=== PATIENT | female | born 1945 | race Caucasian/White ===

== ENCOUNTER 2022-10-09 11:46 | Outpatient (CLI) | payer MEDICAID | END 2022-10-09 11:47 | disposition EMS.NT | LOC: EMS 11:46 | DX: Z03.89 Encounter for observation for other suspected diseases and conditions ruled out (principal) ==

== ENCOUNTER 2023-03-20 06:37 | Outpatient (CLI) | payer MEDICARE, MEDICAID | END 2023-03-20 23:59 | disposition critical access hospital (66) | LOC: EMS 06:37 | DX: S09.90XA Unspecified injury of head, initial encounter (principal); W19.XXXA Unspecified fall, initial encounter; Y92.092 Bedroom in other non-institutional residence as the place of occurrence of the external cause | CPT/HCPCS: A0425; A0429 ==

== ENCOUNTER 2023-03-20 06:55 | Inpatient (IN) | payer MEDICARE, MEDICAID ==
[2023-03-20] MEDS ORDERED: TETANUS/DIPHTHERIA/PERTUSSIS 0.5 ML SYRINGE IM ONE (07:41)
[2023-03-20 07:46] LABS: BASOPHILS % (AUTO) 0.2 %; EOSINOPHILS # (AUTO) 0.1 10^3/uL (0.0-0.7); EOSINOPHILS % (AUTO) 1.3 %; HCT - HEMATOCRIT 36.1 % (37.0-47.0); HGB - HEMOGLOBIN 11.8 g/dL (12.0-16.0); LYMPHOCYTES # (AUTO) 0.9 10^3/uL (1.5-3.5); LYMPHOCYTES % (AUTO) 16.8 %; MEAN CORPUSCULAR HEMOGLOBIN 33.9 pg (27.0-31.0); MEAN CORPUSCULAR HGB CONC 32.7 g/dL (32.0-36.0); MEAN CORPUSCULAR VOLUME 103.7 fL (81.0-99.0); MONOCYTES # (AUTO) 0.4 10^3/uL (0.0-1.0); MONOCYTES % (AUTO) 6.5 %; NEUTROPHILS % (AUTO) 74.5 %; PLT - PLATELET COUNT 112 10^3/uL (130-450); RED BLOOD COUNT 3.48 10^6/uL (4.20-5.40); RED CELL DISTRIBUTION WIDTH 13.3 % (12.0-15.0); WHITE BLOOD COUNT 5.4 x10^3/uL (4.8-10.8)
[2023-03-20 07:48] LABS: ALBUMIN 3.6 g/dL (3.2-5.5); ALBUMIN/GLOBULIN RATIO 1.1 (1.0-2.2); BILIRUBIN,TOTAL 0.3 mg/dL (0.2-1.0); CALCIUM 10.4 mg/dL (8.5-10.3); CREATININE 2.8 mg/dL (0.6-1.3)
[2023-03-20] MEDS ORDERED: SODIUM CHLORIDE 0.9% 1,000 ML IV STA (08:18)
[2023-03-20 08:25] LABS: BILIRUBIN,URINE NEGATIVE (NEGATIVE); GLUCOSE, URINE (UA) NEGATIVE (NEGATIVE); KETONES,URINE (UA) NEGATIVE (NEGATIVE); LEUKOCYTE ESTERASE, URINE SMALL (NEGATIVE); NITRITE,URINE POSITIVE (NEGATIVE); OCCULT BLOOD,URINE NEGATIVE (NEGATIVE); PH,URINE 6.5 PH (5.0-7.5); PROTEIN,URINE NEGATIVE (NEGATIVE); UROBILINOGEN,URINE 0.2 (NORMAL) E.U./dL (NORMAL)
--- NOTE | 2023-03-20 08:25 | CT Report ---
PROCEDURE: CERVICAL SPINE WO INDICATIONS: fall/head injury/dementia TECHNIQUE: Noncontrast 3 mm thick sections acquired from the skull base to the T4 level. Sagittal and coronal r eformats were then constructed. For radiation dose reduction, the following was used: automated exp osure control, adjustment of mA and/or kV according to patient size. COMPARISON: None. FINDINGS: Image quality: Excellent. Bones: No fractures or dislocations. Visualized superior ribs are intact. Reversal of the normal ce rvical lordosis. Moderate disc disease at C5-6. Moderate disc disease at remaining levels. Soft tissues: Prevertebral soft tissues are normal in thickness. No paravertebral hematomas. No ap ical pneumothoraces. IMPRESSION: No acute, displaced fracture or traumatic subluxation. Reviewed by: Casper Massey on 03/20/2023 8:23 AM PDT Approved by: Casper Massey on 03/20/2023 8:23 AM PDT Station ID: [id number]
--- NOTE | 2023-03-20 08:26 | ED Physician Documentation ---
History of Present Illness - Stated complaint Stated Complaint: GLF/FOREHEAD LAC - Chief complaint Chief Complaint: Trauma Hd/Nk - History obtained from History obtained from: EMS - Additonal information Additional information: Patient is a 77-year-old female who resides at [facility] with a history of dementia presenting for evaluation of an unwitnessed fall. Per EMS report, staff checked on her around 5:00 and she was in her bed. They then checked on her about 45 minutes later and she was found next to her bed with a small laceration to her scalp. Per EMS staff and reported that for the past several days she has not been her usual self and has been less interactive and talkative. Patient is not able to provide any meaningful history due to her dementia and is not attempting to answer any questions. Review of Systems Unable to obtain: Dementia PD PAST MEDICAL HISTORY - Past Medical History Past Medical History: Yes Musculoskeletal: Osteoarthritis, Other Other Past Medical History: dementia - Past Surgical History Past Surgical History: No - Present Medications Home Medications: Ambulatory Orders Medication Instructions Recorded Confirmed Gabapentin [Neurontin] 300 mg PO TID 03/20/23 03/20/23 LORazepam [Ativan] 0.5 mg PO Q6H 03/20/23 03/20/23 Meloxicam [Mobic] 7.5 mg PO BID 03/20/23 03/20/23 Potassium Chloride [K-Dur] 20 meq PO 0800 03/20/23 03/20/23 QUEtiapine [SEROquel] 25 mg PO QPM 03/20/23 03/20/23 Zolpidem Tartrate [Ambien] 10 mg PO DAILY PM 03/20/23 03/20/23 hydroCHLOROthiazide [Hydrodiuril] 25 mg PO DAILY 03/20/23 03/20/23 risperiDONE [RisperDAL] 0.25 mg PO BID 03/20/23 03/20/23 traMADol [Ultram] 50 mg PO Q4-6H 03/20/23 03/20/23 traZODone [Desyrel] 50 mg PO HS 03/20/23 03/20/23 - Allergies Allergies/Adverse Reactions: Allergies Allergy/AdvReac Type Severity Reaction Status Date / Time No Known Drug Allergies Allergy Verified 03/20/23 07:15 - Social History Does the pt smoke?: No Smoking Status: Never smoker Does the pt drink ETOH?: No Does the pt have substance abuse?: No - Immunizations Immunizations are current?: Yes PD ED PE NORMAL - General General: No acute distress, Well developed/nourished, Other (Alert, makes eye contact but does not answer questions, She did verbalize a string of sentences while I was repairing her scalp laceration). No: Alert and oriented X 3 - HEENT HEENT: Atraumatic, PERRL, EOMI, Moist mucous membranes, Pharynx benign - Neck Neck: Supple, no meningeal sign. No: C-Spine cleared by NEXUS criteria (Dementia,) - Cardiac Cardiac: RRR, No murmur, Strong equal pulses - Respiratory Respiratory: No respiratory distress, Clear bilaterally - Abdomen Abdomen: Soft, Non tender - Extremities Extremities: Other (Bilateral lower extremity edema; Allows for full range of motion at all 4 extremities) - Neuro Neuro: No: Alert and oriented X 3 (Alert, does not answer any orientation questions, at times mumbles words to herself) Eye Opening: Spontaneous Motor: Localizes to Pain Verbal: Inappropriate GCS Score: 12 Results - Vitals Vitals: Vital Signs - 24 hr 03/20/23 03/20/23 03/20/23 07:07 07:26 09:28 Temperature 35.9 C L Heart Rate 60 58 L 64 Respiratory 20 20 10 L Rate Blood Pressure 136/63 H 136/63 H 145/90 H O2 Saturation 100 100 100 03/20/23 11:35 Temperature Heart Rate 69 Respiratory 11 L Rate Blood Pressure 160/83 H O2 Saturation 99 Oxygen O2 Source Room air - EKG (time done) 0850 EKG releavant findings:: EKG personally interpreted by author of this note. Relevant findings are: Rate 59, NSR, no STEMI, no ST depressions Rate: Rate (enter#) (59) Rhythm: NSR Ischemia: No: ST elevation c/w ischemia Compare to prior EKG: Old EKG unavailable - Labs Labs: Laboratory Tests 03/20/23 03/20/23 03/20/23 07:32 07:32 08:19 WBC 5.4 RBC 3.48 L Hgb 11.8 L Hct 36.1 L MCV 103.7 H MCH 33.9 H MCHC 32.7 RDW 13.3 Plt Count 112 L MPV 11.0 H Neut # (Auto) 4.0 Lymph # (Auto) 0.9 L [place] # (Auto) 0.4 Eos # (Auto) 0.1 Baso # (Auto) 0.0 Absolute Nucleated RBC 0.00 Nucleated RBC % 0.0 Sodium 146 H Potassium 5.0 H Chloride 109 Carbon Dioxide 33 H Anion Gap 4.0 L BUN 65 H Creatinine 2.8 H Estimated GFR (MDRD) 16 L Glucose 91 Calcium 10.4 H Total Bilirubin 0.3 AST 24 ALT 27 Alkaline Phosphatase 73 Total Protein 7.0 Albumin 3.6 Globulin 3.4 Albumin/Globulin Ratio 1.1 Urine Color YELLOW Urine Clarity CLEAR Urine pH 6.5 Ur Specific [place] 1.015 Urine Protein NEGATIVE Urine Glucose (UA) NEGATIVE Urine Ketones NEGATIVE Urine Occult Blood NEGATIVE Urine Nitrite POSITIVE H Urine Bilirubin NEGATIVE Urine Urobilinogen 0.2 (NORMAL) Ur Leukocyte Esterase SMALL H Urine RBC 0-5 Urine WBC 4-5 Ur Squamous Epith Cells RARE Squamous Urine Bacteria Many H Urine Mucus Few Strands Ur Microscopic Review INDICATED Urine Culture Comments INDICATED Procedures - Laceration (location) Frontal Scalp Length in cm: 2 Wound type: Linear, Clean Wound preparation: Hibiclens, Irrigated copiously NS Skin layer closure: Giselle (3) Other: Patient tolerated well, No complications, Tetanus booster given PD Medical Decision Making - ED course Complexity details: reviewed results, re-evaluated patient, d/w patient ED course: Patient is a 77-year-old female presenting for evaluation of unwitnessed fall with obvious head injury and small scalp laceration. Scalp laceration was closed with giselle. Head CT and cervical spine CT were obtained and reviewed without significant findings.Per staff at skilled nursing patient has not been at her baseline for the past several day and is not able to contribute any meaningful history. Therefore I did obtain labs with a CBC, chemistry and EKG. Urinalysis is concerning for infection. CMP is abnormal with sodium of 146, potassium of 5, creatinine of 2.8. CT of the abdomen pelvis was also obtained and I see no signs of ureter stone or obstruction. I did obtain records from [facility] and labs in September of this year demonstrated a normal creatinine at 1.0. Patient was given IV fluids as well as IV Rocephin. Di scussed the case with admitting hospitalist who will admit her for further management. 1050 - Discussed with Dr. Sullivan will place admission orders. Departure - Departure Disposition: 66 [facility] DC/Xfer Clinical Impression: QUE (acute kidney injury), UTI (urinary tract infection), Head injury, Scalp laceration, Dementia, Altered mental state Condition: Fair Discharge Date/Time: 03/20/23 13:13
--- NOTE | 2023-03-20 08:26 | CT Report ---
PROCEDURE: HEAD WO INDICATIONS: fall/head injury/dementia TECHNIQUE: Noncontrast 4.5 mm thick angled axial sections acquired from the foramen magnum to the vertex. For r adiation dose reduction, the following was used: automated exposure control, adjustment of mA and/or kV according to patient size. COMPARISON: None. FINDINGS: Image quality: Excellent. CSF spaces: Basal cisterns are patent. No extra-axial fluid collections. Ventricles are normal in size and shape. Brain: No midline shift. No intracranial masses or hemorrhage. Roca-white matter interface is norm al. Leukoaraiosis, commonly caused by chronic small vessel ischemic disease. Age-related volume loss . Skull and face: Calvarium and visualized facial bones are intact, without suspicious lesions. Sinuses: Visualized sinuses and mastoids are clear. IMPRESSION: No acute intracranial pathology Reviewed by: Casper Massey on 03/20/2023 8:24 AM PDT Approved by: Casper Massey on 03/20/2023 8:24 AM PDT Station ID: [id number]
[2023-03-20 08:28] LABS: CLARITY,URINE CLEAR (CLEAR)
[2023-03-20 08:32] LABS: BACTERIA,URINE Many /HPF (None Seen); MUCUS,URINE Few Strands; RBC,URINE 0-5 /HPF (0-5); SQUAMOUS EPITHELIAL CELL,UR RARE Squamous (<= Few)
[2023-03-20] MEDS ORDERED: cefTRIAXone 1 GM in SODIUM CHLORIDE 0.9% MINIBAG 100 ML IV STA (08:39)
--- NOTE | 2023-03-20 09:06 | CT Report ---
PROCEDURE: ABDOMEN/PELVIS WO INDICATIONS: acute renal failure TECHNIQUE: A CT scan of the abdomen and pelvis was performed without the use of intravenous contrast. Images we re recorded and evaluated at appropriate window settings. Reformats: coronal and sagittal. For radiat ion dose reduction, the following was used: automated exposure control, adjustment of mA and/or kV ac cording to patient size. COMPARISON: None. FINDINGS: Image quality: Excellent. Lung bases and heart: Cardiomegaly. CHEST: Bilateral breast implants with peripheral calcifications.. Liver: No solid mass. Gallbladder and biliary tree: No radiopaque stones or wall thickening. No biliary dilation. Spleen: No splenomegaly. Pancreas: No pancreatic ductal dilation. Adrenals: No adrenal nodule. Kidneys and ureters: No hydronephrosis. No renal cystic lesion which requires follow up. No solid mas s. Bowel and peritoneum: No bowel distension. No pathologic free fluid. Diverticulosis without evidence of diverticulitis. Lymph nodes: No central or retroperitoneal adenopathy. Vessels: No infrarenal aortic aneurysm. PELVIS Reproductive organs: Left adnexal cyst measuring 3.4 cm. Bladder: No wall thickness, accounting for underdistention. Pelvic lymph nodes: No pelvic adenopathy by size criteria. Bones: Degenerative changes throughout the thoracolumbar spine with compression fractures of L1-L3 wi th associated vacuum disc phenomenon suggesting chronic etiologies. Disc height loss at L5-S1. Other: No significant ventral or inguinal hernia. IMPRESSION: No renal stone or mass. No hydronephrosis. Scattered diverticulosis without evidence of acute diverticulitis. Left adnexal 3.4 cm cyst Cardiomegaly Reviewed by: Kulwinder Angela MD on 03/20/2023 8:05 AM PEDRO Approved by: Kulwinder Angela MD on 03/20/2023 8:05 AM PEDRO Station ID: [id number]
--- NOTE | 2023-03-20 09:20 | XRAY Report ---
PROCEDURE: Chest 1 View X-Ray INDICATIONS: AMS TECHNIQUE: One view of the chest was acquired. COMPARISON: None. FINDINGS: The patient is slightly rotated. Surgical changes and devices: Bilateral breast implants. Lungs and pleura: No pleural effusions or pneumothorax. Bibasilar atelectasis and/or scarring Mediastinum: Mediastinal contours appear normal. Heart size is normal. Bones and chest wall: No suspicious bony lesions. Overlying soft tissues appear unremarkable. Chron ic compression fractures at the thoracolumbar junction. IMPRESSION: No acute cardiopulmonary process. Reviewed by: Kulwinder Angela MD on 03/20/2023 8:18 AM PEDRO Approved by: Kulwinder Angela MD on 03/20/2023 8:18 AM PEDRO Station ID: [id number]
[2023-03-20] MEDS ORDERED: ONDANSETRON 4 MG/2 ML VIAL IVP PRN (12:55)
[2023-03-20] MEDS ORDERED: SODIUM CHLORIDE FLUSH 0.9% 10 ML SYRINGE IVP PRN (12:55)
--- NOTE | 2023-03-20 13:01 | HISTORY & PHYSICAL EXAMINATION ---
Chief Complaint - Chief Complaint Chief Complaint: AMS, GLF at her NH, QUE, UTI History of Present Illness - Admitted From Admitted From:: ED - History Obtained From History obtained from: ED provider - History of Present Illness HPI Comment/Other: This is a 77-year-old female who has a history of dementia and lives at [facility]. There is 1 page of records that we have from [facility]. Her medications show that she is on several vitamins and supplements and takes both Lasix and HCTZ daily as well as gabapentin and narcotics for pain. For the last few days she has been less communicative than normal, according to staff at [facility]. Today she had an unwitnessed fall and was found down on the floor next to her bed, with a laceration noticed on her forehead. She was brought to the ER. She underwent CT imaging of the head and neck, which were negative for hemorrhage or trauma. She underwent stapling of the laceration in the ER. She had presented minimally communicative and just staring when spoken to, but then was yelling a word salad during the stapling of her laceration. Work-up in our ER showed that the patient has QUE with a creatinine of 2.8 (usual creatinine 0.9), she is dehydrated with a sodium of 146, and has a abnormal U/A consistent with a UTI. The patient started to receive IV fluids and received IV ceftriaxone in the ER, after cultures were sent off. The ED provider then spoke to me about this patient. She will be admitted to the Hospitalist service. There is 1 page of records that we have from [facility]. Under CODE STATUS, it is blank, so by default she will be a Full Code. History - Past Medical History Neuro: reports: Dementia Musculoskeletal: reports: Osteoarthritis, Other MRSA Hx?: No Other Past Medical History: dementia - Family & Social History Living arrangement: Assisted living Social History Notes: Her past smoking and alcohol history are not known. Meds/Allgy - Home Medications Home Medications: Ambulatory Orders Medication Instructions Recorded Confirmed Furosemide [Lasix] 1 tab PO MOWEFR 03/20/23 03/20/23 Gabapentin [Neurontin] 300 mg PO TID 03/20/23 03/20/23 HYDROcod/ACETAM 5/325 [[place] 5/325] 1 tab PO Q4H PRN 03/20/23 03/20/23 LORazepam [Ativan] 0.5 mg PO Q6H PRN 03/20/23 03/20/23 Meloxicam [Mobic] 7.5 mg PO BID 03/20/23 03/20/23 Potassium Chloride [K-Dur] 20 meq PO MOWEFR 03/20/23 03/20/23 QUEtiapine [SEROquel] 25 mg PO QPM 03/20/23 03/20/23 Zolpidem Tartrate [Ambien] 10 mg PO DAILY PM 03/20/23 03/20/23 hydroCHLOROthiazide [Hydrodiuril] 25 mg PO DAILY 03/20/23 03/20/23 risperiDONE [RisperDAL] 0.25 mg PO BID 03/20/23 03/20/23 traMADol [Ultram] 50 mg PO Q4-6H 03/20/23 03/20/23 traZODone [Desyrel] 50 mg PO HS 03/20/23 03/20/23 - Allergies Allergies/Adverse Reactions: Allergies Allergy/AdvReac Type Severity Reaction Status Date / Time No Known Drug Allergies Allergy Verified 03/20/23 07:15 Review of Systems - All Other Systems All Other Systems: reports: Other (Unable to obtain since the patient is not communicative currently and has underlying dementia) Exam - Vital Signs Vital Signs: Vital Signs x48h Temp Pulse Resp BP Pulse Ox 03/20/23 11:35 69 11 L 160/83 H 99 03/20/23 09:28 64 10 L 145/90 H 100 03/20/23 07:26 58 L 20 136/63 H 100 03/20/23 07:07 35.9 C L 60 20 136/63 H 100 - Physical Exam General Appearance: positive: No acute distress, Lethargic Eyes Bilateral: positive: No lid inflammation ENT: positive: Dry mucous membranes Neck: positive: Nml inspection Respiratory: positive: No respiratory distress Cardiovascular: positive: Regular rate & rhythm Abdomen: positive: No distention Skin: positive: Warm, Dry Extremities: positive: No pedal edema Neurologic/Psychiatric: positive: Other (Lethargic. Stares ahead without answering.) Conclusion/Plan - Problem List (1) Altered mental state Conclusion/Plan: Staff at her [facility] reported to our ER that the patient has already had several days of having decreased interactions. Today she was found down on the ground at the [place]. Here she is not communicative but only stares ahead when being spoken to. Her AMS is likely from the combination of her UTI, her dehydration, and possibly from today's fall and head injury. Plan: We will treat the underlying UTI with IV antibiotics We will treat the dehydration and QUE with IV fluids Give supportive care We will order PT and OT eval and treatment (2) UTI (urinary tract infection) Conclusion/Plan: Abnormal urinalysis found. This may explain the several recent days that she has had decreased social interactions at her [facility]. Abdominal imaging done in ER showed no hydronephrosis, obstruction or stones. Plan: Continue with empiric IV ceftriaxone Await urine culture and blood culture results to tailor antibiotics (3) QUE (acute kidney injury) Conclusion/Plan: This is likely caused by being on 2 diuretics causing dehydration Plan: Avoid nephrotoxins Continue with IV fluids Follow BMP daily (4) Fall at [facility]pc Conclusion/Plan: This was unwitnessed. Plan: We will place the patient on telemetry and watch for arrhythmias We will check orthostatic vital signs We will not give her the Lasix and HCTZ and would not recommend that to diuretics be continued in the future When she is more awake and alert and communicative like her usual self, will order PT and OT evaluations (5) Scalp laceration Conclusion/Plan: This was already stapled by the ER provider Plan: We will offer pain meds as needed (6) Dementia Conclusion/Plan: As per history. Plan: We will resume any meds for dementia if she is on these, once the medication list is reconciled by pharmacy - Lab Results Fish Bones: 03/20/23 07:32 03/20/23 07:32 - Other Other Results/Comments: Attestation: The patient is expected to be hospitalized for >2 midnights and is expected to be discharged or transferred within 96 hours: Yes.
[2023-03-20] MEDS: DEXTROSE 5%-0.45% NACL 1,000 ML IV SCH ×2 (13:43→22:09)
--- NOTE | 2023-03-20 14:50 | PHARMACY PROGRESS NOTE ---
- Best Possible Medication History Admit Date and Time: 03/20/23 7385 Processed by: Pharmacy Medication History completed: Yes Patient Interview: Pt unable to participate Secondary Source(s): Facility MAR as ONLY source As the person ultimately responsible for medication therapy, providers are able to order a medication from an existing home medication list in [facility] via the "Reconcile Routine" prior to Confirmation of that medication by web support engineer. Such practice is discouraged except when the physician, in their clinical judgment, deems that a medical need exists for a medication without regard to previous use.
[2023-03-20] MEDS: SODIUM CHLORIDE FLUSH 0.9% 10 ML SYRINGE IVP SCH ×2 (16:07→23:28)
[2023-03-20] MEDS: ZINC OXIDE 20% OINT 30 GM TUBE TOP PRN (20:43)
[2023-03-21 03:32] LABS: ALBUMIN/GLOBULIN RATIO 1.1 (1.0-2.2); BILIRUBIN,TOTAL 0.2 mg/dL (0.2-1.0); CALCIUM 9.1 mg/dL (8.5-10.3); CREATININE 2.4 mg/dL (0.6-1.3); MAGNESIUM 1.8 mg/dL (1.7-2.3); POTASSIUM 4.1 mmol/L (3.5-4.5); TOTAL PROTEIN 5.7 g/dL (6.4-8.9)
[2023-03-21] MEDS: DEXTROSE 5%-0.45% NACL 1,000 ML IV SCH ×2 (08:08→19:06)
[2023-03-21] MEDS: cefTRIAXone 1 GM in SODIUM CHLORIDE 0.9% MINIBAG 100 ML IV SCH (08:36)
[2023-03-21] MEDS: SODIUM CHLORIDE FLUSH 0.9% 10 ML SYRINGE IVP SCH ×2 (08:37→15:34)
--- NOTE | 2023-03-21 08:40 | PROVIDER PROGRESS NOTE ---
Assessment/Plan - Problem List (1) Altered mental state Assessment/Plan: Staff at her correction reported to our ER that the patient had several days of having decreased interactions. On 03/20 she was [place]. Here she is not answering verbally but only stares ahead when being spoken to. She had CT head and this showed no acute findings. Her AMS is likely from the combination of her UTI, her dehydration and uremia, and possibly from the fall and head injury. Alternatively she may have had a stroke that was not yet visible by CT imaging. Her med list was reconciled and she was taking 7 medications that could have caused oversedation There has been slight improvementtoday, since yesterday, in that she is now speaking to herself, but it is gibberish. Plan: Remain off the medications on her med list that could add to oversedation: Gabapentin, [place] which was prn, Lorazepam which was prn, Quetiapine, Risperdal, Ultram, Desyrel, and Zolpidem Cont to treat the underlying UTI with IV antibiotics Cont to treat the dehydration and QUE with IV fluids Will either get a brain MRI (which we do not have available today, M[place]), or will repeat head CT if there is no further speech improvement tomorrow. I will order PT and OT eval and treatment, when she is more alert (2) UTI (urinary tract infection) Conclusion/Plan: Abnormal urinalysis found. This may explain the several recent days that she has had decreased social interactions at her correction. Abdominal imaging done in ER showed no hydronephrosis, obstruction or stones. Plan: Continue with empiric IV ceftriaxone Await urine culture and blood culture results to tailor antibiotics (3) QUE (acute kidney injury) Conclusion/Plan: She presented with a creatinine of 2.8. Her usual creatinine is 0.9. All labs were reviewed. Her creatinine today is improved to 2.4 This is likely caused by being on 2 diuretics causing dehydration. In addition, she has been less interactive so poosibly taking in less fluids orally lately. Plan: Avoid nephrotoxins Continue with IV maintemance fluids Follow BMP daily (4) Bradycardia Conclusion/Plan: Because of the fall at the correction, she was put on bradycardia to watch for arrhythmias. Telemetry shows that she has frequent sinus arrhythmia, producing heart rates as low as 34 nearly a minute. Her admission EKG was also abnormal showing T wave changes which suggest ischemia Plan: We will obtain an Echocardiogram (we have no composite technician here today or for the next 2 days) We will order a set of troponins We will order TSH to evaluate for hypothyroidism Avoid any heart rate-slowing medications Remain on telemetry (5) Fall at correction Conclusion/Plan: This was unwitnessed. It did cause a scalp laceration. Her head and neck were "cleared" with CT imaging showing no acute findings. Plan: Remain on telemetry and watch for arrhythmias We will check orthostatic vital signs We will not give her the Lasix and HCTZ and would not recommend that those diuretics be continued in the future When she is more awake and alert and communicative like her usual self, will order PT and OT evaluations (6) Scalp laceration Conclusion/Plan: This was already stapled by the ER provider Plan: We will offer pain meds as needed (7) Dementia Conclusion/Plan: As per history. Her baseline function is unknown to me. We were told that she was less engaged over the recent few days. In looking at her body habitus she is very poorly kempt, dirty, greasy as if she has not had personal hygiene for many days. In looking at her medication list, she may have had dementia with behavior disturbances, since she was on Quetiapine, Risperdal, and Desyrel Plan: Will order a shower and hygiene care. Remain off the psych medicines since she is currently at risk for oversedation - Current Meds Current Meds: Current Medications Generic Name Dose Route Start Last Admin Trade Name Gaurangq PRN Reason Stop Dose Admin Dextrose/Sodium Chloride 1,000 mls @ 100 mls/hr 03/20/23 13:00 03/21/23 08:08 D5.45ns IV 100 mls/hr .Q10H COREY Administration Multi-Ingredient Ointment 1 applic 03/20/23 20:36 03/20/23 20:43 Zinc Oxide 20% Oint 30 Gm Tube TOP 1 applic PRN PRN Administration Skin Care Sodium Chloride 10 ml 03/20/23 17:00 03/20/23 23:28 Sodium Chloride Flush 0.9% 10 Ml Syringe IVP Not Given 0100,0900,1700 COREY - Lab Result Fish Bone Diagrams: 03/21/23 03:07 03/21/23 03:07 - Additional Planning My Orders: My Active Orders 03/20/23 12:55 Activity Orders [RC] Q2HR IO [RC] IOSHIFT Initiate Bowel Care Protocol [RC] .protocol Initiate Flu Vaccine Screening [RC] ONCE Initiate Line Care Protocol [RC] QSHIFT Initiate Personal Care Protoco [RC] .protocol Initiate Pneumonia Vaccine Scr [RC] ONCE Oxygen Therapy [RC] .PRN Telemetry- [RC] Q4HR Vital Signs [RC] Q4HR Acetaminophen [Tylenol] 650 mg PO Q4HR PRN Ondansetron Inj [Zofran Inj] 4 mg IVP Q6HR PRN Sodium Chloride Flush 0.9% [Normal Saline Flush 0.9%] 10 ml IVP PRN PRN Code Status [OTHERS] Routine Condition of Patient [OTHERS] Routine DVT Prophylaxis [OTHERS] Routine 03/20/23 12:57 Daily Weight [RC] 0600 IV Insert [RC] .ONCE 03/20/23 12:58 Initiate Line Care Protocol [RC] QSHIFT SCDs [RC] QSHIFT 03/20/23 13:00 Dextrose 5%-0.45% NaCl [D5.45ns] 1,000 ml IV 100 mls/hr 03/20/23 17:00 Sodium Chloride Flush 0.9% [Normal Saline Flush 0.9%] 10 ml IVP 0100,0900,1700 03/20/23 18:26 Miscellaenous Nursing Order [RC] QSHIFT 03/20/23 20:36 Zinc Oxide 20% Oint [Zinc Oxide] 1 applic TOP PRN PRN 03/21/23 TROPONIN I HIGH SENSITIVITY [CHEM] Stat 03/21/23 Breakfast Soft Mechanical Diet [DIET] 03/21/23 05:00 THYROID STIMULATING HORMONE [CHEM] Routine 03/21/23 08:31 CBC - COMP BLD CT W/AUTO DIFF [HEME] Urgent 03/21/23 09:00 cefTRIAXone [Rocephin] 1 gm Sodium Chloride 0.9% Minibag [Normal Saline 0.9% Minibag] 100 ml IV DAILY 03/21/23 11:30 TROPONIN I HIGH SENSITIVITY [CHEM] Urgent 03/22/23 05:00 BMP - BASIC METABOLIC PANEL [CHEM] DAILYLAB CBC - COMP BLD CT W/AUTO DIFF [HEME] DAILYLAB 03/23/23 05:00 BMP - BASIC METABOLIC PANEL [CHEM] DAILYLAB CBC - COMP BLD CT W/AUTO DIFF [HEME] DAILYLAB 03/23/23 07:00 Echo Transthoracic Complete [ECHO] Routine 03/24/23 05:00 BMP - BASIC METABOLIC PANEL [CHEM] DAILYLAB CBC - COMP BLD CT W/AUTO DIFF [HEME] DAILYLAB Subjective - Subjective Patient Reports: Resting Comfortably, Other (No complaints, no speech when spoken to, but speaks giberish to herself at times) Objective Vital Signs: Vital Signs - 24 hr 03/20/23 03/20/23 03/20/23 09:28 11:35 13:31 Temperature Heart Rate 64 69 Heart Rate [ 59 L Brachial] Respiratory 10 L 11 L 20 Rate Blood Pressure 145/90 H 160/83 H Blood Pressure 147/73 H [Left Brachial artery] Blood Pressure [Right Brachial artery] O2 Saturation 100 99 99 03/20/23 03/20/23 03/20/23 15:38 16:50 17:09 Temperature 35.3 C L Heart Rate Heart Rate [ 67 63 64 Brachial] Respiratory 20 18 Rate Blood Pressure Blood Pressure 142/55 H 153/85 H [Left Brachial artery] Blood Pressure [Right Brachial artery] O2 Saturation 99 98 03/20/23 03/20/23 03/20/23 17:22 17:47 18:23 Temperature 36.0 C L Heart Rate Heart Rate [ 55 L 67 Brachial] Respiratory 18 Rate Blood Pressure Blood Pressure 111/73 [Left Brachial artery] Blood Pressure [Right Brachial artery] O2 Saturation 97 03/20/23 03/20/23 03/21/23 20:19 23:55 01:54 Temperature 35.4 C L 36.1 C L Heart Rate Heart Rate [ 62 66 69 Brachial] Respiratory 20 20 Rate Blood Pressure Blood Pressure 144/76 H 115/73 [Left Brachial artery] Blood Pressure 136/84 H [Right Brachial artery] O2 Saturation 97 97 03/21/23 03/21/23 05:00 07:47 Temperature 36.3 C L 36.4 C L Heart Rate Heart Rate [ 70 65 Brachial] Respiratory 16 18 Rate Blood Pressure Blood Pressure [Left Brachial artery] Blood Pressure 125/63 119/63 [Right Brachial artery] O2 Saturation 95 97 Oxygen O2 Source Room air I&O (Last 24 Hrs): Intake and Output Totals x24h 03/19/23 03/20/23 03/21/23 23:59 23:59 23:59 Intake Total 2093.333 998.333 Output Total 150 400 Balance 1943.333 598.333 General: Alert HEENT: Other (Dry mucosa, disheveld) Neck: Supple Neuro: Alert, Other (Stares ahead. Gibberish speech, moves allextrem spont aneously) Cardiovascular: Regular rate Respiratory: No respiratory distress Abdomen: Soft Extremities: No clubbing, No edema - Results Results: Laboratory Results WBC 5.4 x10^3/uL (4.8-10.8) 03/20/23 07:32 RBC 3.48 10^6/uL (4.20-5.40) L 03/20/23 07:32 Hgb 11.8 g/dL (12.0-16.0) L 03/20/23 07:32 Hct 36.1 % (37.0-47.0) L 03/20/23 07:32 MCV 103.7 fL (81.0-99.0) H 03/20/23 07:32 MCH 33.9 pg (27.0-31.0) H 03/20/23 07:32 MCHC 32.7 g/dL (32.0-36.0) 03/20/23 07:32 RDW 13.3 % (12.0-15.0) 03/20/23 07:32 Plt Count 112 10^3/uL (130-450) L 03/20/23 07:32 MPV 11.0 fL (7.9-10.8) H 03/20/23 07:32 Neut # (Auto) 4.0 10^3/uL (1.5-6.6) 03/20/23 07:32 Lymph # (Auto) 0.9 10^3/uL (1.5-3.5) L 03/20/23 07:32 [place] # (Auto) 0.4 10^3/uL (0.0-1.0) 03/20/23 07:32 Eos # (Auto) 0.1 10^3/uL (0.0-0.7) 03/20/23 07:32 Baso # (Auto) 0.0 10^3/uL (0.0-0.1) 03/20/23 07:32 Absolute Nucleated RBC 0.00 x10^3/uL 03/20/23 07:32 Nucleated RBC % 0.0 /100WBC 03/20/23 07:32 Sodium 145 mmol/L (135-145) 03/21/23 03:07 Potassium 4.1 mmol/L (3.5-4.5) 03/21/23 03:07 Chloride 112 mmol/L (101-111) H 03/21/23 03:07 Carbon Dioxide 29 mmol/L (21-32) 03/21/23 03:07 Anion Gap 4.0 (6-13) L 03/21/23 03:07 BUN 53 mg/dL (6-20) H 03/21/23 03:07 Creatinine 2.4 mg/dL (0.6-1.3) H 03/21/23 03:07 Estimated GFR (MDRD) 20 (>89) L 03/21/23 03:07 Glucose 92 mg/dL (74-104) 03/21/23 03:07 Calcium 9.1 mg/dL (8.5-10.3) 03/21/23 03:07 Magnesium 1.8 mg/dL (1.7-2.3) 03/21/23 03:07 Total Bilirubin 0.2 mg/dL (0.2-1.0) 03/21/23 03:07 AST 19 IU/L (10-42) 03/21/23 03:07 ALT 21 IU/L (10-60) 03/21/23 03:07 Alkaline Phosphatase 61 IU/L (42-121) 03/21/23 03:07 Total Protein 5.7 g/dL (6.4-8.9) L 03/21/23 03:07 Albumin 3.0 g/dL (3.2-5.5) L 03/21/23 03:07 Globulin 2.7 g/dL (2.1-4.2) 03/21/23 03:07 Albumin/Globulin Ratio 1.1 (1.0-2.2) 03/21/23 03:07 Urine Color YELLOW 03/20/23 08:19 Urine Clarity CLEAR (CLEAR) 03/20/23 08:19 Urine pH 6.5 PH (5.0-7.5) 03/20/23 08:19 Ur Specific [place] 1.015 (1.002-1.030) 03/20/23 08:19 Urine Protein NEGATIVE mg/dL (NEGATIVE) 03/20/23 08:19 Urine Glucose (UA) NEGATIVE mg/dL (NEGATIVE) 03/20/23 08:19 Urine Ketones NEGATIVE mg/dL (NEGATIVE) 03/20/23 08:19 Urine Occult Blood NEGATIVE (NEGATIVE) 03/20/23 08:19 Urine Nitrite POSITIVE (NEGATIVE) H 03/20/23 08:19 Urine Bilirubin NEGATIVE (NEGATIVE) 03/20/23 08:19 Urine Urobilinogen 0.2 (NORMAL) E.U./dL (NORMAL) 03/20/23 08:19 Ur Leukocyte Esterase SMALL (NEGATIVE) H 03/20/23 08:19 Urine RBC 0-5 /HPF (0-5) 03/20/23 08:19 Urine WBC 4-5 /HPF (0-5) 03/20/23 08:19 Ur Squamous Epith Cells RARE Squamous (<= Few) 03/20/23 08:19 Urine Bacteria Many /HPF (None Seen) H 03/20/23 08:19 Urine Mucus Few Strands 03/20/23 08:19 Ur Microscopic Review INDICATED 03/20/23 08:19 Urine Culture Comments INDICATED 03/20/23 08:19
[2023-03-21 08:55] LABS: BASOPHILS % (AUTO) 0.2 %; EOSINOPHILS # (AUTO) 0.1 10^3/uL (0.0-0.7); EOSINOPHILS % (AUTO) 2.5 %; HCT - HEMATOCRIT 31.7 % (37.0-47.0); HGB - HEMOGLOBIN 10.1 g/dL (12.0-16.0); LYMPHOCYTES % (AUTO) 22.8 %; MEAN CORPUSCULAR HEMOGLOBIN 33.1 pg (27.0-31.0); MEAN CORPUSCULAR HGB CONC 31.9 g/dL (32.0-36.0); MEAN CORPUSCULAR VOLUME 103.9 fL (81.0-99.0); MEAN PLATELET VOLUME 11.7 fL (7.9-10.8); MONOCYTES # (AUTO) 0.3 10^3/uL (0.0-1.0); MONOCYTES % (AUTO) 7.1 %; PLT - PLATELET COUNT 97 10^3/uL (130-450); RED BLOOD COUNT 3.05 10^6/uL (4.20-5.40); RED CELL DISTRIBUTION WIDTH 13.2 % (12.0-15.0); WHITE BLOOD COUNT 4.5 x10^3/uL (4.8-10.8)
[2023-03-22] MEDS: SODIUM CHLORIDE FLUSH 0.9% 10 ML SYRINGE IVP SCH ×3 (03:17→20:47)
[2023-03-22] MEDS: DEXTROSE 5%-0.45% NACL 1,000 ML IV SCH ×2 (04:29→15:32)
[2023-03-22 05:19] LABS: BASOPHILS % (AUTO) 0.2 %; EOSINOPHILS # (AUTO) 0.1 10^3/uL (0.0-0.7); EOSINOPHILS % (AUTO) 2.4 %; HCT - HEMATOCRIT 31.1 % (37.0-47.0); LYMPHOCYTES # (AUTO) 1.1 10^3/uL (1.5-3.5); LYMPHOCYTES % (AUTO) 22.3 %; MEAN CORPUSCULAR HEMOGLOBIN 33.4 pg (27.0-31.0); MEAN CORPUSCULAR HGB CONC 32.2 g/dL (32.0-36.0); MEAN PLATELET VOLUME 11.1 fL (7.9-10.8); MONOCYTES # (AUTO) 0.3 10^3/uL (0.0-1.0); MONOCYTES % (AUTO) 6.7 %; NEUTROPHILS # (AUTO) 3.3 10^3/uL (1.5-6.6); NEUTROPHILS % (AUTO) 67.6 %; PLT - PLATELET COUNT 97 10^3/uL (130-450); RED BLOOD COUNT 2.99 10^6/uL (4.20-5.40); RED CELL DISTRIBUTION WIDTH 13.4 % (12.0-15.0); WHITE BLOOD COUNT 4.9 x10^3/uL (4.8-10.8)
[2023-03-22 05:35] LABS: CALCIUM 8.6 mg/dL (8.5-10.3); CREATININE 2.1 mg/dL (0.6-1.3); POTASSIUM 3.7 mmol/L (3.5-4.5)
[2023-03-22] MEDS: ACETAMINOPHEN 325 MG TABLET PO PRN (07:49)
[2023-03-22] MEDS: ZINC OXIDE 20% OINT 30 GM TUBE TOP PRN (07:58)
[2023-03-22] MEDS: cefTRIAXone 1 GM in SODIUM CHLORIDE 0.9% MINIBAG 100 ML IV SCH (07:58)
--- NOTE | 2023-03-22 10:24 | PROVIDER PROGRESS NOTE ---
Assessment/Plan - Problem List (1) Altered mental state Assessment/Plan: Staff at [facility], her fpc, reported to our ER provider, who told me, that the "patient had several days of having decreased interactions". On 03/20 she was found [place] ground at the [place]. At admission, she was not an swering verbally but only stareing ahead when being spoken to. Her head CT head showed no acute findings. At admission, her AMS was felt likely from the combination of her UTI, her dehydration and uremia Her med list was reconciled and she was taking 7 medications that could have caused oversedation. They are all on hold. There has been improvement since admission 2 days ago, in that she is now sp eaking to herself alot, and also able to sometimes answer staff appropriately. Today I learned from social work that when Risperidone was started for combativeness, she had changed to requiring full care for the last 2 weeks. Today I obtained and reviewed the last office records from Dr. Marge Rodriguez regarding her underlying psychiatric diagnoses>> that note was in 10/01 and Dx was just Anxiety. Today I obtained and reviewed the Psych eval from 12/29, done at [facility]. Impression was dementia with behavioral disturbances. She scored 0 on her slums score with severe cognitive impairment. The recommendation was to Decrease or stop lorazepam as it could be adding to confusion and contributing to falls. Also recommended was to decrease and discontinue Quetiapine. Also recommended was to start Risperidone slowly and increase it, "to use it as an antipsychotic, found to be effective in managing aggression, agitation and paranoid delusions, and for sleep disturbances in the setting of dementia". Plan: Remain off the medications on her med list that could add to oversedation: Gabapentin, [place] which was prn, Lorazepam which was prn, Quetiapine, Ultram, Desyrel, and Zolpidem. Resume just her Risperdal I will consider getting a telepsych consultion on her Cont to treat the underlying UTI with IV antibiotics Cont to treat the dehydration and QUE with IV fluids I will order PT and OT eval and treatment, when she is more alert and if she is able to follow directions (2) UTI (urinary tract infection) Conclusion/Plan: Abnormal urinalysis found. This may explain any recent several days that she has had decreased social interactions at her fpc. Abdominal imaging done in ER showed no hydronephrosis, obstruction or stones. Plan: Continue with empiric IV ceftriaxone Await urine culture and blood culture results to tailor antibiotics (3) QUE (acute kidney injury) Conclusion/Plan: She presented with a creatinine of 2.8. Her usual creatinine is 0.9. All labs were reviewed. Her creatinine has improved to 2.4 yesterday and 2.1 today This is likely caused by being on 2 diuretics causing dehydration. In addition, she has been less interactive so possibly taking in less fluids orally lately. Plan: Avoid nephrotoxins Continue with IV maintemance fluids Follow BMP daily (4) Bradycardia Conclusion/Plan: Because of the fall at the fpc, she was put on bradycardia to watch for arrhythmias. Telemetry shows that she has frequent sinus arrhythmia, producing heart rates as low as 30, for nearly a minute. Her admission EKG was also abnormal showing T wave changes which suggest ischemia. I checked a set of troponins and these were Her TSH to evaluate for hypothyroidism Plan: We will obtain an Echocardiogram (we have no non destructive testing technician here today, until tomorrow) Avoid any heart rate-slowing medications Remain on telemetry (5) Fall at fpc Conclusion/Plan: This was unwitnessed. It did cause a scalp laceration. Her head and neck were "cleared" with CT imaging showing no acute findings. Plan: Remain on telemetry and watch for arrhythmias Cont to check orthostatic vital signs We will not give her the Lasix and HCTZ and would not recommend that those diuretics be continued in the future When she is more awake and alert and communicative like her usual self, will order PT and OT evaluations (6) Scalp laceration Conclusion/Plan: This was already stapled by the ER provider Plan: We will offer pain meds as needed (7) Frequent falls Conclusion/Plan: Today I obtained and reviewed the Psych eval from 12/29, done at [facility]. The nurses told the psychiatrist and in the final diagnosis are "frequent fa lls". Plan: If the patient cannot ambulate safely then she should not be left alone as she was in her [facility] room. She would need to be bedbound or wheelchair- bound, or need higher level of caregivinh. (8) Dementia with behavioral disturbances Conclusion/Plan: Her baseline function was unknown to me. In looking at her medication list, she likely has dementia with behavior disturbances, since she was on Quetiapine, Risperdal, and Desyrel. We were told that she was less engaged over the recent few days. Today I learned from social work that when Risperidone was started for combativeness, she had changed to requiring full care for the last 2 weeks. In looking at her body habitus she is very poorly kempt, dirty, greasy as if she has not had personal hygiene for many days. Today I obtained and reviewed the Psych eval from 12/29, done at [facility]. Impression was dementia with behavioral disturbances. She scored 0 on her slums score with severe cognitive impairment. The recommendation was to Decrease or stop lorazepam as it could be adding to confusion and contributing to falls. Also recommended was to decrease and discontinue Quetiapine. Also recommended was to start Risperidone slowly and increase it, "to use it as an antipsychotic, found to be effective in managing aggression, agitation and paranoid delusions, and for sleep disturbances in the setting of dementia". Plan: I will order a shower and hygiene care. Will resumed just the Risperidone - Current Meds Current Meds: Current Medications Generic Name Dose Route Start Last Admin Trade Name Freq PRN Reason Stop Dose Admin Acetaminophen 650 mg 03/20/23 12:55 03/22/23 07:49 Acetaminophen 325 Mg Tablet PO 650 mg Q4HR PRN Administration Pain 1 to 4, or Fever Dextrose/Sodium Chloride 1,000 mls @ 100 mls/hr 03/20/23 13:00 03/22/23 04:29 D5.45ns IV 100 mls/hr .Q10H COREY Administration Ceftriaxone Sodium 1 gm/ 100 mls @ 200 mls/hr 03/21/23 09:00 03/22/23 09:00 Sodium Chloride IV Infused DAILY COREY Infusion Multi-Ingredient Ointment 1 applic 03/20/23 20:36 03/22/23 07:58 Zinc Oxide 20% Oint 30 Gm Tube TOP 1 applic PRN PRN Administration Skin Care Sodium Chloride 10 ml 03/20/23 17:00 03/22/23 07:58 Sodium Chloride Flush 0.9% 10 Ml Syringe IVP 10 ml 0100,0900,1700 COREY Administration - Lab Result Fish Bone Diagrams: 03/22/23 04:49 03/22/23 04:49 - Additional Planning My Orders: My Active Orders 03/21/23 10:18 Shower [RC] PRN 03/23/23 05:00 BMP - BASIC METABOLIC PANEL [CHEM] DAILYLAB CBC - COMP BLD CT W/AUTO DIFF [HEME] DAILYLAB 03/23/23 07:00 Echo Transthoracic Complete [ECHO] Routine 03/24/23 05:00 BMP - BASIC METABOLIC PANEL [CHEM] DAILYLAB CBC - COMP BLD CT W/AUTO DIFF [HEME] DAILYLAB Subjective - Subjective Nursing Reports: Confused, Other (More interactive, talking some gibberish and word salad but 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, 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) Objective Vital Signs: Vital Signs - 24 hr 03/21/23 03/21/23 03/21/23 11:11 12:18 15:30 Temperature 36.4 C L 36.2 C L 36.2 C L Heart Rate [ 68 63 Brachial] Respiratory 18 16 Rate Blood Pressure 123/67 [Left Brachial artery] Blood Pressure 141/74 H [Right Brachial artery] O2 Saturation 97 98 03/21/23 03/21/23 03/22/23 20:14 23:30 04:36 Temperature 36.3 C L 36.5 C 36.3 C L Heart Rate [ 65 68 58 L Brachial] Respiratory 16 20 20 Rate Blood Pressure 126/73 129/79 129/93 H [Left Brachial artery] Blood Pressure [Right Brachial artery] O2 Saturation 96 96 94 03/22/23 07:26 Temperature 36.2 C L Heart Rate [ 56 L Brachial] Respiratory 16 Rate Blood Pressure 131/56 H [Left Brachial artery] Blood Pressure [Right Brachial artery] O2 Saturation 98 Oxygen O2 Source Room air I&O (Last 24 Hrs): Intake and Output Totals x24h 03/20/23 03/21/23 03/22/23 23:59 23:59 23:59 Intake Total 2093.333 2888.333 1058.333 Output Total 150 1000 1000 Balance 4012.719 7329.333 58.333 General: Alert, No acute distress HEENT: Mucous membr. moist/pink, Other (Appears disheveled) Neck: Supple Neuro: Alert, Disoriented Cardiovascular: Regular rate Respiratory: No respiratory distress Abdomen: Soft Extremities: No edema - Results Results: Laboratory Results WBC 4.9 x10^3/uL (4.8-10.8) 03/22/23 04:49 RBC 2.99 10^6/uL (4.20-5.40) L 03/22/23 04:49 Hgb 10.0 g/dL (12.0-16.0) L 03/22/23 04:49 Hct 31.1 % (37.0-47.0) L 03/22/23 04:49 MCV 104.0 fL (81.0-99.0) H 03/22/23 04:49 MCH 33.4 pg (27.0-31.0) H 03/22/23 04:49 MCHC 32.2 g/dL (32.0-36.0) 03/22/23 04:49 RDW 13.4 % (12.0-15.0) 03/22/23 04:49 Plt Count 97 10^3/uL (130-450) L 03/22/23 04:49 MPV 11.1 fL (7.9-10.8) H 03/22/23 04:49 Neut # (Auto) 3.3 10^3/uL (1.5-6.6) 03/22/23 04:49 Lymph # (Auto) 1.1 10^3/uL (1.5-3.5) L 03/22/23 04:49 [place] # (Auto) 0.3 10^3/uL (0.0-1.0) 03/22/23 04:49 Eos # (Auto) 0.1 10^3/uL (0.0-0.7) 03/22/23 04:49 Baso # (Auto) 0.0 10^3/uL (0.0-0.1) 03/22/23 04:49 Absolute Nucleated RBC 0.00 x10^3/uL 03/22/23 04:49 Nucleated RBC % 0.0 /100WBC 03/22/23 04:49 Sodium 143 mmol/L (135-145) 03/22/23 04:49 Potassium 3.7 mmol/L (3.5-4.5) 03/22/23 04:49 Chloride 114 mmol/L (101-111) H 03/22/23 04:49 Carbon Dioxide 25 mmol/L (21-32) 03/22/23 04:49 Anion Gap 4.0 (6-13) L 03/22/23 04:49 BUN 37 mg/dL (6-20) H 03/22/23 04:49 Creatinine 2.1 mg/dL (0.6-1.3) H 03/22/23 04:49 Estimated GFR (MDRD) 23 (>89) L 03/22/23 04:49 Glucose 86 mg/dL (74-104) 03/22/23 04:49 Calcium 8.6 mg/dL (8.5-10.3) 03/22/23 04:49 Magnesium 1.8 mg/dL (1.7-2.3) 03/21/23 03:07 Total Bilirubin 0.2 mg/dL (0.2-1.0) 03/21/23 03:07 AST 19 IU/L (10-42) 03/21/23 03:07 ALT 21 IU/L (10-60) 03/21/23 03:07 Alkaline Phosphatase 61 IU/L (42-121) 03/21/23 03:07 Troponin I High Sens 11.0 ng/L (2.3-14.8) 03/21/23 11:32 Total Protein 5.7 g/dL (6.4-8.9) L 03/21/23 03:07 Albumin 3.0 g/dL (3.2-5.5) L 03/21/23 03:07 Globulin 2.7 g/dL (2.1-4.2) 03/21/23 03:07 Albumin/Globulin Ratio 1.1 (1.0-2.2) 03/21/23 03:07 TSH 8.44 uIU/mL (0.34-5.60) H 03/21/23 03:07 Free T4 Direct 0.79 ng/dL (0.58-1.64) 03/22/23 04:40 Urine Color YELLOW 03/20/23 08:19 Urine Clarity CLEAR (CLEAR) 03/20/23 08:19 Urine pH 6.5 PH (5.0-7.5) 03/20/23 08:19 Ur Specific [place] 1.015 (1.002-1.030) 03/20/23 08:19 Urine Protein NEGATIVE mg/dL (NEGATIVE) 03/20/23 08:19 Urine Glucose (UA) NEGATIVE mg/dL (NEGATIVE) 03/20/23 08:19 Urine Ketones NEGATIVE mg/dL (NEGATIVE) 03/20/23 08:19 Urine Occult Blood NEGATIVE (NEGATIVE) 03/20/23 08:19 Urine Nitrite POSITIVE (NEGATIVE) H 03/20/23 08:19 Urine Bilirubin NEGATIVE (NEGATIVE) 03/20/23 08:19 Urine Urobilinogen 0.2 (NORMAL) E.U./dL (NORMAL) 03/20/23 08:19 Ur Leukocyte Esterase SMALL (NEGATIVE) H 03/20/23 08:19 Urine RBC 0-5 /HPF (0-5) 03/20/23 08:19 Urine WBC 4-5 /HPF (0-5) 03/20/23 08:19 Ur Squamous Epith Cells RARE Squamous (<= Few) 03/20/23 08:19 Urine Bacteria Many /HPF (None Seen) H 03/20/23 08:19 Urine Mucus Few Strands 03/20/23 08:19 Ur Microscopic Review INDICATED 03/20/23 08:19 Urine Culture Comments INDICATED 03/20/23 08:19
[2023-03-22] MEDS: MULTIVITAMIN W/MINERALS TABLET PO SCH (11:58)
[2023-03-22] MEDS: risperiDONE 0.25 MG TABLET PO SCH (20:47)
[2023-03-23] MEDS: SODIUM CHLORIDE FLUSH 0.9% 10 ML SYRINGE IVP SCH ×3 (00:24→17:01)
[2023-03-23] MEDS: DEXTROSE 5%-0.45% NACL 1,000 ML IV SCH ×3 (01:35→22:21)
[2023-03-23 05:08] LABS: BASOPHILS % (AUTO) 0.1 %; EOSINOPHILS # (AUTO) 0.1 10^3/uL (0.0-0.7); EOSINOPHILS % (AUTO) 1.8 %; MEAN CORPUSCULAR HGB CONC 32.5 g/dL (32.0-36.0); MONOCYTES # (AUTO) 0.4 10^3/uL (0.0-1.0); RED CELL DISTRIBUTION WIDTH 13.2 % (12.0-15.0); WHITE BLOOD COUNT 7.2 x10^3/uL (4.8-10.8)
[2023-03-23 05:21] LABS: CALCIUM 8.8 mg/dL (8.5-10.3); CREATININE 1.7 mg/dL (0.6-1.3); MAGNESIUM 1.8 mg/dL (1.7-2.3); PHOSPHORUS 2.3 mg/dL (2.5-5.0); POTASSIUM 3.4 mmol/L (3.5-4.5)
[2023-03-23 05:25] LABS: HCT - HEMATOCRIT 33.3 % (37.0-47.0); HGB - HEMOGLOBIN 10.6 g/dL (12.0-16.0); RED BLOOD COUNT 3.18 10^6/uL (4.20-5.40)
[2023-03-23 05:26] LABS: LYMPHOCYTES # (AUTO) 0.8 10^3/uL (1.5-3.5); LYMPHOCYTES % (AUTO) 11.7 %; MEAN CORPUSCULAR HEMOGLOBIN 33.3 pg (27.0-31.0); MEAN CORPUSCULAR VOLUME 102.5 fL (81.0-99.0); NEUTROPHILS # (AUTO) 5.7 10^3/uL (1.5-6.6); NEUTROPHILS % (AUTO) 80.1 %; PLT - PLATELET COUNT 103 10^3/uL (130-450)
[2023-03-23] MEDS ORDERED: cephALEXin 250 MG CAPSULE PO SCH (08:00)
[2023-03-23] MEDS: ACETAMINOPHEN 325 MG TABLET PO PRN (09:14)
[2023-03-23] MEDS: risperiDONE 0.25 MG TABLET PO SCH (09:15)
[2023-03-23] MEDS: MULTIVITAMIN W/MINERALS TABLET PO SCH (09:15)
[2023-03-23] MEDS: cephALEXin 250 MG CAPSULE PO SCH ×2 (09:15→17:01)
--- NOTE | 2023-03-23 16:55 | PROVIDER PROGRESS NOTE ---
Assessment/Plan - Problem List (1) Altered mental state Assessment/Plan: Staff at [facility], her skilled nursing, reported to our ER provider, who told me, that the "patient had several days of having decreased interactions". On 03/20 she was found down on the ground at the MA. At admission, she was not an swering verbally but only stareing ahead when being spoken to. Her head CT head showed no acute findings. At admission, her AMS was felt likely from the combination of her UTI, her dehydration and uremia Her med list was reconciled and she was taking 7 medications that could have caused oversedation. They are all on hold. There has been improvement since admission 2 days ago, in that she is now sp eaking to herself alot, and also able to sometimes answer staff appropriately. Today I learned from social work that when Risperidone was started for combativeness, she had changed to requiring full care for the last 2 weeks. Today I obtained and reviewed the last office records from Dr. Marge Rodriguez regarding her underlying psychiatric diagnoses>> that note was in 10/01 and Dx was just Anxiety. Today I obtained and reviewed the Psych eval from 12/29, done at [facility]. Impression was dementia with behavioral disturbances. She scored 0 on her slums score with severe cognitive impairment. The recommendation was to Decrease or stop lorazepam as it could be adding to confusion and contributing to falls. Also recommended was to decrease and discontinue Quetiapine. Also recommended was to start Risperidone slowly and increase it, "to use it as an antipsychotic, found to be effective in managing aggression, agitation and paranoid delusions, and for sleep disturbances in the setting of dementia". Plan: Remain off the medications on her med list that could add to oversedation: Gabapentin, Likely which was prn, Lorazepam which was prn, Quetiapine, Ultram, Desyrel, and Zolpidem. Resume just her Risperdal I will consider getting a telepsych consultion on her Cont to treat the underlying UTI with IV antibiotics Cont to treat the dehydration and QUE with IV fluids I will order PT and OT eval and treatment, when she is more alert and if she is able to follow directions (2) E coli UTI (urinary tract infection) Conclusion/Plan: Abnormal urinalysis found at admission and I suspect this explains recent decreased social interactions at her skilled nursing. Abdominal imaging done in ER showed no hydronephrosis, obstruction or stones. The culture has been identified as growing E. coli. Sensitivities are available and it is pansensitive. Plan: I will change the empiric IV ceftriaxone to oral Keflex. Plan a total of 7-day course (3) QUE (acute kidney injury) Conclusion/Plan: She presented with a creatinine of 2.8. Her usual creatinine is 0.9. All labs were reviewed. Her creatinine has improved to 2.4>> 2.1>> 1.7 today This was likely caused by being on 2 diuretics causing dehydration. In addition, she has been less interactive so possibly taking in less fluids orally lately. Plan: Avoid nephrotoxins Continue with IV maintenance fluids Follow BMP daily (4) Bradycardia Conclusion/Plan: Because of the fall at the skilled nursing, she was put on bradycardia to watch for arrhythmias. Telemetry shows that she has frequent sinus arrhythmia, producing heart rates as low as 30, for nearly a minute. Her admission EKG was also abnormal showing T wave changes which suggest ischemia. I checked a set of troponins and these were Her TSH to evaluate for hypothyroidism Plan: We will obtain an Echocardiogram (we have tool and die technician here Alexander Clemente, today is Alexander) Avoid any heart rate-slowing medications Remain on telemetry (5) Fall at skilled nursing Conclusion/Plan: This was unwitnessed. It did cause a scalp laceration. Her head and neck were "cleared" with CT imaging showing no acute findings. Plan: Remain on telemetry and watch for arrhythmias Cont to check orthostatic vital signs We will not give her the Lasix and HCTZ and would not recommend that those diuretics be continued in the future Today she had PT and OT evaluations>> She could not stand independently, needed 2 person assist. Unless there is strengthening and improvement, she will need maximum caregiving and cannot walk or be in a bed unsupervised, and therefore would not be able to return her living situation (6) Scalp laceration Conclusion/Plan: This was already stapled by the ER provider Plan: We will offer pain meds as needed (7) Frequent falls Conclusion/Plan: I obtained and reviewed the Psych eval from 12/29, done at [facility]. The nurses told the psychiatrist and in the final diagnosis are "frequent falls". Plan: As per PT and OT evals today: the patient cannot ambulate safely and should not be left alone as she was in her [facility] room. She would need to be bedbound or wheelchair-bound, and will need higher level of caregiving. (8) Dementia with behavioral disturbances Conclusion/Plan: Her baseline function was unknown to me. In looking at her medication list, she likely has dementia with behavior disturbances, since she was on Quetiapine, Risperdal, and Desyrel. We were told that she was less engaged over the recent few days. Today I learned from social work that when Risperidone was started for combativeness, she had changed to requiring full care for the last 2 weeks. In looking at her body habitus she is very poorly kempt, dirty, greasy as if she has not had personal hygiene for many days. Today I obtained and reviewed the Psych eval from 12/29, done at [facility]. Impression was dementia with behavioral disturbances. She scored 0 on her slums score with severe cognitive impairment. The recommendation was to Decrease or stop lorazepam as it could be adding to confusion and contributing to falls. Also recommended was to decrease and discontinue Quetiapine. Also recommended was to start Risperidone slowly and increase it, "to use it as an antipsychotic, found to be effective in managing aggression, agitation and paranoid delusions, and for sleep disturbances in the setting of dementia". Yesterday, I resumed just the Risperidone at 0.25 BID. Today she is too somnolent all morning. Plan: I will order a shower and hygiene care. I will decrease the Resperidone to 0.5 mg and give only at hs. - Current Meds Current Meds: Current Medications Generic Name Dose Route Start Last Admin Trade Name Tay PRN Reason Stop Dose Admin Acetaminophen 650 mg 03/20/23 12:55 03/23/23 09:14 Acetaminophen 325 Mg Tablet PO 650 mg Q4HR PRN Administration Pain 1 to 4, or Fever Cephalexin 500 mg 03/23/23 08:06 03/23/23 09:15 Cephalexin 250 Mg Capsule PO 500 mg Q8H COREY Administration Dextrose/Sodium Chloride 1,000 mls @ 100 mls/hr 03/20/23 13:00 03/23/23 12:39 D5.45ns IV 100 mls/hr .Q10H COREY Administration Multi-Ingredient Ointment 1 applic 03/20/23 20:36 03/22/23 07:58 Zinc Oxide 20% Oint 30 Gm Tube TOP 1 applic PRN PRN Administration Skin Care Multivitamins/Minerals 1 tab 03/22/23 12:00 03/23/23 09:15 Multivitamin W/Minerals Tablet PO 1 tab DAILYWM COREY Administration Sodium Chloride 10 ml 03/20/23 17:00 03/23/23 09:15 Sodium Chloride Flush 0.9% 10 Ml Syringe IVP 10 ml 0100,0900,1700 COREY Administration - Lab Result Fish Bone Diagrams: 03/23/23 04:26 03/23/23 04:26 - Additional Planning My Orders: My Active Orders 03/22/23 Dinner Soft Mechanical Diet [DIET] 03/23/23 Evaluate and Treat OT [OT] Routine Evaluate and Treat PT [PT] Routine 03/23/23 08:06 cephALEXin [Keflex] 500 mg PO Q8H 03/23/23 21:00 risperiDONE [RisperDAL] 0.5 mg PO QPM 03/24/23 05:00 BMP - BASIC METABOLIC PANEL [CHEM] DAILYLAB CBC - COMP BLD CT W/AUTO DIFF [HEME] DAILYLAB Subjective - Subjective Patient Reports: Other (Lethargic) Objective Vital Signs: Vital Signs - 24 hr 03/22/23 03/22/23 03/22/23 17:00 21:00 23:58 Temperature 36.3 C L 36.2 C L 36.2 C L Heart Rate [ 60 54 L 52 L Brachial] Heart Rate [ Supine] Respiratory 16 18 16 Rate Blood Pressure [Left Brachial artery] Blood Pressure 159/62 H 134/58 H 147/83 H [Right Brachial artery] Blood Pressure [Supine] O2 Saturation 96 100 98 03/23/23 03/23/23 03/23/23 04:11 04:41 07:23 Temperature 35.9 C L 36.1 C L 36.4 C L Heart Rate [ 58 L 62 Brachial] Heart Rate [ Supine] Respiratory 16 18 Rate Blood Pressure 140/65 H [Left Brachial artery] Blood Pressure 154/85 H [Right Brachial artery] Blood Pressure [Supine] O2 Saturation 99 98 03/23/23 03/23/23 03/23/23 10:15 11:31 15:37 Temperature 36.3 C L 36.7 C Heart Rate [ 48 L 54 L Brachial] Heart Rate [ 44 L Supine] Respiratory 16 16 Rate Blood Pressure 147/67 H [Left Brachial artery] Blood Pressure 151/66 H [Right Brachial artery] Blood Pressure 136/60 H [Supine] O2 Saturation 97 99 Oxygen O2 Source Room air I&O (Last 24 Hrs): Intake and Output Totals x24h 03/21/23 03/22/23 03/23/23 23:59 23:59 23:59 Intake Total 2888.333 3220.000 1318.333 Output Total 1000 3050 1025 Balance 1888.333 170.000 293.333 General: Other (lethargic, less communicative) HEENT: Mucous membr. moist/pink, Other (disheveled) Neuro: Other (Lethargic) Cardiovascular: No murmurs Respiratory: No respiratory distress Abdomen: Soft Extremities: No clubbing, No edema - Results Results: Laboratory Results WBC 7.2 x10^3/uL (4.8-10.8) 03/23/23 04:26 RBC 3.18 10^6/uL (4.20-5.40) L 03/23/23 04:26 Hgb 10.6 g/dL (12.0-16.0) L 03/23/23 04:26 Hct 33.3 % (37.0-47.0) L 03/23/23 04:26 MCV 102.5 fL (81.0-99.0) H 03/23/23 04:26 MCH 33.3 pg (27.0-31.0) H 03/23/23 04:26 MCHC 32.5 g/dL (32.0-36.0) 03/23/23 04:26 RDW 13.2 % (12.0-15.0) 03/23/23 04:26 Plt Count 103 10^3/uL (130-450) L 03/23/23 04:26 MPV 11.0 fL (7.9-10.8) H 03/23/23 04:26 Neut # (Auto) 5.7 10^3/uL (1.5-6.6) 03/23/23 04:26 Lymph # (Auto) 0.8 10^3/uL (1.5-3.5) L 03/23/23 04:26 Wheeler # (Auto) 0.4 10^3/uL (0.0-1.0) 03/23/23 04:26 Eos # (Auto) 0.1 10^3/uL (0.0-0.7) 03/23/23 04:26 Baso # (Auto) 0.0 10^3/uL (0.0-0.1) 03/23/23 04:26 Absolute Nucleated RBC 0.00 x10^3/uL 03/23/23 04:26 Nucleated RBC % 0.0 /100WBC 03/23/23 04:26 Sodium 141 mmol/L (135-145) 03/23/23 04:26 Potassium 3.4 mmol/L (3.5-4.5) L 03/23/23 04:26 Chloride 113 mmol/L (101-111) H 03/23/23 04:26 Carbon Dioxide 24 mmol/L (21-32) 03/23/23 04:26 Anion Gap 4.0 (6-13) L 03/23/23 04:26 BUN 25 mg/dL (6-20) H 03/23/23 04:26 Creatinine 1.7 mg/dL (0.6-1.3) H 03/23/23 04:26 Estimated GFR (MDRD) 29 (>89) L 03/23/23 04:26 Glucose 94 mg/dL (74-104) 03/23/23 04:26 Calcium 8.8 mg/dL (8.5-10.3) 03/23/23 04:26 Phosphorus 2.3 mg/dL (2.5-5.0) L 03/23/23 04:26 Magnesium 1.8 mg/dL (1.7-2.3) 03/23/23 04:26 Total Bilirubin 0.2 mg/dL (0.2-1.0) 03/21/23 03:07 AST 19 IU/L (10-42) 03/21/23 03:07 ALT 21 IU/L (10-60) 03/21/23 03:07 Alkaline Phosphatase 61 IU/L (42-121) 03/21/23 03:07 Troponin I High Sens 11.0 ng/L (2.3-14.8) 03/21/23 11:32 Total Protein 5.7 g/dL (6.4-8.9) L 03/21/23 03:07 Albumin 3.0 g/dL (3.2-5.5) L 03/21/23 03:07 Globulin 2.7 g/dL (2.1-4.2) 03/21/23 03:07 Albumin/Globulin Ratio 1.1 (1.0-2.2) 03/21/23 03:07 TSH 8.44 uIU/mL (0.34-5.60) H 03/21/23 03:07 Free T4 Direct 0.79 ng/dL (0.58-1.64) 03/22/23 04:40 Urine Color YELLOW 03/20/23 08:19 Urine Clarity CLEAR (CLEAR) 03/20/23 08:19 Urine pH 6.5 PH (5.0-7.5) 03/20/23 08:19 Ur Specific [place] 1.015 (1.002-1.030) 03/20/23 08:19 Urine Protein NEGATIVE mg/dL (NEGATIVE) 03/20/23 08:19 Urine Glucose (UA) NEGATIVE mg/dL (NEGATIVE) 03/20/23 08:19 Urine Ketones NEGATIVE mg/dL (NEGATIVE) 03/20/23 08:19 Urine Occult Blood NEGATIVE (NEGATIVE) 03/20/23 08:19 Urine Nitrite POSITIVE (NEGATIVE) H 03/20/23 08:19 Urine Bilirubin NEGATIVE (NEGATIVE) 03/20/23 08:19 Urine Urobilinogen 0.2 (NORMAL) E.U./dL (NORMAL) 03/20/23 08:19 Ur Leukocyte Esterase SMALL (NEGATIVE) H 03/20/23 08:19 Urine RBC 0-5 /HPF (0-5) 03/20/23 08:19 Urine WBC 4-5 /HPF (0-5) 03/20/23 08:19 Ur Squamous Epith Cells RARE Squamous (<= Few) 03/20/23 08:19 Urine Bacteria Many /HPF (None Seen) H 03/20/23 08:19 Urine Mucus Few Strands 03/20/23 08:19 Ur Microscopic Review INDICATED 03/20/23 08:19 Urine Culture Comments INDICATED 03/20/23 08:19
[2023-03-23] MEDS ORDERED: risperiDONE 0.25 MG TABLET PO SCH (21:00)
[2023-03-24] MEDS: SODIUM CHLORIDE FLUSH 0.9% 10 ML SYRINGE IVP SCH ×4 (00:17→23:35)
[2023-03-24] MEDS: cephALEXin 250 MG CAPSULE PO SCH ×4 (00:17→23:35)
[2023-03-24 04:51] LABS: BASOPHILS % (AUTO) 0.2 %; EOSINOPHILS # (AUTO) 0.1 10^3/uL (0.0-0.7); EOSINOPHILS % (AUTO) 1.9 %; HCT - HEMATOCRIT 30.1 % (37.0-47.0); HGB - HEMOGLOBIN 10.1 g/dL (12.0-16.0); LYMPHOCYTES # (AUTO) 0.8 10^3/uL (1.5-3.5); LYMPHOCYTES % (AUTO) 16.1 %; MEAN CORPUSCULAR HEMOGLOBIN 33.2 pg (27.0-31.0); MEAN CORPUSCULAR HGB CONC 33.6 g/dL (32.0-36.0); MEAN PLATELET VOLUME 10.7 fL (7.9-10.8); MONOCYTES # (AUTO) 0.3 10^3/uL (0.0-1.0); MONOCYTES % (AUTO) 6.2 %; NEUTROPHILS # (AUTO) 3.9 10^3/uL (1.5-6.6); NEUTROPHILS % (AUTO) 75.2 %; PLT - PLATELET COUNT 108 10^3/uL (130-450); RED BLOOD COUNT 3.04 10^6/uL (4.20-5.40); RED CELL DISTRIBUTION WIDTH 13.2 % (12.0-15.0); WHITE BLOOD COUNT 5.2 x10^3/uL (4.8-10.8)
[2023-03-24 05:06] LABS: CALCIUM 8.6 mg/dL (8.5-10.3); CREATININE 1.4 mg/dL (0.6-1.3); POTASSIUM 3.4 mmol/L (3.5-4.5)
[2023-03-24] MEDS: MULTIVITAMIN W/MINERALS TABLET PO SCH (08:26)
[2023-03-24] MEDS: DEXTROSE 5%-0.45% NACL 1,000 ML IV SCH ×2 (08:33→20:25)
--- NOTE | 2023-03-24 11:21 | PROVIDER PROGRESS NOTE ---
Assessment/Plan - Problem List (1) Altered mental state Assessment/Plan: Staff at [facility], her longterm, reported to our ER provider, who told me, that the "patient had several days of having decreased interactions". On 03/20 she was found down on the ground at the [facility]. At admission, she was not an swering verbally but only stareing ahead when being spoken to. Her head CT head showed no acute findings. At admission, her AMS was felt likely from the combination of her UTI, her dehydration and uremia Her med list was reconciled and she was taking 7 medications that could have caused oversedation. They are all on hold. There has been improvement since admission several days ago, in that she is now speaking to herself alot, and also able to sometimes answer staff appropriately. I learned from social work that when Risperidone was started for combativeness, she had changed to requiring full care for the last 2 weeks. I obtained and reviewed the last office records from Dr. Marge Rodriguez regarding her underlying psychiatric diagnoses>> that note was in 10/01 and Dx was just Anxiety. I obtained and reviewed the Psych eval from 12/29, done at [facility]. Impression was dementia with behavioral disturbances. She scored 0 on her slums score with severe cognitive impairment. The recommendation was to Decrease or stop lorazepam as it could be adding to confusion and contributing to falls. Also recommended was to decrease and discontinue Quetiapine. Also recommended was to start Risperidone slowly and increase it, "to use it as an antipsychotic, found to be effective in managing aggression, agitation and paranoid delusions, and for sleep disturbances in the setting of dementia". Plan: Remain off the medications on her med list that could add to oversedation: Gabapentin, [place] which was prn, Lorazepam which was prn, Quetiapine, Ultram, Desyrel, and Zolpidem. I resumed just her Risperdal and have changed it from 0.25 BID to 0.5 qpm only, due to daytime hypersomnolence I will consider getting a telepsych consultion on her if needed Cont to treat the underlying UTI with IV antibiotics Cont to treat the dehydration and QUE with IV fluids PT and OT to cont to try working with her I updated the DPALBA, her [id number]-pye Melisa by phone about all this today (2) E coli UTI (urinary tract infection) Conclusion/Plan: Abnormal urinalysis found at admission and I suspect this explains recent decreased social interactions at her longterm. Abdominal imaging done in ER showed no hydronephrosis, obstruction or stones. The culture has been identified as growing E. coli. Sensitivities are available and it is pansensitive. Plan: I changed the empiric IV ceftriaxone to oral Keflex. Plan a total of 7-day course of antibx (3) QUE (acute kidney injury) Conclusion/Plan: She presented with a creatinine of 2.8. Her usual creatinine is 0.9. All labs were reviewed. Her creatinine has improved to 2.4>> 2.1>> 1.7>> 1.4 today This was likely caused by being on 2 diuretics causing dehydration. In addition, she has been less interactive so possibly taking in less fluids orally lately. Plan: Avoid nephrotoxins Continue with IV maintenance fluids, I will decrease the rate today Follow BMP daily (4) Bradycardia Conclusion/Plan: Because of the fall at the longterm, she was put on telemetry to watch for arrhythmias. Telemetry shows that she has frequent sinus arrhythmia, and frequent and long runs of sinus derek producing heart rates as low as 30, up to a minute. Her admission EKG was also abnormal showing T wave changes which suggest ischemia. I checked a set of troponins and these were unremarkable. Her Echo was done and shows an esentially normal heart. Her TSH to evaluate for hypothyroidism was high at 8.44, but a free T4 was within normal limits at 0.79. (All labs were reviewed) I contacted the DPOA to discuss permanent pacemaker implant. The DPOA did not want to have the patient get a pacemaker, given her severe dementia. Plan: I will stop telemetry monitoring Avoid any heart rate-slowing medications. (5) Dementia with behavioral disturbances Conclusion/Plan: Her baseline function was unknown to me. In looking at her medication list, she likely has dementia with behavior disturbances, since she was on Quetiapine, Risperdal, and Desyrel. We were told that she was less engaged over the recent few days. Today I learned from social work that when Risperidone was started for combativeness, she had changed to requiring full care for the last 2 weeks. In looking at her body habitus she is very poorly kempt, dirty, greasy as if she has not had personal hygiene for many days. Today I obtained and reviewed the Psych eval from 12/29, done at [facility]. Impression was dementia with behavioral disturbances. She scored 0 on her slums score with severe cognitive impairment. The recommendation was to Decrease or stop lorazepam as it could be adding to confusion and contributing to falls. Also recommended was to decrease and discontinue Quetiapine. Also recommended was to start Risperidone slowly and increase it, "to use it as an antipsychotic, found to be effective in managing aggression, agitation and paranoid delusions, and for sleep disturbances in the setting of dementia". Yesterday, I resumed just the Risperidone at 0.25 BID. Today she is too somnolent all morning. Plan: I will order a shower and hygiene care. I will decrease the Resperidone to 0.5 mg and give only at hs. (6) Fall at longterm Conclusion/Plan: This was unwitnessed. It did cause a scalp laceration. Her head and neck were "cleared" with CT imaging showing no acute findings. Plan: Remain on telemetry and watch for arrhythmias Cont to check orthostatic vital signs We will not give her the Lasix and HCTZ and would not recommend that those diuretics be continued in the future She had PT and OT evaluations>> She could not stand independently, needed 2 person assist. Unless there is strengthening and improvement, she will need maximum caregiving and cannot walk or be in a bed unsupervised as she may roll OOB, and therefore she may need a higher level of care living situation (7) Frequent falls Conclusion/Plan: I obtained and reviewed the Psych eval from 12/29, done at [facility]. The nurses told the psychiatrist and in the final diagnosis are "frequent falls". Plan: As per PT and OT evals today: the patient cannot ambulate safely and should not be left alone as she was in her [facility] room. She would need to be bedbound or wheelchair-bound, and will need higher level of caregiving. 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 (9) Scalp laceration Conclusion/Plan: This was already stapled by the ER provider Plan: We will offer pain meds as needed - Current Meds Current Meds: Current Medications Generic Name Dose Route Start Last Admin Trade Name Freq PRN Reason Stop Dose Admin Acetaminophen 650 mg 03/20/23 12:55 03/23/23 09:14 Acetaminophen 325 Mg Tablet PO 650 mg Q4HR PRN Administration Pain 1 to 4, or Fever Cephalexin 500 mg 03/23/23 08:06 03/24/23 08:27 Cephalexin 250 Mg Capsule PO 500 mg Q8H COREY Administration Dextrose/Sodium Chloride 1,000 mls @ 100 mls/hr 03/20/23 13:00 03/24/23 08:33 D5.45ns IV 100 mls/hr .Q10H COREY Administration Multi-Ingredient Ointment 1 applic 03/20/23 20:36 03/22/23 07:58 Zinc Oxide 20% Oint 30 Gm Tube TOP 1 applic PRN PRN Administration Skin Care Multivitamins/Minerals 1 tab 03/22/23 12:00 03/24/23 08:26 Multivitamin W/Minerals Tablet PO 1 tab DAILYWM COREY Administration Ondansetron HCl 4 mg 03/20/23 12:55 03/24/23 05:08 Ondansetron 4 Mg/2 Ml Vial IVP 4 mg Q6HR PRN Administration Nausea / Vomiting Risperidone 0.5 mg 03/23/23 21:00 03/23/23 21:58 Risperidone 0.25 Mg Tablet PO 0.5 mg QPM COREY Administration Sodium Chloride 10 ml 03/20/23 17:00 03/24/23 08:34 Sodium Chloride Flush 0.9% 10 Ml Syringe IVP Not Given 0100,0900,1700 COREY - Lab Result Fish Bone Diagrams: 03/24/23 04:28 03/24/23 04:28 - Additional Planning My Orders: My Active Orders 03/23/23 21:00 risperiDONE [RisperDAL] 0.5 mg PO QPM Objective Vital Signs: Vital Signs - 24 hr 03/23/23 03/23/23 03/23/23 11:31 15:37 21:00 Temperature 36.3 C L 36.7 C 37.4 C Heart Rate [ 48 L 54 L 53 L Brachial] Respiratory 16 16 16 Rate Blood Pressure 147/67 H [Left Brachial artery] Blood Pressure 151/66 H 142/63 H [Right Brachial artery] O2 Saturation 97 99 97 03/24/23 03/24/23 03/24/23 00:00 00:32 06:12 Temperature 36.3 C L 36.3 C L Heart Rate [ 51 L 57 L Brachial] Respiratory 12 16 Rate Blood Pressure 141/81 H [Left Brachial artery] Blood Pressure 162/76 H [Right Brachial artery] O2 Saturation 95 97 03/24/23 03/24/23 07:18 10:45 Temperature 36.3 C L 36.4 C L Heart Rate [ 55 L 64 Brachial] Respiratory 16 16 Rate Blood Pressure 156/79 H 161/66 H [Left Brachial artery] Blood Pressure [Right Brachial artery] O2 Saturation 97 98 Oxygen O2 Source Room air I&O (Last 24 Hrs): Intake and Output Totals x24h 03/22/23 03/23/23 03/24/23 23:59 23:59 23:59 Intake Total 3220.000 2328.333 1000 Output Total 3050 1025 375 Balance 278.769 5000.333 625 General: Other (lethargic) HEENT: Mucous membr. moist/pink, Other (Scalp with giselle) Neck: Supple Neuro: Alert, Disoriented, Non Focal Cardiovascular: No murmurs Respiratory: No respiratory distress Abdomen: Soft, No tenderness Extremities: No clubbing, No edema - Results Results: Laboratory Results WBC 5.2 x10^3/uL (4.8-10.8) 03/24/23 04:28 RBC 3.04 10^6/uL (4.20-5.40) L 03/24/23 04:28 Hgb 10.1 g/dL (12.0-16.0) L 03/24/23 04:28 Hct 30.1 % (37.0-47.0) L 03/24/23 04:28 MCV 99.0 fL (81.0-99.0) 03/24/23 04:28 MCH 33.2 pg (27.0-31.0) H 03/24/23 04:28 MCHC 33.6 g/dL (32.0-36.0) 03/24/23 04:28 RDW 13.2 % (12.0-15.0) 03/24/23 04:28 Plt Count 108 10^3/uL (130-450) L 03/24/23 04:28 MPV 10.7 fL (7.9-10.8) 03/24/23 04:28 Neut # (Auto) 3.9 10^3/uL (1.5-6.6) 03/24/23 04:28 Lymph # (Auto) 0.8 10^3/uL (1.5-3.5) L 03/24/23 04:28 [place] # (Auto) 0.3 10^3/uL (0.0-1.0) 03/24/23 04:28 Eos # (Auto) 0.1 10^3/uL (0.0-0.7) 03/24/23 04:28 Baso # (Auto) 0.0 10^3/uL (0.0-0.1) 03/24/23 04:28 Absolute Nucleated RBC 0.00 x10^3/uL 03/24/23 04:28 Nucleated RBC % 0.0 /100WBC 03/24/23 04:28 Sodium 139 mmol/L (135-145) 03/24/23 04:28 Potassium 3.4 mmol/L (3.5-4.5) L 03/24/23 04:28 Chloride 110 mmol/L (101-111) 03/24/23 04:28 Carbon Dioxide 25 mmol/L (21-32) 03/24/23 04:28 Anion Gap 4.0 (6-13) L 03/24/23 04:28 BUN 16 mg/dL (6-20) 03/24/23 04:28 Creatinine 1.4 mg/dL (0.6-1.3) H 03/24/23 04:28 Estimated GFR (MDRD) 36 (>89) L 03/24/23 04:28 Glucose 119 mg/dL (74-104) H 03/24/23 04:28 Calcium 8.6 mg/dL (8.5-10.3) 03/24/23 04:28 Phosphorus 2.3 mg/dL (2.5-5.0) L 03/23/23 04:26 Magnesium 1.8 mg/dL (1.7-2.3) 03/23/23 04:26 Total Bilirubin 0.2 mg/dL (0.2-1.0) 03/21/23 03:07 AST 19 IU/L (10-42) 03/21/23 03:07 ALT 21 IU/L (10-60) 03/21/23 03:07 Alkaline Phosphatase 61 IU/L (42-121) 03/21/23 03:07 Troponin I High Sens 11.0 ng/L (2.3-14.8) 03/21/23 11:32 Total Protein 5.7 g/dL (6.4-8.9) L 03/21/23 03:07 Albumin 3.0 g/dL (3.2-5.5) L 03/21/23 03:07 Globulin 2.7 g/dL (2.1-4.2) 03/21/23 03:07 Albumin/Globulin Ratio 1.1 (1.0-2.2) 03/21/23 03:07 TSH 8.44 uIU/mL (0.34-5.60) H 03/21/23 03:07 Free T4 Direct 0.79 ng/dL (0.58-1.64) 03/22/23 04:40 Urine Color YELLOW 03/20/23 08:19 Urine Clarity CLEAR (CLEAR) 03/20/23 08:19 Urine pH 6.5 PH (5.0-7.5) 03/20/23 08:19 Ur Specific [place] 1.015 (1.002-1.030) 03/20/23 08:19 Urine Protein NEGATIVE mg/dL (NEGATIVE) 03/20/23 08:19 Urine Glucose (UA) NEGATIVE mg/dL (NEGATIVE) 03/20/23 08:19 Urine Ketones NEGATIVE mg/dL (NEGATIVE) 03/20/23 08:19 Urine Occult Blood NEGATIVE (NEGATIVE) 03/20/23 08:19 Urine Nitrite POSITIVE (NEGATIVE) H 03/20/23 08:19 Urine Bilirubin NEGATIVE (NEGATIVE) 03/20/23 08:19 Urine Urobilinogen 0.2 (NORMAL) E.U./dL (NORMAL) 03/20/23 08:19 Ur Leukocyte Esterase SMALL (NEGATIVE) H 03/20/23 08:19 Urine RBC 0-5 /HPF (0-5) 03/20/23 08:19 Urine WBC 4-5 /HPF (0-5) 03/20/23 08:19 Ur Squamous Epith Cells RARE Squamous (<= Few) 03/20/23 08:19 Urine Bacteria Many /HPF (None Seen) H 03/20/23 08:19 Urine Mucus Few Strands 03/20/23 08:19 Ur Microscopic Review INDICATED 03/20/23 08:19 Urine Culture Comments INDICATED 03/20/23 08:19
[2023-03-24] MEDS ORDERED: LIDOCAINE PATCH 5% TOP SCH (15:00)
--- NOTE | 2023-03-24 15:03 | ADVANCE CARE PLANNING NOTE ---
Advance Care Planning - Planning Encounter Date: 03/24/23 Time: 14:45 Purpose: To establish CODE BLUE status and to discuss DPOAs decision about a permanent pacemaker being implanted. Parties in Attendance: I spoke to the DPOA Melisa by phone Decisional Capacity of the Patient: She has no decisional capacity, in 2022 she scored 0 on the SLUMS cognitive eval. - Diagnosis for Encounter (1) Dementia with behavioral disturbance Summary: As per history, which was confirmed after review of the telepsych evaluation done at [facility] December 20[facility]. - Encounter Subjective/Patient's Story: The patient was estranged from her family and after 32 years was found living homeless in her car in [place]. She was brought back to live with her brother and [id number] on [facility] and stayed with him 5 months and had continued decline in her mental status until she needed caregiving and was placed in a senior care. Objective/Medical Story: The patient has dementia with behavioral problems, was seen by telepsych at the senior care 3 months ago, was advised to have 7 of her medications stopped which were all adding to hypersomnolence and to just use risperidone. The patient is oriented x0. She speaks word salad and rarely does answer a question and converse normally. She is paranoid. She tries to get out of bed. She was admitted here with obtundation and we found her to have a UTI and QUE from dehydration, treated her with iv fluids and iv antibiotics, stopped 6 of the 7 medications that were causing oversedation. We found her to have severe bradycardia with heart rates in the 30s to 40s. This would normally be an indication for a pacemaker. I discussed this with the DPALBA iVncent today and also discussed Melisa's wishes for the patient's CODE STATUS. Goals of Care: Her obgrfw-[id number]-kmw Melisa, who is the DPOA, wants her to be comfortable but realizes that her dementia is so severe that nothing heroic should be done. Melisa wants her to be a DNR, and let nature take its course. There is no desire and no plans for implanting a permanent pacemaker. Plan: Her CODE STATUS will be changed from full code to DNR Her telemetry monitoring will be stopped since there is no plan to treat the bradycardia which goes down to 30. Code Status: Do Not Attempt Resuscitation Time spent on advance care plannin
[2023-03-24] MEDS ORDERED: hydrALAZINE INJ 20 MG/ML VIAL IVP ONE (16:24)
[2023-03-24] MEDS ORDERED: LORazepam 2 MG/ML VIAL IVP STA (17:31)
[2023-03-24] MEDS ORDERED: HALOPERIDOL 5 MG/ML VIAL IM ONE (17:39)
[2023-03-24] MEDS ORDERED: risperiDONE 0.25 MG TABLET PO SCH (19:00)
[2023-03-25] MEDS ORDERED: LORazepam 1 MG TABLET PO PRN (07:49)
[2023-03-25] MEDS: cephALEXin 250 MG CAPSULE PO SCH ×3 (08:34→23:24)
[2023-03-25] MEDS: SODIUM CHLORIDE FLUSH 0.9% 10 ML SYRINGE IVP SCH ×3 (08:35→23:24)
[2023-03-25] MEDS: MULTIVITAMIN W/MINERALS TABLET PO SCH (08:35)
[2023-03-25] MEDS: ZINC OXIDE 20% OINT 30 GM TUBE TOP PRN (10:23)
[2023-03-25] MEDS ORDERED: HALOPERIDOL 5 MG/ML VIAL IM ONE (12:09)
[2023-03-25] MEDS ORDERED: LORazepam 0.5 MG TABLET PO SCH (15:00)
[2023-03-25] MEDS: LIDOCAINE PATCH 5% TOP SCH (16:45)
--- NOTE | 2023-03-25 17:03 | PROVIDER PROGRESS NOTE ---
Assessment/Plan - Problem List (1) Dementia with behavioral disturbance Assessment/Plan: Her baseline function was unknown to me. In looking at her medication list, I thought she has dementia with behavior disturbances, since she was on Quetiapine, Risperdal, and Desyrel. We were told that she was less engaged recently. Then I learned from social work that when Risperidone was started for combativeness, she had changed to requiring full care for the last 2 weeks. In looking at her body habitus she is very poorly kempt, dirty, greasy as if she has not had personal hygiene for many days. I obtained and reviewed the Psych eval from 12/29, done at [facility]. Impression was dementia with behavioral disturbances. She scored 0 on her slums score with severe cognitive impairment. The recommendation was to decrease or stop lorazepam as it could be adding to confusion and contributing to falls. Also recommended was to decrease and discontinue Quetiapine. Also recommended was to start Risperidone slowly and increase it, "to use it as an antipsychotic, found to be effective in managing aggression, agitation and paranoid delusions, and for sleep disturbances in the setting of dementia". I resumed just the Risperidone at 0.25 BID, then adjusted it to 0.5 mg at hs, as she was still somnolent. I ordered a shower and hygiene care. Since the afternoon of yesterday, and all night overnight, and all of today she is delirious, taking off her clothes, pulled out her IV, refuses to eat or take any p.o. meds, is trying to climb out of bed, she is oriented x0, she answers with word salad. Plan: I had to give Haldol IM yesterday late afternoon and also 1 dose today for her delirium A Telepsych consult is ordered today. (2) Altered mental state Assessment/Plan: Staff at [facility], her jail, reported to our ER provider, who told me, that the "patient had several days of having decreased interactions". On 03/20 she was found down on the ground at the [place]. At admission, she was not answering verbally but only stareing ahead when being spoken to. Her head CT head showed no acute findings. At admission, her AMS was felt likely from the combination of her UTI, her dehydration and uremia Her med list was reconciled and she was taking 7 medications that could have caused oversedation. They are all on hold. There has been improvement since admission several days ago, in that she is now speaking to herself alot, and also able to sometimes answer staff appropriately. I learned from social work that when Risperidone was started for combativeness, she had changed to requiring full care for the last 2 weeks. I obtained and reviewed the last office records from Dr. Marge Rodriguez regarding her underlying psychiatric diagnoses>> that note was in 10/01 and Dx was just Anxiety. I obtained and reviewed the Psych eval from 12/29, done at [facility]. Impression was dementia with behavioral disturbances. She scored 0 on her slums score with severe cognitive impairment. The recommendation was to Decrease or stop lorazepam as it could be adding to confusion and contributing to falls. Also recommended was to decrease and discontinue Quetiapine. Also recommended was to start Risperidone slowly and increase it, "to use it as an antipsychotic, found to be effective in managing aggression, agitation and paranoid delusions, and for sleep disturbances in the setting of dementia". Plan: Remain off the medications on her med list that were liely causing oversedation: Gabapentin, Raymond which was prn, Lorazepam which was prn, Quetiapine, Ultram, De syrel, and Zolpidem. I resumed just her Risperdal and have changed it from 0.25 BID to 0.5 qpm only, due to daytime hypersomnolence A Telepsych consult is needed today Cont to treat the underlying UTI with IV antibiotics Cont to treat the dehydration and QUE with IV fluids PT and OT to cont to try working with her (3) E coli UTI (urinary tract infection) Conclusion/Plan: Abnormal urinalysis found at admission and I suspect this explains recent decreased social interactions at her jail. Abdominal imaging done in ER showed no hydronephrosis, obstruction or stones. The culture has been identified as growing E. coli. Sensitivities are available and it is pansensitive. Plan: I changed the empiric IV ceftriaxone to oral Keflex. Plan a total of 7-day course of antibx Unfortunately, she is too delirious to agree to swallow any meds so she has mis sed about 4 oral doses. She also will not let us put in an IV to resume IV antibiotic (4) QUE (acute kidney injury) Conclusion/Plan: She presented with a creatinine of 2.8. Her usual creatinine is 0.9. All labs were reviewed. Her creatinine has improved to 2.4>> 2.1>> 1.7>> 1.4 (no labs today due to combativeness) The QUE was likely caused by being on 2 diuretics causing dehydration. In addition, she has been less interactive so possibly taking in less fluids orally lately. Plan: Avoid nephrotoxins I had to stop her IV maintenance fluids when she pulled ut her iv yesterday. She is too combative to allow a new IV restart. Follow BMP daily (5) Bradycardia Conclusion/Plan: Because of the fall at the jail, she was put on telemetry to watch for arrhythmias. Telemetry shows that she has frequent sinus arrhythmia, and frequent and long runs of sinus derek producing heart rates as low as 30, up to a minute. Her admission EKG was also abnormal showing T wave changes which suggest ischemia. I checked a set of troponins and these were unremarkable. Her Echo was done and shows an esentially normal heart. Her TSH to evaluate for hypothyroidism was high at 8.44, but a free T4 was within normal limits at 0.79. (All labs were reviewed) I contacted the DPOA to discuss permanent pacemaker implant. The DPOA did not want to have the patient get a pacemaker, given her severe dementia. Plan: I stopped telemetry monitoring Avoid any heart rate-slowing medications. (6) Fall at jail Conclusion/Plan: This was unwitnessed. It did cause a scalp laceration. Her head and neck were "cleared" with CT imaging showing no acute findings. Plan: Remain on telemetry and watch for arrhythmias Cont to check orthostatic vital signs We will not give her the Lasix and HCTZ and would not recommend that those diuretics be continued in the future She had PT and OT evaluations>> She could not stand independently, needed 2 person assist. Unless there is strengthening and improvement, she will need maximum caregiving and cannot walk or be in a bed unsupervised as she may roll OOB, and therefore she may need a higher level of care living situation (7) Frequent falls Conclusion/Plan: I obtained and reviewed the Psych eval from 12/29, done at [facility]. The nurses told the psychiatrist and in the final diagnosis are "frequent falls". Plan: As per PT and OT evals: the patient cannot ambulate safely and should not be left alone as she was in her [facility] room. She would need to be bedbound or wheelchair-bound, and will need higher level of caregiving. 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 (9) Scalp laceration Conclusion/Plan: This was already stapled by the ER provider - Current Meds Current Meds: Current Medications Generic Name Dose Route Start Last Admin Trade Name Freq PRN Reason Stop Dose Admin Acetaminophen 650 mg 03/20/23 12:55 03/23/23 09:14 Acetaminophen 325 Mg Tablet PO 650 mg Q4HR PRN Administration Pain 1 to 4, or Fever Cephalexin 500 mg 03/23/23 08:06 03/25/23 17:01 Cephalexin 250 Mg Capsule PO 500 mg Q8H COREY Administration Lidocaine 1 patch 03/25/23 16:00 03/25/23 16:45 Lidocaine Patch 5% TOP 1 patch 1600 COREY Administration Multi-Ingredient Ointment 1 applic 03/20/23 20:36 03/25/23 10:23 Zinc Oxide 20% Oint 30 Gm Tube TOP 1 applic PRN PRN Administration Skin Care Multivitamins/Minerals 1 tab 03/22/23 12:00 03/25/23 08:35 Multivitamin W/Minerals Tablet PO 1 tab DAILYWM COREY Administration Ondansetron HCl 4 mg 03/20/23 12:55 03/24/23 05:08 Ondansetron 4 Mg/2 Ml Vial IVP 4 mg Q6HR PRN Administration Nausea / Vomiting Risperidone 0.5 mg 03/24/23 19:00 03/24/23 20:28 Risperidone 0.25 Mg Tablet PO 0.5 mg 1900 COREY Administration Sodium Chloride 10 ml 03/20/23 17:00 03/25/23 16:45 Sodium Chloride Flush 0.9% 10 Ml Syringe IVP Not Given 0100,0900,1700 COREY - Lab Result Fish Bone Diagrams: 03/24/23 04:28 03/26/23 04:10 - Additional Planning My Orders: My Active Orders 03/24/23 16:25 Swallow Screen - Nursing [RC] ONCE 03/24/23 19:00 risperiDONE [RisperDAL] 0.5 mg PO 1900 03/25/23 07:49 LORazepam [Ativan] 1 mg PO QPM PRN 03/25/23 10:14 Inpatient - Telepsych Set-up [RC] ONCE 03/25/23 10:18 IV Discontinuation [RC] .ONCE 03/25/23 Lunch Dysphagia - Puree [DIET] 03/25/23 15:00 LORazepam [Ativan] 0.5 mg PO 1500 03/25/23 16:00 Lidocaine Patch 5% [Lidoderm Patch] 1 patch TOP 1600 03/26/23 05:00 BMP - BASIC METABOLIC PANEL [CHEM] DAILYLAB 03/27/23 05:00 BMP - BASIC METABOLIC PANEL [CHEM] DAILYLAB Subjective - Subjective Nursing Reports: Other (Agitated, playing with her bedsheets, undressing) Objective Vital Signs: Vital Signs - 24 hr 03/24/23 03/25/23 03/25/23 23:43 08:42 15:31 Temperature 36.4 C L 36.2 C L 35.7 C L Heart Rate [ 66 66 66 Brachial] Respiratory 20 20 16 Rate Blood Pressure 154/91 H [Left Brachial artery] Blood Pressure 152/97 H 155/75 H [Right Brachial artery] O2 Saturation 98 97 Oxygen O2 Source Room air I&O (Last 24 Hrs): Intake and Output Totals x24h 03/23/23 03/24/23 03/25/23 23:59 23:59 23:59 Intake Total 2328.333 2130 40 Output Total 1025 1275 Balance 1303.333 855 40 General: Moderate distress (She is delirious, hyper active, speaking with the words) HEENT: Mucous membr. moist/pink, Other (Disheveled) Neck: Supple Neuro: Non Focal, Other (Delirious) Cardiovascular: Regular rate Respiratory: No respiratory distress Extremities: No clubbing, No edema, No tenderness/swelling - Results Results: Laboratory Results WBC 5.2 x10^3/uL (4.8-10.8) 03/24/23 04:28 RBC 3.04 10^6/uL (4.20-5.40) L 03/24/23 04:28 Hgb 10.1 g/dL (12.0-16.0) L 03/24/23 04:28 Hct 30.1 % (37.0-47.0) L 03/24/23 04:28 MCV 99.0 fL (81.0-99.0) 03/24/23 04:28 MCH 33.2 pg (27.0-31.0) H 03/24/23 04:28 MCHC 33.6 g/dL (32.0-36.0) 03/24/23 04:28 RDW 13.2 % (12.0-15.0) 03/24/23 04:28 Plt Count 108 10^3/uL (130-450) L 03/24/23 04:28 MPV 10.7 fL (7.9-10.8) 03/24/23 04:28 Neut # (Auto) 3.9 10^3/uL (1.5-6.6) 03/24/23 04:28 Lymph # (Auto) 0.8 10^3/uL (1.5-3.5) L 03/24/23 04:28 [place] # (Auto) 0.3 10^3/uL (0.0-1.0) 03/24/23 04:28 Eos # (Auto) 0.1 10^3/uL (0.0-0.7) 03/24/23 04:28 Baso # (Auto) 0.0 10^3/uL (0.0-0.1) 03/24/23 04:28 Absolute Nucleated RBC 0.00 x10^3/uL 03/24/23 04:28 Nucleated RBC % 0.0 /100WBC 03/24/23 04:28 Sodium 139 mmol/L (135-145) 03/24/23 04:28 Potassium 3.4 mmol/L (3.5-4.5) L 03/24/23 04:28 Chloride 110 mmol/L (101-111) 03/24/23 04:28 Carbon Dioxide 25 mmol/L (21-32) 03/24/23 04:28 Anion Gap 4.0 (6-13) L 03/24/23 04:28 BUN 16 mg/dL (6-20) 03/24/23 04:28 Creatinine 1.4 mg/dL (0.6-1.3) H 03/24/23 04:28 Estimated GFR (MDRD) 36 (>89) L 03/24/23 04:28 Glucose 119 mg/dL (74-104) H 03/24/23 04:28 Calcium 8.6 mg/dL (8.5-10.3) 03/24/23 04:28 Phosphorus 2.3 mg/dL (2.5-5.0) L 03/23/23 04:26 Magnesium 1.8 mg/dL (1.7-2.3) 03/23/23 04:26 Total Bilirubin 0.2 mg/dL (0.2-1.0) 03/21/23 03:07 AST 19 IU/L (10-42) 03/21/23 03:07 ALT 21 IU/L (10-60) 03/21/23 03:07 Alkaline Phosphatase 61 IU/L (42-121) 03/21/23 03:07 Troponin I High Sens 11.0 ng/L (2.3-14.8) 03/21/23 11:32 Total Protein 5.7 g/dL (6.4-8.9) L 03/21/23 03:07 Albumin 3.0 g/dL (3.2-5.5) L 03/21/23 03:07 Globulin 2.7 g/dL (2.1-4.2) 03/21/23 03:07 Albumin/Globulin Ratio 1.1 (1.0-2.2) 03/21/23 03:07 TSH 8.44 uIU/mL (0.34-5.60) H 03/21/23 03:07 Free T4 Direct 0.79 ng/dL (0.58-1.64) 03/22/23 04:40 Urine Color YELLOW 03/20/23 08:19 Urine Clarity CLEAR (CLEAR) 03/20/23 08:19 Urine pH 6.5 PH (5.0-7.5) 03/20/23 08:19 Ur Specific [place] 1.015 (1.002-1.030) 03/20/23 08:19 Urine Protein NEGATIVE mg/dL (NEGATIVE) 03/20/23 08:19 Urine Glucose (UA) NEGATIVE mg/dL (NEGATIVE) 03/20/23 08:19 Urine Ketones NEGATIVE mg/dL (NEGATIVE) 03/20/23 08:19 Urine Occult Blood NEGATIVE (NEGATIVE) 03/20/23 08:19 Urine Nitrite POSITIVE (NEGATIVE) H 03/20/23 08:19 Urine Bilirubin NEGATIVE (NEGATIVE) 03/20/23 08:19 Urine Urobilinogen 0.2 (NORMAL) E.U./dL (NORMAL) 03/20/23 08:19 Ur Leukocyte Esterase SMALL (NEGATIVE) H 03/20/23 08:19 Urine RBC 0-5 /HPF (0-5) 03/20/23 08:19 Urine WBC 4-5 /HPF (0-5) 03/20/23 08:19 Ur Squamous Epith Cells RARE Squamous (<= Few) 03/20/23 08:19 Urine Bacteria Many /HPF (None Seen) H 03/20/23 08:19 Urine Mucus Few Strands 03/20/23 08:19 Ur Microscopic Review INDICATED 03/20/23 08:19 Urine Culture Comments INDICATED 03/20/23 08:19
--- NOTE | 2023-03-25 19:23 | TELEPSYCH PHYS NOTE ---
Telepsych Consultation Note Consult: Name: Miley FriedmanB: 1945 DateandTime: 03/25/2023 9:34:31 PM [facility] Length of consult: 1 hour This evaluation was conducted via video telepsychiatry with the assistance of onsite staff Reason for consult: AMS, aggression Requested by: Sonja History of Present Illness: Provider/nurse contacted: MAXIMO Zamarripa, Dr. Smith Psych consulted for: aggression Chief complaint: Pt unable to answer Psych Consult HPI: Pt is a 77yo F with a past psych hx of dementia who presents for AMS. Pt is in the hospital for reportedly having AMS, fall, UTI. Pt has not been cooperative with staff at her alf. She has also been spaced out and unresponsive at times. Pt was mildly aggressive in hospital taking out her IV line. Pts current med regimen is Ativan 0.5mg Q6 PRN, Risperdal 0.25mg BID and Seroquel 25mg QHS, Ambien 10mg QHS, Trazodone 50mg QHS During interview, Pt was only A&Ox1 to self. Pt was unable to answer jacky ropriately to questioning. Unable to assess for stressors, past psych hx, substance abuse, SI/HI/AVH, paranoia or depression. Per Chart: This is a 77-year-old female who has a history of dementia and lives at [facility]. There is 1 page of records that we have from [facility]. Her medications show that she is on several vitamins and supplements and takes both Lasix and HCTZ daily as well as gabapentin and narcotics for pain. For the last few days she has been less communicative than normal, according to staff at [facility]. Today she had an unwitnessed fall and was found down on the floor next to her bed, with a laceration noticed on her forehead. She was brought to the ER. She underwent CT imaging of the head and neck, which were negative for hemorrhage or trauma. She underwent stapling of the laceration in the ER. She had presented minimally communicative and just staring when spoken to, but then was yelling a word salad during the stapling of her laceration. Work-up in our ER showed that the patient has QUE with a creatinine of 2.8 (usual creatinine 0.9), she is dehydrated with a sodium of 146, and has a abnormal U/A consistent with a UTI. The patient started to receive IV fluids and received IV ceftriaxone in the ER, after cultures were sent off. The ED provider then spoke to me about this patient. She will be admitted to the Hospitalist service. Collateral Contacted: Gamaliel for not contacting the collateral:OtherOther: Pts sister Melisa Joyner [phone] Sleep issues?: YesSleep Quantity:Sleep Quality: Psychiatric History/Treatment History: Past diagnoses: hx of dementia with delirium/hallucinations Hospitalizations: No Current Treatment:YesMedication management:Therapy: Suicide Assessment: PSS-3: 1) Over the past 2 weeks have you felt down, depressed or hopeless?Unknown-NA 2) Over the past 2 weeks have you had thoughts of killing yourself?Unknown-NA 3) Have you ever in your life attempted to kill yourself?Unknown-NA Within the past 6 months? [facility] Safety Assessment: Risk Factors Stressors: health Attempts/Self-injury: Unknown-NA Impulsivity:Unknown-NA Drug/Alcohol History:Unknown-NA Trauma History:Unknown-NA Access to firearms:Unknown-NA HI/Violence/Property destruction:Unknown-NA Legal: Unknown-NA Family Psych History:Unknown-NA Family History of suicide:Unknown-NA Protective Factors: Can handle stress well?Unknown-NA Uatsdin?Unknown-NA External: Social supports/ Therapeutic relationships: Unknown-NA Relationship history: unable to assess Living situation: lives [facility] Employment: No Education: unable to assess Responsibility to family/children/work: Unknown-NA Future orientation:Unknown-NA Health History: Medical History: Neuro: reports: Dementia Musculoskeletal: reports: Osteoarthritis, Other MRSA Hx?: No Other Past Medical History: dementia Medications & Freq: Furosemide [Lasix] 1 tab PO MOWEFR 03/20/23 03/20/23 Gabapentin [Neurontin] 300 mg PO TID 03/20/23 03/20/23 HYDROcod/ACETAM 5/325 [[place] 5/325] 1 tab PO Q4H PRN 03/20/23 03/20/23 LORazepam [Ativan] 0.5 mg PO Q6H PRN 03/20/23 03/20/23 Meloxicam [Mobic] 7.5 mg PO BID 03/20/23 03/20/23 Potassium Chloride [K-Dur] 20 meq PO MOWEFR 03/20/23 03/20/23 QUEtiapine [SEROquel] 25 mg PO QPM 03/20/23 03/20/23 Zolpidem Tartrate [Ambien] 10 mg PO DAILY PM 03/20/23 03/20/23 hydroCHLOROthiazide [Hydrodiuril] 25 mg PO DAILY 03/20/23 03/20/23 risperiDONE [RisperDAL] 0.25 mg PO BID 03/20/23 03/20/23 traMADol [Ultram] 50 mg PO Q4-6H 03/20/23 03/20/23 traZODone [Desyrel] 50 mg PO HS 03/20/23 03/20/23 Allergies: NKDA Mental Status Exam: Appearance and Attire: Psychomotor agitation:Psychomotor retardation Attitude and behavior:delirious Speech:Slow Mood:Depressed Affect:Flat Thought process:unable to assess Thought content:unable to assess Perception:unable to assess Intel:unable to assess Abstract:Poor reasoning Language:unable to assess Orientation:Oriented to person Sense:Delirious Knowledge:unable to assess Memory:Impaired to Immediate recall, Impaired to Recent recall (3 min), Impaired to Remote recall, Impaired to Executive function Insight:Lack of awareness of problems, Mild impairment Judgement:Mild impairment Gait:Unsteady Impression/Risk Assessment: Current Suicide Risk Elevated?No Current Violence Risk Elevated?No Issues with ability to care for self?Yes Summary: Clinical impression: Delirium d/t medical cause Neurocognitive d/o Risk Assessment: Pt is a 77yo F with a past psych hx of dementia who presents for AMS. Pt is most likely experiencing a delirium in the context of medical illness as evidenced by poor attention and cognition, the short duration of sxs and Pts attention is waxing and waning which would be characteristic of delirium. All possibilities of medical causes causing the delirium should be exhausted. About delirium: Risk factors for Delirium: Age>65, cognitive impairment (past/present) and/or dementia, current hip fracture, severe illness. Sxs of delirium 1. Attention/concentration and awareness fluctuate or reduced 2. Develops in relatively short time 3. Disturbance in cognition It is important to attempt to discern the cause of the agitation, as the e nvironment can play a significant role in either alleviating or, unfortunately, reinforcing agitation and aggression. Agitation may reflect hunger, fatigue, pain, the need to urinate or defecate, or overstimulation. Conversely, if a patient receives care giving only in response to agitation or aggression, those behaviors are reinforced and may even escalate over time. Educating nursing staff regarding assessing for causes of agitation will be paramount in assisting the patient RECOMMENDATIONS: >> Considering that delirium is the most likely cause, and Pt is not a current danger to self or others, inpatient psych is NOT recommended as Pt is showing only mild/moderate aggression. >> When underlying medical causes are treated and delirium has lifted, a reassessment would be appropriate. >> Recommend Meds: Pt is on several meds that are redundant which puts the Pt at an increased risk of polypharmacy, especially considering her age and comorbidities. Increase: Seroquel 25mg QAM, 25mg 5pm, and 50mg QHS for mood (May go up or down on the doses depending on sxs and sleep. Do not exceed 200mg daily w/o consultation) - Start: Seroquel 25mg BID PRN for breakthrough mood sxs/anxiety DC Risperdal DC Trazodone DC Ambien Be aware, Benzos can also be disinhibiting in delirious patients, especially in the elderly, increase fall risk, and negatively impact cognition. Anticholinergic meds can also have a negative impact in patient with delirium. >> Recommend starting delirium protocol 1. Have eyeglasses or hearing aids needed 2. Stop unnecessary meds 3. Adequate lighting in day 4. Encourage sleep-wake cycles 5. Frequent reorientation both verbal and visible such as clocks, familiar objects, names of staff helping 6. Appropriate cognitive stimulation 7. Adequate pain management 8. Encourage ADLs and movement 9. Explain thoroughly procedures and treatments in simple language 10. Minimize change of staff 11. Avoid physical restraints 12. Quiet environment minimizing alarms or other irritating noises 13. Encourage visits from familiar persons 14. Avoid constipation 15. Minimize use of urinary catheters >> Recommend Assault Precautions. Please contact us with any questions. Discussed with provider Thank you for this consult. This note serves as a written report of findings/recommendations and has been made available to the requesting provider. Diagnosis: F05 Delirium due to known physiological condition CPT Codes: 80394 - Psychiatric Diagnostic Evaluation with Medical Services Treatment Plan: General: Level of Care: med/surg Psychiatric Clearance: Yes Observation level 1:1 needed?: No Pharmacological: Increase: Seroquel 25mg QAM and 50mg QHS for mood (May go up or down on the doses depending on sxs and sleep. Do not exceed 200mg daily w/o consultation) - Start: Seroquel 25mg BID PRN for breakthrough mood sxs/anxiety DC Risperdal DC Trazodone DC Ambi Patient psychotic?No Therapy: supportive Follow up needed while in the hospital?: No Discussed plan with onsite steam cleaner: Yes Who MAXIMO Zamarripa, Dr. Smith Other: List names and roles of persons who participated in consult: MAXIMO Zamarripa, Dr. Smith
[2023-03-25] MEDS ORDERED: HALOPERIDOL 5 MG/ML VIAL IM PRN ×2 (19:55→20:16)
[2023-03-25] MEDS: QUEtiapine 100 MG TABLET PO SCH (20:29)
[2023-03-26 05:27] LABS: CALCIUM 8.7 mg/dL (8.5-10.3); CREATININE 1.1 mg/dL (0.6-1.3); POTASSIUM 2.9 mmol/L (3.5-4.5)
[2023-03-26] MEDS: cephALEXin 250 MG CAPSULE PO SCH ×2 (08:28→17:05)
--- NOTE | 2023-03-26 08:30 | PROVIDER PROGRESS NOTE ---
Assessment/Plan - Problem List (1) Fasting hypoglycemia Assessment/Plan: Patient is not a diabetic. She is ordered to get a soft diet but normal calories and carbs. She has not been eating for about 2 days because of her delirium and agitation. Her glucoses are coming back at 60 and 67 and 76. Plan: I will reorder restart of the IV if she is not agitated and will allow an iv start Start D5 NS with potassium (2) Hypokalemia Impression/Plan: This is partly also related to her not eating or drinking for about 2 days because of her delirium and agitation. Plan: As above in #1 I will also order K riders Follow BMP daily (3) Dementia with behavioral disturbance Assessment/Plan: Her baseline function was unknown to me. In looking at her medication list, I thought she has dementia with behavior disturbances, since she was on Quetiapine, Risperdal, and Desyrel. We were told that she was less engaged recently. Then I learned from social work that when Risperidone was started for combativeness, she had changed to requiring full care for the last 2 weeks. In looking at her body habitus she is very poorly kempt, dirty, greasy as if she has not had personal hygiene for many days. I obtained and reviewed the Psych eval from 12/29, done at [facility]. Impression was dementia with behavioral disturbances. She scored 0 on her slums score with severe cognitive impairment. The recommendation was to decrease or stop lorazepam as it could be adding to confusion and contributing to falls. Also recommended was to decrease and discontinue Quetiapine. Also recommended was to start Risperidone slowly and increase it, "to use it as an antipsychotic, found to be effective in managing aggression, agitation and paranoid delusions, and for sleep disturbances in the setting of dementia". I resumed just the Risperidone at 0.25 BID, then adjusted it to 0.5 mg at hs, as she was still somnolent. I ordered a shower and hygiene care. For 2 days and a night, she was delirious, taking off her clothes, pulled out her IV, refuses to eat or take any p.o. meds, is trying to climb out of bed, she is oriented x0, she answers with word salad. I had to give Haldol IM twice. Yesterday afternoon, she had a telepsych eval. Psychiatrist advised starting Seroquel 20 5 in the AM, 25 when she gets sundowning at 5 PM and 50 mg at night and then these doses can be increased or decreased if she is too somnolent or too agitated. Today she is to do somnolent as I am seeing her at 1650. Plan: I will adjust her Seroquel by eliminating the 5 PM dose, cont a.m. 25 mg and hs 50 mg doses. (4) Altered mental state Assessment/Plan: Staff at [facility], her fci, reported to our ER provider, who told me, that the "patient had several days of having decreased interactions". On 03/20 she was found down on the ground at the [place]. At admission, she was not answering verbally but only stareing ahead when being spoken to. Her head CT head showed no acute findings. At admission, her AMS was felt likely from the combination of her UTI, her dehydration and uremia Her med list was reconciled and she was taking 7 medications that could have caused oversedation. They are all on hold. There has been improvement since admission several days ago, in that she is now speaking to herself alot, and also able to sometimes answer staff appropriately. I learned from social work that when Risperidone was started for combativeness, she had changed to requiring full care for the last 2 weeks. I obtained and reviewed the last office records from Dr. Marge Rodriguez regarding her underlying psychiatric diagnoses>> that note was in 10/01 and Dx was just Anxiety. I obtained and reviewed the Psych eval from 12/29, done at [facility]. Impression was dementia with behavioral disturbances. She scored 0 on her slums score with severe cognitive impairment. The recommendation was to Decrease or stop lorazepam as it could be adding to confusion and contributing to falls. Also recommended was to decrease and discontinue Quetiapine. Also recommended was to start Risperidone slowly and increase it, "to use it as an antipsychotic, found to be effective in managing aggression, agitation and paranoid delusions, and for sleep disturbances in the setting of dementia". Plan: As in #3 Cont to treat the dehydration and QUE with IV fluids PT and OT to cont to try working with her (5) E coli UTI (urinary tract infection) Conclusion/Plan: Abnormal urinalysis found at admission and I suspect this explains recent decreased social interactions at her fci. Abdominal imaging done in ER showed no hydronephrosis, obstruction or stones. The culture has been identified as growing E. coli. Sensitivities are available and it is pansensitive. Plan: I changed the empiric IV ceftriaxone to oral Keflex. Plan a total of 7-day course of antibx Unfortunately, she was too delirious to swallow any meds for 2 days so she has missed about 4 oral doses. She also did not let us put in an IV to resume IV antibiotic. Today she is taking a diet and we will resume the p.o. antibiotic (6) QUE (acute kidney injury) Conclusion/Plan: She presented with a creatinine of 2.8. Her usual creatinine is 0.9. All labs were reviewed. Her creatinine has improved to 2.4>> 2.1>> 1.7>> 1.4(no labs today due to combativeness) The QUE was likely caused by being on 2 diuretics causing dehydration. In addition, she has been less interactive so possibly taking in less fluids orally lately. Plan: Avoid nephrotoxins I had to stop her IV maintenance fluids when she pulled ut her iv yesterday. She is too combative to allow a new IV restart. Follow BMP daily (7) Bradycardia Conclusion/Plan: Because of the fall at the fci, she was put on telemetry to watch for arrhythmias. Telemetry shows that she has frequent sinus arrhythmia, and frequent and long runs of sinus derek producing heart rates as low as 30, up to a minute. Her admission EKG was also abnormal showing T wave changes which suggest is chemia. I checked a set of troponins and these were unremarkable. Her Echo was done and shows an esentially normal heart. Her TSH to evaluate for hypothyroidism was high at 8.44, but a free T4 was wit hin normal limits at 0.79. (All labs were reviewed) I contacted the DPOA to discuss permanent pacemaker implant. The DPOA did not want to have the patient get a pacemaker, given her severe dementia. Plan: I will stop telemetry monitoring Avoid any heart rate-slowing medications. (8) Fall at fci Conclusion/Plan: This was unwitnessed. It did cause a scalp laceration. Her head and neck were "cleared" with CT imaging showing no acute findings. Plan: Remain on telemetry and watch for arrhythmias Cont to check orthostatic vital signs We will not give her the Lasix and HCTZ and would not recommend that those diuretics be continued in the future She had PT and OT evaluations>> She could not stand independently, needed 2 person assist. Unless there is strengthening and improvement, she will need maximum caregiving and cannot walk or be in a bed unsupervised as she may roll OOB, and therefore she may need a higher level of care living situation (9) Frequent falls Conclusion/Plan: I obtained and reviewed the Psych eval from 12/29, done at [facility]. The nurses told the psychiatrist and in the final diagnosis are "frequent falls". Plan: As per PT and OT evals today: the patient cannot ambulate safely and should not be left alone as she was in her [facility] room. She would need to be bedbound or wheelchair-bound, and will need higher level of caregiving. 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 (11) Scalp laceration Conclusion/Plan: This was already stapled by the ER provider - Current Meds Current Meds: Current Medications Generic Name Dose Route Start Last Admin Trade Name Freq PRN Reason Stop Dose Admin Acetaminophen 650 mg 03/20/23 12:55 03/23/23 09:14 Acetaminophen 325 Mg Tablet PO 650 mg Q4HR PRN Administration Pain 1 to 4, or Fever Cephalexin 500 mg 03/23/23 08:06 03/25/23 23:24 Cephalexin 250 Mg Capsule PO 500 mg Q8H COREY Administration Haloperidol 1 mg 03/25/23 20:16 03/25/23 22:21 Haloperidol 5 Mg/Ml Vial IM 1 mg Q4H PRN Administration Agitation Lidocaine 1 patch 03/25/23 16:00 03/25/23 16:45 Lidocaine Patch 5% TOP 1 patch 1600 COREY Administration Multi-Ingredient Ointment 1 applic 03/20/23 20:36 03/25/23 10:23 Zinc Oxide 20% Oint 30 Gm Tube TOP 1 applic PRN PRN Administration Skin Care Multivitamins/Minerals 1 tab 03/22/23 12:00 03/25/23 08:35 Multivitamin W/Minerals Tablet PO 1 tab DAILYWM COREY Administration Ondansetron HCl 4 mg 08/12/23 12:55 03/24/23 05:08 Ondansetron 4 Mg/2 Ml Vial IVP 4 mg Q6HR PRN Administration Nausea / Vomiting Quetiapine Fumarate 50 mg 03/25/23 21:00 03/25/23 20:29 Quetiapine 100 Mg Tablet PO Not Given QPM COREY Sodium Chloride 10 ml 03/20/23 17:00 03/25/23 23:24 Sodium Chloride Flush 0.9% 10 Ml Syringe IVP Not Given 0100,0900,1700 COREY - Lab Result Fish Bone Diagrams: 03/24/23 04:28 03/26/23 04:10 - Additional Planning My Orders: My Active Orders 03/25/23 10:18 IV Discontinuation [RC] .ONCE 03/25/23 Lunch Dysphagia - Puree [DIET] 03/25/23 16:00 Lidocaine Patch 5% [Lidoderm Patch] 1 patch TOP 1600 03/25/23 20:16 Haloperidol Inj [Haldol Inj] 1 mg IM Q4H PRN 03/25/23 21:00 QUEtiapine [SEROquel] 50 mg PO QPM 03/26/23 08:00 QUEtiapine [SEROquel] 25 mg PO 0800,1700 03/26/23 08:19 IV Insert [RC] ONCE 03/26/23 09:00 D5ns W/20 Meq KCl 1,000 ml IV 83.333 mls/hr 03/27/23 05:00 BMP - BASIC METABOLIC PANEL [CHEM] DAILYLAB Subjective - Subjective Nursing Reports: Other (Today she is excessively sleepy, after being started on Seroquel as per the dosing rec by Telepsych yesterday) Objective Vital Signs: Vital Signs - 24 hr 03/25/23 03/25/23 03/26/23 08:42 15:31 00:03 Temperature 36.2 C L 35.7 C L 35.8 C L Heart Rate [ 66 66 76 Brachial] Respiratory 20 16 18 Rate Blood Pressure 154/91 H 126/72 [Left Brachial artery] Blood Pressure 155/75 H [Right Brachial artery] O2 Saturation 97 98 03/26/23 08:00 Temperature 36.0 C L Heart Rate [ 72 Brachial] Respiratory 16 Rate Blood Pressure [Left Brachial artery] Blood Pressure 130/84 H [Right Brachial artery] O2 Saturation 92 Oxygen O2 Source Room air I&O (Last 24 Hrs): Intake and Output Totals x24h 03/24/23 03/25/23 03/26/23 23:59 23:59 23:59 Intake Total 2130 220 237 Output Total 1275 Balance 855 220 237 General: Other (Lethargic) HEENT: Mucous membr. moist/pink Neck: No JVD Neuro: Other (somnolent) Cardiovascular: Regular rate Respiratory: No respiratory distress Abdomen: No tenderness Extremities: No clubbing, No edema, No tenderness/swelling - Results Results: Laboratory Results WBC 5.2 x10^3/uL (4.8-10.8) 03/24/23 04:28 RBC 3.04 10^6/uL (4.20-5.40) L 03/24/23 04:28 Hgb 10.1 g/dL (12.0-16.0) L 03/24/23 04:28 Hct 30.1 % (37.0-47.0) L 03/24/23 04:28 MCV 99.0 fL (81.0-99.0) 03/24/23 04:28 MCH 33.2 pg (27.0-31.0) H 03/24/23 04:28 MCHC 33.6 g/dL (32.0-36.0) 03/24/23 04:28 RDW 13.2 % (12.0-15.0) 03/24/23 04:28 Plt Count 108 10^3/uL (130-450) L 03/24/23 04:28 MPV 10.7 fL (7.9-10.8) 03/24/23 04:28 Neut # (Auto) 3.9 10^3/uL (1.5-6.6) 03/24/23 04:28 Lymph # (Auto) 0.8 10^3/uL (1.5-3.5) L 03/24/23 04:28 Owsley # (Auto) 0.3 10^3/uL (0.0-1.0) 03/24/23 04:28 Eos # (Auto) 0.1 10^3/uL (0.0-0.7) 03/24/23 04:28 Baso # (Auto) 0.0 10^3/uL (0.0-0.1) 03/24/23 04:28 Absolute Nucleated RBC 0.00 x10^3/uL 03/24/23 04:28 Nucleated RBC % 0.0 /100WBC 03/24/23 04:28 Sodium 142 mmol/L (135-145) 03/26/23 04:10 Potassium 2.9 mmol/L (3.5-4.5) L 03/26/23 04:10 Chloride 110 mmol/L (101-111) 03/26/23 04:10 Carbon Dioxide 27 mmol/L (21-32) 03/26/23 04:10 Anion Gap 5.0 (6-13) L 03/26/23 04:10 BUN 16 mg/dL (6-20) 03/26/23 04:10 Creatinine 1.1 mg/dL (0.6-1.3) 03/26/23 04:10 Estimated GFR (MDRD) 48 (>89) L 03/26/23 04:10 Glucose 68 mg/dL (74-104) L 03/26/23 04:10 POC Whole Bld Glucose 87 mg/dL (70 - 100) 03/26/23 08:13 Calcium 8.7 mg/dL (8.5-10.3) 03/26/23 04:10 Phosphorus 2.3 mg/dL (2.5-5.0) L 03/23/23 04:26 Magnesium 1.8 mg/dL (1.7-2.3) 03/23/23 04:26 Total Bilirubin 0.2 mg/dL (0.2-1.0) 03/21/23 03:07 AST 19 IU/L (10-42) 03/21/23 03:07 ALT 21 IU/L (10-60) 03/21/23 03:07 Alkaline Phosphatase 61 IU/L (42-121) 03/21/23 03:07 Troponin I High Sens 11.0 ng/L (2.3-14.8) 03/21/23 11:32 Total Protein 5.7 g/dL (6.4-8.9) L 03/21/23 03:07 Albumin 3.0 g/dL (3.2-5.5) L 03/21/23 03:07 Globulin 2.7 g/dL (2.1-4.2) 03/21/23 03:07 Albumin/Globulin Ratio 1.1 (1.0-2.2) 03/21/23 03:07 TSH 8.44 uIU/mL (0.34-5.60) H 03/21/23 03:07 Free T4 Direct 0.79 ng/dL (0.58-1.64) 03/22/23 04:40 Urine Color YELLOW 03/20/23 08:19 Urine Clarity CLEAR (CLEAR) 03/20/23 08:19 Urine pH 6.5 PH (5.0-7.5) 03/20/23 08:19 Ur Specific Thornton 1.015 (1.002-1.030) 03/20/23 08:19 Urine Protein NEGATIVE mg/dL (NEGATIVE) 03/20/23 08:19 Urine Glucose (UA) NEGATIVE mg/dL (NEGATIVE) 03/20/23 08:19 Urine Ketones NEGATIVE mg/dL (NEGATIVE) 03/20/23 08:19 Urine Occult Blood NEGATIVE (NEGATIVE) 03/20/23 08:19 Urine Nitrite POSITIVE (NEGATIVE) H 03/20/23 08:19 Urine Bilirubin NEGATIVE (NEGATIVE) 03/20/23 08:19 Urine Urobilinogen 0.2 (NORMAL) E.U./dL (NORMAL) 03/20/23 08:19 Ur Leukocyte Esterase SMALL (NEGATIVE) H 03/20/23 08:19 Urine RBC 0-5 /HPF (0-5) 03/20/23 08:19 Urine WBC 4-5 /HPF (0-5) 03/20/23 08:19 Ur Squamous Epith Cells RARE Squamous (<= Few) 03/20/23 08:19 Urine Bacteria Many /HPF (None Seen) H 03/20/23 08:19 Urine Mucus Few Strands 03/20/23 08:19 Ur Microscopic Review INDICATED 03/20/23 08:19 Urine Culture Comments INDICATED 03/20/23 08:19
[2023-03-26] MEDS: QUEtiapine 25 MG TABLET PO SCH ×2 (08:32→17:05)
[2023-03-26] MEDS: MULTIVITAMIN W/MINERALS TABLET PO SCH (08:32)
[2023-03-26] MEDS: D5NS W/20 MEQ KCL 1,000 ML IV SCH (10:09)
[2023-03-26] MEDS: SODIUM CHLORIDE FLUSH 0.9% 10 ML SYRINGE IVP SCH ×2 (10:10→17:03)
[2023-03-26] MEDS: POTASSIUM CHLOR 10 MEQ/100 ML 10 MEQ/100 ML BAG IV SCH ×4 (11:32→15:59)
--- NOTE | 2023-03-26 15:48 | PROVIDER PROGRESS NOTE ---
Assessment/Plan - Problem List (1) QUE (acute kidney injury) Assessment/Plan: She presented with a creatinine of 2.8. Her usual creatinine is 0.9. All labs were reviewed. Her creatinine was first improving to 2.4>> 2.1>> 1.7>> 1.4. Then we had no labs for 2 days when she was agitated. Today her creatinine came back elevated at 1.5 The initial QUE was likely caused by being on 2 diuretics causing dehydration. The worsened creatinine today is likely from having no oral intake or allowing IV fluids for the past 3 days. Then she allowed an IV restart yesterday. On 03/26 nurses reported a decreased urine output (I's and O's were reviewed) Plan: Cont the increased iv rate for the QUE, volume depletion Follow BMP daily Avoid nephrotoxins (2) Fasting hypoglycemia Assessment/Plan: Patient is not a diabetic. She is ordered to get a soft diet but normal calories and carbs. Her glucoses while she was not eating for 2 days, intermittently delerious, were 60 and 67 and 76.She has not been eating for about 2 days because of her delirium and agitation. I restarted her IV fluids, since she allowed an iv be restarted. Started D5 NS with potassium Plan: Will increase iv rate for the QUE, volume depletion (3) Hypokalemia Impression/Plan: This is partly also related to her not eating or drinking for about 2 days because of her delirium and agitation. Plan: I will order K riders carefully if needed Follow BMP daily (4) Dementia with behavioral disturbance Assessment/Plan: Her baseline function was unknown to me. In looking at her medication list, I thought she has dementia with behavior disturbances, since she was on Quetiapine, Risperdal, and Desyrel. We were told that she was less engaged recently. Then I learned from social work that when Risperidone was started for combativeness, she had changed to requiring full care for the last 2 weeks. In looking at her body habitus she is very poorly kempt, dirty, greasy as if she has not had personal hygiene for many days. I obtained and reviewed the Psych eval from 12/29, done at [facility]. Impression was dementia with behavioral disturbances. She scored 0 on her slums score with severe cognitive impairment. The recommendation was to decrease or stop lorazepam as it could be adding to confusion and contributing to falls. Also recommended was to decrease and discontinue Quetiapine. Also recommended was to start Risperidone slowly and increase it, "to use it as an antipsychotic, found to be effective in managing aggression, agitation and paranoid delusions, and for sleep disturbances in the setting of dementia". I resumed just the Risperidone at 0.25 BID, then adjusted it to 0.5 mg at hs, as she was still somnolent. I ordered a shower and hygiene care. For 2 days and a night, she was delirious, taking off her clothes, pulled out her IV, refuses to eat or take any p.o. meds, is trying to climb out of bed, she is oriented x0, she answers with word salad. I had to give Haldol IM twice. Yesterday afternoon, she had a telepsych eval. Psychiatrist advised starting Seroquel 20 5 in the AM, 25 when she gets owning at 5 PM and 50 mg at night and then these doses can be increased or decreased if she is too somnolent or too agitated. Today she is to do somnolent as I am seeing her at 1650. Plan: I adjusted her Seroquel by eliminating the 5 PM dose, cont a.m. 25 mg and hs 50 mg doses. Today I spoke to the DPOA at bedside who came to visit her from [place], [place]. This is her [id number]. She brought in an electric toy cat and other positions which she will recognize we think. (5) Altered mental state Assessment/Plan: Staff at [facility], her long-term, reported to our ER provider, who told me, that the "patient had several days of having decreased interactions". On 03/20 she was found down on the ground at the CT. At admission, she was not answering verbally but only stareing ahead when being spoken to. Her head CT head showed no acute findings. At admission, her AMS was felt likely from the combination of her UTI, her dehydration and uremia Her med list was reconciled and she was taking 7 medications that could have caused oversedation. They are all on hold. There has been improvement since admission several days ago, in that she is now speaking to herself alot, and also able to sometimes answer staff appropriately. I learned from social work that when Risperidone was started for combativeness, she had changed to requiring full care for the last 2 weeks. I obtained and reviewed the last office records from Dr. Marge Rodriguez regarding h er underlying psychiatric diagnoses>> that note was in 10/01 and Dx was just Anxiety. I obtained and reviewed the Psych eval from 12/29, done at [facility]. Impression was dementia with behavioral disturbances. She scored 0 on her slums score with severe cognitive impairment. The recommendation was to Decrease or stop lorazepam as it could be adding to confusion and contributing to falls. Also recommended was to decrease and discontinue Quetiapine. Also recommended was to start Risperidone slowly and increase it, "to use it as an antipsychotic, found to be effective in managing aggression, agitation and paranoid delusions, and for sleep disturbances in the setting of dementia". Plan: As in #4 Cont to treat the dehydration and QUE with IV fluids PT and OT to cont to try working with her (6) E coli UTI (urinary tract infection) Conclusion/Plan: Abnormal urinalysis found at admission and I suspect this explains recent decreased social interactions at her long-term. Abdominal imaging done in ER showed no hydronephrosis, obstruction or stones. The culture has been identified as growing E. coli. Sensitivities are available and it is pansensitive. Plan: I changed the empiric IV ceftriaxone to oral Keflex. Plan a total of 7-day course of antibx Unfortunately, she was too delirious to swallow any meds for 2 days so she has missed about 4 oral doses. She also did not let us put in an IV to resume IV antibiotic. She is taking a diet and we have resumed the p.o. antibiotic (7) Bradycardia Conclusion/Plan: Because of the fall at the long-term, she was put on telemetry to watch for arrhythmias. Telemetry shows that she has frequent sinus arrhythmia, and frequent and long runs of sinus derek producing heart rates as low as 30, up to a minute. Her admission EKG was also abnormal showing T wave changes which suggest ischemia. I checked a set of troponins and these were unremarkable. Her Echo was done and shows an esentially normal heart. Her TSH to evaluate for hypothyroidism was high at 8.44, but a free T4 was within normal limits at 0.79. (All labs were reviewed) I contacted the DPOA to discuss permanent pacemaker implant. The DPOA did not want to have the patient get a pacemaker, given her severe dementia. Plan: I will stop telemetry monitoring Avoid any heart rate-slowing medications. (8) Fall at long-term Conclusion/Plan: This was unwitnessed. It did cause a scalp laceration. Her head and neck were "cleared" with CT imaging showing no acute findings. Plan: Remain on telemetry and watch for arrhythmias Cont to check orthostatic vital signs We will not give her the Lasix and HCTZ and would not recommend that those diuretics be continued in the future She had PT and OT evaluations>> She could not stand independently, needed 2 person assist. Unless there is strengthening and improvement, she will need maximum caregiving and cannot walk or be in a bed unsupervised as she may roll OOB, and therefore she may need a higher level of care living situation (9) Frequent falls Conclusion/Plan: I obtained and reviewed the Psych eval from 12/29, done at [facility]. The nurses told the psychiatrist and in the final diagnosis are "frequent falls". Plan: As per PT and OT evals today: the patient cannot ambulate safely and should not be left alone as she was in her [facility] room. She would need to be bedbound or wheelchair-bound, and will need higher level of caregiving. 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 (11) Scalp laceration Conclusion/Plan: This was already stapled by the ER provider - Current Meds Current Meds: Current Medications Generic Name Dose Route Start Last Admin Trade Name Freq PRN Reason Stop Dose Admin Acetaminophen 650 mg 03/20/23 12:55 03/23/23 09:14 Acetaminophen 325 Mg Tablet PO 650 mg Q4HR PRN Administration Pain 1 to 4, or Fever Cephalexin 500 mg 03/23/23 08:06 03/26/23 08:28 Cephalexin 250 Mg Capsule PO 500 mg Q8H COREY Administration Haloperidol 1 mg 03/25/23 20:16 03/25/23 22:21 Haloperidol 5 Mg/Ml Vial IM 1 mg Q4H PRN Administration Agitation Potassium Chloride/Dextrose/Sod Cl 1,000 mls @ 83.333 mls/hr 03/26/23 09:00 03/26/23 11:32 D5ns W/20 Meq Kcl IV 50 mls/hr .Q12H COREY Infusion Lidocaine 1 patch 03/25/23 16:00 03/25/23 16:45 Lidocaine Patch 5% TOP 1 patch 1600 COREY Administration Multi-Ingredient Ointment 1 applic 03/20/23 20:36 03/25/23 10:23 Zinc Oxide 20% Oint 30 Gm Tube TOP 1 applic PRN PRN Administration Skin Care Multivitamins/Minerals 1 tab 03/22/23 12:00 03/26/23 08:32 Multivitamin W/Minerals Tablet PO 1 tab DAILYWM COREY Administration Ondansetron HCl 4 mg 03/20/23 12:55 03/24/23 05:08 Ondansetron 4 Mg/2 Ml Vial IVP 4 mg Q6HR PRN Administration Nausea / Vomiting Quetiapine Fumarate 50 mg 03/25/23 21:00 03/25/23 20:29 Quetiapine 100 Mg Tablet PO Not Given QPM COREY Quetiapine Fumarate 25 mg 03/26/23 08:00 03/26/23 08:32 Quetiapine 25 Mg Tablet PO 25 mg 0800,1700 COREY Administration Sodium Chloride 10 ml 03/20/23 17:00 03/26/23 10:10 Sodium Chloride Flush 0.9% 10 Ml Syringe IVP 10 ml 0100,0900,1700 COREY Administration - Lab Result Fish Bone Diagrams: 03/24/23 04:28 03/27/23 04:33 - Additional Planning My Orders: My Active Orders 03/25/23 16:00 Lidocaine Patch 5% [Lidoderm Patch] 1 patch TOP 1600 03/25/23 20:16 Haloperidol Inj [Haldol Inj] 1 mg IM Q4H PRN 03/25/23 21:00 QUEtiapine [SEROquel] 50 mg PO QPM 03/26/23 08:00 QUEtiapine [SEROquel] 25 mg PO 0800,1700 03/26/23 09:00 D5ns W/20 Meq KCl 1,000 ml IV 83.333 mls/hr 03/27/23 05:00 BMP - BASIC METABOLIC PANEL [CHEM] DAILYLAB Subjective - Subjective Nursing Reports: Other (Today she is excessively sleepy, after being started on Seroquel as per the dosing rec by Telepsych 2 days ago) Objective Vital Signs: Vital Signs - 24 hr 03/26/23 03/26/23 00:03 08:00 Temperature 35.8 C L 36.0 C L Heart Rate [ 76 72 Brachial] Respiratory 18 16 Rate Blood Pressure 126/72 [Left Brachial artery] Blood Pressure 130/84 H [Right Brachial artery] O2 Saturation 98 92 Oxygen O2 Source Room air I&O (Last 24 Hrs): Intake and Output Totals x24h 03/24/23 03/25/23 03/26/23 23:59 23:59 23:59 Intake Total 2130 220 802.232 Output Total 1275 Balance 855 220 802.232 General: Other (lethargic, awakens to be fed) HEENT: Mucous membr. moist/pink Neck: No JVD Neuro: Other (Somnolent) Cardiovascular: Regular rate Respiratory: No respiratory distress Abdomen: No tenderness Extremities: No clubbing, No edema - Results Results: Laboratory Results WBC 5.2 x10^3/uL (4.8-10.8) 03/24/23 04:28 RBC 3.04 10^6/uL (4.20-5.40) L 03/24/23 04:28 Hgb 10.1 g/dL (12.0-16.0) L 03/24/23 04:28 Hct 30.1 % (37.0-47.0) L 03/24/23 04:28 MCV 99.0 fL (81.0-99.0) 03/24/23 04:28 MCH 33.2 pg (27.0-31.0) H 03/24/23 04:28 MCHC 33.6 g/dL (32.0-36.0) 03/24/23 04:28 RDW 13.2 % (12.0-15.0) 03/24/23 04:28 Plt Count 108 10^3/uL (130-450) L 03/24/23 04:28 MPV 10.7 fL (7.9-10.8) 03/24/23 04:28 Neut # (Auto) 3.9 10^3/uL (1.5-6.6) 03/24/23 04:28 Lymph # (Auto) 0.8 10^3/uL (1.5-3.5) L 03/24/23 04:28 [place] # (Auto) 0.3 10^3/uL (0.0-1.0) 03/24/23 04:28 Eos # (Auto) 0.1 10^3/uL (0.0-0.7) 03/24/23 04:28 Baso # (Auto) 0.0 10^3/uL (0.0-0.1) 03/24/23 04:28 Absolute Nucleated RBC 0.00 x10^3/uL 03/24/23 04:28 Nucleated RBC % 0.0 /100WBC 03/24/23 04:28 Sodium 142 mmol/L (135-145) 03/26/23 04:10 Potassium 2.9 mmol/L (3.5-4.5) L 03/26/23 04:10 Chloride 110 mmol/L (101-111) 03/26/23 04:10 Carbon Dioxide 27 mmol/L (21-32) 03/26/23 04:10 Anion Gap 5.0 (6-13) L 03/26/23 04:10 BUN 16 mg/dL (6-20) 03/26/23 04:10 Creatinine 1.1 mg/dL (0.6-1.3) 03/26/23 04:10 Estimated GFR (MDRD) 48 (>89) L 03/26/23 04:10 Glucose 68 mg/dL (74-104) L 03/26/23 04:10 POC Whole Bld Glucose 120 mg/dL (70 - 100) H 03/26/23 09:03 Calcium 8.7 mg/dL (8.5-10.3) 03/26/23 04:10 Phosphorus 2.3 mg/dL (2.5-5.0) L 03/23/23 04:26 Magnesium 1.8 mg/dL (1.7-2.3) 03/23/23 04:26 Total Bilirubin 0.2 mg/dL (0.2-1.0) 03/21/23 03:07 AST 19 IU/L (10-42) 03/21/23 03:07 ALT 21 IU/L (10-60) 03/21/23 03:07 Alkaline Phosphatase 61 IU/L (42-121) 03/21/23 03:07 Troponin I High Sens 11.0 ng/L (2.3-14.8) 03/21/23 11:32 Total Protein 5.7 g/dL (6.4-8.9) L 03/21/23 03:07 Albumin 3.0 g/dL (3.2-5.5) L 03/21/23 03:07 Globulin 2.7 g/dL (2.1-4.2) 03/21/23 03:07 Albumin/Globulin Ratio 1.1 (1.0-2.2) 03/21/23 03:07 TSH 8.44 uIU/mL (0.34-5.60) H 03/21/23 03:07 Free T4 Direct 0.79 ng/dL (0.58-1.64) 03/22/23 04:40 Urine Color YELLOW 03/20/23 08:19 Urine Clarity CLEAR (CLEAR) 03/20/23 08:19 Urine pH 6.5 PH (5.0-7.5) 03/20/23 08:19 Ur Specific [place] 1.015 (1.002-1.030) 03/20/23 08:19 Urine Protein NEGATIVE mg/dL (NEGATIVE) 03/20/23 08:19 Urine Glucose (UA) NEGATIVE mg/dL (NEGATIVE) 03/20/23 08:19 Urine Ketones NEGATIVE mg/dL (NEGATIVE) 03/20/23 08:19 Urine Occult Blood NEGATIVE (NEGATIVE) 03/20/23 08:19 Urine Nitrite POSITIVE (NEGATIVE) H 03/20/23 08:19 Urine Bilirubin NEGATIVE (NEGATIVE) 03/20/23 08:19 Urine Urobilinogen 0.2 (NORMAL) E.U./dL (NORMAL) 03/20/23 08:19 Ur Leukocyte Esterase SMALL (NEGATIVE) H 03/20/23 08:19 Urine RBC 0-5 /HPF (0-5) 03/20/23 08:19 Urine WBC 4-5 /HPF (0-5) 03/20/23 08:19 Ur Squamous Epith Cells RARE Squamous (<= Few) 03/20/23 08:19 Urine Bacteria Many /HPF (None Seen) H 03/20/23 08:19 Urine Mucus Few Strands 03/20/23 08:19 Ur Microscopic Review INDICATED 03/20/23 08:19 Urine Culture Comments INDICATED 03/20/23:19
[2023-03-26] MEDS: LIDOCAINE PATCH 5% TOP SCH (17:02)
[2023-03-26] MEDS: ACETAMINOPHEN 325 MG TABLET PO PRN (21:19)
[2023-03-26] MEDS: QUEtiapine 100 MG TABLET PO SCH (21:20)
[2023-03-27] MEDS: cephALEXin 250 MG CAPSULE PO SCH ×3 (00:36→16:19)
[2023-03-27] MEDS: SODIUM CHLORIDE FLUSH 0.9% 10 ML SYRINGE IVP SCH ×3 (00:36→16:20)
[2023-03-27] MEDS: D5NS W/20 MEQ KCL 1,000 ML IV SCH ×3 (00:44→18:57)
[2023-03-27] MEDS: ZINC OXIDE 20% OINT 30 GM TUBE TOP PRN ×4 (00:45→20:00)
[2023-03-27 06:08] LABS: CALCIUM 8.6 mg/dL (8.5-10.3); CREATININE 1.5 mg/dL (0.6-1.3)
[2023-03-27] MEDS: MULTIVITAMIN W/MINERALS TABLET PO SCH (08:33)
[2023-03-27] MEDS: QUEtiapine 25 MG TABLET PO SCH (08:38)
[2023-03-27] MEDS: LIDOCAINE PATCH 5% TOP SCH (16:20)
[2023-03-27] MEDS: ACETAMINOPHEN 325 MG TABLET PO PRN (19:55)
[2023-03-27] MEDS: QUEtiapine 100 MG TABLET PO SCH (19:55)
[2023-03-28] MEDS: ZINC OXIDE 20% OINT 30 GM TUBE TOP PRN ×3 (01:18→16:50)
[2023-03-28] MEDS: cephALEXin 250 MG CAPSULE PO SCH ×3 (01:18→16:49)
[2023-03-28] MEDS: SODIUM CHLORIDE FLUSH 0.9% 10 ML SYRINGE IVP SCH ×3 (01:19→16:49)
[2023-03-28] MEDS: D5NS W/20 MEQ KCL 1,000 ML IV SCH ×3 (02:24→19:18)
[2023-03-28 08:19] LABS: CALCIUM 8.1 mg/dL (8.5-10.3); CREATININE 1.2 mg/dL (0.6-1.3); POTASSIUM 4.3 mmol/L (3.5-4.5)
[2023-03-28] MEDS: MULTIVITAMIN W/MINERALS TABLET PO SCH (08:20)
[2023-03-28] MEDS: QUEtiapine 25 MG TABLET PO SCH ×2 (08:20→16:49)
--- NOTE | 2023-03-28 11:48 | PROVIDER PROGRESS NOTE ---
Assessment/Plan - Problem List (1) QUE (acute kidney injury) Assessment/Plan: She presented with a creatinine of 2.8. Her usual creatinine is 0.9. All labs were reviewed. Her creatinine was first improving to 2.4>> 2.1>> 1.7>> 1.4. Then we had no labs for 2 days when she was agitated. 1 she again allowed blood draws, hercreatinine came back elevated at 1.5 The initial QUE was likely caused by being on 2 diuretics causing dehydration. The worsened creatinine was likely from having no oral intake or allowing IV fluids for several days while she was delerious. Then she allowed an IV restart. On 03/26 nurses reported a decreased urine output (I's and O's were reviewed) Plan: Cont the increased iv rate for the QUE, and her volume depletion, until she is orally hydrating consistently. Since she is still somnolent (after starting Seroquel by telepsych 3 daysa go), she is not yet hydrating consistently Follow BMP daily Avoid nephrotoxins (2) Dementia with behavioral disturbance Assessment/Plan: Her baseline function was unknown to me. In looking at her medication list, I thought she has dementia with behavior disturbances, since she was on Quetiapine, Risperdal, and Desyrel. We were told that she was less engaged recently. Then I learned from social work that when Risperidone was started for combativeness, she had changed to requiring full care for the last 2 weeks. In looking at her body habitus she is very poorly kempt, dirty, greasy as if she may s not had personal hygiene for many days. I obtained and reviewed the Psych eval from 12/29, done at [facility]. Impression was dementia with behavioral disturbances. She scored 0 on her slums score with severe cognitive impairment. The recommendation was to decrease or stop lorazepam as it could be adding to confusion and contributing to falls. Also recommended was to decrease and discontinue Quetiapine. Also recommended was to start Risperidone slowly and increase it, "to use it as an antipsychotic, found to be effective in managing aggression, agitation and paranoid delusions, and for sleep disturbances in the setting of dementia". I resumed just the Risperidone at 0.25 BID, then adjusted it to 0.5 mg at hs, as she was still somnolent. I ordered a shower and hygiene care. For 2 days and a night, she was delirious, taking off her clothes, pulled out her IV, refuses to eat or take any p.o. meds, is trying to climb out of bed, she is oriented x0, she answers with word salad. I had to give Haldol IM twice. Yesterday afternoon, she had a telepsych eval. Psychiatrist advised starting Seroquel 20 5 in the AM, 25 when she gets owning at 5 PM and 50 mg at night and then these doses can be increased or decreased if she is too somnolent or too agitated. On 03/27, I spoke to the DPOA at bedside who came to visit her from [place], [place]. This is her [id number]. She brought in an electric toy cat and other positions which she will recognize we think. Plan: I adjusted her Seroquel by eliminating the 5 PM dose, cont a.m. 25 mg and I will decrease the hs dose from 50 mg to 25 mg, as she is still too somnolent during the day (3) Altered mental state Assessment/Plan: Staff at [facility], [place] [facility], reported to our ER provider, who told me, that the "patient had several days of having decreased interactions". On 03/20 she was found down on the ground at the [facility]. At admission, she was not answering verbally but only stareing ahead when being spoken to. Her head CT head showed no acute findings. At admission, her AMS was felt likely from the combination of her UTI, her dehydration and uremia Her med list was reconciled and she was taking 7 medications that could have caused oversedation. They are all on hold. There has been improvement since admission several days ago, in that she is now speaking to herself alot, and also able to sometimes answer staff appropriately. I learned from social work that when Risperidone was started for combativeness, she had changed to requiring full care for the last 2 weeks. I obtained and reviewed the last office records from Dr. Marge Rodriguez regarding her underlying psychiatric diagnoses>> that note was in 10/01 and Dx was just Anxiety. I obtained and reviewed the Psych eval from 12/29, done at [facility]. Impression was dementia with behavioral disturbances. She scored 0 on her slums score with severe cognitive impairment. The recommendation was to Decrease or stop lorazepam as it could be adding to confusion and contributing to falls. Also recommended was to decrease and discontinue Quetiapine. Also recommended was to start Risperidone slowly and increase it, "to use it as an antipsychotic, found to be effective in managing aggression, agitation and paranoid delusions, and for sleep disturbances in the setting of dementia". Plan: As in #2 Cont to treat the dehydration and QUE and adjust the Seroquel today PT and OT to cont to try working with her (4) E coli UTI (urinary tract infection) Conclusion/Plan: Abnormal urinalysis found at admission and I suspect this explains recent decreased social interactions at [place] [facility]. Abdominal imaging done in ER showed no hydronephrosis, obstruction or stones. The culture has been identified as growing E. coli. Sensitivities are available and it is pansensitive. Plan: I changed the empiric IV ceftriaxone to oral Keflex. Plan a total of 7-day course of antibx Unfortunately, she was too delirious to swallow any meds for 2 days so she has missed about 4 oral doses. She also did not let us put in an IV to resume IV antibiotic. She is taking a diet and we have resumed the p.o. antibiotic, she will finish this after tomorrow (5) Bradycardia Conclusion/Plan: Because of the fall at the [place] [facility], she was put on telemetry to watch for arrhythmias. Telemetry shows that she has frequent sinus arrhythmia, and frequent and long runs of sinus derek producing heart rates as low as 30, up to a minute. Her admission EKG was also abnormal showing T wave changes which suggest ischemia. I checked a set of troponins and these were unremarkable. Her Echo was done and shows an esentially normal heart. Her TSH to evaluate for hypothyroidism was high at 8.44, but a free T4 was within normal limits at 0.79. (All labs were reviewed) I contacted the DPOA to discuss permanent pacemaker implant. The DPOA did not want to have the patient get a pacemaker, given her severe dementia. Plan: I stopped telemetry monitoring Avoid any heart rate-slowing medications. No pacemaker is planned (6) Fall at [place] [facility] Conclusion/Plan: This was unwitnessed. It did cause a scalp laceration. Her head and neck were "cleared" with CT imaging showing no acute findings. Plan: Remain on telemetry and watch for arrhythmias Cont to check orthostatic vital signs We will not give her the Lasix and HCTZ and would not recommend that those diuretics be continued in the future She had PT and OT evaluations>> She could not stand independently, needed 2 person assist. Unless there is strengthening and improvement, she will need maximum caregiving and cannot walk or be in a bed unsupervised as she may roll OOB, and therefore she may need a higher level of care living situation (7) Frequent falls Conclusion/Plan: I obtained and reviewed the Psych eval from 12/29, done at [facility]. The nurses told the psychiatrist and in the final diagnosis are "frequent falls". Plan: As per PT and OT evals today: the patient cannot ambulate safely and should not be left alone as she was in her [facility] room. She would need to be bedbound or wheelchair-bound, and will need higher level of caregiving. 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 (9) Scalp laceration Conclusion/Plan: This was already stapled by the ER provider (10) Fasting hypoglycemia Assessment/Plan: RESOLVED Patient is not a diabetic. She is ordered to get a soft diet but normal calories and carbs. Her glucoses while she was not eating for 2 days, intermittently delerious, were 60 and 67 and 76.She has not been eating for about 2 days because of her delirium and agitation. I restarted her IV fluids, since she allowed an iv be restarted. Started D5 NS with potassium Plan: Cont iv for the QUE, volume depletion (11) Hypokalemia Impression/Plan: RESOLVED This is partly also related to her not eating or drinking for about 2 days because of her delirium and agitation. Plan: I will order K riders carefully if needed Follow BMP daily - Current Meds Current Meds: Current Medications Generic Name Dose Route Start Last Admin Trade Name Freq PRN Reason Stop Dose Admin Acetaminophen 650 mg 03/20/23 12:55 03/27/23 19:55 Acetaminophen 325 Mg Tablet PO 650 mg Q4HR PRN Administration Pain 1 to 4, or Fever Cephalexin 500 mg 03/23/23 08:06 03/28/23 08:20 Cephalexin 250 Mg Capsule PO 03/29/23 00:01 500 mg Q8H COREY Administration Haloperidol 1 mg 03/25/23 20:16 03/25/23 22:21 Haloperidol 5 Mg/Ml Vial IM 1 mg Q4H PRN Administration Agitation Potassium Chloride/Dextrose/Sod Cl 1,000 mls @ 125 mls/hr 03/27/23 08:47 03/28/23 10:49 D5ns W/20 Meq Kcl IV 125 mls/hr .Q8H COREY Administration Lidocaine 1 patch 03/25/23 16:00 03/27/23 16:20 Lidocaine Patch 5% TOP 1 patch 1600 COREY Administration Multi-Ingredient Ointment 1 applic 03/20/23 20:36 03/28/23 06:13 Zinc Oxide 20% Oint 30 Gm Tube TOP 1 applic PRN PRN Administration Skin Care Multivitamins/Minerals 1 tab 03/22/23 12:00 03/28/23 08:20 Multivitamin W/Minerals Tablet PO 1 tab DAILYWM COREY Administration Ondansetron HCl 4 mg 03/20/23 12:55 03/24/23 05:08 Ondansetron 4 Mg/2 Ml Vial IVP 4 mg Q6HR PRN Administration Nausea / Vomiting Quetiapine Fumarate 50 mg 03/25/23 21:00 03/27/23 19:55 Quetiapine 100 Mg Tablet PO 50 mg QPM COREY Administration Quetiapine Fumarate 25 mg 03/27/23 08:00 03/28/23 08:20 Quetiapine 25 Mg Tablet PO 25 mg 0800 COREY Administration Sodium Chloride 10 ml 03/20/23 17:00 03/28/23 08:20 Sodium Chloride Flush 0.9% 10 Ml Syringe IVP Not Given 0100,0900,1700 COREY - Lab Result Fish Bone Diagrams: 03/24/23 04:28 03/28/23 07:58 - Additional Planning My Orders: My Active Orders 03/29/23 05:00 BMP - BASIC METABOLIC PANEL [CHEM] DAILYLAB CALCIUM [CHEM] DAILYLAB CBC - COMP BLD CT W/AUTO DIFF [HEME] DAILYLAB MAGNESIUM [CHEM] DAILYLAB Subjective - Subjective Patient Reports: Resting Comfortably Nursing Reports: Other (She is slightly more awake the past 24 hours than she was 2 days ago when risperidone was started) Objective Vital Signs: Vital Signs - 24 hr 03/27/23 03/28/23 03/28/23 16:00 01:42 08:39 Temperature 36.9 C 36.5 C 36.8 C Heart Rate [ 66 65 54 L Brachial] Respiratory 16 16 16 Rate Blood Pressure 122/53 L 146/65 H [Left Brachial artery] Blood Pressure 148/73 H [Right Brachial artery] O2 Saturation 97 100 97 Oxygen O2 Source Room air I&O (Last 24 Hrs): Intake and Output Totals x24h 03/26/23 03/27/23 03/28/23 23:59 23:59 23:59 Intake Total 9358.116 9229.009 2221.25 Output Total 200 525 200 Balance 6557.131 0457.009 2020.25 General: Other (Lethargic, sleeping and appears comfortable) HEENT: Mucous membr. moist/pink, Other (She is wearing her glasses) Neck: No JVD Neuro: Other (Lethargic, opens her eyes to her name) Cardiovascular: Regular rate Respiratory: No respiratory distress Abdomen: Soft, No tenderness Extremities: No clubbing, No edema - Results Results: Laboratory Results WBC 5.2 x10^3/uL (4.8-10.8) 03/24/23 04:28 RBC 3.04 10^6/uL (4.20-5.40) L 03/24/23 04:28 Hgb 10.1 g/dL (12.0-16.0) L 03/24/23 04:28 Hct 30.1 % (37.0-47.0) L 03/24/23 04:28 MCV 99.0 fL (81.0-99.0) 03/24/23 04:28 MCH 33.2 pg (27.0-31.0) H 03/24/23 04:28 MCHC 33.6 g/dL (32.0-36.0) 03/24/23 04:28 RDW 13.2 % (12.0-15.0) 03/24/23 04:28 Plt Count 108 10^3/uL (130-450) L 03/24/23 04:28 MPV 10.7 fL (7.9-10.8) 03/24/23 04:28 Neut # (Auto) 3.9 10^3/uL (1.5-6.6) 03/24/23 04:28 Lymph # (Auto) 0.8 10^3/uL (1.5-3.5) L 03/24/23 04:28 [place] # (Auto) 0.3 10^3/uL (0.0-1.0) 03/24/23 04:28 Eos # (Auto) 0.1 10^3/uL (0.0-0.7) 03/24/23 04:28 Baso # (Auto) 0.0 10^3/uL (0.0-0.1) 03/24/23 04:28 Absolute Nucleated RBC 0.00 x10^3/uL 03/24/23 04:28 Nucleated RBC % 0.0 /100WBC 03/24/23 04:28 Sodium 143 mmol/L (135-145) 03/28/23 07:58 Potassium 4.3 mmol/L (3.5-4.5) 03/28/23 07:58 Chloride 117 mmol/L (101-111) H 03/28/23 07:58 Carbon Dioxide 25 mmol/L (21-32) 03/28/23 07:58 Anion Gap 1.0 (6-13) L 03/28/23 07:58 BUN 19 mg/dL (6-20) 03/28/23 07:58 Creatinine 1.2 mg/dL (0.6-1.3) 03/28/23 07:58 Estimated GFR (MDRD) 43 (>89) L 03/28/23 07:58 Glucose 93 mg/dL (74-104) 03/28/23 07:58 POC Whole Bld Glucose 120 mg/dL (70 - 100) H 03/26/23 09:03 Calcium 8.1 mg/dL (8.5-10.3) L 03/28/23 07:58 Phosphorus 2.3 mg/dL (2.5-5.0) L 03/23/23 04:26 Magnesium 1.8 mg/dL (1.7-2.3) 03/23/23 04:26 Total Bilirubin 0.2 mg/dL (0.2-1.0) 03/21/23 03:07 AST 19 IU/L (10-42) 03/21/23 03:07 ALT 21 IU/L (10-60) 03/21/23 03:07 Alkaline Phosphatase 61 IU/L (42-121) 03/21/23 03:07 Troponin I High Sens 11.0 ng/L (2.3-14.8) 03/21/23 11:32 Total Protein 5.7 g/dL (6.4-8.9) L 03/21/23 03:07 Albumin 3.0 g/dL (3.2-5.5) L 03/21/23 03:07 Globulin 2.7 g/dL (2.1-4.2) 03/21/23 03:07 Albumin/Globulin Ratio 1.1 (1.0-2.2) 03/21/23 03:07 TSH 8.44 uIU/mL (0.34-5.60) H 03/21/23 03:07 Free T4 Direct 0.79 ng/dL (0.58-1.64) 03/22/23 04:40 Urine Color YELLOW 03/20/23 08:19 Urine Clarity CLEAR (CLEAR) 03/20/23 08:19 Urine pH 6.5 PH (5.0-7.5) 03/20/23 08:19 Ur Specific [place] 1.015 (1.002-1.030) 03/20/23 08:19 Urine Protein NEGATIVE mg/dL (NEGATIVE) 03/20/23 08:19 Urine Glucose (UA) NEGATIVE mg/dL (NEGATIVE) 03/20/23 08:19 Urine Ketones NEGATIVE mg/dL (NEGATIVE) 03/20/23 08:19 Urine Occult Blood NEGATIVE (NEGATIVE) 03/20/23 08:19 Urine Nitrite POSITIVE (NEGATIVE) H 03/20/23 08:19 Urine Bilirubin NEGATIVE (NEGATIVE) 03/20/23 08:19 Urine Urobilinogen 0.2 (NORMAL) E.U./dL (NORMAL) 03/20/23 08:19 Ur Leukocyte Esterase SMALL (NEGATIVE) H 03/20/23 08:19 Urine RBC 0-5 /HPF (0-5) 03/20/23 08:19 Urine WBC 4-5 /HPF (0-5) 03/20/23 08:19 Ur Squamous Epith Cells RARE Squamous (<= Few) 03/20/23 08:19 Urine Bacteria Many /HPF (None Seen) H 03/20/23 08:19 Urine Mucus Few Strands 03/20/23 08:19 Ur Microscopic Review INDICATED 03/20/23 08:19 Urine Culture Comments INDICATED 03/20/23 08:19
[2023-03-28] MEDS: LIDOCAINE PATCH 5% TOP SCH (16:49)
[2023-03-28] MEDS: QUEtiapine 100 MG TABLET PO SCH (20:22)
[2023-03-29] MEDS: SODIUM CHLORIDE FLUSH 0.9% 10 ML SYRINGE IVP SCH ×3 (00:38→16:07)
[2023-03-29] MEDS: D5NS W/20 MEQ KCL 1,000 ML IV SCH ×2 (02:50→10:25)
[2023-03-29 07:29] LABS: BASOPHILS % (AUTO) 0.2 %; EOSINOPHILS # (AUTO) 0.3 10^3/uL (0.0-0.7); EOSINOPHILS % (AUTO) 3.3 %; HCT - HEMATOCRIT 31.7 % (37.0-47.0); HGB - HEMOGLOBIN 10.1 g/dL (12.0-16.0); LYMPHOCYTES # (AUTO) 1.7 10^3/uL (1.5-3.5); LYMPHOCYTES % (AUTO) 20.7 %; MEAN CORPUSCULAR HEMOGLOBIN 33.7 pg (27.0-31.0); MEAN CORPUSCULAR HGB CONC 31.9 g/dL (32.0-36.0); MEAN CORPUSCULAR VOLUME 105.7 fL (81.0-99.0); MEAN PLATELET VOLUME 10.5 fL (7.9-10.8); MONOCYTES # (AUTO) 0.5 10^3/uL (0.0-1.0); MONOCYTES % (AUTO) 6.3 %; NEUTROPHILS # (AUTO) 5.7 10^3/uL (1.5-6.6); PLT - PLATELET COUNT 220 10^3/uL (130-450); WHITE BLOOD COUNT 8.3 x10^3/uL (4.8-10.8)
[2023-03-29 07:43] LABS: CALCIUM 8.1 mg/dL (8.5-10.3); CREATININE 1.1 mg/dL (0.6-1.3); MAGNESIUM 1.9 mg/dL (1.7-2.3); POTASSIUM 4.5 mmol/L (3.5-4.5)
[2023-03-29] MEDS: DOCUSATE SODIUM 250 MG CAPSULE PO SCH (08:18)
[2023-03-29] MEDS: MULTIVITAMIN W/MINERALS TABLET PO SCH (08:18)
[2023-03-29] MEDS: polyethylene glycoL 3350 17 GM PACKET PO SCH (08:19)
[2023-03-29] MEDS: ZINC OXIDE 20% OINT 30 GM TUBE TOP PRN ×2 (10:25→16:38)
[2023-03-29] MEDS ORDERED: D5NS W/20 MEQ KCL 1,000 ML IV SCH (11:09)
--- NOTE | 2023-03-29 14:42 | PROVIDER PROGRESS NOTE ---
Assessment/Plan - Problem List (1) Altered mental state Assessment/Plan: Staff at [facility], [place], reported to our ER provider, who told me, that the "patient had several days of having decreased interactions". On 03/20 she was found down [place] the ground at the [place]. At admission, she was not an swering verbally but only stareing ahead when being spoken to. Her head CT head showed no acute findings. At admission, her AMS was felt likely from the combination of her UTI, her dehydration and uremia Her med list was reconciled and she was taking 7 medications that could have caused oversedation. They were all on hold and she had a good 2 days, speaking to herself alot, but able to sometimes answer staff appropriately and eat. I learned from social work that when Risperidone was started for combativeness, she had changed to requiring full care for the last 2 weeks. I obtained and reviewed the last office records from Dr. Marge Rodriguez regarding her underlying psychiatric diagnoses>> that note was in 09/2022 and Dx was just Anxiety. I obtained and reviewed the Psych eval from 12/2022, done at [facility]. Impression was dementia with behavioral disturbances. She scored 0 on her slums score with severe cognitive impairment. The recommendation was to decrease or stop lorazepam. When she was delerious here for 2 days, we got a Telepsych eval. The Psychiatrist advised starting Seroquel 25 in the AM, 25 when she starts ing (around 5 PM) and 50 mg at night ,and that these doses can be increased or decreased if she is too somnolent or too agitated. Plan: Cont to treat the dehydration Cont to adjust the Seroquel again today, because the patient is somnolent during the day then starts to sundown at 7 PM. The night Seroquel had to be given early and she continued to be agitated. I will stop the a.m. Seroquel dose but restart the 5 PM Seroquel and continue the at bedtime Seroquel PT and OT to cont to try working with her (2) Dementia with behavioral disturbance Assessment/Plan: Her baseline function was unknown to me. In looking at her medication list, I thought she has dementia with behavior disturbances, since she was on Quetiapine, Risperdal, and Desyrel. We were told that she was less engaged recen [facility]. Then I learned from social work that when Risperidone was started for combativeness, she had changed to requiring full care for the last 2 weeks. In looking at her body habitus she is very poorly kempt, dirty, greasy as if she has not had personal hygiene for many days. I obtained and reviewed the Psych eval from 12/29, done at [facility]. Impression was dementia with behavioral disturbances. She scored 0 on her slums score with severe cognitive impairment. The recommendation was to decrease or stop lorazepam as it could be adding to confusion and contributing to falls. Also recommended was to decrease and discontinue Quetiapine. Also recommended was to start Risperidone slowly and increase it, "to use it as an antipsychotic, found to be effective in managing aggression, agitation and paranoid delusions, and for sleep disturbances in the setting of dementia". I resumed just the Risperidone at 0.25 BID, then adjusted it to 0.5 mg at hs, as she was still somnolent. I ordered a shower and hygiene care. For 2 days and a night, she was delirious, taking off her clothes, pulled out her IV, refuses to eat or take any p.o. meds, is trying to climb out of bed, she is oriented x0, she answers with word salad. I had to give Haldol IM twice. Then she had a telepsych eval. Psychiatrist advised starting Seroquel 25 in the AM, 25 when she gets sundowning (around 5 PM) and 50 mg at night ,and that these doses can be increased or decreased if she is too somnolent or too agitated. On 03/27, I spoke to the DPOA at bedside who came to visit her from [place], [place]. This is her [id number]. She brought in an electric toy cat and other possessions which she will recognize, we think. Plan: I am adjusting her Seroquel and am still not achieving a good schedule. She is not yet ready for discharge. (3) E coli UTI (urinary tract infection) Conclusion/Plan: Abnormal urinalysis found at admission and I suspect this explains recent decreased social interactions at [place] [facility]. Abdominal imaging done in ER showed no hydronephrosis, obstruction or stones. The culture has been identified as growing E. coli. Sensitivities are available and it is pansensitive. Plan: I changed the empiric IV ceftriaxone to oral Keflex. Plan a total of 7-day course of antibx Unfortunately, she was too delirious to swallow any meds for 2 days so she has m issed about 4 oral doses. She also did not let us put in an IV to resume IV antibiotic. She is taking a diet and we have resumed the p.o. antibiotic, she is about to finish that (4) Bradycardia Conclusion/Plan: Because of the fall [place] the [place] [facility], she was put on telemetry to watch for arrhythmias. Telemetry shows that she has frequent sinus arrhythmia, and frequent and long runs of marked sinus derek producing heart rates as low as 30, up to a minute. Her admission EKG was also abnormal showing T wave changes which suggest ischemia. I checked a set of troponins and these were unremarkable. Her Echo was done and shows an esentially normal heart. Her TSH to evaluate for hypothyroidism was high at 8.44, but a free T4 was within normal limits at 0.79. (All labs were reviewed) I contacted the DPOA to discuss permanent pacemaker implant, several days ago. The DPOA did not want to have the patient get a pacemaker, given her severe dementia. Plan: I stopped telemetry monitoring Avoid any heart rate-slowing medications. No pacemaker is planned. Because of this decision, the DPOA also made her a DNR, POLST form was done. (5) Fall [place] [facility] Conclusion/Plan: This was unwitnessed. It did cause a scalp laceration. Her head and neck were "cleared" with CT imaging showing no acute findings. Plan: We will not give her the Lasix and HCTZ and would not recommend that those diuretics be continued in the future, they added to QUE and orthostasis She had PT and OT evaluations>> She could not stand independently, needed 2 person assist. Unless there is strengthening and improvement, she will need maximum caregiving and cannot walk or be in a bed unsupervised as she may roll OOB, and therefore she will need a higher level of care living situation (6) Frequent falls Conclusion/Plan: I obtained and reviewed resords from [facility]. One diagnosis is "frequent f alls". Plan: As per PT and OT evals: the patient cannot ambulate safely and should not be left alone as she was in her [facility] room. She would need to be bedbound or wheelchair-bound, and will need higher level of caregiving. 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 (8) Scalp laceration Conclusion/Plan: This was already stapled by the ER provider. Plan: Union should be removed when? We will ask ER provider (9) Fasting hypoglycemia Assessment/Plan: RESOLVED Patient is not a diabetic. She is ordered to get a soft diet but normal calories and carbs. Her glucoses while she was not eating for 2 days, intermittently delerious, were 60 and 67 and 76.She has not been eating for about 2 days because of her delirium and agitation. I restarted her IV fluids, since she allowed an iv be restarted. Started D5 NS with potassium Plan: Cont iv for the QUE, volume depletion (10) Hypokalemia Impression/Plan: RESOLVED This is partly also related to her not eating or drinking for about 2 days because of her delirium and agitation. Plan: I will order K riders carefully if needed Follow BMP daily (11) QUE RESOLVED She presented with a creatinine of 2.8. Her usual creatinine is 0.9. Her creatinine improved to 2.4>> 2.1>> 1.7>> 1.4. Then we had no labs for 2 days when she was agitated, delerious and not eating or drinking for 2 days. When she again allowed blood draws, her creatinine was elevated at 1.5 The initial QUE was likely caused by being on 2 diuretics causing dehydration. The worsened creatinine was likely from having no oral intake or allowing IV fluids for several days while she was delerious. Creatinine is 1.1 today (All labs reviewed) Plan: I will again taper down iv fluid rate to 60 cc/hr, in hopes of stopping soon - Current Meds Current Meds: Current Medications Generic Name Dose Route Start Last Admin Trade Name Freq PRN Reason Stop Dose Admin Acetaminophen 650 mg 03/20/23 12:55 03/27/23 19:55 Acetaminophen 325 Mg Tablet PO 650 mg Q4HR PRN Administration Pain 1 to 4, or Fever Docusate Sodium 250 - 500 mg 03/29/23 09:00 03/29/23 08:18 Docusate Sodium 250 Mg Capsule PO 250 mg DAILY COREY Administration Haloperidol 1 mg 03/25/23 20:16 03/25/23 22:21 Haloperidol 5 Mg/Ml Vial IM 1 mg Q4H PRN Administration Agitation Lidocaine 1 patch 03/25/23 16:00 03/28/23 16:49 Lidocaine Patch 5% TOP 1 patch 1600 COREY Administration Multi-Ingredient Ointment 1 applic 03/20/23 20:36 03/29/23 10:25 Zinc Oxide 20% Oint 30 Gm Tube TOP 1 applic PRN PRN Administration Skin Care Multivitamins/Minerals 1 tab 03/22/23 12:00 03/29/23 08:18 Multivitamin W/Minerals Tablet PO 1 tab DAILYWM COREY Administration Ondansetron HCl 4 mg 03/20/23 12:55 03/24/23 05:08 Ondansetron 4 Mg/2 Ml Vial IVP 4 mg Q6HR PRN Administration Nausea / Vomiting Polyethylene Glycol 17 gm 03/29/23 09:00 03/29/23 08:19 Polyethylene Glycol 3350 17 Gm Packet PO Not Given DAILY COREY Quetiapine Fumarate 50 mg 03/25/23 21:00 03/28/23 20:22 Quetiapine 100 Mg Tablet PO 50 mg QPM COREY Administration Quetiapine Fumarate 25 mg 03/28/23 17:00 03/28/23 16:49 Quetiapine 25 Mg Tablet PO 25 mg 1700 COREY Administration Sodium Chloride 10 ml 03/20/23 17:00 03/29/23 08:19 Sodium Chloride Flush 0.9% 10 Ml Syringe IVP Not Given 0100,0900,1700 COREY - Lab Result Fish Bone Diagrams: 03/29/23 07:10 03/29/23 07:10 - Additional Planning My Orders: My Active Orders 03/28/23 17:00 QUEtiapine [SEROquel] 25 mg PO 1700 03/29/23 09:00 Docusate Sodium 250Mg Capsule [Colace 250Mg Capsule] 250 - 500 mg PO DAILY polyethylene glycoL 3350 [Miralax] 17 gm PO DAILY 03/29/23 11:09 D5ns W/20 Meq KCl 1,000 ml IV 60 mls/hr Subjective - Subjective Nursing Reports: Other (Asleep until afternoon. HAs to be fed) Objective Vital Signs: Vital Signs - 24 hr 03/28/23 03/29/23 03/29/23 16:31 01:25 07:25 Temperature 36.4 C L 36.4 C L 36.8 C Heart Rate [ 64 62 60 Brachial] Respiratory 16 12 18 Rate Blood Pressure 154/73 H 145/56 H [Left Brachial artery] Blood Pressure 166/77 H [Right Brachial artery] O2 Saturation 99 99 100 Oxygen O2 Source Room air I&O (Last 24 Hrs): Intake and Output Totals x24h 03/27/23 03/28/23 03/29/23 23:59 23:59 23:59 Intake Total 2607.009 4160.833 1943.750 Output Total 525 600 900 Balance 2082.009 3560.833 1043.750 General: Other (Somnolent (at 11 a.m.)) Neuro: Other (Somnolent) Cardiovascular: Regular rate, No murmurs Respiratory: No respiratory distress Abdomen: Soft Extremities: No clubbing, No edema, No tenderness/swelling - Results Results: Laboratory Results WBC 8.3 x10^3/uL (4.8-10.8) 03/29/23 07:10 RBC 3.00 10^6/uL (4.20-5.40) L 03/29/23 07:10 Hgb 10.1 g/dL (12.0-16.0) L 03/29/23 07:10 Hct 31.7 % (37.0-47.0) L 03/29/23 07:10 MCV 105.7 fL (81.0-99.0) H 03/29/23 07:10 MCH 33.7 pg (27.0-31.0) H 03/29/23 07:10 MCHC 31.9 g/dL (32.0-36.0) L 03/29/23 07:10 RDW 14.0 % (12.0-15.0) 03/29/23 07:10 Plt Count 220 10^3/uL (130-450) 03/29/23 07:10 MPV 10.5 fL (7.9-10.8) 03/29/23 07:10 Neut # (Auto) 5.7 10^3/uL (1.5-6.6) 03/29/23 07:10 Lymph # (Auto) 1.7 10^3/uL (1.5-3.5) 03/29/23 07:10 [place] # (Auto) 0.5 10^3/uL (0.0-1.0) 03/29/23 07:10 Eos # (Auto) 0.3 10^3/uL (0.0-0.7) 03/29/23 07:10 Baso # (Auto) 0.0 10^3/uL (0.0-0.1) 03/29/23 07:10 Absolute Nucleated RBC 0.00 x10^3/uL 03/29/23 07:10 Nucleated RBC % 0.0 /100WBC 03/29/23 07:10 Sodium 143 mmol/L (135-145) 03/29/23 07:10 Potassium 4.5 mmol/L (3.5-4.5) 03/29/23 07:10 Chloride 117 mmol/L (101-111) H 03/29/23 07:10 Carbon Dioxide 23 mmol/L (21-32) 03/29/23 07:10 Anion Gap 3.0 (6-13) L 03/29/23 07:10 BUN 15 mg/dL (6-20) 03/29/23 07:10 Creatinine 1.1 mg/dL (0.6-1.3) 03/29/23 07:10 Estimated GFR (MDRD) 48 (>89) L 03/29/23 07:10 Glucose 103 mg/dL (74-104) 03/29/23 07:10 POC Whole Bld Glucose 120 mg/dL (70 - 100) H 03/26/23 09:03 Calcium 8.1 mg/dL (8.5-10.3) L 03/29/23 07:10 Phosphorus 2.3 mg/dL (2.5-5.0) L 03/23/23 04:26 Magnesium 1.9 mg/dL (1.7-2.3) 03/29/23 07:10 Total Bilirubin 0.2 mg/dL (0.2-1.0) 03/21/23 03:07 AST 19 IU/L (10-42) 03/21/23 03:07 ALT 21 IU/L (10-60) 03/21/23 03:07 Alkaline Phosphatase 61 IU/L (42-121) 03/21/23 03:07 Troponin I High Sens 11.0 ng/L (2.3-14.8) 03/21/23 11:32 Total Protein 5.7 g/dL (6.4-8.9) L 03/21/23 03:07 Albumin 3.0 g/dL (3.2-5.5) L 03/21/23 03:07 Globulin 2.7 g/dL (2.1-4.2) 03/21/23 03:07 Albumin/Globulin Ratio 1.1 (1.0-2.2) 03/21/23 03:07 TSH 8.44 uIU/mL (0.34-5.60) H 03/21/23 03:07 Free T4 Direct 0.79 ng/dL (0.58-1.64) 03/22/23 04:40 Urine Color YELLOW 03/20/23 08:19 Urine Clarity CLEAR (CLEAR) 03/20/23 08:19 Urine pH 6.5 PH (5.0-7.5) 03/20/23 08:19 Ur Specific [place] 1.015 (1.002-1.030) 03/20/23 08:19 Urine Protein NEGATIVE mg/dL (NEGATIVE) 03/20/23 08:19 Urine Glucose (UA) NEGATIVE mg/dL (NEGATIVE) 03/20/23 08:19 Urine Ketones NEGATIVE mg/dL (NEGATIVE) 03/20/23 08:19 Urine Occult Blood NEGATIVE (NEGATIVE) 03/20/23 08:19 Urine Nitrite POSITIVE (NEGATIVE) H 03/20/23 08:19 Urine Bilirubin NEGATIVE (NEGATIVE) 03/20/23 08:19 Urine Urobilinogen 0.2 (NORMAL) E.U./dL (NORMAL) 03/20/23 08:19 Ur Leukocyte Esterase SMALL (NEGATIVE) H 03/20/23 08:19 Urine RBC 0-5 /HPF (0-5) 03/20/23 08:19 Urine WBC 4-5 /HPF (0-5) 03/20/23 08:19 Ur Squamous Epith Cells RARE Squamous (<= Few) 03/20/23 08:19 Urine Bacteria Many /HPF (None Seen) H 03/20/23 08:19 Urine Mucus Few Strands 03/20/23 08:19 Ur Microscopic Review INDICATED 03/20/23 08:19 Urine Culture Comments INDICATED 03/20/23 08:19
[2023-03-29] MEDS: LIDOCAINE PATCH 5% TOP SCH (16:07)
[2023-03-29] MEDS: QUEtiapine 25 MG TABLET PO SCH (16:12)
[2023-03-29] MEDS: QUEtiapine 100 MG TABLET PO SCH (20:22)
[2023-03-30] MEDS: SODIUM CHLORIDE FLUSH 0.9% 10 ML SYRINGE IVP SCH ×3 (03:03→16:44)
[2023-03-30] MEDS: DOCUSATE SODIUM 250 MG CAPSULE PO SCH (07:59)
[2023-03-30] MEDS: polyethylene glycoL 3350 17 GM PACKET PO SCH (07:59)
[2023-03-30] MEDS: MULTIVITAMIN W/MINERALS TABLET PO SCH (07:59)
[2023-03-30] MEDS ORDERED: hydroCHLOROthiazide 25 MG TABLET PO SCH (10:00)
--- NOTE | 2023-03-30 11:49 | PROVIDER PROGRESS NOTE ---
Subjective - Prog Note Date Prog Note Date: 03/30/23 - Subjective Subjective: She reports feeling well. Denies any pain right now. Reports no shortness of breath. Current Medications - Current Medications Current Medications: Active Medications Acetaminophen (Acetaminophen 325 Mg Tablet) 650 mg PO Q4HR PRN PRN Reason: Pain 1 to 4, or Fever Last Admin: 03/27/23 19:55 Dose: 650 mg Docusate Sodium (Docusate Sodium 250 Mg Capsule) 250 - 500 mg PO DAILY [facility] Last Admin: 03/30/23 07:59 Dose: 250 mg Haloperidol (Haloperidol 5 Mg/Ml Vial) 1 mg IM Q4H PRN PRN Reason: Agitation Last Admin: 03/25/23 22:21 Dose: 1 mg Hydrochlorothiazide (Hydrochlorothiazide 25 Mg Tablet) 25 mg PO DAILY [facility] Last Admin: 03/30/23 10:19 Dose: 25 mg Lidocaine (Lidocaine Patch 5%) 1 patch TOP 1600 [facility] Last Admin: 03/29/23 16:07 Dose: 1 patch Multi-Ingredient Ointment (Zinc Oxide 20% Oint 30 Gm Tube) 1 applic TOP PRN PRN PRN Reason: Skin Care Last Admin: 03/29/23 16:38 Dose: 1 applic Multivitamins/Minerals (Multivitamin W/Minerals Tablet) 1 tab PO DAILYWM [facility] Last Admin: 03/30/23 07:59 Dose: 1 tab Ondansetron HCl (Ondansetron 4 Mg/2 Ml Vial) 4 mg IVP Q6HR PRN PRN Reason: Nausea / Vomiting Last Admin: 03/24/23 05:08 Dose: 4 mg Polyethylene Glycol (Polyethylene Glycol 3350 17 Gm Packet) 17 gm PO DAILY [facility] Last Admin: 03/30/23 07:59 Dose: 17 gm Quetiapine Fumarate (Quetiapine 100 Mg Tablet) 50 mg PO QPM [facility] Last Admin: 03/29/23 20:22 Dose: 50 mg Quetiapine Fumarate (Quetiapine 25 Mg Tablet) 25 mg PO 1700 [facility] Last Admin: 03/29/23 16:12 Dose: 25 mg Sodium Chloride (Sodium Chloride Flush 0.9% 10 Ml Syringe) 10 ml IVP PRN PRN PRN Reason: NEEDED PER PROVIDER ORDERS Sodium Chloride (Sodium Chloride Flush 0.9% 10 Ml Syringe) 10 ml IVP 01 00,0900,1700 [facility] Last Admin: 03/30/23 08:10 Dose: 10 ml Furosemide [Lasix] 1 tab PO MOWEFR 03/20/23 Gabapentin [Neurontin] 300 mg PO TID 03/20/23 HYDROcod/ACETAM 5/325 [[place] 5/325] 1 tab PO Q4H PRN 03/20/23 LORazepam [Ativan] 0.5 mg PO Q6H PRN 03/20/23 Meloxicam [Mobic] 7.5 mg PO BID 03/20/23 Potassium Chloride [K-Dur] 20 meq PO MOWEFR 03/20/23 QUEtiapine [SEROquel] 25 mg PO QPM 03/20/23 Zolpidem Tartrate [Ambien] 10 mg PO DAILY PM 03/20/23 hydroCHLOROthiazide [Hydrodiuril] 25 mg PO DAILY 03/20/23 risperiDONE [RisperDAL] 0.25 mg PO BID 03/20/23 traMADol [Ultram] 50 mg PO Q4-6H 03/20/23 traZODone [Desyrel] 50 mg PO HS 03/20/23 Objective - Vital Signs/Intake & Output Reviewed Vital Signs: Yes Vital Signs: Vital Signs x48h Temp Pulse Resp BP Pulse Ox 03/30/23 08:24 367 C H 69 20 186/78 H 98 Intake & Output: Intake & Output 03/27/23 03/28/23 03/29/23 03/30/23 23:59 23:59 23:59 23:59 Intake Total 2607.009 4160.833 2043.750 1454.25 Output Total 162 309 6129 1800 Balance 2082.009 3560.833 793.750 -345.75 - Objective General Appearance: positive: No acute distress, Alert Eyes Bilateral: positive: Normal inspection, Conjunctivae nml ENT: positive: ENT inspection nml Neck: positive: Nml inspection Respiratory: positive: No respiratory distress. negative: Wheezes, Rales Cardiovascular: positive: Regular rate & rhythm, No murmur, Bradycardia. negative: Systolic murmur Abdomen: positive: Non-tender, No distention Skin: positive: Warm, Dry Extremities: positive: No pedal edema Neurologic/Psychiatric: positive: Disoriented to place, Disoriented to time, Other (No focal deficits. Poor memory and cognition.). negative: Disoriented to person - Lab Results Fish Bones: 03/29/23 07:10 03/29/23 07:10 - Diagnostic Imaging Diagnostic Imaging Results: positive: Final report reviewed ABX Reporting Has patient been on IV antibiotics over the past 48 hours?: No Assessment/Plan - Problem List (1) Altered mental state Impression: Staff at [facility], her usp, reported to our ER provider, who told me, that the "patient had several days of having decreased interactions". On 03/20 she was found down on the ground at the [place]. At admission, she was not answering verbally but only staring ahead when being spoken to. Her head CT head showed no acute findings. At admission, her AMS was felt likely from the combination of her UTI, her dehydration and uremia Her med list was reconciled and she was taking 7 medications that could have caused oversedation. They were all on hold and she had a good 2 days, speaking to herself alot, but able to sometimes answer staff appropriately and eat. We learned from social work that when Risperidone was started for combativeness, she had changed to requiring full care for the last 2 weeks. We obtained and reviewed the last office records from Dr. Marge Rodriguez regarding her underlying psychiatric diagnoses>> that note was in 09/2022 and Dx was just Anxiety. We obtained and reviewed the Psych eval from 12/2022, done at [facility]. Impression was dementia with behavioral disturbances. She scored 0 on her slums score with severe cognitive impairment. The recommendation was to decrease or stop lorazepam. When she was delirious here for 2 days, we got a Telepsych eval. The Psychiatrist advised starting Seroquel 25 in the AM, 25 when she starts (around 5 PM) and 50 mg at night ,and that these doses can be increased or decreased if she is too somnolent or too agitated. She has had improvement in her mentation since discontinuing the morning dose of Seroquel Plan: Discontinue IV fluids and monitor oral intake Continue evening and nighttime dose of Seroquel If patient remains stable over next 24 hours then she can likely be discharged to SNF (2) Dementia with behavioral disturbance Assessment/Plan: Her baseline function was unknown to me. In looking at her medication list, I thought she has dementia with behavior disturbances, since she was on Quetiapine, Risperdal, and Desyrel. We were told that she was less engaged recently. Then I learned from social work that when Risperidone was started for combativeness, she had changed to requiring full care for the last 2 weeks. In looking at her body habitus she is very poorly kempt, dirty, greasy as if she has not had personal hygiene for many days. We obtained and reviewed the Psych eval from 12/29, done at [facility]. Impression was dementia with behavioral disturbances. She scored 0 on her slums score with severe cognitive impairment. The recommendation was to decrease or stop lorazepam as it could be adding to confusion and contributing to falls. Also recommended was to decrease and discontinue Quetiapine. Also recommended was to start Risperidone slowly and increase it, "to use it as an antipsychotic, found to be effective in managing aggression, agitation and paranoid delusions, and for sleep disturbances in the setting of dementia". We resumed just the Risperidone at 0.25 BID, then adjusted it to 0.5 mg at hs, as she was still somnolent. For 2 days and a night, she was delirious, taking off her clothes, pulled out her IV, refuses to eat or take any p.o. meds, is trying to climb out of bed, she is oriented x0, she answers with word salad. Then she had a telepsych eval. Psychiatrist advised starting Seroquel 25 in the AM, 25 when she gets sundowning (around 5 PM) and 50 mg at night ,and that these doses can be increased or decreased if she is too somnolent or too agitated. On 03/27, we spoke to the DPOA at bedside who came to visit her from [place], [place]. This is her [id number]. She brought in an electric toy cat and other po ssessions which she will recognize, we think. Plan: Continue current dose of Seroquel in the evening and at night as she is more alert today. Suspect she will be ready for discharge over the next 24 hours (3) E coli UTI (urinary tract infection) Conclusion/Plan: Abnormal urinalysis found at admission and I suspect this explains recent decreased social interactions at her usp. Abdominal imaging done in ER showed no hydronephrosis, obstruction or stones. The culture has been identified as growing E. coli. Sensitivities are available and it is pansensitive. She completed treatment with ceftriaxone followed by Keflex. (4) Bradycardia Conclusion/Plan: Because of the fall at the [facility]p, she was put on telemetry to watch for arrhythmias. Telemetry shows that she has frequent sinus arrhythmia, and frequent and long runs of marked sinus derek producing heart rates as low as 30, up to a minute. Her admission EKG was also abnormal showing T wave changes which suggest ischemia. I checked a set of troponins and these were unremarkable. Her Echo was done and shows an esentially normal heart. Her TSH to evaluate for hypothyroidism was high at 8.44, but a free T4 was within normal limits at 0.79. (All labs were reviewed) We contacted the DPOA to discuss permanent pacemaker implant, several days ago. The DPOA did not want to have the patient get a pacemaker, given her severe dementia. We stopped telemetry monitoring Avoid any heart rate-slowing medications. No pacemaker is planned. Because of this decision, the DPOA also made her a DNR and POLST form was done. (5) Fall at usp Conclusion/Plan: This was unwitnessed. It did cause a scalp laceration. Her head and neck were "cleared" with CT imaging showing no acute findings. Plan: Plan is discharged back to [facility] for continued total care as patient is dependent on her ADLs Appreciate PT/OT input (6) LBP This is chronic problem for the patient. Plan: Continue lidocaine patch daily scheduled for her lower back pain. (8) Scalp laceration Conclusion/Plan: This was already stapled by the ER Physician. [place] will be removed today, 03/30 given it has been 10 days. (9) Hypertension Conclusion/Plan: Hypertensive today with systolics in the 170s to 180s.We will start her on amlo dipine for her hypertension. We will hold her home hydrochlorothiazide given her limited oral intake and the concern that she was volume depleted on initial presentation. (9) QUE RESOLVED She presented with a creatinine of 2.8. Her usual creatinine is 0.9. Renal function is back at baseline her initial QUE was likely due to volume depletion from limited oral intake and the fact that she is on a diuretic. Plan: We will discontinue her IV fluids and monitor her renal function off fluids.
[2023-03-30] MEDS: ACETAMINOPHEN 325 MG TABLET PO PRN (12:38)
[2023-03-30] MEDS: LIDOCAINE PATCH 5% TOP SCH (16:44)
[2023-03-30] MEDS: QUEtiapine 25 MG TABLET PO SCH (16:56)
[2023-03-30] MEDS: QUEtiapine 100 MG TABLET PO SCH (20:35)
[2023-03-31] MEDS: SODIUM CHLORIDE FLUSH 0.9% 10 ML SYRINGE IVP SCH ×2 (00:23→08:12)
[2023-03-31] MEDS: ZINC OXIDE 20% OINT 30 GM TUBE TOP PRN (00:41)
[2023-03-31] MEDS: DOCUSATE SODIUM 250 MG CAPSULE PO SCH (08:11)
[2023-03-31] MEDS: MULTIVITAMIN W/MINERALS TABLET PO SCH (08:11)
[2023-03-31] MEDS: polyethylene glycoL 3350 17 GM PACKET PO SCH (08:12)
[2023-03-31] MEDS ORDERED: amLODIPine 5 MG TABLET PO SCH (09:00)
--- NOTE | 2023-03-31 10:39 | Discharge Plan ---
"Discharge Plan for SNF / ROXI - Discharge Plan And Transition Orders Problem Reviewed?: Yes Disposition: 01 Home, Self Care Condition: Fair Allergies and Adverse Reactions: Allergies Allergy/AdvReac Type Severity Reaction Status Date / Time No Known Drug Allergies Allergy Verified 03/20/23 07:15 Health Concerns: You presented to our emergency room and is very sedated from the multiple medications you take. Once we stopped those medications and you gradually woke up, you woke up delirious. We needed to consult psychiatry and we used an antipsychotic on you at times but we finally were able to stabilize you with a medication called Seroquel. Seroquel oversedated you and then we needed to cut back on that. Yesterday and today you seem better. More awake, more alert. You do have a slow heart rate but after discussing the possible need for a pacemaker for you, your family has opted not to move forward with that. You have completed therapy for urinary tract infection. You had a scalp laceration and giselle were removed March 30. Plan of Treatment: We have adjusted some of your medications. The list that will be given to [facility] includes those changes. Medications that were discontinued were Ativan, Ambien, Risperdal, and trazodone. At this point we only have you on Haldol IM as needed. The last dose was March 25. We also have you on Seroquel 50 mg at night before bedtime, and Seroquel 25 mg at 5 PM. You are prone to not drinking enough water, we strongly encourage [facility] to give you at least 1000 cc of water a day. They need to verify that you are drinking that. Care Goals: You have a permanent home at [facility]. Please follow-up with Dr. Marge Rodriguez in the next 1 to 2 weeks. Assessment: She is awake, alert, angry. Keeps on stating she does not want to be here anymore and she wants to go home. - SNF / [facility] Transition Orders Admit to (Facility): [facility] Under the care of (Name): Dr. Marge Rodriguez Discharge Diagnosis: 1. Metabolic encephalopathy secondary to medication 2. Dementia with behavioral disturbance 3. E. coli UTI 4. Sinus bradycardia 5. Fall at [facility] 6. Fall at hospital 7. Chronic low back pain 8. Scalp laceration present on admission, giselle removed March 30 9. Hypertension 10. Acute kidney insufficiency Medicare Certification Statement: I certify that [facility] is medically necessary on a co ntinuing basis for any of the conditions for which she/he is receiving care during hospitalization. Notify PCP of admission and forward orders to primary provider for signature. Weight on admission and: Weekly Other Notification Orders: Call PCP immediately if patient develops dyspnea, chest pain/tightness or edema. House Bowel Program: Yes Additional Bowel Program Orders: If no BM after 2 days, nurse may give M.O.M. 30ml PO PRN and/or ducolax Supp 1 MS and/or YOMI 250mg P.O., and/or senna 1-2 tabs PO. On day 3 nurse may give repeat above order until residents constipation is resolved. Annual Influenza Vaccine (between Apr 09 and November 06): Yes Two-step PPD per [facility] [id number] or approved exception documents: Yes Medication Orders: PLEASE REFER TO THE DISCHARGE MEDICATION LIST. Insulin Orders?: No - Diet Type: Geriatric Texture: Regular Liquids: Thin (Please quantify how much she is drinking. She must be drinking 800 cc a day or gets behind.On admission dehydrated with hyperchloremia) - Therapies | Activity Rehabilitation Potential: Maximize functional status Activity: Activity as Tolerated Assistance Devices: Walker Follow Up: Please see Dr. Marge Rodriguez in the next 2 weeks"
--- NOTE | 2023-03-31 11:00 | DISCHARGE SUMMARY ---
"Discharge Summary Admit Date: 03/20/23 Discharge Date: 03/31/23 Discharging Provider: Evi Regan MD Primary Care Provider: Marge Rodriguez MD Code Status: Do Not Attempt Resuscitation Condition at Discharge: Fair Discharge Disposition: 01 Home, Self Care - DIAGNOSES Discharge Diagnoses with Status of Each Condition: 1. Metabolic encephalopathy secondary to Polypharmacy 2. Dementia with behavioral disturbance 3. E. coli UTI 4. Sinus bradycardia 5. Fall at correction 6. Fall at hospital 7. Chronic low back pain 8. Scalp laceration present on admission, giselle removed March 30 9. Hypertension 10. Acute kidney insufficiency - HPI History of Present Illness: This is a 77-year-old female who has a history of dementia and lives at [facility]. There is 1 page of records that we have from [facility]. Her medications show that she is on several vitamins and supplements and takes both Lasix and HCTZ daily as well as gabapentin and narcotics for pain. For the last few days she has been less communicative than normal, according to staff at [facility]. Today she had an unwitnessed fall and was found down on the floor next to her bed, with a laceration noticed on her forehead. She was brought to the ER. She underwent CT imaging of the head and neck, which were negative for hemorrhage or trauma. She underwent stapling of the laceration in the ER. She had presented minimally communicative and just staring when spoken to, but then was yelling a word salad during the stapling of her laceration. Work-up in our ER showed that the patient has QUE with a creatinine of 2.8 (usual creatinine 0.9), she is dehydrated with a sodium of 146, and has a abnormal U/A consistent with a UTI. The patient started to receive IV fluids and received IV ceftriaxone in the ER, after cultures were sent off. The ED provider then spoke to me about this patient. She will be admitted to the Hospitalist service. There is 1 page of records that we have from [facility]. Under CODE STATUS, i t is blank, so by default she will be a Full Code. - Past Medical History Neuro: reports: Dementia Musculoskeletal: reports: Osteoarthritis, Other MRSA Hx?: No Other Past Medical History: dementia - CONSULTS | PROCEDURES Procedures: Cervical spine CT without any acute changes. No displaced fracture or traumatic subluxation. Head CT has no acute intracranial pathology Abdomen/pelvis CT does not have renal stones or masses. No hydronephrosis. Scattered diverticulosis without evidence of diverticulitis. A left adnexal 3.4 cm cyst. Cardiomegaly. Chest x-ray has no acute cardiopulmonary process. Bilateral implants. Present with postsurgical changes. Urine culture growing E. coli - HOSPITAL COURSE Hospital Course: In her discharge plan to the correction I dictated: You presented to our emergency room and is very sedated from the multiple medications you take. Once we stopped those medications and you gradually woke up, you woke up delirious. We needed to consult psychiatry and we used an antipsychotic on you at times but we finally were able to stabilize you with a medication called Seroquel. Seroquel oversedated you and then we needed to cut back on that. Yesterday and today you seem better. More awake, more alert. You do have a slow heart rate but after discussing the possible need for a pacemaker for you, your family has opted not to move forward with that. You have completed therapy for urinary tract infection. You had a scalp laceration and giselle were removed March 30. Plan of Treatment: We have adjusted some of your medications. The list that will be given to [facility] includes those changes. Medications that were discontinued were Ativan, Ambien, Risperdal, and trazodone. At this point we only have you on Haldol IM as needed. The last dose was March 25. We also have you on Seroquel 50 mg at night before bedtime, and Seroquel 25 mg at 5 PM. You are prone to not drinking enough water, we strongly encourage [facility] to give you at least 1000 cc of water a day. They need to verify that you are drinking that. Care Goals: You have a permanent home at [facility]. Please follow-up with Dr. Marge Rodriguez in the next 1 to 2 weeks. Assessment: She is awake, alert, angry. Keeps on stating she does not want to be here anymore and she wants to go home. She was treated for a UTI. During her stay she was found on all fours on the floor. She was also found on the floor in her correction before she came in. There is no findings on physical exam with being found on the floor and asked that no x-rays were done. On the day of discharge this patient was very awake, very alert. Starting to get angry and demanding to go home. She insisted that she lives by herself and did not remember that she lives at a detention facility. She has completed antibiotic therapy. Medications will have to be adjusted to control her behavior but avoid oversedation which was the reason for this hospitalization. At discharge temperature was 36.6, heart rate 76, blood pressure 115/53, respirations 16. 97% on room air. She is a 5 feet 4 inches elderly female, disheveled, alert. Oriented to the fact that she is not at home but she had no idea where she was. She did know what day it was. She did not know what happened. She is 5 foot 4 inches tall, 78.5 kg. Neck is supple. Lungs are clear. She has a regular rate and rhythm. The abdomen is soft, nontender. She was incontinent of urine, using a pure wick catheter. Last bowel movement was yesterday and today. She has moderate nonpitting edema with thick ankles. Sacrum had slight pinkness but no skin breakdown and zinc oxide was being used as a barrier cream. She was moving all extremities with purposeful intent but unable to get out of bed. She has no safety awareness. She is able to sit at the edge of the bed with moderate assist for supine to sit. Able to maintain a static sitting independently. She was able to transfer from sit to stand with min assist x2 but needed multiple trials. Multiple verbal and tactile cueing needed to be provided to facilitate bilateral hip extension and upright standing. It was recommended she go back to [facility] via S. To continue to use her front wheel walker and wheelchair as needed.Her scalp laceration was closed, clean, without any drainage or redness. [place] were removed the day before discharge. Blood pressure was elevated during her stay and amlodipine was started. Greater than 30 minutes was spent coordinating discharge. This document was made in part using voice recognition software. While efforts are made to proofread this document, sound alike and grammatical errors may occur. - ALLERGIES Allergies/Adverse Reactions: Allergies Allergy/AdvReac Type Severity Reaction Status Date / Time No Known Drug Allergies Allergy Verified 03/20/23 07:15 - MEDICATIONS Home Medications: Ambulatory Orders Medication Instructions Recorded Confirmed Furosemide [Lasix] 1 tab PO MOWEFR #12 tab 03/31/23 Gabapentin [Neurontin] 300 mg PO TID #90 cap 03/31/23 HYDROcod/ACETAM 5/325 [[place] 5/325] 1 tab PO Q4H PRN #30 tab 03/31/23 Lidocaine Patch 5% [Lidoderm Patch] 1 patch TOP 1600 patch 03/31/23 Meloxicam [Mobic] 7.5 mg PO BID #60 tab 03/31/23 Multivitamin W/Minerals [Theragran 1 tab PO DAILYWM tab 03/31/23 M] Potassium Chloride [K-Dur] 20 meq PO MOWEFR #12 tab 03/31/23 QUEtiapine [SEROquel] 25 mg PO 1700 tab 03/31/23 QUEtiapine [SEROquel] 25 mg PO QPM #90 tab 03/31/23 Zolpidem Tartrate [Ambien] 10 mg PO DAILY PM #30 tab 03/31/23 amLODIPine [Norvasc] 5 mg PO DAILY tab 03/31/23 traMADol [Ultram] 50 mg PO Q4-6H #30 tab 03/31/23 - LABS Result Diagrams: 03/29/23 07:10 03/29/23 07:10"
[2023-03-31 13:22] VITALS: BP 115/53; O2SAT 97
== END 2023-03-31 13:20 | disposition home or self-care (01) | DRG 92 ==
LOC: ED 06:55 → MS2 12:55
PROVIDERS: ADMIT Internal Medicine; ATTEND Specialist
DX: G92.8 Other toxic encephalopathy (principal); F03.918 Unspecified dementia, unspecified severity, with other behavioral disturbance; N39.0 Urinary tract infection, site not specified; N17.9 Acute kidney failure, unspecified; F03.90 Unspecified dementia, unspecified severity, without behavioral disturbance, psychotic disturbance, mood disturbance, and anxiety; R41.82 Altered mental status, unspecified; F05 Delirium due to known physiological condition; T50.915A Adverse effect of multiple unspecified drugs, medicaments and biological substances, initial encounter; B96.20 Unspecified Escherichia coli [E. coli] as the cause of diseases classified elsewhere; R00.1 Bradycardia, unspecified; G89.29 Other chronic pain; M54.50 Low back pain, unspecified; S01.01XA Laceration without foreign body of scalp, initial encounter; W06.XXXA Fall from bed, initial encounter; I10 Essential (primary) hypertension; E86.0 Dehydration; K57.30 Diverticulosis of large intestine without perforation or abscess without bleeding; M19.90 Unspecified osteoarthritis, unspecified site; N28.1 Cyst of kidney, acquired; R63.8 Other symptoms and signs concerning food and fluid intake; R40.0 Somnolence; T43.595A Adverse effect of other antipsychotics and neuroleptics, initial encounter; E16.2 Hypoglycemia, unspecified; E87.6 Hypokalemia; Z79.899 Other long term (current) drug therapy
CPT/HCPCS: 12001; 36415; 70450; 71045; 72125; 74176; 80048; 80053; 81001; 83735; 84100; 84439; 84443; 84484; 85025; 87086; 87181; 90471; 90715; 93005; 93306; 96361; 96365; 97162; 97167; 97530; 97535; 99285; A9270; Q3014; 81003

== ENCOUNTER 2023-03-31 13:21 | Outpatient (CLI) | payer MEDICARE, MEDICAID | END 2023-03-31 23:59 | disposition home or self-care (01) | LOC: EMS 13:21 | PROVIDERS: ATTEND Specialist | DX: R41.82 Altered mental status, unspecified (principal); F03.90 Unspecified dementia, unspecified severity, without behavioral disturbance, psychotic disturbance, mood disturbance, and anxiety; S09.90XD Unspecified injury of head, subsequent encounter; W19.XXXD Unspecified fall, subsequent encounter | CPT/HCPCS: A0425; A0428 ==

== ENCOUNTER 2023-11-05 11:44 | Outpatient (CLI) | payer MEDICARE, MEDICAID | END 2023-11-05 23:59 | disposition critical access hospital (66) | LOC: EMS 11:44 | DX: R56.9 Unspecified convulsions (principal); R19.8 Other specified symptoms and signs involving the digestive system and abdomen | CPT/HCPCS: A0425; A0429 ==

== ENCOUNTER 2023-11-05 12:04 | Inpatient (IN) | payer MEDICARE, MEDICAID ==
--- NOTE | 2023-11-05 12:18 | ED Physician Documentation ---
History of Present Illness - Stated complaint Stated Complaint: SZ - History obtained from History obtained from: EMS - Additonal information Additional information: This is a 78-year-old woman who presents by ambulance for the evaluation of 2 reported seizures today. She has a history of dementia and lives at [facility]. The paramedics report to me that she may have a history of seizures, but her paperwork that accompanies her does not say anything about seizures. Of note she is on tramadol several times a day. She reportedly had a least 2 seizures today. All of the history is from EMS. No history of is available from the patient as she is not at her baseline and is not completely clear what her baseline is, but she is not interactive right now. PD PAST MEDICAL HISTORY - Past Medical History Neuro: Dementia Musculoskeletal: Osteoarthritis, Other - Past Surgical History Past Surgical History: No - Present Medications Home Medications: Ambulatory Orders Medication Instructions Recorded Confirmed Furosemide [Lasix] 1 tab PO MOWEFR #12 tab 03/31/23 Gabapentin [Neurontin] 300 mg PO TID #90 cap 03/31/23 HYDROcod/ACETAM 5/325 [[place] 5/325] 1 tab PO Q4H PRN #30 tab 03/31/23 Lidocaine Patch 5% [Lidoderm Patch] 1 patch TOP 1600 patch 03/31/23 Meloxicam [Mobic] 7.5 mg PO BID #60 tab 03/31/23 Multivitamin W/Minerals [Theragran 1 tab PO DAILYWM tab 03/31/23 M] Potassium Chloride [K-Dur] 20 meq PO MOWEFR #12 tab 03/31/23 QUEtiapine [SEROquel] 25 mg PO 1700 tab 03/31/23 QUEtiapine [SEROquel] 25 mg PO QPM #90 tab 03/31/23 Zolpidem Tartrate [Ambien] 10 mg PO DAILY PM #30 tab 03/31/23 amLODIPine [Norvasc] 5 mg PO DAILY tab 03/31/23 traMADol [Ultram] 50 mg PO Q4-6H #30 tab 03/31/23 - Allergies Allergies/Adverse Reactions: Allergies Allergy/AdvReac Type Severity Reaction Status Date / Time No Known Drug Allergies Allergy Verified 11/05/23 12:27 - Social History Does the pt smoke?: No Smoking Status: Never smoker Does the pt drink ETOH?: No Does the pt have substance abuse?: No - Immunizations Immunizations are current?: Yes PD ED PE NORMAL - Vitals Vital signs reviewed: Yes - General General: Other (She does respond to me when I talk to her or move her but she does not respond to questions. She mostly responds "ow" to any question or manipulation of any part of her body.) - HEENT HEENT: PERRL - Neck Neck: Other (She does say "ow" when her neck is palpated, but noting that she says "ow" when I basically manipulate any part of her body.) - Cardiac Cardiac: RRR, No murmur - Respiratory Respiratory: No respiratory distress, Clear bilaterally - Abdomen Abdomen: Non tender - Neuro Eye Opening: None Motor: Withdraws to Pain Verbal: Inappropriate GCS Score: 8 Results - Vitals Vitals: Vital Signs - 24 hr 11/05/23 11/05/23 11/05/23 12:14 14:19 16:00 Temperature 36.6 C 36.1 C L Heart Rate 81 77 80 Respiratory 14 12 19 Rate Blood Pressure 105/68 122/76 141/79 H O2 Saturation 92 96 97 Oxygen O2 Source Room air - EKG (time done) 1242 EKG releavant findings:: EKG personally interpreted by author of this note. Relevant findings are: Rate: Rate (enter#) (87) Rhythm: NSR [place]: Normal Intervals: Normal OH, Prolonged QT (borderine with qtc 498) QRS: Normal Ischemia: Normal ST segments - Labs Labs: Laboratory Tests 11/05/23 11/05/23 11/05/23 12:23 12:35 12:35 WBC RBC Hgb Hct MCV MCH MCHC RDW Plt Count MPV Neut # (Auto) Lymph # (Auto) [place] # (Auto) Eos # (Auto) Baso # (Auto) Absolute Nucleated RBC Nucleated RBC % Manual Slide Review Platelet Estimate Platelet Morphology RBC Morph Micro Appear PT 11.2 INR 1.0 Sodium 141 Potassium 3.8 Chloride 104 Carbon Dioxide 26 Anion Gap 11.0 BUN 28 H Creatinine 1.1 Estimated GFR (MDRD) 48 L Glucose 114 H POC Whole Bld Glucose 104 H Lactic Acid Calcium 9.4 Magnesium 2.0 Total Bilirubin 0.2 AST 14 ALT 11 Alkaline Phosphatase 85 Total Protein 6.5 Albumin 3.3 Globulin 3.2 Albumin/Globulin Ratio 1.0 Urine Color Urine Clarity Urine pH Ur Specific [place] Urine Protein Urine Glucose (UA) Urine Ketones Urine Occult Blood Urine Nitrite Urine Bilirubin Urine Urobilinogen Ur Leukocyte Esterase Urine RBC Urine WBC Ur Squamous Epith Cells Urine Bacteria Ur Microscopic Review Urine Culture Comments Urine HCG, Qual Urine Opiates Screen Ur Buprenorphine Scrn Ur Oxycodone Screen Urine Methadone Screen Ur Barbiturates Screen Ur Tricyclics Screen Ur Phencyclidine Scrn Ur Amphetamine Screen U Methamphetamines Scrn U Benzodiazepines Scrn Urine Cocaine Screen U Cannabinoids Screen Ur Drug Screen Comment Ethyl Alcohol < 10.0 11/05/23 11/05/23 11/05/23 12:44 12:53 12:53 WBC 10.3 RBC 3.77 L Hgb 8.5 L Hct 30.8 L MCV 81.7 MCH 22.5 L MCHC 27.6 L RDW 19.4 H Plt Count 349 MPV 9.1 Neut # (Auto) 8.2 H Lymph # (Auto) 1.5 [place] # (Auto) 0.3 Eos # (Auto) 0.1 Baso # (Auto) 0.0 Absolute Nucleated RBC 0.00 Nucleated RBC % 0.0 Manual Slide Review Indicated Platelet Estimate NORMAL (130-450,000) Platelet Morphology NORMAL APPEARANCE RBC Morph Micro Appear 2+ ANISOCYTOSIS PT INR Sodium Potassium Chloride Carbon Dioxide Anion Gap BUN Creatinine Estimated GFR (MDRD) Glucose POC Whole Bld Glucose Lactic Acid Calcium Magnesium Total Bilirubin AST ALT Alkaline Phosphatase Total Protein Albumin Globulin Albumin/Globulin Ratio Urine Color YELLOW Urine Clarity HAZY Urine pH 7.0 Ur Specific [place] 1.020 Urine Protein NEGATIVE Urine Glucose (UA) NEGATIVE Urine Ketones NEGATIVE Urine Occult Blood NEGATIVE Urine Nitrite NEGATIVE Urine Bilirubin NEGATIVE Urine Urobilinogen 0.2 (NORMAL) Ur Leukocyte Esterase TRACE H Urine RBC 0-5 Urine WBC 6-10 H Ur Squamous Epith Cells FEW Squamous Urine Bacteria Few Ur Microscopic Review INDICATED Urine Culture Comments INDICATED Urine HCG, Qual Cancelled Urine Opiates Screen NEGATIVE Ur Buprenorphine Scrn NEGATIVE Ur Oxycodone Screen NEGATIVE Urine Methadone Screen NEGATIVE Ur Barbiturates Screen NEGATIVE Ur Tricyclics Screen POSITIVE H Ur Phencyclidine Scrn NEGATIVE Ur Amphetamine Screen NEGATIVE U Methamphetamines Scrn NEGATIVE U Benzodiazepines Scrn NEGATIVE Urine Cocaine Screen NEGATIVE U Cannabinoids Screen NEGATIVE Ur Drug Screen Comment CUTOFF CONC BELOW: Ethyl Alcohol 11/05/23 12:57 WBC RBC Hgb Hct MCV MCH MCHC RDW Plt Count MPV Neut # (Auto) Lymph # (Auto) [place] # (Auto) Eos # (Auto) Baso # (Auto) Absolute Nucleated RBC Nucleated RBC % Manual Slide Review Platelet Estimate Platelet Morphology RBC Morph Micro Appear PT INR Sodium Potassium Chloride Carbon Dioxide Anion Gap BUN Creatinine Estimated GFR (MDRD) Glucose POC Whole Bld Glucose Lactic Acid 4.7 H* Calcium Magnesium Total Bilirubin AST ALT Alkaline Phosphatase Total Protein Albumin Globulin Albumin/Globulin Ratio Urine Color Urine Clarity Urine pH Ur Specific [place] Urine Protein Urine Glucose (UA) Urine Ketones Urine Occult Blood Urine Nitrite Urine Bilirubin Urine Urobilinogen Ur Leukocyte Esterase Urine RBC Urine WBC Ur Squamous Epith Cells Urine Bacteria Ur Microscopic Review Urine Culture Comments Urine HCG, Qual Urine Opiates Screen Ur Buprenorphine Scrn Ur Oxycodone Screen Urine Methadone Screen Ur Barbiturates Screen Ur Tricyclics Screen Ur Phencyclidine Scrn Ur Amphetamine Screen U Methamphetamines Scrn U Benzodiazepines Scrn Urine Cocaine Screen U Cannabinoids Screen Ur Drug Screen Comment Ethyl Alcohol - Rads (name of study) CT feng scan Relevant Findings:: Final report received (Multiple areas of compression fractures but really no other acute disease.), EMP independent interpretation of test PD Medical Decision Making - ED course ED course: This is a 78-year-old woman who presents from memory care for reported seizures today. It is unclear if she has a history of seizures. Paramedics report that she does, but I do not see any antiepileptics on her medication list with the exception of gabapentin which is of course used for other things and not generally a first-line seizure medicine, and it is not reported on the problem list. We were starting workup and treatment, she was not back at her baseline on initial arrival. At approximately 12:35 PM I was called into the room. She had reportedly had a seizure again. On my arrival into the room she was obtunded with sonorous respirations and hypoxic down to 17. I asked the nurse to please place her on supplemental oxygen. Then I placed a nasal airway and her sats came right up. Prior to discharge summary I reviewed prior discharge summary from her admission here in March of last year, at that time she was reported on the discharge summary to be DNR. That said her paperwork that accompanies her from [facility] so she is full code. I left voicemails for both her brother who is the first contact and her [id number] who is the second contact without immediate response. I will load her with Keppra IV. 12:46pm Spoke with Melisa, sister-in law. No known H/O sz D/O. They moved her in last year as she was homeless and she was with them ~5 mos, then at [facility] x 1 year. She is POA. She is a esp[place] of the state without resources. Discussed goals of care. She confirms DNR/DNI, no surgery. OK with imaging, antiepileptic meds. She is available at [phone]. 2:00 PM 11/05/2023: Labs reviewed, she is anemic with hemoglobin of 8.5. It was about 10 a few months ago. Coags are normal. CBC showing elevated BUN. She has a positive lactate but it was drawn shortly after the seizure here. Urinalysis is trace positive with trace leukocyte esterase and a few white cells. I am not inclined to treat this at this point given lack of other symptomatology or obvious infection. She is still pending CT feng scan. 4:29 PM 11/05/2023: Imaging results now available. There was a delay due to IT issues. There were no acute findings. She has some likely chronic compression fractures in the spine. Spoke with [id number] again who confirms that she has a remote history of compression fractures to doubt these are new. Patient is still fairly obtunded. I just took out her nasal airway that I had in since her seizure 4 hours ago. Given her persistent obtundation we will place in observation for delirium. Call to the hospitalist at this time for admission. Departure - Departure Disposition: ED Place in Observation Clinical Impression: Delirium, Status epilepticus, DNR (do not resuscitate) Condition: Serious
[2023-11-05 12:50] LABS: BASOPHILS % (AUTO) 0.4 %; EOSINOPHILS # (AUTO) 0.1 10^3/uL (0.0-0.7); EOSINOPHILS % (AUTO) 0.7 %; HCT - HEMATOCRIT 30.8 % (37.0-47.0); HGB - HEMOGLOBIN 8.5 g/dL (12.0-16.0); LYMPHOCYTES # (AUTO) 1.5 10^3/uL (1.5-3.5); LYMPHOCYTES % (AUTO) 14.9 %; MEAN CORPUSCULAR HEMOGLOBIN 22.5 pg (27.0-31.0); MEAN CORPUSCULAR HGB CONC 27.6 g/dL (32.0-36.0); MEAN CORPUSCULAR VOLUME 81.7 fL (81.0-99.0); MEAN PLATELET VOLUME 9.1 fL (7.9-10.8); MONOCYTES # (AUTO) 0.3 10^3/uL (0.0-1.0); NEUTROPHILS # (AUTO) 8.2 10^3/uL (1.5-6.6); NEUTROPHILS % (AUTO) 79.5 %; PLT - PLATELET COUNT 349 10^3/uL (130-450); RED BLOOD COUNT 3.77 10^6/uL (4.20-5.40); RED CELL DISTRIBUTION WIDTH 19.4 % (12.0-15.0); WHITE BLOOD COUNT 10.3 x10^3/uL (4.8-10.8)
[2023-11-05 12:53] LABS: SLIDE REVIEW? Indicated
[2023-11-05 12:57] LABS: PT - PROTHROMBIN TIME 11.2 secs (9.9-12.6)
[2023-11-05] MEDS: levETIRAcetam INJ 1,000 MG in SODIUM CHLORIDE 0.9% 100ML 100 ML IV STA (13:01)
[2023-11-05 13:05] LABS: ALBUMIN 3.3 g/dL (3.2-5.5); ALKALINE PHOSPHATASE 85 IU/L (42-121); ALT ALANINE AMINOTRANSFERASE 11 IU/L (10-60); AST ASPARTATE AMINOTRANSFERASE 14 IU/L (10-42); BILIRUBIN,TOTAL 0.2 mg/dL (0.2-1.0); BUN - BLOOD UREA NITROGEN 28 mg/dL (6-20); CALCIUM 9.4 mg/dL (8.5-10.3); CARBON DIOXIDE - CO2 26 mmol/L (21-32); CHLORIDE 104 mmol/L (101-111); CREATININE 1.1 mg/dL (0.6-1.3); ETOH - ETHANOL < 10.0 mg/dL; GFR - MDRD 48 (>89); GLUCOSE 114 mg/dL (74-104); POTASSIUM 3.8 mmol/L (3.5-4.5); SODIUM 141 mmol/L (135-145); TOTAL PROTEIN 6.5 g/dL (6.4-8.9)
[2023-11-05 13:07] LABS: PLATELET ESTIMATE, MANUAL NORMAL (130-450,000) (NORMAL); PLATELET MORPHOLOGY NORMAL APPEARANCE (NORMAL)
[2023-11-05 13:16] LABS: BILIRUBIN,URINE NEGATIVE (NEGATIVE); CLARITY,URINE HAZY (CLEAR); GLUCOSE, URINE (UA) NEGATIVE (NEGATIVE); KETONES,URINE (UA) NEGATIVE (NEGATIVE); LEUKOCYTE ESTERASE, URINE TRACE (NEGATIVE); NITRITE,URINE NEGATIVE (NEGATIVE); OCCULT BLOOD,URINE NEGATIVE (NEGATIVE); PROTEIN,URINE NEGATIVE (NEGATIVE); UROBILINOGEN,URINE 0.2 (NORMAL) E.U./dL (NORMAL)
[2023-11-05 13:20] LABS: AMPHETAMINE SCREEN,URINE NEGATIVE (NEGATIVE); BARBITURATE SCREEN,UR NEGATIVE (NEGATIVE); BENZODIAZEPINES SCREEN, URINE NEGATIVE (NEGATIVE); BUPRENORPHINE SCREEN, URINE NEGATIVE (NEGATIVE); COCAINE SCREEN URINE NEGATIVE (NEGATIVE); METHADONE SCREEN, URINE NEGATIVE (NEGATIVE); METHAMPHETAMINES SCREEN, URINE NEGATIVE (NEGATIVE); OPIATE SCREEN, URINE NEGATIVE (NEGATIVE); OXYCODONE SCREEN, URINE NEGATIVE (NEGATIVE); THC CANNABINOID SCREEN, URINE NEGATIVE (NEGATIVE); TRICYCLIC ANTIDEPRESSANT,URINE POSITIVE (NEGATIVE)
[2023-11-05 13:23] LABS: BACTERIA,URINE Few /HPF (None Seen); RBC,URINE 0-5 /HPF (0-5); SQUAMOUS EPITHELIAL CELL,UR FEW Squamous (<= Few)
--- NOTE | 2023-11-05 13:45 | XRAY Report ---
PROCEDURE: Chest 1V INDICATIONS: ams sz TECHNIQUE: One view of the chest was acquired. COMPARISON: 03/20/2023. FINDINGS: Surgical changes and devices: None. Lungs and pleura: No pleural effusions or pneumothorax. Prominent interstitial markings. Mediastinum: Mediastinal contours appear normal. Heart size is enlarged, stable. Bones and chest wall: No suspicious bony lesions. Overlying soft tissues appear unremarkable. IMPRESSION: Mild prominence of the interstitial markings, may represent edema. No focal pulmonary consolidations. Reviewed by: Adam Day MD on 11/05/2023 1:44 PM PDT Approved by: Adam Day MD on 11/05/2023 1:44 PM PDT Station ID: [id number]
[2023-11-05] MEDS ORDERED: iohexoL-300 100 ML VIAL ONE (14:09)
--- NOTE | 2023-11-05 17:22 | CT Report ---
PROCEDURE: Abdomen/Pelvis W INDICATIONS: iv only, abd injury/pain CONTRAST: Nonionic iodinated intravenous 100ml omni 300 TECHNIQUE: After the administration of intravenous contrast, a CT scan of the abdomen and pelvis was performed. Images were recorded and evaluated at appropriate window settings. Reformats: coronal and sagittal. F or radiation dose reduction, the following was used: automated exposure control, adjustment of mA and /or kV according to patient size. COMPARISON: Prior abdominal/pelvic CT 03/20/2023. FINDINGS: Image quality: Diagnostic. Lower chest: Unremarkable. Liver: No solid mass. Gallbladder and biliary tree: Spleen: No splenomegaly. Pancreas: No pancreatic ductal dilation. Adrenals: No adrenal nodule. Kidneys and ureters: No hydronephrosis. No renal cystic lesion which requires follow up. No solid mas s. Stomach, bowel and peritoneum: No bowel distension. No pathologic free fluid. Lymph nodes: No central or retroperitoneal adenopathy. Vessels: No infrarenal aortic aneurysm. PELVIS Reproductive organs: Unremarkable. Bladder: No abnormal wall thickening, accounting for underdistention. Pelvic lymph nodes: No pelvic adenopathy by size criteria. Bones: Multiple previously present lumbosacral spine compression fractures are again seen with refere nce to the prior CT scanning. No definite acute worsening. Other: No significant ventral or inguinal hernia. IMPRESSION: No visceral trauma found. Multiple presumed osteoporotic compression fractures again noted at the lum bosacral spine without definite change considering differences in technique and scan angulation. Thes e are most pronounced at L1 and L3. No acute musculoskeletal trauma is seen. Reviewed by: Srinivas Santillan MD on 11/05/2023 3:38 PM PDT Approved by: Srinivas Santillan MD on 11/05/2023 3:38 PM PDT Station ID: [id number]
--- NOTE | 2023-11-05 17:22 | CT Report ---
PROCEDURE: Cervical Spine WO INDICATIONS: poss neck inj TECHNIQUE: Noncontrast 3 mm thick sections acquired from the skull base to the T4 level. Sagittal and coronal r eformats were then constructed. For radiation dose reduction, the following was used: automated exp osure control, adjustment of mA and/or kV according to patient size. COMPARISON: Prior chest plain film 03/20/2023 reviewed.. FINDINGS: Image quality: Excellent. Bones: No fractures or dislocations. Visualized superior ribs are intact. On the sagittal reformat ion imaging mild to moderate wedge compression fractures can be seen involving T4 and T5, chronicity uncertain. These are considered more likely chronic than acute. Soft tissues: Prevertebral soft tissues are normal in thickness. No paravertebral hematomas. No ap ical pneumothoraces. IMPRESSION: No definite acute trauma to the cervical spine. Mild to moderate wedge compression fractures seen at what appears to be in the T4 and T5 vertebral bodies of the thoracic spine which are considered more likely chronic than acute but MR scanning would provide an accurate method for discrimination between old versus new. No comparison CT includes this area. Reviewed by: Srinivas Santillan MD on 11/05/2023 3:34 PM PDT Approved by: Srinivas Santillan MD on 11/05/2023 3:34 PM PDT Station ID: [id number]
--- NOTE | 2023-11-05 17:22 | CT Report ---
PROCEDURE: Head WO INDICATIONS: head inj sz TECHNIQUE: Noncontrast 4.5 mm thick angled axial sections acquired from the foramen magnum to the vertex. For r adiation dose reduction, the following was used: automated exposure control, adjustment of mA and/or kV according to patient size. COMPARISON: None. FINDINGS: Image quality: Excellent. CSF spaces: Basal cisterns are patent. No extra-axial fluid collections. Ventricles are normal in size and shape. Brain: No midline shift. No intracranial masses or hemorrhage. Roca-white matter interface is norm al. Skull and face: Calvarium and visualized facial bones are intact, without suspicious lesions. Sinuses: Visualized sinuses and mastoids are clear. IMPRESSION: No acute intracranial pathology. Patient motion during image acquisition mildly degrades quality of visualization but no acute disease is suspected when this is taken into account. Reviewed by: Srinivas Santillan MD on 11/05/2023 3:24 PM PDT Approved by: Srinivas Santillan MD on 11/05/2023 3:24 PM PDT Station ID: [id number]
--- NOTE | 2023-11-05 17:22 | CT Report ---
PROCEDURE: Chest W INDICATIONS: back inj CONTRAST: Nonionic iodinated intravenous 100ml omni 300 TECHNIQUE: After the administration of intravenous contrast, a CT scan of the chest was performed. Images were recorded and evaluated at appropriate window settings. Reformats: axial MIP of the chest, coronal and sagittal. For radiation dose reduction, the following was used: automated exposure control, adjustme nt of mA and/or kV according to patient size. COMPARISON: Prior abdominal CT 11/05/2023 and also 03/20/2023.. FINDINGS: Image quality: Diagnostic. Chest wall and lower neck: No thyroid nodule which requires sonographic follow up. No axillary or sup raclavicular adenopathy by size. Peripherally calcified bilateral breast implants without evidence of implant rupture. Lungs and pleura: No consolidation. No pleural effusions. No pneumothorax. No suspicious pulmonary n odules which require follow up. Mediastinum: Heart size is normal. No pericardial effusion. No large vessel abnormality. No mediastin al adenopathy by size criteria. Bones: No aggressive osseous abnormality. Multiple previously present compression fractures extending into the lumbosacral spine.. Upper Abdomen: Unremarkable. IMPRESSION: No acute trauma found. Multiple previously present compression fractures in the lumbosacral spine are present and several are present at the mid thoracic spine which appear chronic. MR scanning could ac curately discriminate between old and new abnormalities involving these areas of the spine if clinica lly warranted. Reviewed by: Srinivas Santillan MD on 11/05/2023 3:29 PM PDT Approved by: Srinivas Santillan MD on 11/05/2023 3:29 PM PDT Station ID: [id number]
--- NOTE | 2023-11-05 17:56 | HISTORY & PHYSICAL EXAMINATION ---
Chief Complaint - Chief Complaint Chief Complaint: Seizure History of Present Illness - Admitted From Admitted From:: Emergency Room - History Obtained From Records Reviewed: Yes History obtained from: ER Physician (Dr. Lanier) - History of Present Illness HPI Comment/Other: Miley Sandoval Is a 78-year-old woman who was brought to the [facility] emergency room by ambulance after having to seizures in a longterm. Patient is a resident of [facility]. It is reported that she takes tramadol several times a day. She reportedly had 2 seizures in the longterm today. She was transferred by EMS service to the emergency room for further evaluation. Upon arrival patient appeared to be postictal and has not been able to answer any questions. She has a past medical history significant for severe dementia Patient had another seizure in the emergency room. Treatment was initiated with Keppra. She received 1000 mg intravenously. Laboratory studies revealed a normal white blood cell count with hematocrit of 30.8 and a platelet count of 349 K. Chemistry panel revealed a creatinine of 1.1 and a lactate drawn after a seizure was 4.7. She had multiple imaging studies performed in the emergency room. 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 CT of the cervical spine cervical spine revealed no definite acute trauma to the cervical spine. CT of the chest revealed no acute trauma. In the emergency room patient received 1000 mg of Keppra. History - Past Medical History Neuro: reports: Dementia Musculoskeletal: reports: Osteoarthritis, Other MRSA Hx?: No - Family & Social History Living arrangement: skilled nursing Social History Notes: Her past smoking and alcohol history are not known. - POLST Patient has POLST: No Meds/Allgy - Home Medications Home Medications: Ambulatory Orders Medication Instructions Recorded Confirmed Furosemide [Lasix] 1 tab PO MOWEFR #12 tab 03/31/23 Gabapentin [Neurontin] 300 mg PO TID #90 cap 03/31/23 HYDROcod/ACETAM 5/325 [[place] 5/325] 1 tab PO Q4H PRN #30 tab 03/31/23 Lidocaine Patch 5% [Lidoderm Patch] 1 patch TOP 1600 patch 03/31/23 Meloxicam [Mobic] 7.5 mg PO BID #60 tab 03/31/23 Multivitamin W/Minerals [Theragran 1 tab PO DAILYWM tab 03/31/23 M] Potassium Chloride [K-Dur] 20 meq PO MOWEFR #12 tab 03/31/23 QUEtiapine [SEROquel] 25 mg PO 1700 tab 03/31/23 QUEtiapine [SEROquel] 25 mg PO QPM #90 tab 03/31/23 Zolpidem Tartrate [Ambien] 10 mg PO DAILY PM #30 tab 03/31/23 amLODIPine [Norvasc] 5 mg PO DAILY tab 03/31/23 traMADol [Ultram] 50 mg PO Q4-6H #30 tab 03/31/23 - Allergies Allergies/Adverse Reactions: Allergies Allergy/AdvReac Type Severity Reaction Status Date / Time No Known Drug Allergies Allergy Verified 11/05/23 12:27 Review of Systems - Constitutional Constitutional: reports: Other (Unable to perform review of systems because patient is somnolent and unable to participate.) Exam - Vital Signs Vital Signs: Vital Signs x48h Temp Pulse Resp BP Pulse Ox 11/05/23 16:00 80 19 141/79 H 97 11/05/23 14:19 36.1 C L 77 12 122/76 96 11/05/23 12:14 36.6 C 81 14 105/68 92 - Physical Exam General Appearance: positive: Other (Groaning intermittently. Somnolent. Does not open eyes to voice.) Eyes Bilateral: positive: Conjunctivae nml ENT: positive: Pharynx nml Neck: positive: No JVD, Trachea midline Respiratory: positive: Other (Fair air exchange in all lung [place] no wheezing no crackles.) Abdomen: positive: Nml bowel sounds, Tenderness Skin: positive: No rash Extremities: positive: No pedal edema Conclusion/Plan - Problem List (1) Seizure Conclusion/Plan: Patient with several seizures this evening. Etiology is not clear but may be related to treatment with tramadol for pain. Patient appears to take multiple doses in a 24-hour interval. Patient received 1 g of Keppra in the emergency room. Continue Keppra 750 mg intravenously twice daily. Lorazepam intravenously as needed for seizure. (2) Altered mental state Conclusion/Plan: Patient is most likely postictal. Continue to follow mental status serially. (3) Dementia Conclusion/Plan: Patient most likely has advanced dementia. According to her [id number], she is not able to eat, toilet or dress herself. In the event of a cardiopulmonary arrest patient's family does not feel the patient would want to receive chest compressions, intubation, defibrillation or ACLS medications. A DO NOT RESUSCITATE order has been written. - Lab Results Fish Bones: 11/05/23 12:44 11/05/23 12:35
[2023-11-05] MEDS: iohexoL-300 100 ML VIAL IVP ONE (18:22)
[2023-11-05] MEDS ORDERED: LORazepam 2 MG/ML VIAL IVP PRN (19:09)
[2023-11-05] MEDS: D5.45NS W/20 MEQ KCL 1,000 ML IV SCH (21:57)
[2023-11-06] MEDS: SODIUM CHLORIDE FLUSH 0.9% 10 ML SYRINGE IVP SCH (00:20)
[2023-11-06] MEDS: levETIRAcetam INJ 750 MG in SODIUM CHLORIDE 0.9% 100ML 100 ML IV SCH (00:28)
[2023-11-06 05:44] LABS: BASOPHILS % (AUTO) 0.3 %; EOSINOPHILS # (AUTO) 0.1 10^3/uL (0.0-0.7); EOSINOPHILS % (AUTO) 1.5 %; HCT - HEMATOCRIT 28.2 % (37.0-47.0); HGB - HEMOGLOBIN 8.2 g/dL (12.0-16.0); LYMPHOCYTES # (AUTO) 1.4 10^3/uL (1.5-3.5); LYMPHOCYTES % (AUTO) 23.5 %; MEAN CORPUSCULAR HGB CONC 29.1 g/dL (32.0-36.0); MEAN CORPUSCULAR VOLUME 79.2 fL (81.0-99.0); MEAN PLATELET VOLUME 9.5 fL (7.9-10.8); MONOCYTES # (AUTO) 0.4 10^3/uL (0.0-1.0); NEUTROPHILS % (AUTO) 68.4 %; PLT - PLATELET COUNT 314 10^3/uL (130-450); RED BLOOD COUNT 3.56 10^6/uL (4.20-5.40); RED CELL DISTRIBUTION WIDTH 19.5 % (12.0-15.0); WHITE BLOOD COUNT 5.9 x10^3/uL (4.8-10.8)
[2023-11-06 05:54] LABS: CALCIUM 9.1 mg/dL (8.5-10.3); CREATININE 0.9 mg/dL (0.6-1.3); POTASSIUM 3.7 mmol/L (3.5-4.5)
[2023-11-06] MEDS: ACETAMINOPHEN 1,000 MG/100 ML 1,000 MG/100 ML BAG IV PRN (06:31)
[2023-11-06] MEDS: ENOXAPARIN 40 MG/0.4 ML SYRINGE SUBQ SCH (08:45)
--- NOTE | 2023-11-06 08:49 | PROVIDER PROGRESS NOTE ---
Assessment/Plan - Problem List (1) Seizure Assessment/Plan: Patient with several seizures upon admission. Etiology is not clear but may be related to treatment with tramadol for pain. Patient appears to take multiple doses in a 24-hour interval. Patient received 1 g of Keppra in the emergency room. Continue Keppra 750 mg intravenously twice daily. Lorazepam intravenously as needed for seizure. (2) Altered mental state Conclusion/Plan: Etiology of alteration of consciousness is not clear. This may be patient's baseline. Review of notes reveals similar situation in the past. Continue to monitor mental status. Will reach out to family once again to review goals of care. (3) Dementia Conclusion/Plan: Patient most likely has advanced dementia. According to her [id number], she is not able to eat, toilet or dress herself. In the event of a cardiopulmonary arrest patient's family does not feel the patient would want to receive chest compressions, intubation, defibrillation or ACLS medications. A DO NOT RESUSCITATE order has been written. - Current Meds Current Meds: Current Medications Generic Name Dose Route Start Last Admin Trade Name Freq PRN Reason Stop Dose Admin Enoxaparin Sodium 40 mg 11/06/23 09:00 11/06/23 08:45 Enoxaparin 40 Mg/0.4 Ml Syringe SUBQ 40 mg DAILY COREY Administration Levetiracetam 750 mg/ Sodium 107.5 mls @ 400 mls/hr 11/06/23 01:00 11/06/23 01:10 Chloride IV Infused BID COREY Infusion Potassium Chloride/Dextrose/Sod Cl 1,000 mls @ 83.333 mls/hr 11/05/23 21:00 11/06/23 08:45 D5.45ns W/20 Meq Kcl IV 83.333 mls/hr .Q12H COREY Administration Acetaminophen 1,000 mg in 100 mls @ 400 mls/hr 11/06/23 06:04 11/06/23 06:49 Acetaminophen IV Infused Q8H PRN Infusion Mild Pain or Fever>38C(100.4F) Sodium Chloride 10 ml 11/06/23 01:00 11/06/23 08:46 Sodium Chloride Flush 0.9% 10 Ml Syringe IVP 10 ml 0100,0900,1700 COREY Administration - Lab Result Fish Bone Diagrams: 11/06/23 04:22 11/06/23 04:22 - Additional Planning My Orders: My Active Orders 11/05/23 17:40 Activity Orders [RC] Q2HR IO [RC] IOSHIFT Incentive Spirometry - RT [RC] TID Initiate Bowel Care Protocol [RC] .protocol Initiate Line Care Protocol [RC] QSHIFT Initiate Personal Care Protoco [RC] .protocol Oxygen Therapy [RC] .PRN Vital Signs [RC] 0800,1600,0000 Sodium Chloride Flush 0.9% [Normal Saline Flush 0.9%] 10 ml IVP PRN PRN Code Status [OTHERS] Routine Condition of Patient [OTHERS] Routine DVT Prophylaxis [OTHERS] Routine 11/05/23 17:51 NPO except Meds [DIET] 11/05/23 19:09 LORazepam INJ [Ativan Inj (Vial)] 2 mg IVP Q2H PRN 11/05/23 20:56 Telemetry (24 Hour) [RC] Q4HR 11/05/23 21:00 D5.45ns W/20 Meq KCl 1,000 ml IV 83.333 mls/hr 11/06/23 01:00 Sodium Chloride Flush 0.9% [Normal Saline Flush 0.9%] 10 ml IVP 0100,0900,1700 levETIRAcetam INJ [Keppra Inj] 750 mg Sodium Chloride 0.9% 100Ml [Normal Saline 0.9% 100Ml] 100 ml IV BID 11/06/23 09:00 Enoxaparin [Lovenox] 40 mg SUBQ DAILY Subjective - Subjective Patient Reports: Other (Patient speaking gibberish/word salad. She perseverates.) Objective Vital Signs: Vital Signs - 24 hr 11/05/23 11/05/23 11/05/23 12:14 14:19 16:00 Temperature 36.6 C 36.1 C L Heart Rate 81 77 80 Heart Rate [ Brachial] Respiratory 14 12 19 Rate Blood Pressure 105/68 122/76 141/79 H Blood Pressure [Right Brachial artery] O2 Saturation 92 96 97 11/05/23 11/05/23 11/05/23 18:00 18:36 21:19 Temperature 36.8 C 36.4 C L Heart Rate 80 Heart Rate [ 82 77 Brachial] Respiratory 18 18 18 Rate Blood Pressure 130/80 Blood Pressure 144/89 H 134/84 H [Right Brachial artery] O2 Saturation 99 94 95 11/06/23 11/06/23 11/06/23 00:02 05:24 07:57 Temperature 36.4 C L 36.4 C L 36.3 C L Heart Rate Heart Rate [ 72 74 72 Brachial] Respiratory 18 18 18 Rate Blood Pressure Blood Pressure 121/73 109/70 128/77 [Right Brachial artery] O2 Saturation 96 96 94 Oxygen O2 Source Room air I&O (Last 24 Hrs): Intake and Output Totals x24h 11/04/23 11/05/23 11/06/23 23:59 23:59 23:59 Intake Total 086.711 2185.496 Output Total 1800 Balance 110.000 -717.504 General: Alert, No acute distress Neck: No JVD Neuro: Alert Cardiovascular: Other (Positive S1-S2 no extra heart sounds) Respiratory: Other (Fair air exchange in all lung [place] no wheezing no crackles.) Abdomen: Normal bowel sounds, Soft, No tenderness Extremities: No cyanosis, No edema Skin: No rashes - Results Results: Laboratory Results WBC 5.9 x10^3/uL (4.8-10.8) 11/06/23 04:22 RBC 3.56 10^6/uL (4.20-5.40) L 11/06/23 04:22 Hgb 8.2 g/dL (12.0-16.0) L 11/06/23 04:22 Hct 28.2 % (37.0-47.0) L 11/06/23 04:22 MCV 79.2 fL (81.0-99.0) L 11/06/23 04:22 MCH 23.0 pg (27.0-31.0) L 11/06/23 04:22 MCHC 29.1 g/dL (32.0-36.0) L 11/06/23 04:22 RDW 19.5 % (12.0-15.0) H 11/06/23 04:22 Plt Count 314 10^3/uL (130-450) 11/06/23 04:22 MPV 9.5 fL (7.9-10.8) 11/06/23 04:22 Neut # (Auto) 4.0 10^3/uL (1.5-6.6) 11/06/23 04:22 Lymph # (Auto) 1.4 10^3/uL (1.5-3.5) L 11/06/23 04:22 [place] # (Auto) 0.4 10^3/uL (0.0-1.0) 11/06/23 04:22 Eos # (Auto) 0.1 10^3/uL (0.0-0.7) 11/06/23 04:22 Baso # (Auto) 0.0 10^3/uL (0.0-0.1) 11/06/23 04:22 Absolute Nucleated RBC 0.00 x10^3/uL 11/06/23 04:22 Nucleated RBC % 0.0 /100WBC 11/06/23 04:22 Manual Slide Review Indicated 11/05/23 12:44 Platelet Estimate NORMAL (130-450,000) (NORMAL) 11/05/23 12:44 Platelet Morphology NORMAL APPEARANCE (NORMAL) 11/05/23 12:44 RBC Morph Micro Appear 2+ HYPOCHROMASIA (NORMAL) 2+ ANISOCYTOSIS (NORMAL) 11/05/23 12:44 RBC Morph Micro Appear 2+ HYPOCHROMASIA (NORMAL) 2+ ANISOCYTOSIS (NORMAL) 11/05/23 12:44 PT 11.2 secs (9.9-12.6) 11/05/23 12:35 INR 1.0 (0.8-1.2) 11/05/23 12:35 Sodium 139 mmol/L (135-145) 11/06/23 04:22 Potassium 3.7 mmol/L (3.5-4.5) 11/06/23 04:22 Chloride 108 mmol/L (101-111) 11/06/23 04:22 Carbon Dioxide 26 mmol/L (21-32) 11/06/23 04:22 Anion Gap 5.0 (6-13) L 11/06/23 04:22 BUN 21 mg/dL (6-20) H 11/06/23 04:22 Creatinine 0.9 mg/dL (0.6-1.3) 11/06/23 04:22 Estimated GFR (MDRD) 60 (>89) L 11/06/23 04:22 Glucose 109 mg/dL (74-104) H 11/06/23 04:22 POC Whole Bld Glucose 104 mg/dL (70 - 100) H 11/05/23 12:23 Lactic Acid 4.7 mmol/L (0.5-2.2) H* 11/05/23 12:57 Calcium 9.1 mg/dL (8.5-10.3) 11/06/23 04:22 Phosphorus 3.0 mg/dL (2.5-5.0) 11/06/23 04:22 Magnesium 2.0 mg/dL (1.7-2.3) 11/06/23 04:22 Total Bilirubin 0.2 mg/dL (0.2-1.0) 11/05/23 12:35 AST 14 IU/L (10-42) 11/05/23 12:35 ALT 11 IU/L (10-60) 11/05/23 12:35 Alkaline Phosphatase 85 IU/L (42-121) 11/05/23 12:35 Total Protein 6.5 g/dL (6.4-8.9) 11/05/23 12:35 Albumin 3.3 g/dL (3.2-5.5) 11/05/23 12:35 Globulin 3.2 g/dL (2.1-4.2) 11/05/23 12:35 Albumin/Globulin Ratio 1.0 (1.0-2.2) 11/05/23 12:35 Urine Color YELLOW 11/05/23 12:53 Urine Clarity HAZY (CLEAR) 11/05/23 12:53 Urine pH 7.0 PH (5.0-7.5) 11/05/23 12:53 Ur Specific [place] 1.020 (1.002-1.030) 11/05/23 12:53 Urine Protein NEGATIVE mg/dL (NEGATIVE) 11/05/23 12:53 Urine Glucose (UA) NEGATIVE mg/dL (NEGATIVE) 11/05/23 12:53 Urine Ketones NEGATIVE mg/dL (NEGATIVE) 11/05/23 12:53 Urine Occult Blood NEGATIVE (NEGATIVE) 11/05/23 12:53 Urine Nitrite NEGATIVE (NEGATIVE) 11/05/23 12:53 Urine Bilirubin NEGATIVE (NEGATIVE) 11/05/23 12:53 Urine Urobilinogen 0.2 (NORMAL) E.U./dL (NORMAL) 11/05/23 12:53 Ur Leukocyte Esterase TRACE (NEGATIVE) H 11/05/23 12:53 Urine RBC 0-5 /HPF (0-5) 11/05/23 12:53 Urine WBC 6-10 /HPF (0-5) H 11/05/23 12:53 Ur Squamous Epith Cells FEW Squamous (<= Few) 11/05/23 12:53 Urine Bacteria Few /HPF (None Seen) 11/05/23 12:53 Ur Microscopic Review INDICATED 11/05/23 12:53 Urine Culture Comments INDICATED 11/05/23 12:53 Urine HCG, Qual Cancelled 11/05/23 12:53 Urine Opiates Screen NEGATIVE (NEGATIVE) 11/05/23 12:53 Ur Buprenorphine Scrn NEGATIVE (NEGATIVE) 11/05/23 12:53 Ur Oxycodone Screen NEGATIVE (NEGATIVE) 11/05/23 12:53 Urine Methadone Screen NEGATIVE (NEGATIVE) 11/05/23 12:53 Ur Barbiturates Screen NEGATIVE (NEGATIVE) 11/05/23 12:53 Ur Tricyclics Screen POSITIVE (NEGATIVE) H 11/05/23 12:53 Ur Phencyclidine Scrn NEGATIVE (NEGATIVE) 11/05/23 12:53 Ur Amphetamine Screen NEGATIVE (NEGATIVE) 11/05/23 12:53 U Methamphetamines Scrn NEGATIVE (NEGATIVE) 11/05/23 12:53 U Benzodiazepines Scrn NEGATIVE (NEGATIVE) 11/05/23 12:53 Urine Cocaine Screen NEGATIVE (NEGATIVE) 11/05/23 12:53 U Cannabinoids Screen NEGATIVE (NEGATIVE) 11/05/23 12:53 Ur Drug Screen Comment CUTOFF CONC BELOW: 11/05/23 12:53 Ethyl Alcohol < 10.0 mg/dL 11/05/23 12:35
--- NOTE | 2023-11-06 14:18 | PHARMACY PROGRESS NOTE ---
- Best Possible Medication History Admit Date and Time: 11/05/23 1740 Processed by: Pharmacy Medication History completed: Yes Patient Interview: Pt unable to participate Secondary Source(s): Insurance records (verificed home medications by insurance records only, pt unable to participate) As the person ultimately responsible for medication therapy, providers are able to order a medication from an existing home medication list in [facility] via the "Reconcile Routine" prior to Confirmation of that medication by medical support assistant. Such practice is discouraged except when the physician, in their clinical judgment, deems that a medical need exists for a medication without regard to previous use.
[2023-11-06] MEDS ORDERED: SODIUM CHLORIDE 0.9% 100ML 100 ML IV ONE (20:19)
[2023-11-06] MEDS: SODIUM CHLORIDE FLUSH 0.9% 10 ML SYRINGE IVP PRN (21:31)
[2023-11-07 05:55] LABS: BASOPHILS % (AUTO) 0.3 %; EOSINOPHILS # (AUTO) 0.1 10^3/uL (0.0-0.7); EOSINOPHILS % (AUTO) 1.9 %; HGB - HEMOGLOBIN 9.2 g/dL (12.0-16.0); LYMPHOCYTES % (AUTO) 16.3 %; MEAN CORPUSCULAR HEMOGLOBIN 22.5 pg (27.0-31.0); MEAN CORPUSCULAR HGB CONC 28.8 g/dL (32.0-36.0); MEAN CORPUSCULAR VOLUME 78.4 fL (81.0-99.0); MEAN PLATELET VOLUME 9.3 fL (7.9-10.8); MONOCYTES # (AUTO) 0.3 10^3/uL (0.0-1.0); MONOCYTES % (AUTO) 4.6 %; NEUTROPHILS # (AUTO) 4.5 10^3/uL (1.5-6.6); NEUTROPHILS % (AUTO) 76.7 %; PLT - PLATELET COUNT 305 10^3/uL (130-450); RED BLOOD COUNT 4.08 10^6/uL (4.20-5.40); RED CELL DISTRIBUTION WIDTH 19.7 % (12.0-15.0); WHITE BLOOD COUNT 5.8 x10^3/uL (4.8-10.8)
[2023-11-07 06:13] LABS: CALCIUM 9.5 mg/dL (8.5-10.3); CREATININE 0.9 mg/dL (0.6-1.3); MAGNESIUM 1.9 mg/dL (1.7-2.3); PHOSPHORUS 2.5 mg/dL (2.5-5.0); POTASSIUM 3.2 mmol/L (3.5-4.5)
--- NOTE | 2023-11-07 12:28 | PROVIDER PROGRESS NOTE ---
Assessment/Plan - Problem List (1) Seizure Assessment/Plan: Patient with several seizures upon admission. Etiology is not clear but may be related to treatment with tramadol for pain. Patient appears to take multiple doses of tramadol in a 24-hour interval. Patient received 1 g of Keppra in the emergency room. Continue Keppra 750 mg intravenously twice daily. Lorazepam intravenously as needed for seizure. She has not had a seizure since her admission to the medical floor. She is tolerating a diet and can take medications by mouth. Keppra has been changed to p.o. 500 mg twice daily (2) Altered mental state Conclusion/Plan: Patient's cognition has improved. She still continues to answer with word salad but is able to follow commands. She appears to understand what you are asking but she cannot give a reply. Reviewing other notes it appears that she may have a chronic expressive aphasia. Continue to monitor mental status. Will reach out to family once again to review goals of care. (3) Dementia Conclusion/Plan: Patient most likely has advanced dementia. According to her [id number], she is not able to eat, toilet or dress herself. In the event of a cardiopulmonary arrest patient's family does not feel the patient would want to receive chest compressions, intubation, defibrillation or ACLS medications. A DO NOT RESUSCITATE order has been written. (4) Hypertension Restart amlodipine. - Current Meds Current Meds: Current Medications Generic Name Dose Route Start Last Admin Trade Name Freq PRN Reason Stop Dose Admin Enoxaparin Sodium 40 mg 11/06/23 09:00 11/07/23 09:56 Enoxaparin 40 Mg/0.4 Ml Syringe SUBQ 40 mg DAILY COREY Administration Levetiracetam 750 mg/ Sodium 107.5 mls @ 400 mls/hr 11/06/23 01:00 11/07/23 10:15 Chloride IV Infused BID COREY Infusion Potassium Chloride/Dextrose/Sod Cl 1,000 mls @ 83.333 mls/hr 11/05/23 21:00 11/07/23 09:55 D5.45ns W/20 Meq Kcl IV 83.33 mls/hr .Q12H COREY Administration Acetaminophen 1,000 mg in 100 mls @ 400 mls/hr 11/06/23 06:04 11/07/23 00:15 Acetaminophen IV Infused Q8H PRN Infusion Mild Pain or Fever>38C(100.4F) Sodium Chloride 10 ml 11/05/23 17:40 11/06/23 22:07 Sodium Chloride Flush 0.9% 10 Ml Syringe IVP 10 ml PRN PRN Administration NEEDED PER PROVIDER ORDERS Sodium Chloride 10 ml 11/06/23 01:00 11/07/23 09:56 Sodium Chloride Flush 0.9% 10 Ml Syringe IVP 10 ml 0100,0900,1700 [facility] Administration - Lab Result Fish Bone Diagrams: 11/07/23 05:11 11/07/23 05:11 Subjective - Subjective Patient Reports: Other (Alert. Following commands. She appears to understand what you are saying but cannot answer you appropriately. It appears she has an expressive aphasia. She is swallowing and can tolerate pills in a diet.) Objective Vital Signs: Vital Signs - 24 hr 11/06/23 11/06/23 11/06/23 15:44 20:12 23:23 Temperature 36.3 C L 36.4 C L 36.5 C Heart Rate [ 65 72 69 Brachial] Respiratory 16 20 18 Rate Blood Pressure [Left Brachial artery] Blood Pressure 147/80 H 152/88 H 164/88 H [Right Brachial artery] O2 Saturation 96 96 96 11/07/23 11/07/23 03:26 08:00 Temperature 36.5 C Heart Rate [ 76 Brachial] Respiratory 18 Rate Blood Pressure 160/85 H [Left Brachial artery] Blood Pressure 117/97 H [Right Brachial artery] O2 Saturation 98 Oxygen O2 Source Room air I&O (Last 24 Hrs): Intake and Output Totals x24h 11/05/23 11/06/23 11/07/23 23:59 23:59 23:59 Intake Total 336.808 3131.496 1164.406 Output Total 3900 875 Balance 110.000 -1602.504 289.406 General: Alert, No acute distress Neck: No JVD Neuro: Alert, Other (Moving all 4 extremities.) Cardiovascular: Other (Positive S1-S2 no extra heart sounds.) Respiratory: Other (Good air exchange in all lung [place] no wheezing no crackles.) Abdomen: Normal bowel sounds, Soft, No tenderness Extremities: No cyanosis, No edema Skin: No rashes - Results Results: Laboratory Results WBC 5.8 x10^3/uL (4.8-10.8) 11/07/23 05:11 RBC 4.08 10^6/uL (4.20-5.40) L 11/07/23 05:11 Hgb 9.2 g/dL (12.0-16.0) L 11/07/23 05:11 Hct 32.0 % (37.0-47.0) L 11/07/23 05:11 MCV 78.4 fL (81.0-99.0) L 11/07/23 05:11 MCH 22.5 pg (27.0-31.0) L 11/07/23 05:11 MCHC 28.8 g/dL (32.0-36.0) L 11/07/23 05:11 RDW 19.7 % (12.0-15.0) H 11/07/23 05:11 Plt Count 305 10^3/uL (130-450) 11/07/23 05:11 MPV 9.3 fL (7.9-10.8) 11/07/23 05:11 Neut # (Auto) 4.5 10^3/uL (1.5-6.6) 11/07/23 05:11 Lymph # (Auto) 1.0 10^3/uL (1.5-3.5) L 11/07/23 05:11 [place] # (Auto) 0.3 10^3/uL (0.0-1.0) 11/07/23 05:11 Eos # (Auto) 0.1 10^3/uL (0.0-0.7) 11/07/23 05:11 Baso # (Auto) 0.0 10^3/uL (0.0-0.1) 11/07/23 05:11 Absolute Nucleated RBC 0.00 x10^3/uL 11/07/23 05:11 Nucleated RBC % 0.0 /100WBC 11/07/23 05:11 Manual Slide Review Indicated 11/05/23 12:44 Platelet Estimate NORMAL (130-450,000) (NORMAL) 11/05/23 12:44 Platelet Morphology NORMAL APPEARANCE (NORMAL) 11/05/23 12:44 RBC Morph Micro Appear 2+ HYPOCHROMASIA (NORMAL) 2+ ANISOCYTOSIS (NORMAL) 11/05/23 12:44 RBC Morph Micro Appear 2+ HYPOCHROMASIA (NORMAL) 2+ ANISOCYTOSIS (NORMAL) 11/05/23 12:44 PT 11.2 secs (9.9-12.6) 11/05/23 12:35 INR 1.0 (0.8-1.2) 11/05/23 12:35 Sodium 141 mmol/L (135-145) 11/07/23 05:11 Potassium 3.2 mmol/L (3.5-4.5) L 11/07/23 05:11 Chloride 110 mmol/L (101-111) 11/07/23 05:11 Carbon Dioxide 24 mmol/L (21-32) 11/07/23 05:11 Anion Gap 7.0 (6-13) 11/07/23 05:11 BUN 11 mg/dL (6-20) 11/07/23 05:11 Creatinine 0.9 mg/dL (0.6-1.3) 11/07/23 05:11 Estimated GFR (MDRD) 60 (>89) L 11/07/23 05:11 Glucose 103 mg/dL (74-104) 11/07/23 05:11 POC Whole Bld Glucose 104 mg/dL (70 - 100) H 11/05/23 12:23 Lactic Acid 4.7 mmol/L (0.5-2.2) H* 11/05/23 12:57 Calcium 9.5 mg/dL (8.5-10.3) 11/07/23 05:11 Phosphorus 2.5 mg/dL (2.5-5.0) 11/07/23 05:11 Magnesium 1.9 mg/dL (1.7-2.3) 11/07/23 05:11 Total Bilirubin 0.2 mg/dL (0.2-1.0) 11/05/23 12:35 AST 14 IU/L (10-42) 11/05/23 12:35 ALT 11 IU/L (10-60) 11/05/23 12:35 Alkaline Phosphatase 85 IU/L (42-121) 11/05/23 12:35 Total Protein 6.5 g/dL (6.4-8.9) 11/05/23 12:35 Albumin 3.3 g/dL (3.2-5.5) 11/05/23 12:35 Globulin 3.2 g/dL (2.1-4.2) 11/05/23 12:35 Albumin/Globulin Ratio 1.0 (1.0-2.2) 11/05/23 12:35 Urine Color YELLOW 11/05/23 12:53 Urine Clarity HAZY (CLEAR) 11/05/23 12:53 Urine pH 7.0 PH (5.0-7.5) 11/05/23 12:53 Ur Specific [place] 1.020 (1.002-1.030) 11/05/23 12:53 Urine Protein NEGATIVE mg/dL (NEGATIVE) 11/05/23 12:53 Urine Glucose (UA) NEGATIVE mg/dL (NEGATIVE) 11/05/23 12:53 Urine Ketones NEGATIVE mg/dL (NEGATIVE) 11/05/23 12:53 Urine Occult Blood NEGATIVE (NEGATIVE) 11/05/23 12:53 Urine Nitrite NEGATIVE (NEGATIVE) 11/05/23 12:53 Urine Bilirubin NEGATIVE (NEGATIVE) 11/05/23 12:53 Urine Urobilinogen 0.2 (NORMAL) E.U./dL (NORMAL) 11/05/23 12:53 Ur Leukocyte Esterase TRACE (NEGATIVE) H 11/05/23 12:53 Urine RBC 0-5 /HPF (0-5) 11/05/23 12:53 Urine WBC 6-10 /HPF (0-5) H 11/05/23 12:53 Ur Squamous Epith Cells FEW Squamous (<= Few) 11/05/23 12:53 Urine Bacteria Few /HPF (None Seen) 11/05/23 12:53 Ur Microscopic Review INDICATED 11/05/23 12:53 Urine Culture Comments INDICATED 11/05/23 12:53 Urine HCG, Qual Cancelled 11/05/23 12:53 Urine Opiates Screen NEGATIVE (NEGATIVE) 11/05/23 12:53 Ur Buprenorphine Scrn NEGATIVE (NEGATIVE) 11/05/23 12:53 Ur Oxycodone Screen NEGATIVE (NEGATIVE) 11/05/23 12:53 Urine Methadone Screen NEGATIVE (NEGATIVE) 11/05/23 12:53 Ur Barbiturates Screen NEGATIVE (NEGATIVE) 11/05/23 12:53 Ur Tricyclics Screen POSITIVE (NEGATIVE) H 11/05/23 12:53 Ur Phencyclidine Scrn NEGATIVE (NEGATIVE) 11/05/23 12:53 Ur Amphetamine Screen NEGATIVE (NEGATIVE) 11/05/23 12:53 U Methamphetamines Scrn NEGATIVE (NEGATIVE) 11/05/23 12:53 U Benzodiazepines Scrn NEGATIVE (NEGATIVE) 11/05/23 12:53 Urine Cocaine Screen NEGATIVE (NEGATIVE) 11/05/23 12:53 U Cannabinoids Screen NEGATIVE (NEGATIVE) 11/05/23 12:53 Ur Drug Screen Comment CUTOFF CONC BELOW: 11/05/23 12:53 Ethyl Alcohol < 10.0 mg/dL 11/05/23 12:35
[2023-11-07] MEDS: GABAPENTIN 300 MG CAPSULE PO SCH (13:22)
[2023-11-07] MEDS: amLODIPine 5 MG TABLET PO SCH (13:22)
[2023-11-07] MEDS: POTASSIUM CHLORIDE 20 MEQ/15 ML UDC PO SCH (13:22)
[2023-11-07] MEDS: QUEtiapine 25 MG TABLET PO SCH (22:06)
[2023-11-07] MEDS: levETIRAcetam 250 MG TABLET PO SCH (22:06)
[2023-11-08 05:56] LABS: CALCIUM 9.4 mg/dL (8.5-10.3); CREATININE 0.9 mg/dL (0.6-1.3); MAGNESIUM 1.8 mg/dL (1.7-2.3); PHOSPHORUS 2.6 mg/dL (2.5-5.0); POTASSIUM 3.6 mmol/L (3.5-4.5)
[2023-11-08] MEDS: levETIRAcetam 250 MG TABLET PO SCH (20:45)
--- NOTE | 2023-11-08 21:57 | PROVIDER PROGRESS NOTE ---
Assessment/Plan - Problem List (1) Seizure Assessment/Plan: Patient with several seizures upon admission. Etiology is not clear but may be related to treatment with tramadol for pain. Patient appears to take multiple doses of tramadol in a 24-hour interval. Patient received 1 g of Keppra in the emergency room. Continue Keppra 250 mg intravenously twice daily. Consider weaning to off after 2-4 weeks. Lorazepam intravenously as needed for seizure. She has not had a seizure since her admission to the medical floor. She is tolerating a diet and can take medications by mouth. (2) Altered mental state Conclusion/Plan: Patient's cognition has improved. She still continues to answer with word salad but is able to follow commands. She appears to understand what you are asking but she cannot give a reply. Reviewing other notes it appears that she may have a chronic expressive aphasia. Continue to monitor mental status. (3) Dementia Conclusion/Plan: Patient most likely has advanced dementia. According to her [id number], she is not able to eat, toilet or dress herself. In the event of a cardiopulmonary arrest patient's family does not feel the patient would want to receive chest compressions, intubation, defibrillation or ACLS medications. A DO NOT RESUSCITATE order has been written. (4) Hypertension Continue amlodipine. (5) Dispostion Patient has not had a seizure since her admission to the medical floor. She most likely can transfer to shelter tomorrow. - Current Meds Current Meds: Current Medications Generic Name Dose Route Start Last Admin Trade Name Freq PRN Reason Stop Dose Admin Amlodipine Besylate 5 mg 11/07/23 13:00 11/08/23 08:58 Amlodipine 5 Mg Tablet PO Not Given DAILY COREY Enoxaparin Sodium 40 mg 11/06/23 09:00 11/08/23 09:00 Enoxaparin 40 Mg/0.4 Ml Syringe SUBQ Not Given DAILY COREY Gabapentin 300 mg 11/07/23 14:00 11/08/23 20:45 Gabapentin 300 Mg Capsule PO 300 mg TID COREY Administration Potassium Chloride/Dextrose/Sod Cl 1,000 mls @ 83.333 mls/hr 11/05/23 21:00 11/08/23 20:45 D5.45ns W/20 Meq Kcl IV 83.33 mls/hr .Q12H COREY Administration Levetiracetam 250 mg 11/08/23 21:00 11/08/23 20:45 Levetiracetam 250 Mg Tablet PO 250 mg BID COREY Administration Quetiapine Fumarate 25 mg 11/07/23 21:00 11/08/23 20:45 Quetiapine 25 Mg Tablet PO 25 mg QPM COREY Administration Sodium Chloride 10 ml 11/05/23 17:40 11/06/23 22:07 Sodium Chloride Flush 0.9% 10 Ml Syringe IVP 10 ml PRN PRN Administration NEEDED PER PROVIDER ORDERS Sodium Chloride 10 ml 11/06/23 01:00 11/08/23 20:44 Sodium Chloride Flush 0.9% 10 Ml Syringe IVP 10 ml 0100,0900,1700 COREY Administration - Lab Result Fish Bone Diagrams: 11/07/23 05:11 11/08/23 04:33 - Additional Planning My Orders: My Active Orders 11/07/23 21:00 QUEtiapine [SEROquel] 25 mg PO QPM 11/08/23 18:42 Acetaminophen [Tylenol] 1,000 mg PO Q8H PRN 11/08/23 21:00 levETIRAcetam [Keppra] 250 mg PO BID Subjective - Subjective Patient Reports: Other (Alert. Continues to have an expressive aphasia but improved over yesterday. Refusing to take meds intermittently.) Objective Vital Signs: Vital Signs - 24 hr 11/07/23 11/08/23 11/08/23 23:31 08:00 08:55 Temperature 36.6 C 37.0 C Heart Rate [ 79 75 Brachial] Respiratory 16 18 Rate Blood Pressure 127/68 [Left Brachial artery] Blood Pressure 139/93 H [Right Brachial artery] O2 Saturation 100 75 L 96 11/08/23 16:00 Temperature 36.4 C L Heart Rate [ 73 Brachial] Respiratory 16 Rate Blood Pressure [Left Brachial artery] Blood Pressure 130/71 [Right Brachial artery] O2 Saturation 95 Oxygen O2 Source Room air I&O (Last 24 Hrs): Intake and Output Totals x24h 11/06/23 11/07/23 11/08/23 23:59 23:59 23:59 Intake Total 2297.496 2164.406 2070.759 Output Total 3900 1175 650 Balance -1602.504 392.102 5400.759 General: Alert HEENT: PERRLA Lymphatic: no adenopathy Cardiovascular: Other (Positive S1-S2 no extra heart sounds.) Respiratory: Other (Good air exchange in all lung [place] no wheezing no crackles.) Extremities: No cyanosis, No edema Skin: No rashes - Results Results: Laboratory Results WBC 5.8 x10^3/uL (4.8-10.8) 11/07/23 05:11 RBC 4.08 10^6/uL (4.20-5.40) L 11/07/23 05:11 Hgb 9.2 g/dL (12.0-16.0) L 11/07/23 05:11 Hct 32.0 % (37.0-47.0) L 11/07/23 05:11 MCV 78.4 fL (81.0-99.0) L 11/07/23 05:11 MCH 22.5 pg (27.0-31.0) L 11/07/23 05:11 MCHC 28.8 g/dL (32.0-36.0) L 11/07/23 05:11 RDW 19.7 % (12.0-15.0) H 11/07/23 05:11 Plt Count 305 10^3/uL (130-450) 11/07/23 05:11 MPV 9.3 fL (7.9-10.8) 11/07/23 05:11 Neut # (Auto) 4.5 10^3/uL (1.5-6.6) 11/07/23 05:11 Lymph # (Auto) 1.0 10^3/uL (1.5-3.5) L 11/07/23 05:11 [place] # (Auto) 0.3 10^3/uL (0.0-1.0) 11/07/23 05:11 Eos # (Auto) 0.1 10^3/uL (0.0-0.7) 11/07/23 05:11 Baso # (Auto) 0.0 10^3/uL (0.0-0.1) 11/07/23 05:11 Absolute Nucleated RBC 0.00 x10^3/uL 11/07/23 05:11 Nucleated RBC % 0.0 /100WBC 11/07/23 05:11 Manual Slide Review Indicated 11/05/23 12:44 Platelet Estimate NORMAL (130-450,000) (NORMAL) 11/05/23 12:44 Platelet Morphology NORMAL APPEARANCE (NORMAL) 11/05/23 12:44 RBC Morph Micro Appear 2+ HYPOCHROMASIA (NORMAL) 2+ ANISOCYTOSIS (NORMAL) 11/05/23 12:44 RBC Morph Micro Appear 2+ HYPOCHROMASIA (NORMAL) 2+ ANISOCYTOSIS (NORMAL) 11/05/23 12:44 PT 11.2 secs (9.9-12.6) 11/05/23 12:35 INR 1.0 (0.8-1.2) 11/05/23 12:35 Sodium 142 mmol/L (135-145) 11/08/23 04:33 Potassium 3.6 mmol/L (3.5-4.5) 11/08/23 04:33 Chloride 111 mmol/L (101-111) 11/08/23 04:33 Carbon Dioxide 26 mmol/L (21-32) 11/08/23 04:33 Anion Gap 5.0 (6-13) L 11/08/23 04:33 BUN 10 mg/dL (6-20) 11/08/23 04:33 Creatinine 0.9 mg/dL (0.6-1.3) 11/08/23 04:33 Estimated GFR (MDRD) 60 (>89) L 11/08/23 04:33 Glucose 100 mg/dL (74-104) 11/08/23 04:33 POC Whole Bld Glucose 104 mg/dL (70 - 100) H 11/05/23 12:23 Lactic Acid 4.7 mmol/L (0.5-2.2) H* 11/05/23 12:57 Calcium 9.4 mg/dL (8.5-10.3) 11/08/23 04:33 Phosphorus 2.6 mg/dL (2.5-5.0) 11/08/23 04:33 Magnesium 1.8 mg/dL (1.7-2.3) 11/08/23 04:33 Total Bilirubin 0.2 mg/dL (0.2-1.0) 11/05/23 12:35 AST 14 IU/L (10-42) 11/05/23 12:35 ALT 11 IU/L (10-60) 11/05/23 12:35 Alkaline Phosphatase 85 IU/L (42-121) 11/05/23 12:35 Total Protein 6.5 g/dL (6.4-8.9) 11/05/23 12:35 Albumin 3.3 g/dL (3.2-5.5) 11/05/23 12:35 Globulin 3.2 g/dL (2.1-4.2) 11/05/23 12:35 Albumin/Globulin Ratio 1.0 (1.0-2.2) 11/05/23 12:35 Urine Color YELLOW 11/05/23 12:53 Urine Clarity HAZY (CLEAR) 11/05/23 12:53 Urine pH 7.0 PH (5.0-7.5) 11/05/23 12:53 Ur Specific [place] 1.020 (1.002-1.030) 11/05/23 12:53 Urine Protein NEGATIVE mg/dL (NEGATIVE) 11/05/23 12:53 Urine Glucose (UA) NEGATIVE mg/dL (NEGATIVE) 11/05/23 12:53 Urine Ketones NEGATIVE mg/dL (NEGATIVE) 11/05/23 12:53 Urine Occult Blood NEGATIVE (NEGATIVE) 11/05/23 12:53 Urine Nitrite NEGATIVE (NEGATIVE) 11/05/23 12:53 Urine Bilirubin NEGATIVE (NEGATIVE) 11/05/23 12:53 Urine Urobilinogen 0.2 (NORMAL) E.U./dL (NORMAL) 11/05/23 12:53 Ur Leukocyte Esterase TRACE (NEGATIVE) H 11/05/23 12:53 Urine RBC 0-5 /HPF (0-5) 11/05/23 12:53 Urine WBC 6-10 /HPF (0-5) H 11/05/23 12:53 Ur Squamous Epith Cells FEW Squamous (<= Few) 11/05/23 12:53 Urine Bacteria Few /HPF (None Seen) 11/05/23 12:53 Ur Microscopic Review INDICATED 11/05/23 12:53 Urine Culture Comments INDICATED 11/05/23 12:53 Urine HCG, Qual Cancelled 11/05/23 12:53 Urine Opiates Screen NEGATIVE (NEGATIVE) 11/05/23 12:53 Ur Buprenorphine Scrn NEGATIVE (NEGATIVE) 11/05/23 12:53 Ur Oxycodone Screen NEGATIVE (NEGATIVE) 11/05/23 12:53 Urine Methadone Screen NEGATIVE (NEGATIVE) 11/05/23 12:53 Ur Barbiturates Screen NEGATIVE (NEGATIVE) 11/05/23 12:53 Ur Tricyclics Screen POSITIVE (NEGATIVE) H 11/05/23 12:53 Ur Phencyclidine Scrn NEGATIVE (NEGATIVE) 11/05/23 12:53 Ur Amphetamine Screen NEGATIVE (NEGATIVE) 11/05/23 12:53 U Methamphetamines Scrn NEGATIVE (NEGATIVE) 11/05/23 12:53 U Benzodiazepines Scrn NEGATIVE (NEGATIVE) 11/05/23 12:53 Urine Cocaine Screen NEGATIVE (NEGATIVE) 11/05/23 12:53 U Cannabinoids Screen NEGATIVE (NEGATIVE) 11/05/23 12:53 Ur Drug Screen Comment CUTOFF CONC BELOW: 11/05/23 12:53 Ethyl Alcohol < 10.0 mg/dL 11/05/23 12:35
[2023-11-09] MEDS: levoFLOXacin 750 MG/150 ML 750 MG/150 ML BAG IV SCH (08:52)
[2023-11-09] MEDS: ACETAMINOPHEN 500 MG TABLET PO PRN (08:54)
[2023-11-09] MEDS ORDERED: NITROFURANTOIN MACRO 100 MG CAPSULE PO SCH (09:00)
--- NOTE | 2023-11-09 11:38 | PROVIDER PROGRESS NOTE ---
Assessment/Plan - Problem List (1) Seizure Assessment/Plan: --Exact etiology is unclear. Possibly related to Tramadol which has since been discontinued. --Remains on Keppra 500 mg BID for seizures. --Would benefit from an outpatient Neurology referral with an EEG. --Ativan as needed for seizures. (2) Dementia Assessment/Plan: --Stable. Anticipate discharge to nursing facility when she is medically stable. (3) UTI (urinary tract infection) Assessment/Plan: --Urine culture showing Enterococcus which is sensitive to Levofloxacin. --Some concern for pyelonephritis as she is complaining of new onset left sided flank pain. --Will start IV levofloxacin and reassess tomorrow for potential discharge on PO antibiotics. - Current Meds Current Meds: Current Medications Generic Name Dose Route Start Last Admin Trade Name Freq PRN Reason Stop Dose Admin Acetaminophen 1,000 mg 11/08/23 18:42 11/09/23 08:54 Acetaminophen 500 Mg Tablet PO 1,000 mg Q8H PRN Administration Mild Pain Or Fever>38c(100.4f) Amlodipine Besylate 5 mg 11/07/23 13:00 11/09/23 08:54 Amlodipine 5 Mg Tablet PO 5 mg DAILY COREY Administration Enoxaparin Sodium 40 mg 11/06/23 09:00 11/09/23 08:52 Enoxaparin 40 Mg/0.4 Ml Syringe SUBQ 40 mg DAILY COREY Administration Gabapentin 300 mg 11/07/23 14:00 11/09/23 06:55 Gabapentin 300 Mg Capsule PO 300 mg TID COREY Administration Levofloxacin 750 mg in 150 mls @ 100 mls/hr 11/09/23 08:00 11/09/23 08:52 Levaquin 750 Mg/150 Ml IV 100 mls/hr Q24H COREY Administration Levetiracetam 250 mg 11/08/23 21:00 11/09/23 08:54 Levetiracetam 250 Mg Tablet PO 250 mg BID COREY Administration Quetiapine Fumarate 25 mg 11/07/23 21:00 11/08/23 20:45 Quetiapine 25 Mg Tablet PO 25 mg QPM COREY Administration Sodium Chloride 10 ml 11/05/23 17:40 11/06/23 22:07 Sodium Chloride Flush 0.9% 10 Ml Syringe IVP 10 ml PRN PRN Administration NEEDED PER PROVIDER ORDERS Sodium Chloride 10 ml 03/30/24 01:00 11/09/23 08:55 Sodium Chloride Flush 0.9% 10 Ml Syringe IVP 10 ml 0100,0900,1700 [facility] Administration - Lab Result Fish Bone Diagrams: 11/07/23 05:11 11/08/23 04:33 - Additional Planning My Orders: My Active Orders 11/09/23 08:00 levoFLOXacin 750 MG/150 ML [Levaquin 750 mg/150 ml] 750 mg in 150 ml IV Q24H 11/09/23 Lunch Regular Diet [DIET] 11/09/23 17:00 Multivitamin W/Minerals [Theragran M] 1 tab PO DAILYWM 11/10/23 05:00 BMP - BASIC METABOLIC PANEL [CHEM] DAILYLAB CBC [CBC - COMP BLD CT W/AUTO DIFF] [HEME] DAILYLAB 11/11/23 05:00 BMP - BASIC METABOLIC PANEL [CHEM] DAILYLAB CBC [CBC - COMP BLD CT W/AUTO DIFF] [HEME] DAILYLAB 11/12/23 05:00 BMP - BASIC METABOLIC PANEL [CHEM] DAILYLAB CBC [CBC - COMP BLD CT W/AUTO DIFF] [HEME] DAILYLAB 11/13/23 05:00 BMP - BASIC METABOLIC PANEL [CHEM] DAILYLAB CBC [CBC - COMP BLD CT W/AUTO DIFF] [HEME] DAILYLAB 11/14/23 05:00 BMP - BASIC METABOLIC PANEL [CHEM] DAILYLAB CBC [CBC - COMP BLD CT W/AUTO DIFF] [HEME] DAILYLAB Subjective - Subjective Patient Reports: Feeling Better, Other (right sided flank pain.) Objective Vital Signs: Vital Signs - 24 hr 11/08/23 11/09/23 11/09/23 16:00 00:00 08:00 Temperature 36.4 C L 36.7 C 36.1 C L Heart Rate [ 73 67 65 Brachial] Respiratory 16 20 18 Rate Blood Pressure 135/86 H [Left Brachial artery] Blood Pressure 130/71 138/88 H [Right Brachial artery] O2 Saturation 95 96 96 Oxygen O2 Source Room air I&O (Last 24 Hrs): Intake and Output Totals x24h 11/07/23 11/08/23 11/09/23 23:59 23:59 23:59 Intake Total 2164.406 2070.759 1291.387 Output Total 1175 650 450 Balance 262.525 6648.759 841.387 General: Alert, No acute distress Neuro: Alert, Non Focal Cardiovascular: Regular rate, Normal S1, Normal S2 Respiratory: No respiratory distress Abdomen: Normal bowel sounds, Soft - Results Results: Laboratory Results WBC 5.8 x10^3/uL (4.8-10.8) 11/07/23 05:11 RBC 4.08 10^6/uL (4.20-5.40) L 11/07/23 05:11 Hgb 9.2 g/dL (12.0-16.0) L 11/07/23 05:11 Hct 32.0 % (37.0-47.0) L 11/07/23 05:11 MCV 78.4 fL (81.0-99.0) L 11/07/23 05:11 MCH 22.5 pg (27.0-31.0) L 11/07/23 05:11 MCHC 28.8 g/dL (32.0-36.0) L 11/07/23 05:11 RDW 19.7 % (12.0-15.0) H 11/07/23 05:11 Plt Count 305 10^3/uL (130-450) 11/07/23 05:11 MPV 9.3 fL (7.9-10.8) 11/07/23 05:11 Neut # (Auto) 4.5 10^3/uL (1.5-6.6) 11/07/23 05:11 Lymph # (Auto) 1.0 10^3/uL (1.5-3.5) L 11/07/23 05:11 [place] # (Auto) 0.3 10^3/uL (0.0-1.0) 11/07/23 05:11 Eos # (Auto) 0.1 10^3/uL (0.0-0.7) 11/07/23 05:11 Baso # (Auto) 0.0 10^3/uL (0.0-0.1) 11/07/23 05:11 Absolute Nucleated RBC 0.00 x10^3/uL 11/07/23 05:11 Nucleated RBC % 0.0 /100WBC 11/07/23 05:11 Manual Slide Review Indicated 11/05/23 12:44 Platelet Estimate NORMAL (130-450,000) (NORMAL) 11/05/23 12:44 Platelet Morphology NORMAL APPEARANCE (NORMAL) 11/05/23 12:44 RBC Morph Micro Appear 2+ HYPOCHROMASIA (NORMAL) 2+ ANISOCYTOSIS (NORMAL) 11/05/23 12:44 RBC Morph Micro Appear 2+ HYPOCHROMASIA (NORMAL) 2+ ANISOCYTOSIS (NORMAL) 11/05/23 12:44 PT 11.2 secs (9.9-12.6) 11/05/23 12:35 INR 1.0 (0.8-1.2) 11/05/23 12:35 Sodium 142 mmol/L (135-145) 11/08/23 04:33 Potassium 3.6 mmol/L (3.5-4.5) 11/08/23 04:33 Chloride 111 mmol/L (101-111) 11/08/23 04:33 Carbon Dioxide 26 mmol/L (21-32) 11/08/23 04:33 Anion Gap 5.0 (6-13) L 11/08/23 04:33 BUN 10 mg/dL (6-20) 11/08/23 04:33 Creatinine 0.9 mg/dL (0.6-1.3) 11/08/23 04:33 Estimated GFR (MDRD) 60 (>89) L 11/08/23 04:33 Glucose 100 mg/dL (74-104) 11/08/23 04:33 POC Whole Bld Glucose 104 mg/dL (70 - 100) H 11/05/23 12:23 Lactic Acid 4.7 mmol/L (0.5-2.2) H* 11/05/23 12:57 Calcium 9.4 mg/dL (8.5-10.3) 11/08/23 04:33 Phosphorus 2.6 mg/dL (2.5-5.0) 11/08/23 04:33 Magnesium 1.8 mg/dL (1.7-2.3) 11/08/23 04:33 Total Bilirubin 0.2 mg/dL (0.2-1.0) 11/05/23 12:35 AST 14 IU/L (10-42) 11/05/23 12:35 ALT 11 IU/L (10-60) 11/05/23 12:35 Alkaline Phosphatase 85 IU/L (42-121) 11/05/23 12:35 Total Protein 6.5 g/dL (6.4-8.9) 11/05/23 12:35 Albumin 3.3 g/dL (3.2-5.5) 11/05/23 12:35 Globulin 3.2 g/dL (2.1-4.2) 11/05/23 12:35 Albumin/Globulin Ratio 1.0 (1.0-2.2) 11/05/23 12:35 Urine Color YELLOW 11/05/23 12:53 Urine Clarity HAZY (CLEAR) 11/05/23 12:53 Urine pH 7.0 PH (5.0-7.5) 11/05/23 12:53 Ur Specific [place] 1.020 (1.002-1.030) 11/05/23 12:53 Urine Protein NEGATIVE mg/dL (NEGATIVE) 11/05/23 12:53 Urine Glucose (UA) NEGATIVE mg/dL (NEGATIVE) 11/05/23 12:53 Urine Ketones NEGATIVE mg/dL (NEGATIVE) 11/05/23 12:53 Urine Occult Blood NEGATIVE (NEGATIVE) 11/05/23 12:53 Urine Nitrite NEGATIVE (NEGATIVE) 11/05/23 12:53 Urine Bilirubin NEGATIVE (NEGATIVE) 11/05/23 12:53 Urine Urobilinogen 0.2 (NORMAL) E.U./dL (NORMAL) 11/05/23 12:53 Ur Leukocyte Esterase TRACE (NEGATIVE) H 11/05/23 12:53 Urine RBC 0-5 /HPF (0-5) 11/05/23 12:53 Urine WBC 6-10 /HPF (0-5) H 11/05/23 12:53 Ur Squamous Epith Cells FEW Squamous (<= Few) 11/05/23 12:53 Urine Bacteria Few /HPF (None Seen) 11/05/23 12:53 Ur Microscopic Review INDICATED 11/05/23 12:53 Urine Culture Comments INDICATED 11/05/23 12:53 Urine HCG, Qual Cancelled 11/05/23 12:53 Urine Opiates Screen NEGATIVE (NEGATIVE) 11/05/23 12:53 Ur Buprenorphine Scrn NEGATIVE (NEGATIVE) 11/05/23 12:53 Ur Oxycodone Screen NEGATIVE (NEGATIVE) 11/05/23 12:53 Urine Methadone Screen NEGATIVE (NEGATIVE) 11/05/23 12:53 Ur Barbiturates Screen NEGATIVE (NEGATIVE) 11/05/23 12:53 Ur Tricyclics Screen POSITIVE (NEGATIVE) H 11/05/23 12:53 Ur Phencyclidine Scrn NEGATIVE (NEGATIVE) 11/05/23 12:53 Ur Amphetamine Screen NEGATIVE (NEGATIVE) 11/05/23 12:53 U Methamphetamines Scrn NEGATIVE (NEGATIVE) 11/05/23 12:53 U Benzodiazepines Scrn NEGATIVE (NEGATIVE) 11/05/23 12:53 Urine Cocaine Screen NEGATIVE (NEGATIVE) 11/05/23 12:53 U Cannabinoids Screen NEGATIVE (NEGATIVE) 11/05/23 12:53 Ur Drug Screen Comment CUTOFF CONC BELOW: 11/05/23 12:53 Ethyl Alcohol < 10.0 mg/dL 11/05/23 12:35
[2023-11-09] MEDS: MULTIVITAMIN W/MINERALS TABLET PO SCH (17:24)
[2023-11-09] MEDS: HYDROcod/ACETAM 5/325 MG TABLET PO PRN (19:00)
[2023-11-10 05:50] LABS: BASOPHILS % (AUTO) 0.5 %; EOSINOPHILS # (AUTO) 0.4 10^3/uL (0.0-0.7); EOSINOPHILS % (AUTO) 6.3 %; HGB - HEMOGLOBIN 8.4 g/dL (12.0-16.0); LYMPHOCYTES # (AUTO) 2.1 10^3/uL (1.5-3.5); LYMPHOCYTES % (AUTO) 37.1 %; MEAN CORPUSCULAR HEMOGLOBIN 23.3 pg (27.0-31.0); MEAN CORPUSCULAR VOLUME 77.8 fL (81.0-99.0); MEAN PLATELET VOLUME 8.9 fL (7.9-10.8); MONOCYTES # (AUTO) 0.5 10^3/uL (0.0-1.0); MONOCYTES % (AUTO) 9.1 %; NEUTROPHILS # (AUTO) 2.6 10^3/uL (1.5-6.6); NEUTROPHILS % (AUTO) 46.8 %; PLT - PLATELET COUNT 252 10^3/uL (130-450); RED CELL DISTRIBUTION WIDTH 19.9 % (12.0-15.0); WHITE BLOOD COUNT 5.6 x10^3/uL (4.8-10.8)
[2023-11-10 06:09] LABS: CALCIUM 9.4 mg/dL (8.5-10.3); POTASSIUM 3.4 mmol/L (3.5-4.5)
[2023-11-10] MEDS: SACCHAROMYCES BOULARDII 250 MG CAPSULE PO SCH (08:30)
[2023-11-10] MEDS: POTASSIUM CHLORIDE 20 MEQ TABLET PO ONE (08:30)
[2023-11-10] MEDS ORDERED: iohexoL-300 100 ML VIAL ONE (08:33)
[2023-11-10] MEDS ORDERED: levETIRAcetam 100 MG/ML 473ML BOTTLE PO SCH ×3 (09:00)
[2023-11-10] MEDS: POTASSIUM CHLORIDE 20 MEQ/15 ML UDC PO SCH (09:41)
[2023-11-10] MEDS: iohexoL-300 100 ML VIAL IVP ONE (10:59)
--- NOTE | 2023-11-10 11:05 | PROVIDER PROGRESS NOTE ---
Assessment/Plan - Problem List (1) Seizure Assessment/Plan: (1) Seizure Assessment/Plan: --Exact etiology is unclear. Possibly related to Tramadol which has since been discontinued. --She has been seizure free while inpatient. Will discontinue Keppra. I will attribute this to her infection and Tramadol use. --Would benefit from an outpatient Neurology referral with an EEG and MRI head. --Ativan as needed for seizures. (2) Dementia Assessment/Plan: --Stable. Anticipate discharge to nursing facility when she is medically stable. (3) UTI (urinary tract infection) Assessment/Plan: --Urine culture showing Enterococcus which is sensitive to Levofloxacin. --Some concern for pyelonephritis as she is complaining of new onset left sided flank pain. Will obtain CT abd/pelvis. --Continue IV levofloxacin. Anticipate discharge tomorrow pending CT scan. - Current Meds Current Meds: Current Medications Generic Name Dose Route Start Last Admin Trade Name Freq PRN Reason Stop Dose Admin Acetaminophen 1,000 mg 11/08/23 18:42 11/10/23 04:30 Acetaminophen 500 Mg Tablet PO 1,000 mg Q8H PRN Administration Mild Pain Or Fever>38c(100.4f) Hydrocodone Bitart/Acetaminophen 1 tab 11/09/23 18:31 11/10/23 00:54 Hydrocod/Acetam 5/325 Mg Tablet PO 1 tab Q4HR PRN Administration Moderate Pain (Level 4-6) Amlodipine Besylate 5 mg 11/07/23 13:00 11/10/23 08:30 Amlodipine 5 Mg Tablet PO Not Given DAILY COREY Enoxaparin Sodium 40 mg 11/06/23 09:00 11/10/23 08:31 Enoxaparin 40 Mg/0.4 Ml Syringe SUBQ Not Given DAILY COREY Gabapentin 300 mg 11/07/23 14:00 11/10/23 05:55 Gabapentin 300 Mg Capsule PO 300 mg TID COREY Administration Levofloxacin 750 mg in 150 mls @ 100 mls/hr 11/09/23 08:00 11/10/23 08:21 Levaquin 750 Mg/150 Ml IV 100 mls/hr Q24H COREY Administration Multivitamins/Minerals 1 tab 11/09/23 17:00 11/10/23 08:30 Multivitamin W/Minerals Tablet PO Not Given DAILYWM COREY Potassium Chloride 40 meq 11/10/23 09:00 11/10/23 09:41 Potassium Chloride 20 Meq/15 Ml Udc PO Not Given DAILYWM COREY Quetiapine Fumarate 25 mg 11/07/23 21:00 11/09/23 20:40 Quetiapine 25 Mg Tablet PO 25 mg QPM COREY Administration Saccharomyces Boulardii 250 mg 11/10/23 08:00 11/10/23 08:30 Saccharomyces Boulardii 250 Mg Capsule PO Not Given BIDWM COREY Sodium Chloride 10 ml 11/05/23 17:40 11/06/23 22:07 Sodium Chloride Flush 0.9% 10 Ml Syringe IVP 10 ml PRN PRN Administration NEEDED PER PROVIDER ORDERS Sodium Chloride 10 ml 11/06/23 01:00 11/10/23 08:22 Sodium Chloride Flush 0.9% 10 Ml Syringe IVP 10 ml 0100,0900,1700 COREY Administration - Lab Result Fish Bone Diagrams: 11/10/23 05:27 11/10/23 05:27 - Additional Planning My Orders: My Active Orders 11/09/23 Lunch Regular Diet [DIET] 11/09/23 17:00 Multivitamin W/Minerals [Theragran M] 1 tab PO DAILYWM 11/09/23 18:31 HYDROcod/ACETAM 5/325 [Dent 5/325] 1 tab PO Q4HR PRN 11/10/23 08:00 Saccharomyces Boulardii [Florastor] 250 mg PO BIDWM 11/10/23 09:00 Potassium Chloride Oral Soln [Potassium Chloride] 40 meq PO DAILYWM 11/11/23 05:00 BMP - BASIC METABOLIC PANEL [CHEM] DAILYLAB CBC [CBC - COMP BLD CT W/AUTO DIFF] [HEME] DAILYLAB 11/12/23 05:00 BMP - BASIC METABOLIC PANEL [CHEM] DAILYLAB CBC [CBC - COMP BLD CT W/AUTO DIFF] [HEME] DAILYLAB 11/13/23 05:00 BMP - BASIC METABOLIC PANEL [CHEM] DAILYLAB CBC [CBC - COMP BLD CT W/AUTO DIFF] [HEME] DAILYLAB 11/14/23 05:00 BMP - BASIC METABOLIC PANEL [CHEM] DAILYLAB CBC [CBC - COMP BLD CT W/AUTO DIFF] [HEME] DAILYLAB Subjective - Subjective Patient Reports: Other (Complaining of abominal and right back pain.) Objective Vital Signs: Vital Signs - 24 hr 11/09/23 11/10/23 11/10/23 15:53 00:50 08:10 Temperature 36.2 C L 36.4 C L 36.4 C L Heart Rate [ 67 63 71 Brachial] Respiratory 16 16 18 Rate Blood Pressure 120/73 159/92 H 158/95 H [Right Brachial artery] O2 Saturation 97 98 94 Oxygen O2 Source Room air I&O (Last 24 Hrs): Intake and Output Totals x24h 11/08/23 11/09/23 11/10/23 23:59 23:59 23:59 Intake Total 2070.759 1541.387 100 Output Total 650 525 700 Balance 7987.586 1975.387 -600 Cardiovascular: Regular rate, Normal S1, Normal S2, No murmurs Respiratory: Chest non-tender, No respiratory distress, Breath sounds nml Abdomen: Normal bowel sounds, Soft, No tenderness, No hepatospenomegaly, No masses - Results Results: Laboratory Results WBC 5.6 x10^3/uL (4.8-10.8) 11/10/23 05:27 RBC 3.60 10^6/uL (4.20-5.40) L 11/10/23 05:27 Hgb 8.4 g/dL (12.0-16.0) L 11/10/23 05:27 Hct 28.0 % (37.0-47.0) L 11/10/23 05:27 MCV 77.8 fL (81.0-99.0) L 11/10/23 05:27 MCH 23.3 pg (27.0-31.0) L 11/10/23 05:27 MCHC 30.0 g/dL (32.0-36.0) L 11/10/23 05:27 RDW 19.9 % (12.0-15.0) H 11/10/23 05:27 Plt Count 252 10^3/uL (130-450) 11/10/23 05:27 MPV 8.9 fL (7.9-10.8) 11/10/23 05:27 Neut # (Auto) 2.6 10^3/uL (1.5-6.6) 11/10/23 05:27 Lymph # (Auto) 2.1 10^3/uL (1.5-3.5) 11/10/23 05:27 [place] # (Auto) 0.5 10^3/uL (0.0-1.0) 11/10/23 05:27 Eos # (Auto) 0.4 10^3/uL (0.0-0.7) 11/10/23 05:27 Baso # (Auto) 0.0 10^3/uL (0.0-0.1) 11/10/23 05:27 Absolute Nucleated RBC 0.00 x10^3/uL 11/10/23 05:27 Nucleated RBC % 0.0 /100WBC 11/10/23 05:27 Manual Slide Review Indicated 11/05/23 12:44 Platelet Estimate NORMAL (130-450,000) (NORMAL) 11/05/23 12:44 Platelet Morphology NORMAL APPEARANCE (NORMAL) 11/05/23 12:44 RBC Morph Micro Appear 2+ HYPOCHROMASIA (NORMAL) 2+ ANISOCYTOSIS (NORMAL) 11/05/23 12:44 RBC Morph Micro Appear 2+ HYPOCHROMASIA (NORMAL) 2+ ANISOCYTOSIS (NORMAL) 11/05/23 12:44 PT 11.2 secs (9.9-12.6) 11/05/23 12:35 INR 1.0 (0.8-1.2) 11/05/23 12:35 Sodium 142 mmol/L (135-145) 11/10/23 05:27 Potassium 3.4 mmol/L (3.5-4.5) L 11/10/23 05:27 Chloride 114 mmol/L (101-111) H 11/10/23 05:27 Carbon Dioxide 25 mmol/L (21-32) 11/10/23 05:27 Anion Gap 3.0 (6-13) L 11/10/23 05:27 BUN 14 mg/dL (6-20) 11/10/23 05:27 Creatinine 1.0 mg/dL (0.6-1.3) 11/10/23 05:27 Estimated GFR (MDRD) 53 (>89) L 11/10/23 05:27 Glucose 90 mg/dL (74-104) 11/10/23 05:27 POC Whole Bld Glucose 104 mg/dL (70 - 100) H 11/05/23 12:23 Lactic Acid 4.7 mmol/L (0.5-2.2) H* 11/05/23 12:57 Calcium 9.4 mg/dL (8.5-10.3) 11/10/23 05:27 Phosphorus 2.6 mg/dL (2.5-5.0) 11/08/23 04:33 Magnesium 1.8 mg/dL (1.7-2.3) 11/08/23 04:33 Total Bilirubin 0.2 mg/dL (0.2-1.0) 11/05/23 12:35 AST 14 IU/L (10-42) 11/05/23 12:35 ALT 11 IU/L (10-60) 11/05/23 12:35 Alkaline Phosphatase 85 IU/L (42-121) 11/05/23 12:35 Total Protein 6.5 g/dL (6.4-8.9) 11/05/23 12:35 Albumin 3.3 g/dL (3.2-5.5) 11/05/23 12:35 Globulin 3.2 g/dL (2.1-4.2) 11/05/23 12:35 Albumin/Globulin Ratio 1.0 (1.0-2.2) 11/05/23 12:35 Urine Color YELLOW 11/05/23 12:53 Urine Clarity HAZY (CLEAR) 11/05/23 12:53 Urine pH 7.0 PH (5.0-7.5) 11/05/23 12:53 Ur Specific [place] 1.020 (1.002-1.030) 11/05/23 12:53 Urine Protein NEGATIVE mg/dL (NEGATIVE) 11/05/23 12:53 Urine Glucose (UA) NEGATIVE mg/dL (NEGATIVE) 11/05/23 12:53 Urine Ketones NEGATIVE mg/dL (NEGATIVE) 11/05/23 12:53 Urine Occult Blood NEGATIVE (NEGATIVE) 11/05/23 12:53 Urine Nitrite NEGATIVE (NEGATIVE) 11/05/23 12:53 Urine Bilirubin NEGATIVE (NEGATIVE) 11/05/23 12:53 Urine Urobilinogen 0.2 (NORMAL) E.U./dL (NORMAL) 11/05/23 12:53 Ur Leukocyte Esterase TRACE (NEGATIVE) H 11/05/23 12:53 Urine RBC 0-5 /HPF (0-5) 11/05/23 12:53 Urine WBC 6-10 /HPF (0-5) H 11/05/23 12:53 Ur Squamous Epith Cells FEW Squamous (<= Few) 11/05/23 12:53 Urine Bacteria Few /HPF (None Seen) 11/05/23 12:53 Ur Microscopic Review INDICATED 11/05/23 12:53 Urine Culture Comments INDICATED 11/05/23 12:53 Urine HCG, Qual Cancelled 11/05/23 12:53 Urine Opiates Screen NEGATIVE (NEGATIVE) 11/05/23 12:53 Ur Buprenorphine Scrn NEGATIVE (NEGATIVE) 11/05/23 12:53 Ur Oxycodone Screen NEGATIVE (NEGATIVE) 11/05/23 12:53 Urine Methadone Screen NEGATIVE (NEGATIVE) 11/05/23 12:53 Ur Barbiturates Screen NEGATIVE (NEGATIVE) 11/05/23 12:53 Ur Tricyclics Screen POSITIVE (NEGATIVE) H 11/05/23 12:53 Ur Phencyclidine Scrn NEGATIVE (NEGATIVE) 11/05/23 12:53 Ur Amphetamine Screen NEGATIVE (NEGATIVE) 11/05/23 12:53 U Methamphetamines Scrn NEGATIVE (NEGATIVE) 11/05/23 12:53 U Benzodiazepines Scrn NEGATIVE (NEGATIVE) 11/05/23 12:53 Urine Cocaine Screen NEGATIVE (NEGATIVE) 11/05/23 12:53 U Cannabinoids Screen NEGATIVE (NEGATIVE) 11/05/23 12:53 Ur Drug Screen Comment CUTOFF CONC BELOW: 11/05/23 12:53 Ethyl Alcohol < 10.0 mg/dL 11/05/23 12:35
--- NOTE | 2023-11-10 12:13 | CT Report ---
PROCEDURE: Abdomen/Pelvis W INDICATIONS: Left sided flank pain, concern for pyelonephritis CONTRAST: 100ml omni 300 TECHNIQUE: After the administration of intravenous contrast, a CT scan of the abdomen and pelvis was performed. Images were recorded and evaluated at appropriate window settings. Reformats: coronal and sagittal. F or radiation dose reduction, the following was used: automated exposure control, adjustment of mA and /or kV according to patient size. COMPARISON: CT abdomen/pelvis 11/05/2023, 03/20/2023. FINDINGS: Image quality: Diagnostic. Lower chest: Bilateral silicone breast implants are calcified calcifications. Intracapsular rupture i s noted bilaterally as well as small foci of bulging silicone bilaterally that is suspicious for extr acapsular rupture. Small bilateral pleural effusions with bibasilar atelectasis. Liver: No solid mass. Gallbladder and biliary tree: No radiopaque stones or wall thickening. No biliary dilation. Spleen: No splenomegaly. Pancreas: No pancreatic ductal dilation. Adrenals: No adrenal nodule. Kidneys and ureters: No hydronephrosis. No renal cystic lesion which requires follow up. No solid mas s. Kidneys enhance symmetrically. No significant perinephric fat stranding. Stomach, bowel and peritoneum: No bowel distension. No pathologic free fluid. Moderate to large volum e of colonic stool. A few diverticula are present without signs of acute diverticulitis. Small bowel loops and stomach are unremarkable. Lymph nodes: No central or retroperitoneal adenopathy. Vessels: No infrarenal aortic aneurysm. PELVIS Reproductive organs: 3.7 cm cyst is again seen in the left adnexa. No right adnexal mass. Status post hysterectomy. Bladder: No abnormal wall thickening, accounting for underdistention. Pelvic lymph nodes: No pelvic adenopathy by size criteria. Bones: No aggressive osseous abnormality. Multilevel mild and moderate compression fractures are seen throughout the lumbar spine that do not appear significantly changed compared to the CT from 03/20/20 23. On the sclerotic appearance of the femoral head articular surfaces. 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 Other: No significant ventral or inguinal hernia. IMPRESSION: 1.No acute abnormality identified in the abdomen or pelvis. Kidneys enhance symmetrically without CT signs of pyelonephritis. 2.Moderate to large volume of colonic stool. Correlate for constipation. Mild colonic diverticulosis. 3.Multiple vertebral compression fractures do not appear significantly changed dating back to at as t 03/20/2023. 4.Small bilateral pleural effusions. 5.Left adnexal 3.7 cm cyst, mildly increased in size compared to the exam from 1223. Pelvic ultrasoun d could be performed for further evaluation if indicated clinically. Reviewed by: Boby Cardoso MD on 11/10/2023 12:11 PM PDT Approved by: Boby Cardoso MD on 11/10/2023 12:11 PM PDT Station ID: [id number]
[2023-11-10] MEDS: POTASSIUM CHLOR 10 MEQ/100 ML 10 MEQ/100 ML BAG IV ONE (13:03)
[2023-11-11 06:05] LABS: BASOPHILS % (AUTO) 0.5 %; EOSINOPHILS # (AUTO) 0.3 10^3/uL (0.0-0.7); EOSINOPHILS % (AUTO) 6.7 %; HCT - HEMATOCRIT 28.7 % (37.0-47.0); HGB - HEMOGLOBIN 8.3 g/dL (12.0-16.0); LYMPHOCYTES % (AUTO) 46.6 %; MEAN CORPUSCULAR HEMOGLOBIN 22.6 pg (27.0-31.0); MEAN CORPUSCULAR HGB CONC 28.9 g/dL (32.0-36.0); MEAN PLATELET VOLUME 9.4 fL (7.9-10.8); MONOCYTES # (AUTO) 0.3 10^3/uL (0.0-1.0); MONOCYTES % (AUTO) 6.2 %; NEUTROPHILS # (AUTO) 1.7 10^3/uL (1.5-6.6); NEUTROPHILS % (AUTO) 39.8 %; PLT - PLATELET COUNT 278 10^3/uL (130-450); RED BLOOD COUNT 3.68 10^6/uL (4.20-5.40); RED CELL DISTRIBUTION WIDTH 20.1 % (12.0-15.0); WHITE BLOOD COUNT 4.4 x10^3/uL (4.8-10.8)
[2023-11-11 06:16] LABS: SLIDE REVIEW? Indicated
[2023-11-11 06:24] LABS: CALCIUM 9.2 mg/dL (8.5-10.3); CREATININE 1.1 mg/dL (0.6-1.3); POTASSIUM 3.7 mmol/L (3.5-4.5)
[2023-11-11 06:41] LABS: PLATELET ESTIMATE, MANUAL NORMAL (130-450,000) (NORMAL)
[2023-11-11] MEDS: SENNA 8.6 MG TABLET PO SCH (08:18)
--- NOTE | 2023-11-11 10:32 | Discharge Plan ---
"Discharge Plan for SNF / [facility] - Discharge Plan And Transition Orders Problem Reviewed?: Yes Disposition: 03 SNF DC/Xfer Condition: Serious Allergies and Adverse Reactions: Allergies Allergy/AdvReac Type Severity Reaction Status Date / Time No Known Drug Allergies Allergy Verified 11/05/23 12:27 - SNF / [facility] Transition Orders Medicare Certification Statement: I certify that [facility] nursing home care is medically necessary on a continuing basis for any of the conditions for which she/he is receiving care during hospitalization. Notify PCP of admission and forward orders to primary provider for signature. Weight on admission and: Daily Call PCP immediately if weight increases by: 5 kg Other Notification Orders: Call PCP immediately if patient develops dyspnea, chest pain/tightness or edema. House Bowel Program: Yes Additional Bowel Program Orders: If no BM after 2 days, nurse may give M.O.M. 30ml PO PRN and/or ducolax Supp 1 AK and/or YOMI 250mg P.O., and/or senna 1-2 tabs PO. On day 3 nurse may give repeat above order until residents constipation is resolved. Annual Influenza Vaccine (between Apr 09 and November 06): Yes Two-step PPD per [facility] [phone] or approved exception documents: Yes Oxygen Orders: Maintain oxygen greater than 90%. Medication Orders: PLEASE REFER TO THE DISCHARGE MEDICATION LIST. Insulin Orders?: No - Medications New Prescriptions: levoFLOXacin [Levofloxacin] 750 mg PO DAILY #4 tab - Diet Type: Geriatric Texture: Regular Liquids: Thin May have monthly special meal: Yes - Therapies | Activity Therapy: Evaluation | Treat if indicated: PT, OT Activity: Activity as Tolerated Follow Up: Follow up with PCP in 3-5 days. Would benefit from a Neurology referral for an EEG."
--- NOTE | 2023-11-11 10:33 | DISCHARGE SUMMARY ---
Discharge Summary Admit Date: 11/05/23 Discharge Date: 11/11/23 Discharging Provider: Abbey Nieves Code Status: Do Not Attempt Resuscitation Condition at Discharge: Serious Discharge Disposition: SNF DC/Xfer - DIAGNOSES Discharge Diagnoses with Status of Each Condition: (1) Seizure Assessment/Plan: --Exact etiology is unclear. Possibly related to Tramadol which has since been discontinued. --She has been seizure free while inpatient. Will discontinue Keppra. I will attribute this to her infection and Tramadol use. --Would benefit from an outpatient Neurology referral with an EEG and MRI head. --Ativan as needed for seizures. (2) Dementia Assessment/Plan: --Stable. Anticipate discharge to nursing facility when she is medically stable. (3) UTI (urinary tract infection) Assessment/Plan: --Urine culture showing Enterococcus which is sensitive to Levofloxacin. --Continue levofloxacin. - HPI History of Present Illness: Miley Sandoval Is a 78-year-old woman who was brought to the [facility] emergency room by ambulance after having to seizures in a skilled nursing. Patient is a resident of [facility]. It is reported that she takes tramadol several times a day. She reportedly had 2 seizures in the skilled nursing today. She was transferred by EMS service to the emergency room for further evaluation. Upon arrival patient appeared to be postictal and has not been able to answer any questions. She has a past medical history significant for severe dementia Patient had another seizure in the emergency room. Treatment was initiated with Keppra. She received 1000 mg intravenously. Laboratory studies revealed a normal white blood cell count with hematocrit of 30.8 and a platelet count of 349 K. Chemistry panel revealed a creatinine of 1.1 and a lactate drawn after a seizure was 4.7. She had multiple imaging studies performed in the emergency room. 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 CT of the cervical spine cervical spine revealed no definite acute trauma to the cervical spine. CT of the chest revealed no acute trauma. In the emergency room patient received 1000 mg of Keppra. - HOSPITAL COURSE Hospital Course: EKG patient is a 78-year-old female who presented to the ED from [facility] unit due to 2 seizures at the skilled nursing. It was believed the etiology was excessive use of tramadol. A CT scan was performed of her head which was unremarkable. Patient was admitted and had no further seizure activity. She was initially started on Keppra however this was discontinued as etiology was believed to be her tramadol use. She was also noted to have a and Enterococcus faecium UTI which was treated with IV levofloxacin. Patient was discharged to her memory care unit on oral antibiotics. She would benefit from an outpatient referral to neurology for an EEG and MRI. - ALLERGIES Allergies/Adverse Reactions: Allergies Allergy/AdvReac Type Severity Reaction Status Date / Time No Known Drug Allergies Allergy Verified 11/05/23 12:27 - MEDICATIONS Home Medications: Ambulatory Orders Medication Instructions Recorded Confirmed Gabapentin [Neurontin] 300 mg PO TID #90 cap 03/31/23 11/06/23 Meloxicam [Mobic] 7.5 mg PO BID #60 tab 03/31/23 11/06/23 Multivitamin W/Minerals [Theragran 1 tab PO DAILYWM tab 03/31/23 11/06/23 M] QUEtiapine [SEROquel] 25 mg PO QPM #90 tab 03/31/23 11/06/23 amLODIPine [Norvasc] 5 mg PO DAILY tab 03/31/23 11/06/23 Furosemide [Lasix] 1 tab PO DAILY 11/06/23 11/06/23 Potassium Chloride [K-Dur] 20 meq PO DAILY 11/06/23 11/06/23 Zolpidem Tartrate [Ambien] 10 mg PO HS 11/06/23 11/06/23 levoFLOXacin [Levofloxacin] 750 mg PO DAILY #4 tab 11/11/23 - PHYSICAL EXAM AT DISCHARGE General Appearance: positive: No acute distress, Alert Respiratory: positive: No respiratory distress, Breath sounds nml Cardiovascular: positive: Regular rate & rhythm, No murmur, No gallop Abdomen: positive: Non-tender, No distention Neurologic/Psychiatric: positive: CN's nml (2-12) - LABS Result Diagrams: 11/11/23 05:25 11/11/23 05:25
[2023-11-11 10:34] VITALS: O2SAT 95
[2023-11-11 11:53] VITALS: BP 110/71
== END 2023-11-11 14:15 | DRG 101 ==
LOC: EDUNIT# → ED 12:04 → SUPCPDRO 12:04 → MS2 17:40
PROVIDERS: ADMIT Internal Medicine; ATTEND Family Medicine
DX: R56.9 Unspecified convulsions (principal); R41.0 Disorientation, unspecified; G40.901 Epilepsy, unspecified, not intractable, with status epilepticus; D64.9 Anemia, unspecified; N39.0 Urinary tract infection, site not specified; R09.02 Hypoxemia; F03.90 Unspecified dementia, unspecified severity, without behavioral disturbance, psychotic disturbance, mood disturbance, and anxiety; R47.01 Aphasia; T40.425A Adverse effect of tramadol, initial encounter; Y92.129 Unspecified place in nursing home as the place of occurrence of the external cause; B95.2 Enterococcus as the cause of diseases classified elsewhere; F03.C0 Unspecified dementia, severe, without behavioral disturbance, psychotic disturbance, mood disturbance, and anxiety; R41.82 Altered mental status, unspecified; I10 Essential (primary) hypertension; Z66 Do not resuscitate; M48.57XS Collapsed vertebra, not elsewhere classified, lumbosacral region, sequela of fracture; R52 Pain, unspecified
CPT/HCPCS: 36415; 70450; 71045; 71260; 72125; 74177; 80048; 80053; 80306; 81001; 83605; 83735; 84100; 85025; 85610; 87040; 87077; 87086; 87150; 87181; 93005; 96365; 99285; A9270; G0480; J0131; J1650; Q9967; 81003; 81025; 82077

== ENCOUNTER 2023-11-11 14:19 | Outpatient (CLI) | payer MEDICARE, MEDICAID | END 2023-11-11 14:20 | disposition home or self-care (01) | LOC: EMS 14:19 | PROVIDERS: ATTEND Family Medicine | DX: R41.0 Disorientation, unspecified (principal); F03.90 Unspecified dementia, unspecified severity, without behavioral disturbance, psychotic disturbance, mood disturbance, and anxiety; R56.9 Unspecified convulsions; Z74.01 Bed confinement status | CPT/HCPCS: A0425; A0429 ==

== ENCOUNTER 2023-12-01 14:09 | Outpatient (CLI) | payer MEDICARE, MEDICAID | END 2023-12-01 23:02 | disposition critical access hospital (66) | LOC: EMS 14:09 | DX: R45.6 Violent behavior (principal); R45.4 Irritability and anger; R46.2 Strange and inexplicable behavior; R45.1 Restlessness and agitation | CPT/HCPCS: A0425; A0429 ==

== ENCOUNTER 2023-12-01 14:28 | Emergency (ER) | payer MEDICARE, MEDICAID ==
--- NOTE | 2023-12-01 14:35 | ED Physician Documentation ---
History of Present Illness - Stated complaint Stated Complaint: AMS - History obtained from History obtained from: Patient, EMS - Additonal information Additional information: 78-year-old woman presents from memory facility with no clear complaints. I guess she was acting odd today and they were worried about a UTI. No reported fevers. Of note I admitted her late last month for seizure activity and she was discharged a few days later she did have a UTI at the time. PD PAST MEDICAL HISTORY - Past Medical History Neuro: Dementia Musculoskeletal: Osteoarthritis, Other - Past Surgical History Past Surgical History: No - Present Medications Home Medications: Ambulatory Orders Medication Instructions Recorded Confirmed Gabapentin [Neurontin] 300 mg PO TID #90 cap 03/31/23 11/06/23 Meloxicam [Mobic] 7.5 mg PO BID #60 tab 03/31/23 11/06/23 Multivitamin W/Minerals [Theragran 1 tab PO DAILYWM tab 03/31/23 11/06/23 M] QUEtiapine [SEROquel] 25 mg PO QPM #90 tab 03/31/23 11/06/23 amLODIPine [Norvasc] 5 mg PO DAILY tab 03/31/23 11/06/23 Furosemide [Lasix] 1 tab PO DAILY 11/06/23 11/06/23 Potassium Chloride [K-Dur] 20 meq PO DAILY 11/06/23 11/06/23 Zolpidem Tartrate [Ambien] 10 mg PO HS 11/06/23 11/06/23 levoFLOXacin [Levofloxacin] 750 mg PO DAILY #4 tab 11/11/23 Nitrofurantoin [Macrobid] 1 cap PO BID #10 cap 12/01/23 - Allergies Allergies/Adverse Reactions: Allergies Allergy/AdvReac Type Severity Reaction Status Date / Time No Known Drug Allergies Allergy Verified 12/01/23 14:37 - Social History Does the pt smoke?: No Smoking Status: Never smoker Does the pt drink ETOH?: No Does the pt have substance abuse?: No - Immunizations Immunizations are current?: Yes - POLST Patient has POLST: No PD ED PE NORMAL - Vitals Vital signs reviewed: Yes - General General: Other (She is alert and oriented to person and place but not time or events. She has no specific complaints other than feeling hungry.) - HEENT HEENT: PERRL, EOMI - Neck Neck: Supple, no meningeal sign, No bony TTP - Cardiac Cardiac: RRR, No murmur - Respiratory Respiratory: No respiratory distress, Clear bilaterally - Abdomen Abdomen: Non tender - Extremities Extremities: Other (Her left hand is quite sensitive. She says this is chronic.) - Neuro Eye Opening: Spontaneous Motor: Obeys Commands Verbal: Confused GCS Score: 14 Results - Vitals Vitals: Vital Signs - 24 hr 12/01/23 12/01/23 14:34 17:25 Temperature 36.2 C L Heart Rate 65 90 Respiratory 16 18 Rate Blood Pressure 112/64 148/73 H O2 Saturation 100 90 L Oxygen O2 Source Room air - Labs Labs: Laboratory Tests 12/01/23 12/01/23 12/01/23 14:49 14:49 15:47 WBC 6.7 RBC 3.18 L Hgb 7.4 L Hct 25.4 L MCV 79.9 L MCH 23.3 L MCHC 29.1 L RDW 21.5 H Plt Count 318 MPV 8.8 Neut # (Auto) 4.5 Lymph # (Auto) 1.5 [place] # (Auto) 0.4 Eos # (Auto) 0.2 Baso # (Auto) 0.0 Absolute Nucleated RBC 0.00 Nucleated RBC % 0.0 Manual Slide Review Indicated Platelet Estimate NORMAL (130-450,000) Platelet Morphology NORMAL APPEARANCE RBC Morph Micro Appear 3+ HYPOCHROMASIA Sodium 138 Potassium 4.6 H Chloride 107 Carbon Dioxide 28 Anion Gap 3.0 L BUN 34 H Creatinine 1.1 Estimated GFR (MDRD) 48 L Glucose 100 Calcium 9.0 Total Bilirubin 0.2 AST 12 ALT 8 L Alkaline Phosphatase 105 Total Protein 6.7 Albumin 3.3 Globulin 3.4 Albumin/Globulin Ratio 1.0 Urine Color YELLOW Urine Clarity CLEAR Urine pH 6.0 Ur Specific [place] 1.020 Urine Protein NEGATIVE Urine Glucose (UA) NEGATIVE Urine Ketones NEGATIVE Urine Occult Blood SMALL H Urine Nitrite NEGATIVE Urine Bilirubin NEGATIVE Urine Urobilinogen 0.2 (NORMAL) Ur Leukocyte Esterase TRACE H Urine RBC 0-5 Urine WBC 0-3 Ur Squamous Epith Cells FEW Squamous Amorphous Sediment Rare Urine Bacteria Few Ur Microscopic Review INDICATED Urine Culture Comments INDICATED PD Medical Decision Making - ED course ED course: 78-year-old woman with dementia presents with concern for UTI. She does have pyuria and we will treat given the clinical circumstances and need for her to return back to her SNF. She did have some emotional outburst here mostly asking for help. Departure - Departure Disposition: 01 Home, Self Care Clinical Impression: UTI (urinary tract infection), Dementia Condition: Stable Record reviewed to determine appropriate education?: Yes Instructions: ED UTI Cystitis Female Prescriptions: Nitrofurantoin [Macrobid] 1 cap PO BID #10 cap Comments: She does have a slowly worsening anemia. This has been going on for about 8 months, but depending on family wishes probably does deserve a workup with consideration for upper and lower endoscopies and/or hematology consultation as an outpatient. We will culture your urine, the results should be done in 48-72 hours. If an antibiotic change is necessary we will call you. Return if worse in the meantime, especially if you develop increasing flank pain, fevers, or cannot keep down the medication. Forms: PCP List Discharge Date/Time: 12/01/23 17:45
[2023-12-01 14:53] LABS: BASOPHILS % (AUTO) 0.4 %; EOSINOPHILS # (AUTO) 0.2 10^3/uL (0.0-0.7); EOSINOPHILS % (AUTO) 3.6 %; HCT - HEMATOCRIT 25.4 % (37.0-47.0); HGB - HEMOGLOBIN 7.4 g/dL (12.0-16.0); LYMPHOCYTES # (AUTO) 1.5 10^3/uL (1.5-3.5); MEAN CORPUSCULAR HEMOGLOBIN 23.3 pg (27.0-31.0); MEAN CORPUSCULAR HGB CONC 29.1 g/dL (32.0-36.0); MEAN CORPUSCULAR VOLUME 79.9 fL (81.0-99.0); MEAN PLATELET VOLUME 8.8 fL (7.9-10.8); MONOCYTES # (AUTO) 0.4 10^3/uL (0.0-1.0); MONOCYTES % (AUTO) 5.7 %; NEUTROPHILS # (AUTO) 4.5 10^3/uL (1.5-6.6); PLT - PLATELET COUNT 318 10^3/uL (130-450); RED BLOOD COUNT 3.18 10^6/uL (4.20-5.40); RED CELL DISTRIBUTION WIDTH 21.5 % (12.0-15.0); WHITE BLOOD COUNT 6.7 x10^3/uL (4.8-10.8)
[2023-12-01 14:55] LABS: SLIDE REVIEW? Indicated
[2023-12-01 15:08] LABS: PLATELET ESTIMATE, MANUAL NORMAL (130-450,000) (NORMAL); PLATELET MORPHOLOGY NORMAL APPEARANCE (NORMAL)
[2023-12-01 15:14] LABS: ALBUMIN 3.3 g/dL (3.2-5.5); BILIRUBIN,TOTAL 0.2 mg/dL (0.2-1.0); CREATININE 1.1 mg/dL (0.6-1.3); POTASSIUM 4.6 mmol/L (3.5-4.5); TOTAL PROTEIN 6.7 g/dL (6.4-8.9)
[2023-12-01 15:54] LABS: BILIRUBIN,URINE NEGATIVE (NEGATIVE); GLUCOSE, URINE (UA) NEGATIVE (NEGATIVE); KETONES,URINE (UA) NEGATIVE (NEGATIVE); LEUKOCYTE ESTERASE, URINE TRACE (NEGATIVE); NITRITE,URINE NEGATIVE (NEGATIVE); OCCULT BLOOD,URINE SMALL (NEGATIVE); PROTEIN,URINE NEGATIVE (NEGATIVE); UROBILINOGEN,URINE 0.2 (NORMAL) E.U./dL (NORMAL)
[2023-12-01 16:04] LABS: CLARITY,URINE CLEAR (CLEAR)
[2023-12-01 16:05] LABS: AMORPHOUS SEDIMENT,UR Rare /LPF; BACTERIA,URINE Few /HPF (None Seen); RBC,URINE 0-5 /HPF (0-5); SQUAMOUS EPITHELIAL CELL,UR FEW Squamous (<= Few); WBC,URINE 0-3 /HPF (0-5)
[2023-12-01] MEDS: NITROFURANTOIN MACRO 100 MG CAPSULE PO STA (16:20)
[2023-12-01 17:52] VITALS: BP 148/73; O2SAT 90
== END 2023-12-01 17:45 | disposition home or self-care (01) ==
LOC: EDUNIT# → ED 14:28
DX: N39.0 Urinary tract infection, site not specified (principal); F03.90 Unspecified dementia, unspecified severity, without behavioral disturbance, psychotic disturbance, mood disturbance, and anxiety; Z79.899 Other long term (current) drug therapy
CPT/HCPCS: 36415; 80053; 81001; 85025; 87077; 87086; 99283; A9270; P9612; 51701; 81003

== ENCOUNTER 2023-12-01 17:45 | Outpatient (CLI) | payer MEDICARE, MEDICAID | END 2023-12-01 22:40 | disposition home or self-care (01) | LOC: EMS 17:45 | PROVIDERS: ATTEND Emergency Medicine | DX: F03.90 Unspecified dementia, unspecified severity, without behavioral disturbance, psychotic disturbance, mood disturbance, and anxiety (principal); R41.0 Disorientation, unspecified | CPT/HCPCS: A0425; A0428 ==

== ENCOUNTER 2024-01-20 10:03 | Outpatient (CLI) | payer MEDICARE, MEDICAID | END 2024-01-20 23:59 | disposition critical access hospital (66) | LOC: EMS 10:03 | DX: R50.9 Fever, unspecified (principal); R53.83 Other fatigue | CPT/HCPCS: A0425; A0427 ==

== ENCOUNTER 2024-01-20 10:23 | Inpatient (IN) | payer MEDICARE, MEDICAID ==
--- NOTE | 2024-01-20 10:30 | ED Physician Documentation ---
PD HPI URI - Stated complaint Stated Complaint: LETHARGIC/FEVER - History obtained from History obtained from: Patient (minimal from patient due to dementia), EMS, Caregiver - History of Present Illness Timing - onset: Today Timing details: Abrupt onset, Still present (The patient was noted to have higher fever at her care facility today. She has been having declining declining level of interaction and verbal this over several weeks or months. Not able to get a clear symptoms or history. Fever noted today and referred to the ER. Recent UTI.) Review of Systems Unable to obtain: Dementia PD PAST MEDICAL HISTORY - Past Medical History Neuro: Dementia Musculoskeletal: Osteoarthritis, Other - Past Surgical History Past Surgical History: No - Present Medications Home Medications: Ambulatory Orders Medication Instructions Recorded Confirmed Gabapentin [Neurontin] 300 mg PO TID #90 cap 03/31/23 01/21/24 Meloxicam [Mobic] 7.5 mg PO BID #60 tab 03/31/23 01/21/24 Multivitamin W/Minerals [Theragran 1 tab PO DAILYWM tab 03/31/23 01/21/24 M] QUEtiapine [SEROquel] 25 mg PO QPM #90 tab 03/31/23 01/21/24 amLODIPine [Norvasc] 5 mg PO DAILY tab 03/31/23 01/21/24 Furosemide [Lasix] 40 mg PO DAILY 11/06/23 01/21/24 Potassium Chloride [K-Dur] 20 meq PO DAILY 11/06/23 01/21/24 Zolpidem Tartrate [Ambien] 10 mg PO HS 11/06/23 01/21/24 - Allergies Allergies/Adverse Reactions: Allergies Allergy/AdvReac Type Severity Reaction Status Date / Time No Known Drug Allergies Allergy Verified 01/20/24 10:35 - Social History Does the pt smoke?: No Smoking Status: Never smoker Does the pt drink ETOH?: No Does the pt have substance abuse?: No - Immunizations Immunizations are current?: Yes - POLST Patient has POLST: No PD ED PE NORMAL - Vitals Vital signs reviewed: Yes - General General: No acute distress, Well developed/nourished. No: Alert and oriented X 3 - Neck Neck: Supple, no meningeal sign, No adenopathy - Cardiac Cardiac: RRR - Respiratory Respiratory: No respiratory distress, Clear bilaterally - Abdomen Abdomen: Soft, Non distended, No organomegaly, Other (minimal tenderness without grimace nor guarding at mid to epigastric abdomen. ). No: Normal bowel sounds (diminished) - Back Back: Other (check sacral area and heels without skin infections. ) - Derm Derm: Normal color, Warm and dry - Extremities Extremities: No edema Results - Vitals Vitals: Vital Signs - 24 hr 01/20/24 01/20/24 01/20/24 12:18 12:25 14:15 Temperature 37.1 C 37.0 C Heart Rate 85 67 Heart Rate [ Brachial] Respiratory 18 18 Rate Blood Pressure 131/68 H 85/49 L Blood Pressure [Right Brachial artery] O2 Saturation 94 96 If not protocol : Oxygen Flow, liters/minute 01/20/24 01/20/24 01/20/24 15:11 16:43 17:53 Temperature 37.3 C 38.8 C H Heart Rate 84 93 113 H Heart Rate [ Brachial] Respiratory 18 18 18 Rate Blood Pressure 112/65 131/67 H 145/81 H Blood Pressure [Right Brachial artery] O2 Saturation 94 94 94 If not protocol : Oxygen Flow, liters/minute 01/20/24 01/20/24 01/20/24 18:29 18:58 19:15 Temperature 38.6 C H 38.6 C H Heart Rate 50 L Heart Rate [ Brachial] Respiratory 18 Rate Blood Pressure 122/73 Blood Pressure [Right Brachial artery] O2 Saturation 88 L 97 If not protocol 2 : Oxygen Flow, liters/minute 01/20/24 01/20/24 01/20/24 20:30 20:33 21:30 Temperature 37.1 C 36.4 C L Heart Rate 80 Heart Rate [ 85 Brachial] Respiratory 18 20 Rate Blood Pressure 102/54 L Blood Pressure 103/65 [Right Brachial artery] O2 Saturation 97 95 If not protocol : Oxygen Flow, liters/minute 01/20/24 01/21/24 01/21/24 22:14 01:28 04:01 Temperature 36.7 C 37.0 C Heart Rate Heart Rate [ 77 71 Brachial] Respiratory 12 16 Rate Blood Pressure Blood Pressure 110/63 106/59 L [Right Brachial artery] O2 Saturation 92 95 If not protocol 2 : Oxygen Flow, liters/minute 01/21/24 08:09 Temperature 37.0 C Heart Rate Heart Rate [ 65 Brachial] Respiratory 16 Rate Blood Pressure Blood Pressure 106/60 [Right Brachial artery] O2 Saturation 95 If not protocol : Oxygen Flow, liters/minute Oxygen O2 Source Room air - Labs Labs: Microbiology 01/20/24 11:32 Blood Culture - Preliminary Blood - Right Hand 01/20/24 11:05 Blood Culture - Preliminary Blood 01/20/24 11:05 Blood Culture (PCR) - Final Blood - Right Hand Laboratory Tests 01/20/24 01/20/24 01/20/24 11:05 11:05 11:05 WBC 15.1 H RBC 3.26 L Hgb 7.7 L Hct 26.7 L MCV 81.9 MCH 23.6 L MCHC 28.8 L RDW 21.9 H Plt Count 156 MPV 9.3 Neut # (Auto) 14.2 H Lymph # (Auto) 0.5 L Maverick # (Auto) 0.4 Eos # (Auto) 0.0 Baso # (Auto) 0.1 Absolute Nucleated RBC 0.00 Nucleated RBC % 0.0 Manual Slide Review Indicated Platelet Estimate NORMAL (130-450,000) Platelet Morphology NORMAL APPEARANCE RBC Morph Micro Appear 2+ HYPOCHROMASIA Sodium 141 Potassium 3.3 L Chloride 106 Carbon Dioxide 27 Anion Gap 8.0 BUN 36 H Creatinine 1.6 H Estimated GFR (MDRD) 31 L Glucose 116 H Lactic Acid 1.7 Calcium 8.7 Total Bilirubin 0.5 AST 22 ALT 16 Alkaline Phosphatase 155 H Total Protein 7.1 Albumin 3.3 Globulin 3.8 Albumin/Globulin Ratio 0.9 L Urine Color Urine Clarity Urine pH Ur Specific [place] Urine Protein Urine Glucose (UA) Urine Ketones Urine Occult Blood Urine Nitrite Urine Bilirubin Urine Urobilinogen Ur Leukocyte Esterase Urine RBC Urine WBC Ur Epithelial Cells Ur Squamous Epith Cells Urine Bacteria Urine Culture Comments Nasal Adenovirus (PCR) Nasal B. parapertussis DNA (PCR) Nasal Coronavir 229E PCR Nasal Coronavir HKU1 PCR Nasal Coronavir NL63 PCR Nasal Coronavir OC43 PCR Nasal Enterovir/Rhinovir PCR Nasal Influenza B PCR Nasal Influenza A PCR Nasal Parainfluen 1 PCR Nasal Parainfluen 2 PCR Nasal Parainfluen 3 PCR Nasal Parainfluen 4 PCR Nasal RSV (PCR) Nasal B.pertussis DNA PCR Nasal C.pneumoniae (PCR) Tyson Human Metapneumo PCR Nasal M.pneumoniae (PCR) Nasal SARS-CoV-2 (PCR) 06/01/20/24 01/20/24 11:16 12:50 21:22 WBC RBC Hgb Hct MCV MCH MCHC RDW Plt Count MPV Neut # (Auto) Lymph # (Auto) Maverick # (Auto) Eos # (Auto) Baso # (Auto) Absolute Nucleated RBC Nucleated RBC % Manual Slide Review Platelet Estimate Platelet Morphology RBC Morph Micro Appear Sodium Potassium Chloride Carbon Dioxide Anion Gap BUN Creatinine Estimated GFR (MDRD) Glucose Lactic Acid 1.0 Calcium Total Bilirubin AST ALT Alkaline Phosphatase Total Protein Albumin Globulin Albumin/Globulin Ratio Urine Color YELLOW Urine Clarity CLEAR Urine pH 6.0 Ur Specific [place] 1.020 Urine Protein 30 H Urine Glucose (UA) NEGATIVE Urine Ketones NEGATIVE Urine Occult Blood MODERATE H Urine Nitrite NEGATIVE Urine Bilirubin NEGATIVE Urine Urobilinogen 0.2 (NORMAL) Ur Leukocyte Esterase NEGATIVE Urine RBC 0-5 Urine WBC 0-3 Ur Epithelial Cells RARE Renal Tubular Ur Squamous Epith Cells RARE Squamous Urine Bacteria Few Urine Culture Comments NOT INDICATED Nasal Adenovirus (PCR) NOT DETECTED Nasal B. parapertussis DNA (PCR) NOT DETECTED Nasal Coronavir 229E PCR NOT DETECTED Nasal Coronavir HKU1 PCR NOT DETECTED Nasal Coronavir NL63 PCR NOT DETECTED Nasal Coronavir OC43 PCR NOT DETECTED Nasal Enterovir/Rhinovir PCR NOT DETECTED Nasal Influenza B PCR NOT DETECTED Nasal Influenza A PCR NOT DETECTED Nasal Parainfluen 1 PCR NOT DETECTED Nasal Parainfluen 2 PCR NOT DETECTED Nasal Parainfluen 3 PCR NOT DETECTED Nasal Parainfluen 4 PCR NOT DETECTED Nasal RSV (PCR) NOT DETECTED Nasal B.pertussis DNA PCR NOT DETECTED Nasal C.pneumoniae (PCR) NOT DETECTED Tyson Human Metapneumo PCR NOT DETECTED Nasal M.pneumoniae (PCR) NOT DETECTED Nasal SARS-CoV-2 (PCR) NOT DETECTED 01/21/24 01/21/24 01/21/24 03:12 09:07 09:07 WBC RBC Hgb Hct MCV MCH MCHC RDW Plt Count MPV Neut # (Auto) Lymph # (Auto) Maverick # (Auto) Eos # (Auto) Baso # (Auto) Absolute Nucleated RBC Nucleated RBC % Manual Slide Review Platelet Estimate Platelet Morphology RBC Morph Micro Appear Sodium 144 Potassium 3.1 L Chloride 113 H Carbon Dioxide 26 Anion Gap 5.0 L BUN 33 H Creatinine 1.3 Estimated GFR (MDRD) 40 L Glucose 121 H Lactic Acid 1.0 1.0 Calcium 8.2 L Total Bilirubin 0.5 AST 28 ALT 18 Alkaline Phosphatase 146 H Total Protein 5.9 L Albumin 2.7 L Globulin 3.2 Albumin/Globulin Ratio 0.8 L Urine Color Urine Clarity Urine pH Ur Specific [place] Urine Protein Urine Glucose (UA) Urine Ketones Urine Occult Blood Urine Nitrite Urine Bilirubin Urine Urobilinogen Ur Leukocyte Esterase Urine RBC Urine WBC Ur Epithelial Cells Ur Squamous Epith Cells Urine Bacteria Urine Culture Comments Nasal Adenovirus (PCR) Nasal B. parapertussis DNA (PCR) Nasal Coronavir 229E PCR Nasal Coronavir HKU1 PCR Nasal Coronavir NL63 PCR Nasal Coronavir OC43 PCR Nasal Enterovir/Rhinovir PCR Nasal Influenza B PCR Nasal Influenza A PCR Nasal Parainfluen 1 PCR Nasal Parainfluen 2 PCR Nasal Parainfluen 3 PCR Nasal Parainfluen 4 PCR Nasal RSV (PCR) Nasal B.pertussis DNA PCR Nasal C.pneumoniae (PCR) Tyson Human Metapneumo PCR Nasal M.pneumoniae (PCR) Nasal SARS-CoV-2 (PCR) 01/21/24 09:07 WBC 12.0 H RBC 2.93 L Hgb 7.0 L* Hct 23.9 L MCV 81.6 MCH 23.9 L MCHC 29.3 L RDW 21.8 H Plt Count 87 L MPV 9.5 Neut # (Auto) 10.1 H Lymph # (Auto) 1.2 L Maverick # (Auto) 0.5 Eos # (Auto) 0.0 Baso # (Auto) 0.0 Absolute Nucleated RBC 0.00 Nucleated RBC % 0.0 Manual Slide Review Indicated Platelet Estimate DECREASED (<130,000) Platelet Morphology NORMAL APPEARANCE RBC Morph Micro Appear 1+ POLYCHROMASIA Sodium Potassium Chloride Carbon Dioxide Anion Gap BUN Creatinine Estimated GFR (MDRD) Glucose Lactic Acid Calcium Total Bilirubin AST ALT Alkaline Phosphatase Total Protein Albumin Globulin Albumin/Globulin Ratio Urine Color Urine Clarity Urine pH Ur Specific [place] Urine Protein Urine Glucose (UA) Urine Ketones Urine Occult Blood Urine Nitrite Urine Bilirubin Urine Urobilinogen Ur Leukocyte Esterase Urine RBC Urine WBC Ur Epithelial Cells Ur Squamous Epith Cells Urine Bacteria Urine Culture Comments Nasal Adenovirus (PCR) Nasal B. parapertussis DNA (PCR) Nasal Coronavir 229E PCR Nasal Coronavir HKU1 PCR Nasal Coronavir NL63 PCR Nasal Coronavir OC43 PCR Nasal Enterovir/Rhinovir PCR Nasal Influenza B PCR Nasal Influenza A PCR Nasal Parainfluen 1 PCR Nasal Parainfluen 2 PCR Nasal Parainfluen 3 PCR Nasal Parainfluen 4 PCR Nasal RSV (PCR) Nasal B.pertussis DNA PCR Nasal C.pneumoniae (PCR) Tyson Human Metapneumo PCR Nasal M.pneumoniae (PCR) Nasal SARS-CoV-2 (PCR) - Rads (name of study) laila xray Relevant Findings:: Prelim report reviewed (no infitrates. There is mild Bilateral interstitial prominence consistent with mild edema versus atypical pneumonia or viral pattern.), EMP independent interpretation of test PD Medical Decision Making - ED course Complexity details: reviewed results (The patient has an elevated white count. Normal lactate and normal urine. Chest x-ray without infiltrates. Viral panel test is negative. Minimal tenderness in the abdomen middle to central upper. CT of the abdomen shows air in the gallbladder and biliary tree without GB wall thickening/fluid. ), considered differential, d/w patient, other (I talked with the patient's [id number] who does have healthcare power of cheesemaker helper for the patient. The patient is DNR/DNI. However they do not have a formal POLST form. In discussion with the [id number], diagnostic tests as well as IV fluids, antibiotics, medication are okay. No surgeries. ) Reviewed Lab Results: Alk phos is minimally elevated. LFTs otherwise normal. She is not particularly tender in the right upper quadrant. At this point I if not clear that the biliary tree or gallbladder is the cause of her fevers but there is obviously an abnormality noted on the CT scan with the air in the biliary tree and gallbladder. This could be suggestive of infection. No recent instrumentation or such. She has not been vomiting. I did talk with the on-call surgeon who suggested getting an MRCP if we are able to or otherwise ultrasound to look for common bile duct blockage. ED course: Patient with onset of fever today. No reports of vomiting or diarrhea. She does not have any labored breathing. No reports of cough. She does have dementia so poor historian of her own. We did do basic labs initially looking for degree of infection such as sepsis and also more common sources such as urinalysis, chest x-ray, viral panel. The chest x-ray showed some mild general interstitial prominence that could be edema versus viral pattern versus atypical pneumonia. Her lung sounds are clear. No noted cough or wheezing. Given no obvious source of infection including looking at her heels and sacrum for skin infections, I did do the CT of the abdomen and pelvis given some minimal tenderness. This showed some air in the biliary tree and gallbladder. This be concerning for brewing infection. However still not a definite cause for illness. Given the minimal tenderness in the abdomen, I did do a CT abdomen pelvis. This showed some air in the gallbladder and biliary system suggestive of infection. We will get further imaging. Care to Dr. Duque at change of shift. Departure - Departure Disposition: 66 [facility] DC/Xfer Clinical Impression: Fever, Leukocytosis, Pneumobilia, Dementia Condition: Stable Record reviewed to determine appropriate education?: Yes Discharge Date/Time: 01/20/24 21:37
[2024-01-20 11:14] LABS: BASOPHILS # (AUTO) 0.1 10^3/uL (0.0-0.1); BASOPHILS % (AUTO) 0.4 %; HCT - HEMATOCRIT 26.7 % (37.0-47.0); HGB - HEMOGLOBIN 7.7 g/dL (12.0-16.0); LYMPHOCYTES # (AUTO) 0.5 10^3/uL (1.5-3.5); MEAN CORPUSCULAR HEMOGLOBIN 23.6 pg (27.0-31.0); MEAN CORPUSCULAR HGB CONC 28.8 g/dL (32.0-36.0); MEAN CORPUSCULAR VOLUME 81.9 fL (81.0-99.0); MEAN PLATELET VOLUME 9.3 fL (7.9-10.8); MONOCYTES # (AUTO) 0.4 10^3/uL (0.0-1.0); MONOCYTES % (AUTO) 2.3 %; NEUTROPHILS # (AUTO) 14.2 10^3/uL (1.5-6.6); NEUTROPHILS % (AUTO) 93.8 %; PLT - PLATELET COUNT 156 10^3/uL (130-450); RED BLOOD COUNT 3.26 10^6/uL (4.20-5.40); RED CELL DISTRIBUTION WIDTH 21.9 % (12.0-15.0); WHITE BLOOD COUNT 15.1 x10^3/uL (4.8-10.8)
[2024-01-20 11:16] LABS: SLIDE REVIEW? Indicated
[2024-01-20 11:24] LABS: ALBUMIN 3.3 g/dL (3.2-5.5); ALBUMIN/GLOBULIN RATIO 0.9 (1.0-2.2); BILIRUBIN,TOTAL 0.5 mg/dL (0.2-1.0); CALCIUM 8.7 mg/dL (8.5-10.3); CREATININE 1.6 mg/dL (0.6-1.3); POTASSIUM 3.3 mmol/L (3.5-4.5); TOTAL PROTEIN 7.1 g/dL (6.4-8.9)
[2024-01-20 11:30] LABS: PLATELET ESTIMATE, MANUAL NORMAL (130-450,000) (NORMAL); PLATELET MORPHOLOGY NORMAL APPEARANCE (NORMAL)
--- NOTE | 2024-01-20 11:41 | XRAY Report ---
PROCEDURE: Chest 1V INDICATIONS: Sepsis TECHNIQUE: One view of the chest was acquired. COMPARISON: Chest radiographs 11/05/2023. FINDINGS: Surgical changes and devices: Calcified bilateral breast implants. Lungs and pleura: No pleural effusions or pneumothorax. Mild bilateral interstitial prominence. No focal consolidation. Mediastinum: Mediastinal contours appear normal. Heart size is normal. Bones and chest wall: No suspicious bony lesions. Overlying soft tissues appear unremarkable. IMPRESSION: Mild bilateral interstitial prominence can be seen in the setting of mild edema versus a viral or aty pical pneumonia. No focal consolidation is seen. Reviewed by: Boby Cardoso MD on 01/20/2024 11:40 AM PDT Approved by: Boby Cardoso MD on 01/20/2024 11:40 AM PDT Station ID: [id number]
[2024-01-20] MEDS: ACETAMINOPHEN 325 MG TABLET PO STA (11:48)
[2024-01-20] MEDS: SODIUM CHLORIDE 0.9% 1,000 ML IV STA ×2 (12:25→14:17)
[2024-01-20 13:03] LABS: BILIRUBIN,URINE NEGATIVE (NEGATIVE); CLARITY,URINE CLEAR (CLEAR); GLUCOSE, URINE (UA) NEGATIVE (NEGATIVE); KETONES,URINE (UA) NEGATIVE (NEGATIVE); LEUKOCYTE ESTERASE, URINE NEGATIVE (NEGATIVE); NITRITE,URINE NEGATIVE (NEGATIVE); OCCULT BLOOD,URINE MODERATE (NEGATIVE); PROTEIN,URINE 30 mg/dL (NEGATIVE); UROBILINOGEN,URINE 0.2 (NORMAL) E.U./dL (NORMAL)
[2024-01-20 13:09] LABS: BACTERIA,URINE Few /HPF (None Seen); EPITHELIAL CELLS,UR RARE Renal Tubular /HPF (<= Few); RBC,URINE 0-5 /HPF (0-5); SQUAMOUS EPITHELIAL CELL,UR RARE Squamous (<= Few); WBC,URINE 0-3 /HPF (0-5)
[2024-01-20 13:19] LABS: B. PARAPERTUSSIS- RESP PCR PAN NOT DETECTED; B. PERTUSSIS- RESP PCR PANEL NOT DETECTED; C. PNEUMONIAE- RESP PCR PANEL NOT DETECTED; CORONAVIRUS 229E-RESP PCR NOT DETECTED; CORONAVIRUS HKU1-RESP PCR NOT DETECTED; CORONAVIRUS NL63-RESP PCR NOT DETECTED; CORONAVIRUS OC43-RESP PCR NOT DETECTED; HUMAN METAPNEUMOVIRUS NOT DETECTED; INFLUENZA A- RESP PCR PANEL NOT DETECTED; INFLUENZA B - RESP PCR PANEL NOT DETECTED; M. PNEUMONIAE- RESP PCR PANEL NOT DETECTED; PARAINFLUENZA VIRUS 1 NOT DETECTED; PARAINFLUENZA VIRUS 2 NOT DETECTED; PARAINFLUENZA VIRUS 3 NOT DETECTED; PARAINFLUENZA VIRUS 4 NOT DETECTED; RHINOVIRUS/ENTEROVIRUS NOT DETECTED; RSV- RESP PCR PANEL NOT DETECTED; SARS-CoV-2 -RESP PCR PANEL NOT DETECTED
[2024-01-20] MEDS ORDERED: iohexoL-300 100 ML VIAL ONE (14:31)
[2024-01-20] MEDS: iohexoL-300 100 ML VIAL IVP ONE (15:15)
--- NOTE | 2024-01-20 15:42 | CT Report ---
PROCEDURE: Abdomen/Pelvis W INDICATIONS: fever unknown source just yet CONTRAST: Omni 300 100ml TECHNIQUE: After the administration of intravenous contrast, a CT scan of the abdomen and pelvis was performed. Images were recorded and evaluated at appropriate window settings. Reformats: coronal and sagittal. F or radiation dose reduction, the following was used: automated exposure control, adjustment of mA and /or kV according to patient size. COMPARISON: 11/10/2023, 11/05/2023 FINDINGS: Image quality: Diagnostic. Lower chest: Bilateral mammoplasties. Mild cardiomegaly. Minimal bibasilar pleural thickening. Liver: No solid mass. Mild hepatomegaly. Air present in the biliary tree.. Gallbladder: Air has developed in the gallbladder. Biliary tree: There is now air present in the biliary tree, not previously present. Spleen: Mild splenomegaly. Pancreas: No pancreatic ductal dilation. Adrenals: No adrenal nodule. Kidneys and ureters: No hydronephrosis. No renal cystic lesion which requires follow up. No solid mas s. Stomach, bowel and peritoneum: No gastric or small bowel dilation. No abnormal wall thickening. No pa thologic free fluid. Diverticulosis without evidence of diverticulitis. Lymph nodes: No central or retroperitoneal adenopathy. Vessels: No infrarenal aortic aneurysm. Patent portal vein. PELVIS Reproductive organs: Uterus is surgically absent. A left adnexal cystic lesion is stable compared to the most recent prior study, measuring 3.8 x 2.5 cm.. Bladder: No abnormal wall thickening, accounting for underdistention. Pelvic lymph nodes: No pelvic adenopathy by size criteria. Bones: No aggressive osseous abnormality. Multiple compressions are again noted, stable, including se manuel compressions of L1 and L3. No lytic or blastic bony lesions. Other: No significant ventral or inguinal hernia. IMPRESSION: 1. Development of air in the biliary tree and also in the gallbladder. This is not present on the pre vious studies. Consider biliary instrumentation versus ascending cholangitis with associated gallblad christina infection with a gas-forming organism 2. Mild cardiomegaly. 3. Mild hepatosplenomegaly. 4. Diverticulosis. 5. Remote hysterectomy. 6. 3.8 x 2.5 cm left adnexal cystic lesion. Consider nonemergent ultrasound for further evaluation. 7. Severe osteoporosis with multiple chronic compressions. Reviewed by: Sonido Hopkins MD on 01/20/2024 3:41 PM PDT Approved by: Sonido Hopkins MD on 01/20/2024 3:41 PM PDT Station ID: [id number]
[2024-01-20] MEDS: AMPICILLIN/SULBACTAM 1.5 GM in SODIUM CHLORIDE 0.9% MINIBAG 100 ML IV STA (17:54)
[2024-01-20] MEDS: ACETAMINOPHEN 500 MG TABLET PO STA (18:28)
--- NOTE | 2024-01-20 19:59 | Ultrasound Report ---
PROCEDURE: Abdomen Limited INDICATIONS: fever and air in GB TECHNIQUE: Real-time focused scanning was performed of the abdomen, with image documentation. COMPARISONS: Same day CT FINDINGS: Hepatomegaly and 19 cm. Coarsened echotexture. Moderate diffuse sludge within the gallbladder with trace pericholecystic fluid. No focal tenderness. CBD is nondilated at 4 mm. Pancreatic head is unremarkable. Body is obscured by bowel gas. Right kidney measures 10 cm. Limited exam due to patient condition and body habitus. IMPRESSION: Limited exam due to patient condition and body habitus. Moderate diffuse gallbladder sludge without s onographic Abdul's sign (accuracy may be limited due to patient condition and if the patient had yvrose n medications). No CBD dilation is identified. No significant intrahepatic dilation. Hepatomegaly and coarsened hepatic echotexture, nonspecific, possibly fibrofatty infiltration. Reviewed by: Nestor Merino MD on 01/20/2024 7:58 PM PDT Approved by: Nestor Merino MD on 01/20/2024 7:58 PM PDT Station ID: [id number]
--- NOTE | 2024-01-20 20:35 | ED Physician Documentation ---
ED Addendum - Addendum Addendum: 01/20/24 20:33 d/w Dr. Durand - patient unlikely to have ascending cholangitis. no indication for ERCP right now. Dr. Durand suggests admission to [facility] for IV antibiotics, trend LFTs. d/w MARIYA Vincent who is agreeable to plan. Disposition admit Condition stable Impression 1. sepsis 2. caroline 3. dementia 01/20/24 20:35
[2024-01-20] MEDS: AZITHROMYCIN INJ 500 MG in SODIUM CHLORIDE 0.9% 250 ML IV STA (20:51)
[2024-01-20] MEDS ORDERED: ACETAMINOPHEN 325 MG TABLET PO PRN (20:55)
[2024-01-20] MEDS ORDERED: ONDANSETRON 4 MG/2 ML VIAL IVP PRN (20:55)
[2024-01-20] MEDS ORDERED: SODIUM CHLORIDE FLUSH 0.9% 10 ML SYRINGE IVP PRN (20:55)
--- NOTE | 2024-01-20 21:14 | HISTORY & PHYSICAL EXAMINATION ---
Chief Complaint - Chief Complaint Chief Complaint: fever History of Present Illness - Admitted From Admitted From:: intermediate - History Obtained From History obtained from: ED physician and records Exam Limitations: dementia - History of Present Illness HPI Comment/Other: Mrs. krueger presented to the ED from a [place] for evaluation of fever and lethargy. patient unable to provide much history due to dementia. On presentation she was noted to be febrile and hypoxic on room air. she does not wear oxygen chronically. Labwork was obtained adn patient was noted to meet sepsis inclusion criteria. Additional workup, demonstrated bilateral infiltrates on lung imaging and CT abdomen which demonstrated finding concerning for cholangitis. case was discussed with surgery who felt that patient was not a good surgical candidate. Recommended antibiotics and trend Labwork. ED spoke with patient's POA who was in agreement with plan. History - Past Medical History Neuro: reports: Dementia Musculoskeletal: reports: Osteoarthritis, Other MRSA Hx?: No - Family & Social History Social History Notes: Her past smoking and alcohol history are not known. - POLST Patient has POLST: No Meds/Allgy - Home Medications Home Medications: Ambulatory Orders Medication Instructions Recorded Confirmed Gabapentin [Neurontin] 300 mg PO TID #90 cap 03/31/23 11/06/23 Meloxicam [Mobic] 7.5 mg PO BID #60 tab 03/31/23 11/06/23 Multivitamin W/Minerals [Theragran 1 tab PO DAILYWM tab 03/31/23 11/06/23 M] QUEtiapine [SEROquel] 25 mg PO QPM #90 tab 03/31/23 11/06/23 amLODIPine [Norvasc] 5 mg PO DAILY tab 03/31/23 11/06/23 Furosemide [Lasix] 1 tab PO DAILY 11/06/23 11/06/23 Potassium Chloride [K-Dur] 20 meq PO DAILY 11/06/23 11/06/23 Zolpidem Tartrate [Ambien] 10 mg PO HS 11/06/23 11/06/23 levoFLOXacin [Levofloxacin] 750 mg PO DAILY #4 tab 11/11/23 Nitrofurantoin [Macrobid] 1 cap PO BID #10 cap 12/01/23 - Allergies Allergies/Adverse Reactions: Allergies Allergy/AdvReac Type Severity Reaction Status Date / Time No Known Drug Allergies Allergy Verified 01/20/24 10:35 Exam - Vital Signs Reviewed Vital Signs: Yes Vital Signs: Vital Signs x48h Temp Pulse Resp BP Pulse Ox O2 Flow Rate 01/20/24 20:33 37.1 C 01/20/24 20:30 80 18 102/54 L 97 01/20/24 19:15 38.6 C H 50 L 18 122/73 97 2 01/20/24 18:58 38.6 C H 01/20/24 18:29 88 L 01/20/24 17:53 38.8 C H 113 H 18 145/81 H 94 01/20/24 16:43 37.3 C 93 18 131/67 H 94 01/20/24 15:11 84 18 112/65 94 01/20/24 14:15 37.0 C 67 18 85/49 L 96 - Physical Exam General Appearance: positive: Alert, Mild distress Eyes Bilateral: positive: EOMI Respiratory: positive: Chest non-tender, No respiratory distress, Breath sounds nml Cardiovascular: positive: Regular rate & rhythm, No murmur, No gallop Abdomen: negative: Non-tender, Guarding Extremities: positive: Non-tender, Full ROM, Nml appearance Neurologic/Psychiatric: positive: Disoriented to person, Disoriented to place, Disoriented to time Sepsis Event Note (H) - Evaluation Current Stage of Sepsis: Sepsis Possible source of Sepsis: positive: Pulmonary, GI tract/intra-abdominal - Sepsis Criteria Sepsis Criteria: Recorded Temperature greater than 38.3C or Less than 36C, Respiratory: Increasing oxygen requirements, WBC count greater than 12,000 or less than 4000 Conclusion/Plan - Problem List (1) Sepsis Conclusion/Plan: -secondary to pneumonia vs cholecystitis -continue with empiric broad spectrum antibiotics -trend inflammatory markers -monitor closely with continuos telemetry -gentle IVF resuscitation -supplemental oxygen -cultures pending. . (2) Gall bladder inflammation Conclusion/Plan: cholecytitis, acending cholangitis less likely, can not be excluded -surgery consulted and reviewed imaging, high mortality rate due to age and comorbidity, opted for non-surgical intervention at this time -continue to trend liver enzymes -gentle fluids -empiric antibiotics -conservative pain management with non-opiods as tolerated. (3) Pneumonia Conclusion/Plan: -imaging viewed and reviewed by myself -continue empiric antibiotics -supplemental oxygen -can add duonebs as needed for mitigation of airway inflammation -incentive spirometry if patient will follow commands (4) Acute respiratory failure with hypoxia Conclusion/Plan: suspected secondary to pulmonary infection as seen on imaging -incentive spirometry and antibiotics continued -titrate supplemental oxygen as tolerated. -repeat chest xray or obtain abg as needed to monitor improvement (5) QUE (acute kidney injury) Conclusion/Plan: secondary to sepsis, pre-renal due to poor oral control also likely -continue with gentle IVF -monitor UOP and renal labs - Lab Results Fish Bones: 01/20/24 11:05 01/20/24 11:05 - Diagnostic Imaging Results Diagnostic Imaging Results: positive: Final report reviewed Core Measures - Anticipated LOS I expect patient to be DC'd or transferred within 96 hours.: Yes - DVT/VTE - Prophylaxis VTE/DVT Device ordered at admit?: Yes Telemedicine Consult Details - Provider Location & Consult Time Telemedicine consultation conducted via videoconferencing?: Yes
[2024-01-20] MEDS: SODIUM CHLORIDE 0.9% 1,000 ML IV SCH (22:08)
[2024-01-21] MEDS: SODIUM CHLORIDE FLUSH 0.9% 10 ML SYRINGE IVP SCH (05:27)
[2024-01-21] MEDS: PIPERACILLIN/TAZOBACTAM 3.375 GM in SODIUM CHLORIDE 0.9% MINIBAG 100 ML IV SCH (08:30)
--- NOTE | 2024-01-21 08:34 | PROVIDER PROGRESS NOTE ---
Subjective - Prog Note Date Prog Note Date: 01/21/24 Prog Note Time: 10:54 - Subjective Subjective: mostly non verbal this AM. Will nod her head, or moan if I cause her any pain. Current Medications - Current Medications Current Medications: Medications Acetaminophen (Acetaminophen 325 Mg Tablet) 650 mg PO Q4HR PRN PRN Reason: Pain 1 to 4, or Fever Azithromycin 500 mg/ Sodium (Chloride) 250 mls @ 250 mls/hr IV DAILY [facility] Last Admin: 01/21/24 10:22 Dose: 250 mls/hr Lactated Ringer's (Lr) 1,000 mls @ 75 mls/hr IV .[id number] STA Stop: 01/21/24 21:19 Last Admin: 01/21/24 09:20 Dose: 0 mls/hr Ondansetron HCl (Ondansetron 4 Mg/2 Ml Vial) 4 mg IVP Q6HR PRN PRN Reason: Nausea / Vomiting Piperacillin Sod/Tazobactam (Sod 3.375 gm/ Sodium Chloride) 100 mls @ 200 mls/hr IV Q6H [facility] Last Admin: 01/21/24 09:05 Dose: Infused Objective - Vital Signs/Intake & Output Vital Signs: Vital Signs x48h Temp Pulse Resp BP Pulse Ox 01/21/24 08:09 37.0 C 65 16 106/60 95 01/21/24 04:01 37.0 C 71 16 106/59 L 95 01/21/24 01:28 36.7 C 77 12 110/63 92 Intake & Output: Intake & Output 01/18/24 01/19/24 01/20/24 01/21/24 23:59 23:59 23:59 23:59 Intake Total 2390 Output Total 500 Balance 2390 -500 - Objective General Appearance: positive: Mild distress Eyes Bilateral: positive: Normal inspection ENT: positive: ENT inspection nml Neck: positive: Nml inspection Respiratory: positive: Chest non-tender, No respiratory distress, Breath sounds nml Cardiovascular: positive: Regular rate & rhythm, Systolic murmur (at the right sternal border). negative: No murmur Abdomen: positive: Tenderness (right upper quadrant with tenderness. also with mild epigastric ttp) Back: positive: Nml inspection, CVA tenderness (R) Extremities: positive: Non-tender, Pedal edema Neurologic/Psychiatric: positive: Disoriented to person, Disoriented to place, Disoriented to time, Other (does not give verbal answers, but makes eye contact.) - Lab Results Fish Bones: 01/21/24 09:07 01/21/24 09:07 Other Labs: Lab Results x24hrs 01/21/24 01/20/24 01/20/24 Range/Units 03:12 21:22 12:50 WBC (4.8-10.8) x10^3/uL RBC (4.20-5.40) 10^6/uL Hgb (12.0-16.0) g/dL Hct (37.0-47.0) % MCV (81.0-99.0) fL MCH (27.0-31.0) pg MCHC (32.0-36.0) g/dL RDW (12.0-15.0) % Plt Count (130-450) 10^3/uL MPV (7.9-10.8) fL Neut # (Auto) (1.5-6.6) 10^3/uL Lymph # (Auto) (1.5-3.5) 10^3/uL Bailey # (Auto) (0.0-1.0) 10^3/uL Eos # (Auto) (0.0-0.7) 10^3/uL Baso # (Auto) (0.0-0.1) 10^3/uL Absolute Nucleated RBC x10^3/uL Nucleated RBC % /100WBC Manual Slide Review Platelet Estimate (NORMAL) Platelet Morphology (NORMAL) RBC Morph Micro Appear (NORMAL) Sodium (135-145) mmol/L Potassium (3.5-4.5) mmol/L Chloride (101-111) mmol/L Carbon Dioxide (21-32) mmol/L Anion Gap (6-13) BUN (6-20) mg/dL Creatinine (0.6-1.3) mg/dL Estimated GFR (MDRD) (>89) Glucose (74-104) mg/dL Lactic Acid 1.0 1.0 (0.5-2.2) mmol/L Calcium (8.5-10.3) mg/dL Total Bilirubin (0.2-1.0) mg/dL AST (10-42) IU/L ALT (10-60) IU/L Alkaline Phosphatase (42-121) IU/L Total Protein (6.4-8.9) g/dL Albumin (3.2-5.5) g/dL Globulin (2.1-4.2) g/dL Albumin/Globulin Ratio (1.0-2.2) Urine Color Urine Clarity (CLEAR) Urine pH (5.0-7.5) PH Ur Specific [place] (1.002-1.030) Urine Protein (NEGATIVE) mg/dL Urine Glucose (UA) (NEGATIVE) mg/dL Urine Ketones (NEGATIVE) mg/dL Urine Occult Blood (NEGATIVE) Urine Nitrite (NEGATIVE) Urine Bilirubin (NEGATIVE) Urine Urobilinogen (NORMAL) E.U./dL Ur Leukocyte Esterase (NEGATIVE) Urine RBC (0-5) /HPF Urine WBC (0-5) /HPF Ur Epithelial Cells (<= Few) /HPF Ur Squamous Epith Cells (<= Few) Urine Bacteria (None Seen) /HPF Urine Culture Comments Nasal Adenovirus (PCR) NOT DETECTED Nasal B. parapertussis DNA (PCR) NOT DETECTED Nasal Coronavir 229E PCR NOT DETECTED Nasal Coronavir HKU1 PCR NOT DETECTED Nasal Coronavir NL63 PCR NOT DETECTED Nasal Coronavir OC43 PCR NOT DETECTED Nasal Enterovir/Rhinovir PCR NOT DETECTED Nasal Influenza B PCR NOT DETECTED Nasal Influenza A PCR NOT DETECTED Nasal Parainfluen 1 PCR NOT DETECTED Nasal Parainfluen 2 PCR NOT DETECTED Nasal Parainfluen 3 PCR NOT DETECTED Nasal Parainfluen 4 PCR NOT DETECTED Nasal RSV (PCR) NOT DETECTED Nasal B.pertussis DNA PCR NOT DETECTED Nasal C.pneumoniae (PCR) NOT DETECTED Tyson Human Metapneumo PCR NOT DETECTED Nasal M.pneumoniae (PCR) NOT DETECTED Nasal SARS-CoV-2 (PCR) NOT DETECTED 01/20/24 01/20/24 01/20/24 Range/Units 11:16 11:05 11:05 WBC (4.8-10.8) x10^3/uL RBC (4.20-5.40) 10^6/uL Hgb (12.0-16.0) g/dL Hct (37.0-47.0) % MCV (81.0-99.0) fL MCH (27.0-31.0) pg MCHC (32.0-36.0) g/dL RDW (12.0-15.0) % Plt Count (130-450) 10^3/uL MPV (7.9-10.8) fL Neut # (Auto) (1.5-6.6) 10^3/uL Lymph # (Auto) (1.5-3.5) 10^3/uL Bailey # (Auto) (0.0-1.0) 10^3/uL Eos # (Auto) (0.0-0.7) 10^3/uL Baso # (Auto) (0.0-0.1) 10^3/uL Absolute Nucleated RBC x10^3/uL Nucleated RBC % /100WBC Manual Slide Review Platelet Estimate (NORMAL) Platelet Morphology (NORMAL) RBC Morph Micro Appear (NORMAL) Sodium 141 (135-145) mmol/L Potassium 3.3 L (3.5-4.5) mmol/L Chloride 106 (101-111) mmol/L Carbon Dioxide 27 (21-32) mmol/L Anion Gap 8.0 (6-13) BUN 36 H (6-20) mg/dL Creatinine 1.6 H (0.6-1.3) mg/dL Estimated GFR (MDRD) 31 L (>89) Glucose 116 H (74-104) mg/dL Lactic Acid 1.7 (0.5-2.2) mmol/L Calcium 8.7 (8.5-10.3) mg/dL Total Bilirubin 0.5 (0.2-1.0) mg/dL AST 22 (10-42) IU/L ALT 16 (10-60) IU/L Alkaline Phosphatase 155 H (42-121) IU/L Total Protein 7.1 (6.4-8.9) g/dL Albumin 3.3 (3.2-5.5) g/dL Globulin 3.8 (2.1-4.2) g/dL Albumin/Globulin Ratio 0.9 L (1.0-2.2) Urine Color YELLOW Urine Clarity CLEAR (CLEAR) Urine pH 6.0 (5.0-7.5) PH Ur Specific [place] 1.020 (1.002-1.030) Urine Protein 30 H (NEGATIVE) mg/dL Urine Glucose (UA) NEGATIVE (NEGATIVE) mg/dL Urine Ketones NEGATIVE (NEGATIVE) mg/dL Urine Occult Blood MODERATE H (NEGATIVE) Urine Nitrite NEGATIVE (NEGATIVE) Urine Bilirubin NEGATIVE (NEGATIVE) Urine Urobilinogen 0.2 (NORMAL) (NORMAL) E.U./dL Ur Leukocyte Esterase NEGATIVE (NEGATIVE) Urine RBC 0-5 (0-5) /HPF Urine WBC 0-3 (0-5) /HPF Ur Epithelial Cells RARE Renal Tubular (<= Few) /HPF Ur Squamous Epith Cells RARE Squamous (<= Few) Urine Bacteria Few (None Seen) /HPF Urine Culture Comments NOT INDICATED Nasal Adenovirus (PCR) Nasal B. parapertussis DNA (PCR) Nasal Coronavir 229E PCR Nasal Coronavir HKU1 PCR Nasal Coronavir NL63 PCR Nasal Coronavir OC43 PCR Nasal Enterovir/Rhinovir PCR Nasal Influenza B PCR Nasal Influenza A PCR Nasal Parainfluen 1 PCR Nasal Parainfluen 2 PCR Nasal Parainfluen 3 PCR Nasal Parainfluen 4 PCR Nasal RSV (PCR) Nasal B.pertussis DNA PCR Nasal C.pneumoniae (PCR) Tyson Human Metapneumo PCR Nasal M.pneumoniae (PCR) Nasal SARS-CoV-2 (PCR) 01/20/24 Range/Units 11:05 WBC 15.1 H (4.8-10.8) x10^3/uL RBC 3.26 L (4.20-5.40) 10^6/uL Hgb 7.7 L (12.0-16.0) g/dL Hct 26.7 L (37.0-47.0) % MCV 81.9 (81.0-99.0) fL MCH 23.6 L (27.0-31.0) pg MCHC 28.8 L (32.0-36.0) g/dL RDW 21.9 H (12.0-15.0) % Plt Count 156 (130-450) 10^3/uL MPV 9.3 (7.9-10.8) fL Neut # (Auto) 14.2 H (1.5-6.6) 10^3/uL Lymph # (Auto) 0.5 L (1.5-3.5) 10^3/uL Bailey # (Auto) 0.4 (0.0-1.0) 10^3/uL Eos # (Auto) 0.0 (0.0-0.7) 10^3/uL Baso # (Auto) 0.1 (0.0-0.1) 10^3/uL Absolute Nucleated RBC 0.00 x10^3/uL Nucleated RBC % 0.0 /100WBC Manual Slide Review Indicated Platelet Estimate NORMAL (130-450,000) (NORMAL) Platelet Morphology NORMAL APPEARANCE (NORMAL) RBC Morph Micro Appear 2+ HYPOCHROMASIA (NORMAL) Sodium (135-145) mmol/L Potassium (3.5-4.5) mmol/L Chloride (101-111) mmol/L Carbon Dioxide (21-32) mmol/L Anion Gap (6-13) BUN (6-20) mg/dL Creatinine (0.6-1.3) mg/dL Estimated GFR (MDRD) (>89) Glucose (74-104) mg/dL Lactic Acid (0.5-2.2) mmol/L Calcium (8.5-10.3) mg/dL Total Bilirubin (0.2-1.0) mg/dL AST (10-42) IU/L ALT (10-60) IU/L Alkaline Phosphatase (42-121) IU/L Total Protein (6.4-8.9) g/dL Albumin (3.2-5.5) g/dL Globulin (2.1-4.2) g/dL Albumin/Globulin Ratio (1.0-2.2) Urine Color Urine Clarity (CLEAR) Urine pH (5.0-7.5) PH Ur Specific [place] (1.002-1.030) Urine Protein (NEGATIVE) mg/dL Urine Glucose (UA) (NEGATIVE) mg/dL Urine Ketones (NEGATIVE) mg/dL Urine Occult Blood (NEGATIVE) Urine Nitrite (NEGATIVE) Urine Bilirubin (NEGATIVE) Urine Urobilinogen (NORMAL) E.U./dL Ur Leukocyte Esterase (NEGATIVE) Urine RBC (0-5) /HPF Urine WBC (0-5) /HPF Ur Epithelial Cells (<= Few) /HPF Ur Squamous Epith Cells (<= Few) Urine Bacteria (None Seen) /HPF Urine Culture Comments Nasal Adenovirus (PCR) Nasal B. parapertussis DNA (PCR) Nasal Coronavir 229E PCR Nasal Coronavir HKU1 PCR Nasal Coronavir NL63 PCR Nasal Coronavir OC43 PCR Nasal Enterovir/Rhinovir PCR Nasal Influenza B PCR Nasal Influenza A PCR Nasal Parainfluen 1 PCR Nasal Parainfluen 2 PCR Nasal Parainfluen 3 PCR Nasal Parainfluen 4 PCR Nasal RSV (PCR) Nasal B.pertussis DNA PCR Nasal C.pneumoniae (PCR) Tyson Human Metapneumo PCR Nasal M.pneumoniae (PCR) Nasal SARS-CoV-2 (PCR) - Diagnostic Imaging Diagnostic Imaging Results: positive: Final report reviewed Diagnostic Imaging Comments: Please see all comments in A/P ABX Reporting Has patient been on IV antibiotics over the past 48 hours?: Yes Sepsis Event Note (H) - Evaluation Current Stage of Sepsis: Sepsis Possible source of Sepsis: positive: Pulmonary, GI tract/intra-abdominal Confirmed Source and Organism (if known) of Sepsis: gram negative bacteremia - Sepsis Criteria Sepsis Criteria: Recorded Temperature greater than 38.3C or Less than 36C, Recorded Heart Rate greater than 90 bpm, Respiratory: Increasing oxygen requirements, WBC count greater than 12,000 or less than 4000 Assessment/Plan - Problem List (1) Gall bladder inflammation Impression: Imaging reports are as follows. Ct A/P:Development of air in the biliary tree and also in the gallbladder. This is not present on the previous studies consider biliary instrumentation versus ascending cholangitis with associated gallbladder infection with a gas-forming organism RUQUS: Limited exam due to patient condition and body habitus. Moderate dif fuse gallbladder sludge without Abdul sign. No CBD dilation no significant intrahepatic dilation. Discussed with general surgery, Dr. Haley Durand, at bedside this morning. She would like to obtain a HIDA scan and consideration for possible cholecystostomy tube.I have ordered HIDA scan and will await results. It is highly unlikely that this patient is a candidate for surgery. Zosyn IV for presumed GI source of sepsis. WBC 15.1 on admission down to 12 this morning. I we will repeat CBC in AM. Transaminases: AST and ALT 22 and 16 on admission. 28 and 18 on repeat. Alkaline phosphatase however is elevated at 155 on admission repeat 146 this morning.I will repeat CMP in AM. (2) Sepsis Impression: As evidenced by elevated white blood cell count. Patient ran a fever of 38.8 Tmax yesterday. She has been mildly hypotensive with systolics in the low 100s. Limited tachycardia with one heart rate of 113. I do not have accurate I's and O's due to urinary incontinence associated with her dementia.She does however have elevated creatinine at 1.6 on admission from a baseline of 1.1. This has improved since admission to 1.3. I will check chemistries again in the morning. She is also receiving Zithromax x 3 days IV given findings of possible pneumonia on chest x-ray. (3) Pneumobilia Impression: Please see discussion of imaging above. Patient has been discussed with general surgery. We are obtaining HIDA scan to look for gallbladder visualization. If it is in line with patient's goals of care would consider placing cholecystostomy tube. (4) Gram-negative bacteremia Impression: I have changed her antibiotics from Rocephin this morning to Zosyn due to gram- negative bacteremia. Identification and sensitivities are pending. (5) Leukocytosis Impression: Her source is likely intra-abdominal. Her white blood cell count was 15.1 on admission has decreased to 12.0. I will repeat CBC in AM. (6) Acute respiratory failure with hypoxia Impression: I believe this to be resolved. Chart carefully reviewed I see 1 O2 sat of 88% early on in her emergency department course. She was on 2 L of oxygen for a time but this has resolved and she is currently satting between 90 to 95% on room air. (7) Fever Impression: See above impression. Tmax 38.8 early on in her course. She has defervesced. (8) Pneumonia Impression: Admission chest x-ray bilateral interstitial prominence, mild edema versus viral/atypical pneumonia. She has been treated with Zithromax x 3 days. Her oxygenation has improved markedly and her lungs are clear on examination today. (9) Altered mental state Impression: Acute on chronic. Patient was referred from her memory care facility for declining mental status and fever. Some notation is made in the emergency department notes about declining level of interaction and verbal responses over several weeks to months. (10) DNR (do not resuscitate) Impression: Advance care planning note dated March 24, 2023 reviewed. There is no POLST on the chart. At that interview patient is noted to be nondecisional and CODE STATUS was discussed with the DPOA, Melisa. At that time the patient was having bradycardia down to a rate of 30 and the decision was made not to place a pacemaker. I question what the goals of care would be with related to this I have left a v oicemail with Melisa asking her to call me for further discussion and my goal would be to obtain a POLST form on this patient. I question what the plan of care would be for this cholecystitis, pneumobilia and possible cholangitis. Again we will discuss this with family as soon as we are able to get in touch with him. Please see separately documented goals of care discussion. The decision was made to discontinue treatment of this acute infection and transition the patient to comfort care only. (11) QUE (acute kidney injury) Impression: Improving. Review of labs shows baseline creatinine of 1.1. Admission creatinine 1.6. Repeat this morning 1.3. (12) Adnexal mass Impression: 3.8 x 2.5 left adnexal cystic lesion. Seen incidentally on CT of the abdomen and pelvis. I will defer further workup of this mass pending family input on goals of care. (13) Anemia Impression: Hemoglobin 7.7 on admission now down to 7.0. Patient is hemodynamically unchanged. I will obtain iron studies with a.m. labs. I will repeat CBC in the a.m. I will not transfuse. Need to clarify goals of care. (14) Hypokalemia Impression: K of 3.3 on admission down to 3.1 this morning. Potassium was not repleted on admission. She was placed on normal saline for maintenance fluids. I will change maintenance fluids to lactated Ringer's. I will give patient 20 mill equivalents of potassium p.o.I have ordered repeat chemistries for the a.m.
[2024-01-21] MEDS ORDERED: cefTRIAXone 1 GM in SODIUM CHLORIDE 0.9% MINIBAG 100 ML IV SCH (09:00)
[2024-01-21 09:12] LABS: BASOPHILS % (AUTO) 0.3 %; EOSINOPHILS % (AUTO) 0.3 %; HCT - HEMATOCRIT 23.9 % (37.0-47.0); LYMPHOCYTES # (AUTO) 1.2 10^3/uL (1.5-3.5); LYMPHOCYTES % (AUTO) 9.9 %; MEAN CORPUSCULAR HEMOGLOBIN 23.9 pg (27.0-31.0); MEAN CORPUSCULAR HGB CONC 29.3 g/dL (32.0-36.0); MEAN CORPUSCULAR VOLUME 81.6 fL (81.0-99.0); MEAN PLATELET VOLUME 9.5 fL (7.9-10.8); MONOCYTES # (AUTO) 0.5 10^3/uL (0.0-1.0); MONOCYTES % (AUTO) 4.2 %; NEUTROPHILS # (AUTO) 10.1 10^3/uL (1.5-6.6); NEUTROPHILS % (AUTO) 84.8 %; PLT - PLATELET COUNT 87 10^3/uL (130-450); RED BLOOD COUNT 2.93 10^6/uL (4.20-5.40); RED CELL DISTRIBUTION WIDTH 21.8 % (12.0-15.0)
[2024-01-21] MEDS: LACTATED RINGERS 1,000 ML IV STA (09:12)
[2024-01-21] MEDS: AZITHROMYCIN INJ 500 MG in SODIUM CHLORIDE 0.9% 250 ML IV SCH (09:12)
[2024-01-21 09:16] LABS: SLIDE REVIEW? Indicated
[2024-01-21 09:26] LABS: ALBUMIN 2.7 g/dL (3.2-5.5); ALBUMIN/GLOBULIN RATIO 0.8 (1.0-2.2); BILIRUBIN,TOTAL 0.5 mg/dL (0.2-1.0); CALCIUM 8.2 mg/dL (8.5-10.3); CREATININE 1.3 mg/dL (0.6-1.3); POTASSIUM 3.1 mmol/L (3.5-4.5); TOTAL PROTEIN 5.9 g/dL (6.4-8.9)
[2024-01-21 09:36] LABS: PLATELET ESTIMATE, MANUAL DECREASED (<130,000) (NORMAL); PLATELET MORPHOLOGY NORMAL APPEARANCE (NORMAL)
--- NOTE | 2024-01-21 11:19 | PHARMACY PROGRESS NOTE ---
- Best Possible Medication History Admit Date and Time: 01/21/24 1023 Processed by: Pharmacy Medications reviewed in ED?: No Medication History completed: Yes Patient Interview: Pt unable to participate Secondary Source(s): Physician records, Pharmacy records, Insurance records As the person ultimately responsible for medication therapy, providers are able to order a medication from an existing home medication list in [facility] via the "Reconcile Routine" prior to Confirmation of that medication by bioinformatics support specialist. Such practice is discouraged except when the physician, in their clinical judgment, deems that a medical need exists for a medication without regard to previous use.
--- NOTE | 2024-01-21 11:51 | CONSULTATION NOTE ---
Referring Provider Consult Date: 01/21/24 Chief Complaint - Chief Complaint Chief Complaint: sepsis History of Present Illness - Admitted From Admitted From:: [facility], ED - History Obtained From History obtained from: other providers Exam Limitations: Patient nonverbal/dementia - History of Present Illness HPI Comment/Other: 78F with multiple recent hospitalizations for seizures? and UTI?, brought to the ED yesterday from her formerly [facility] facility for fever. She was evaluated in the ED (patient with dementia and nonverbal) and found to be febrile with hypoxia and transient hypotension. Diagnostic imaging suggests pulmonary infiltrates and also new pneumobilia with no known history of biliary instrumentation. Subsequently a RUQUS was obtained demonstrating gallbladder sludge, no sonographic murpheys sign, trace PCF and a normal CBD diameter. LFTs were remarkable only for elevated AlkPhos, WBC was 15. Blood cx drawn in the ED are positive for GNRs. The family indicated to the ED provider that they were not interested in surgery. The patient was admitted to IM for sepsis, pneumonia vs biliary source, and started on abx. She was clinically stable overnight. No further history is able to be obtained from the patient. History - Past Medical History Neuro: reports: Dementia Musculoskeletal: reports: Osteoarthritis, Other MRSA Hx?: No - Family & Social History Living arrangement: Assisted living Social History Notes: Her past smoking and alcohol history are not known. - POLST Patient has POLST: No Meds/Allgy - Home Medications Home Medications: Ambulatory Orders Medication Instructions Recorded Confirmed Gabapentin [Neurontin] 300 mg PO TID #90 cap 03/31/23 01/21/24 Meloxicam [Mobic] 7.5 mg PO BID #60 tab 03/31/23 01/21/24 Multivitamin W/Minerals [Theragran 1 tab PO DAILYWM tab 03/31/23 01/21/24 M] QUEtiapine [SEROquel] 25 mg PO QPM #90 tab 03/31/23 01/21/24 amLODIPine [Norvasc] 5 mg PO DAILY tab 03/31/23 01/21/24 Furosemide [Lasix] 40 mg PO DAILY 11/06/23 01/21/24 Potassium Chloride [K-Dur] 20 meq PO DAILY 11/06/23 01/21/24 Zolpidem Tartrate [Ambien] 10 mg PO HS 11/06/23 01/21/24 - Allergies Allergies/Adverse Reactions: Allergies Allergy/AdvReac Type Severity Reaction Status Date / Time No Known Drug Allergies Allergy Verified 01/20/24 10:35 Exam - Vital Signs Reviewed Vital Signs: Yes Vital Signs: Vital Signs x48h Temp Pulse Resp BP Pulse Ox 01/21/24 08:09 37.0 C 65 16 106/60 95 01/21/24 04:01 37.0 C 71 16 106/59 L 95 - Physical Exam General Appearance: positive: No acute distress Eyes Bilateral: positive: Normal inspection, PERRL, EOMI Neck: positive: Nml inspection Respiratory: positive: Chest non-tender Cardiovascular: positive: Regular rate & rhythm Abdomen: positive: Non-tender (There is no RUQ ttp, nor murpheys sign) Skin: positive: Color nml Extremities: positive: Non-tender Neurologic/Psychiatric: negative: Oriented x3 (nonverbal) Conclusion and Plan - Lab Results Microbiology Results 01/20/24 11:05 Blood - Right Hand Blood Culture (PCR) - Final Laboratory Results 01/21/24 09:07: WBC 12.0 H, RBC 2.93 L, Hgb 7.0 L*, Hct 23.9 L, MCV 81.6, MCH 23.9 L, MCHC 29.3 L, RDW 21.8 H, Plt Count 87 L, MPV 9.5, Neut # (Auto) 10.1 H, Lymph # (Auto) 1.2 L, [place] # (Auto) 0.5, Eos # (Auto) 0.0, Baso # (Auto) 0.0, Absolute Nucleated RBC 0.00, Nucleated RBC % 0.0, Manual Slide Review Indicated, Platelet Estimate DECREASED (<130,000), Platelet Morphology NORMAL APPEARANCE, RBC Morph Micro Appear 1+ POLYCHROMASIA 01/21/24 09:07: Lactic Acid 1.0 01/21/24 09:07: Sodium 144, Potassium 3.1 L, Chloride 113 H, Carbon Dioxide 26, Anion Gap 5.0 L, BUN 33 H, Creatinine 1.3, Estimated GFR (MDRD) 40 L, Glucose 121 H, Calcium 8.2 L, Total Bilirubin 0.5, AST 28, ALT 18, Alkaline Phosphatase 146 H, Total Protein 5.9 L, Albumin 2.7 L, Globulin 3.2, Albumin/Globulin Ratio 0.8 L 01/21/24 03:12: Lactic Acid 1.0 01/20/24 21:22: Lactic Acid 1.0 01/20/24 12:50: Nasal Adenovirus (PCR) NOT DETECTED, Nasal B. parapertussis DNA (PCR) NOT DETECTED, Nasal Coronavir 229E PCR NOT DETECTED, Nasal Coronavir HKU1 PCR NOT DETECTED, Nasal Coronavir NL63 PCR NOT DETECTED, Nasal Coronavir OC43 PCR NOT DETECTED, Nasal Enterovir/Rhinovir PCR NOT DETECTED, Nasal Influenza B PCR NOT DETECTED, Nasal Influenza A PCR NOT DETECTED, Nasal Parainfluen 1 PCR NOT DETECTED, Nasal Parainfluen 2 PCR NOT DETECTED, Nasal Parainfluen 3 PCR NOT DETECTED, Nasal Parainfluen 4 PCR NOT DETECTED, Nasal RSV (PCR) NOT DETECTED, Nasal B.pertussis DNA PCR NOT DETECTED, Nasal C.pneumoniae (PCR) NOT DETECTED, Tyson Human Metapneumo PCR NOT DETECTED, Nasal M.pneumoniae (PCR) NOT DETECTED, Nasal SARS-CoV-2 (PCR) NOT DETECTED 01/20/24 11:16: Urine Color YELLOW, Urine Clarity CLEAR, Urine pH 6.0, Ur Specific [place] 1.020, Urine Protein 30 H, Urine Glucose (UA) NEGATIVE, Urine Ketones NEGATIVE, Urine Occult Blood MODERATE H, Urine Nitrite NEGATIVE, Urine Bilirubin NEGATIVE, Urine Urobilinogen 0.2 (NORMAL), Ur Leukocyte Esterase NEGATIVE, Urine RBC 0-5, Urine WBC 0-3, Ur Epithelial Cells RARE Renal Tubular, Ur Squamous Epith Cells RARE Squamous, Urine Bacteria Few, Urine Culture Comments NOT INDICATED 01/20/24 11:05: Lactic Acid 1.7 01/20/24 11:05: Sodium 141, Potassium 3.3 L, Chloride 106, Carbon Dioxide 27, Anion Gap 8.0, BUN 36 H, Creatinine 1.6 H, Estimated GFR (MDRD) 31 L, Glucose 116 H, Calcium 8.7, Total Bilirubin 0.5, AST 22, ALT 16, Alkaline Phosphatase 155 H, Total Protein 7.1, Albumin 3.3, Globulin 3.8, Albumin/Globulin Ratio 0.9 L 01/20/24 11:05: WBC 15.1 H, RBC 3.26 L, Hgb 7.7 L, Hct 26.7 L, MCV 81.9, MCH 23.6 L, MCHC 28.8 L, RDW 21.9 H, Plt Count 156, MPV 9.3, Neut # (Auto) 14.2 H, Lymph # (Auto) 0.5 L, [place] # (Auto) 0.4, Eos # (Auto) 0.0, Baso # (Auto) 0.1, Absolute Nucleated RBC 0.00, Nucleated RBC % 0.0, Manual Slide Review Indicated, Platelet Estimate NORMAL (130-450,000), Platelet Morphology NORMAL APPEARANCE, RBC Morph Micro Appear 2+ HYPOCHROMASIA - Diagnostic Imaging Results Diagnostic Imaging Results: positive: Read contemporaneously Diagnostic Imaging Results Comments: CT abd/pel with pneumobilia RUQUS with gallbaldder sludge, trace PCF, normal CBD diameter, no sonographic murpheys sign - Diagnosis Diagnosis: Sepsis - Consultation Note Consultation Note: 78yoF admitted yesterday for sepsis, found to be bacteremic with GNRs. Remains HD normal and WBC down from 15 to 12. Source of pneumonia +/- biliary. Overall, although there is sludge in the gallbladder and she has GNRs in the blood, her exam (nontender RUQ), LFTs (only notable to elevated ALP) and US (trace PCF, no sonographic murpheys sign, and normal CBD) are not clearly supportive of acute cholecystitis. - Recommend HIDA for definitive evaluation of acute cholecystitis - agree with zosyn for coverage of GNRs - trend LFTs and WBC - if HIDA is positive, will discuss further with family to clarify wishes for surgical (laparoscopic cholecystectomy) vs procedural (percutaneous cholecystostomy tube) intervention - more than likely would anticipate PTC Haley Durand DO FACS General Surgeon
[2024-01-21] MEDS ORDERED: POTASSIUM CHLORIDE 20 MEQ TABLET PO ONE (12:25)
[2024-01-21] MEDS ORDERED: HYDROmorphone 0.5 MG/0.5 ML SYRINGE IVP PRN (12:34)
[2024-01-21] MEDS: POTASSIUM CHLOR 10 MEQ/100 ML 10 MEQ/100 ML BAG IV ONE (15:15)
[2024-01-21 15:51] VITALS: BP 111/52; O2SAT 93
[2024-01-21] MEDS ORDERED: ACETAMINOPHEN 650 MG SUPP PR PRN (16:38)
[2024-01-21] MEDS ORDERED: HALOPERIDOL 5 MG/ML VIAL IVP PRN (16:38)
[2024-01-21] MEDS ORDERED: LORazepam 1 MG TABLET PO PRN (16:38)
[2024-01-21] MEDS ORDERED: MORPHINE 2 MG/ML CARPUJECT IVP PRN (16:38)
[2024-01-21] MEDS ORDERED: GLYCOPYRROLATE 1 MG/5 ML VIAL SUBQ PRN (16:38)
--- NOTE | 2024-01-21 16:52 | ADVANCE CARE PLANNING NOTE ---
Advance Care Planning - Planning Encounter Date: 01/21/24 Time: 16:50 Purpose: determine goals of care Parties in Attendance: telephone consultation with MELONIE Joyner Decisional Capacity of the Patient: advanced dementia, not decisional - Diagnosis for Encounter (1) Gall bladder inflammation Summary: Pneumobilia and gram-negative bacteremia. This is a life-threatening infection. (9) Altered mental state Summary: Acute on chronic in nature. Miley was certainly transferred here for acute mental status changes, however over the last 3 months that she has had a definite decline in her status and has been nonverbal for at least 3 weeks. - Encounter Subjective/Patient's Story: After a period of estrangement for over 30 years from her family patient was found living in her car in [place]. She returned back to the [facility] to live with her brother and [id number] and look on her and stayed with him for a period of months. She continues to decline in her mental status and needed placement in a memory care facility. She is transferred from this memory care facility to our hospital for mental status changes. Objective/Medical Story: This is a patient with gram-negative bacteremia and pneumobilia. She has had a decline over months and her mental status since her birthday at the end of October. 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 While her medical conditions of bacteremia pneumobilia are acute in nature her decline has been steady and chronic. This patient does not converse with me she makes occasional eye contact. She moans. We have started medical therapy for her infection and gram-negative bacteremia however it is clear after this in fact conversation that that is not in the best interest of the patient. Goals of Care: Comfort and peace Plan: Long discussion with Melisa regarding the recent history of Miley's life. And how Melisa and her brother Christy feel about Miley. They love her and would not wish for her to suffer. They see that all of the things that made her life joyful or gone and she is not enjoying life at all. They feel strongly that she would wish to pass. Additional Discussion: I have conferred with social work who can assist in transition back to patient's memory care facility. We are able to find hospice admission in 2 days. We will plan to transfer the patient back to memory care and admission to hospice in less than 48 hours. It is difficult to determine the remaining length of Miley's life but I think it is reasonable to think that she will live from 2-7 more days. Code Status: Do Not Attempt Resuscitation Time spent on advance care planninminutes
[2024-01-22] MEDS: MORPHINE SOL 10 MG/0.5 ML ORAL SYRINGE PO PRN (04:50)
--- NOTE | 2024-01-22 08:09 | PROVIDER PROGRESS NOTE ---
Subjective - Prog Note Date Prog Note Date: 01/22/24 Prog Note Time: 08:07 - Subjective Subjective: This AM is sitting up eating breakfast. has some abdominal pain, but she is able to sit up and eat. remains non verbal, but is communicating with gestures. When came by this afternoon, she is taking a nap Current Medications - Current Medications Current Medications: Medications Acetaminophen (Acetaminophen 650 Mg Supp) 650 mg NJ Q4H PRN PRN Reason: Fever >101 Glycopyrrolate (Glycopyrrolate 1 Mg/5 Ml Vial) 0.2 mg SUBQ Q4H PRN PRN Reason: Excessive secretions Haloperidol (Haloperidol 5 Mg/Ml Vial) 0.5 mg IVP Q6H PRN PRN Reason: Nausea / Vomiting Lorazepam (Lorazepam 1 Mg Tablet) 1 mg PO Q6H PRN PRN Reason: Anxiety/Agitation Morphine Sulfate (Morphine Magdalena 10 Mg/0.5 Ml Oral Syringe) 10 mg PO Q2HR PRN PRN Reason: Moderate Pain (Level 4-6)/SOA Last Admin: 01/22/24 16:46 Dose: 10 mg Morphine Sulfate (Morphine 2 Mg/Ml Carpuject) 2 mg IVP Q2HR PRN PRN Reason: Severe Pain (Level 7-10)/ SOA Objective - Vital Signs/Intake & Output Reviewed Vital Signs: Yes Vital Signs: no vital signs, this is a comfort care patient Intake & Output: Intake & Output 01/19/24 01/20/24 01/21/24 01/22/24 23:59 23:59 23:59 23:59 Intake Total 2390 1900.000 Output Total 800 Balance 2390 1100.000 - Objective General Appearance: positive: No acute distress Eyes Bilateral: positive: Normal inspection ENT: positive: ENT inspection nml Neck: positive: Nml inspection Respiratory: positive: Chest non-tender, No respiratory distress Cardiovascular: positive: Regular rate & rhythm Abdomen: positive: Tenderness (RUQ and epigastric tenderness. not distended.) Back: positive: Nml inspection Skin: positive: Color nml Extremities: positive: Non-tender Neurologic/Psychiatric: positive: Disoriented to person, Disoriented to place, Disoriented to time, Other (non verbal, but nods her head at me and moans and grimaces with pain.) - Lab Results Fish Bones: 01/21/24 09:07 01/21/24 09:07 Other Labs: Lab Results x24hrs 01/21/24 01/21/24 01/21/24 Range/Units 15:20 09:07 09:07 WBC 12.0 H (4.8-10.8) x10^3/uL RBC 2.93 L (4.20-5.40) 10^6/uL Hgb 7.0 L* (12.0-16.0) g/dL Hct 23.9 L (37.0-47.0) % MCV 81.6 (81.0-99.0) fL MCH 23.9 L (27.0-31.0) pg MCHC 29.3 L (32.0-36.0) g/dL RDW 21.8 H (12.0-15.0) % Plt Count 87 L (130-450) 10^3/uL MPV 9.5 (7.9-10.8) fL Neut # (Auto) 10.1 H (1.5-6.6) 10^3/uL Lymph # (Auto) 1.2 L (1.5-3.5) 10^3/uL Bartholomew # (Auto) 0.5 (0.0-1.0) 10^3/uL Eos # (Auto) 0.0 (0.0-0.7) 10^3/uL Baso # (Auto) 0.0 (0.0-0.1) 10^3/uL Absolute Nucleated RBC 0.00 x10^3/uL Nucleated RBC % 0.0 /100WBC Manual Slide Review Indicated Platelet Estimate DECREASED (<130,000) (NORMAL) Platelet Morphology NORMAL APPEARANCE (NORMAL) RBC Morph Micro Appear 1+ POLYCHROMASIA (NORMAL) Sodium (135-145) mmol/L Potassium (3.5-4.5) mmol/L Chloride (101-111) mmol/L Carbon Dioxide (21-32) mmol/L Anion Gap (6-13) BUN (6-20) mg/dL Creatinine (0.6-1.3) mg/dL Estimated GFR (MDRD) (>89) Glucose (74-104) mg/dL Lactic Acid 1.1 1.0 (0.5-2.2) mmol/L Calcium (8.5-10.3) mg/dL Total Bilirubin (0.2-1.0) mg/dL AST (10-42) IU/L ALT (10-60) IU/L Alkaline Phosphatase (42-121) IU/L Total Protein (6.4-8.9) g/dL Albumin (3.2-5.5) g/dL Globulin (2.1-4.2) g/dL Albumin/Globulin Ratio (1.0-2.2) 01/21/24 Range/Units 09:07 WBC (4.8-10.8) x10^3/uL RBC (4.20-5.40) 10^6/uL Hgb (12.0-16.0) g/dL Hct (37.0-47.0) % MCV (81.0-99.0) fL MCH (27.0-31.0) pg MCHC (32.0-36.0) g/dL RDW (12.0-15.0) % Plt Count (130-450) 10^3/uL MPV (7.9-10.8) fL Neut # (Auto) (1.5-6.6) 10^3/uL Lymph # (Auto) (1.5-3.5) 10^3/uL Bartholomew # (Auto) (0.0-1.0) 10^3/uL Eos # (Auto) (0.0-0.7) 10^3/uL Baso # (Auto) (0.0-0.1) 10^3/uL Absolute Nucleated RBC x10^3/uL Nucleated RBC % /100WBC Manual Slide Review Platelet Estimate (NORMAL) Platelet Morphology (NORMAL) RBC Morph Micro Appear (NORMAL) Sodium 144 (135-145) mmol/L Potassium 3.1 L (3.5-4.5) mmol/L Chloride 113 H (101-111) mmol/L Carbon Dioxide 26 (21-32) mmol/L Anion Gap 5.0 L (6-13) BUN 33 H (6-20) mg/dL Creatinine 1.3 (0.6-1.3) mg/dL Estimated GFR (MDRD) 40 L (>89) Glucose 121 H (74-104) mg/dL Lactic Acid (0.5-2.2) mmol/L Calcium 8.2 L (8.5-10.3) mg/dL Total Bilirubin 0.5 (0.2-1.0) mg/dL AST 28 (10-42) IU/L ALT 18 (10-60) IU/L Alkaline Phosphatase 146 H (42-121) IU/L Total Protein 5.9 L (6.4-8.9) g/dL Albumin 2.7 L (3.2-5.5) g/dL Globulin 3.2 (2.1-4.2) g/dL Albumin/Globulin Ratio 0.8 L (1.0-2.2) ABX Reporting Has patient been on IV antibiotics over the past 48 hours?: Yes Sepsis Event Note (H) - Evaluation Current Stage of Sepsis: Sepsis Possible source of Sepsis: positive: Pulmonary, GI tract/intra-abdominal - Sepsis Criteria Sepsis Criteria: Recorded Temperature greater than 38.3C or Less than 36C, Recorded Heart Rate greater than 90 bpm, Respiratory: Increasing oxygen requirements, WBC count greater than 12,000 or less than 4000 Assessment/Plan - Problem List (1) Gall bladder inflammation Impression: Symptomatic treatment with pain medication. (10) DNR (do not resuscitate) Impression: Please see my advance care planning note from yesterday. This is a 78-year-old female with end-stage dementia. We are treating this patient under comfort care protocol. We will transfer her back to her assisted living facility in the morning and have her admitted to hospice several hours later.
--- NOTE | 2024-01-23 07:00 | Discharge Plan ---
Discharge Plan Problem Reviewed?: Yes Disposition: 50 Hospice/Home DC/Xfer Condition: Fair Diet: Soft Activity Restrictions: No Restrictions Shower Restrictions: No Driving Restrictions: Yes Assistance Devices: Wheelchair Instruction Topics: DNR Orders Health Concerns: intra abdominal infection Care Goals: minimal interventions aimed at comfort and peace Assessment: Miley was admitted to the hospital with acute mental status changes and inability to provide history due to dementia. She was febrile and hypoxic on room air at the time of admission. She does not chronically wear oxygen. She had an elevated white blood cell count. Imaging findings were significant for bilateral lung infiltrates CT abdomen which showed findings concerning for cholangitis follow-up ruckus showed air within the biliary tree. Surgery was consulted and patient was not a good surgical candidate the recommendation was for HIDA scan. This was ordered. However, in the interim medicine service was able to get in touch with family. I had a long discussion with her DPOA Melisa and the determination was not to treat this intra-abdominal infection. Miley was found homeless in [place] several years ago after an approximately 30-year period of estrangement from her brother, Adam. She came to live with Melisa and Adam and Cristi for a period of time. However, her dementia was worsening and she was unable to continue to be at home with them. Placement was found and [facility] home memory [facility]. Since her birthday in October of this year, Miley has become increasingly nonverbal. She is interacted less and unable to engage with the things that she previously enjoyed. With great compassion Melisa is able to make the decision not to treat Nickie intra-abdominal infection. Additional Instructions or Follow Up instructions: She will be admitted by [facility] services between 2 and 3:00 this afternoon, Wednesday, January 22. Follow-Up Care: Hospice No Smoking: If you smoke, Please STOP! Call for help.
--- NOTE | 2024-01-23 08:09 | Discharge Plan ---
Discharge Plan Disposition: 50 Hospice/Home DC/Xfer Condition: Fair Activity Restrictions: No Restrictions Shower Restrictions: No Driving Restrictions: Yes Instruction Topics: DNR Orders Health Concerns: intra abdominal infection Care Goals: minimal interventions aimed at comfort and peace Assessment: Miley was admitted to the hospital with acute mental status changes and inability to provide history due to dementia. She was febrile and hypoxic on room air at the time of admission. She does not chronically wear oxygen. She had an elevated white blood cell count. Imaging findings were significant for bilateral lung infiltrates CT abdomen which showed findings concerning for cholangitis follow-up ruckus showed air within the biliary tree. Surgery was consulted and patient was not a good surgical candidate the recommendation was for HIDA scan. This was ordered. However, in the interim medicine service was able to get in touch with family. I had a long discussion with her DPOA Melisa and the determination was not to treat this intra-abdominal infection. Miley was found homeless in [place] several years ago after an approximately 30-year period of estrangement from her brother, Adam. She came to live with Melisa and Martin for a period of time. However, her dementia was worsening and she was unable to continue to be at home with them. Placement was found and [facility] home memory care. Since her birthday in October of this year, Miley has become increasingly nonverbal. She is interacted less and unable to engage with the things that she previously enjoyed. With great compassion Melisa is able to make the decision not to treat Nickie intra-abdominal infection. Additional Instructions or Follow Up instructions: She will be admitted by [facility] services between 2 and 3:00 this afternoon, Wednesday, January 22. No Smoking: If you smoke, Please STOP! Call for help. Follow-up with: Marge Rodriguez MD [Primary Care Provider] -
--- NOTE | 2024-01-23 08:13 | DISCHARGE SUMMARY ---
"Discharge Summary Admit Date: 01/20/24 Discharge Date: 01/23/24 Discharging Provider: Danya Navarrete PA-C Primary Care Provider: Marge cabrera Code Status: Do Not Attempt Resuscitation Discharge Disposition: 50 Hospice/Home DC/Xfer - DIAGNOSES Admission Diagnoses: Sepsis Gallbladder inflammation Pneumonia Acute respiratory failure with hypoxia Acute kidney injury Discharge Diagnoses with Status of Each Condition: Gallbladder inflammation, cholecystitis, pneumobilia. Decision has been made not to treat further with either cholecystectomy or cholecystostomy tube. Patient is DO NOT RESUSCITATE comfort care and is being admitted to hospice services. Positive blood cultures. Blood cultures were drawn finalize with Isi. The patient with sepsis related to this. This is normally not a pathogenic bacteria. Patient was treated with antibiotics prior to her goals of care being established. Antibiotics were discontinued. Patient looks well. Dementia. End-stage dementia. DNR status Adnexal mass 3.8 x 2.5 left adnexal cystic lesion seen on CT of the abdomen and pelvis that incidentally. This mass has not been worked up. - HPI History of Present Illness: From admission H&P: Mrs. Sandoval presented to the ED from a [place] for evaluation of fever and lethargy. patient unable to provide much history due to dementia. On presentation she was noted to be febrile and hypoxic on room air. she does not wear oxygen chronically. Labwork was obtained adn patient was noted to meet sepsis inclusion criteria. Additional workup, demonstrated bilateral infiltrates on lung imaging and CT abdomen which demonstrated finding concerning for cholangitis. case was discussed with surgery who felt that patient was not a good surgical candidate. Recommended antibiotics and trend Labwork. ED spoke with patient's POA who was in agreement with plan. - CONSULTS | PROCEDURES Consultations: Surgery, Dr Durand Procedures: none - HOSPITAL COURSE Hospital Course: Noted to have increased white count fever on admission and tachycardia. Was treated initially with antibiotics, and surgical consultation. Surgery recommended HIDA scan to further delineate the diagnosis of cholecystitis with pneumobilia. However in the intervening time we were able to get in touch with family who desires no interventions no treatment. This was discussed with patient's DPOA and [id number] Melisa on 01/21/2024. Antibiotics were stopped immediately and comfort care orders were instituted. Patient's abdominal pain is being treated with as needed narcotics.She has been able to tolerate a soft diet. On the morning of discharge, she looks well. She is sitting up in bed eating. She is slightly verbal says good morning to me but continues to be completely not oriented to person place or time. Her abdomen is mildly tender to palpation. She appears well. - ALLERGIES Allergies/Adverse Reactions: Allergies Allergy/AdvReac Type Severity Reaction Status Date / Time No Known Drug Allergies Allergy Verified 01/20/24 10:35 - MEDICATIONS Home Medications: Ambulatory Orders Medication Instructions Recorded Confirmed Acetaminophen [Tylenol] 650 mg MO Q4H PRN supp 01/23/24 LORazepam [Ativan] 1 mg PO Q6H PRN tab 01/23/24 Morphine Oral Soln [Roxanol] 10 mg PO Q2H #15 ml 01/23/24 - PHYSICAL EXAM AT DISCHARGE General Appearance: positive: No acute distress Eyes Bilateral: positive: Normal inspection ENT: positive: ENT inspection nml Neck: positive: Nml inspection Respiratory: positive: Chest non-tender Cardiovascular: positive: Regular rate & rhythm, Systolic murmur (right sternal border) Abdomen: positive: Tenderness (RUQ tenderness) Skin: positive: Color nml Extremities: positive: Non-tender Neurologic/Psychiatric: positive: Disoriented to person, Disoriented to place, Disoriented to time, Other (pleasant affect, singing and eating her breakfast this AM) - LABS Result Diagrams: 01/21/24 09:07 01/21/24 09:07 - SEPSIS Current Stage of Sepsis: Sepsis Possible source of Sepsis: Pulmonary, GI tract/intra-abdominal Sepsis Criteria: Recorded Temperature greater than 38.3C or Less than 36C, Recorded Heart Rate greater than 90 bpm, Respiratory: Increasing oxygen requirements, WBC count greater than 12,000 or less than 4000 - FOLLOW UP Follow Up: [facility] to admit patient at [phone] on the date of DC - TIME SPENT Time Spent in Discharge (Minutes): 30"
--- NOTE | 2024-01-23 09:23 | Discharge Plan ---
Discharge Plan Problem Reviewed?: Yes Disposition: 50 Hospice/Home DC/Xfer Prescriptions: Morphine Oral Soln [Roxanol] 10 mg PO Q2HR PRN #10 ml PRN Reason: Moderate Pain (Level 4-6)/SOA Activity Restrictions: No Restrictions Shower Restrictions: No Driving Restrictions: Yes Instruction Topics: DNR Orders Health Concerns: intra abdominal infection Care Goals: minimal interventions aimed at comfort and peace Assessment: Miley was admitted to the hospital with acute mental status changes and inability to provide history due to dementia. She was febrile and hypoxic on room air at the time of admission. She does not chronically wear oxygen. She had an elevated white blood cell count. Imaging findings were significant for bilateral lung infiltrates CT abdomen which showed findings concerning for cholangitis follow-up ruckus showed air within the biliary tree. Surgery was consulted and patient was not a good surgical candidate the recommendation was for HIDA scan. This was ordered. However, in the interim medicine service was able to get in touch with family. I had a long discussion with her DPOA Melisa and the determination was not to treat this intra-abdominal infection. Miley was found homeless in [place] several years ago after an approximately 30-year period of estrangement from her brother, Adam. She came to live with Melisa and Adam and [facility] for a period of time. However, her dementia was worsening and she was unable to continue to be at home with them. Placement was found and [facility] home memory care. Since her birthday in October of this year, Miley has become increasingly nonverbal. She is interacted less and unable to engage with the things that she previously enjoyed. With great compassion Melisa is able to make the decision not to treat Nickie intra-abdominal infection. Additional Instructions or Follow Up instructions: She will be admitted by [facility] services between 2 and 3:00 this afternoon, January 22. No Smoking: If you smoke, Please STOP! Call for help. Follow-up with: Marge Rodriguez MD [Primary Care Provider] -
== END 2024-01-23 10:15 | disposition hospice, home (50) | DRG 871 ==
LOC: EDUNIT# → ED 10:23 → MS2 20:55 → OBSVTOIN 01-21 10:23
PROVIDERS: ADMIT Hospitalist; ATTEND Physician Assistant Medical
DX: A41.9 Sepsis, unspecified organism (principal); J18.9 Pneumonia, unspecified organism; J96.01 Acute respiratory failure with hypoxia; N17.9 Acute kidney failure, unspecified; K81.9 Cholecystitis, unspecified; R65.20 Severe sepsis without septic shock; R53.83 Other fatigue; R74.8 Abnormal levels of other serum enzymes; F03.90 Unspecified dementia, unspecified severity, without behavioral disturbance, psychotic disturbance, mood disturbance, and anxiety; K83.8 Other specified diseases of biliary tract; Z20.818 Contact with and (suspected) exposure to other bacterial communicable diseases; Z20.822 Contact with and (suspected) exposure to COVID-19; Z20.828 Contact with and (suspected) exposure to other viral communicable diseases; M19.90 Unspecified osteoarthritis, unspecified site; N83.8 Other noninflammatory disorders of ovary, fallopian tube and broad ligament; E87.6 Hypokalemia; D64.9 Anemia, unspecified; Z66 Do not resuscitate; Z79.899 Other long term (current) drug therapy
CPT/HCPCS: 36415; 51701; 71045; 74177; 76705; 80053; 81001; 83605; 85025; 87040; 87077; 87154; 87181; 87633; 93005; 96361; 96365; 96367; 99285; A9270; G0378; J7120; Q9967; 87086

== ENCOUNTER 2024-01-23 10:15 | Outpatient (CLI) | payer MEDICARE, MEDICAID | END 2024-01-23 23:59 | disposition home or self-care (01) | LOC: EMS 10:15 | PROVIDERS: ATTEND Physician Assistant Medical | DX: F03.90 Unspecified dementia, unspecified severity, without behavioral disturbance, psychotic disturbance, mood disturbance, and anxiety (principal); A41.9 Sepsis, unspecified organism; Z66 Do not resuscitate; Z74.01 Bed confinement status | CPT/HCPCS: A0425; A0428 ==